=== PATIENT | male | born 1945 | race Caucasian/White ===

== ENCOUNTER 2020-01-04 09:57 | Outpatient (CLI) | payer MEDICARE, SELFPAY ==
--- NOTE | 2020-01-10 11:42 | WPDPFTINT ---
PFT Interpretation PFT Interpretation: This PFT met all criteria for ATS standards and reproducibility FEV/FVC pre bronchodilator 89% FEV1 87% or 2.49 liters FVC 65% or 2.81 liters TLC 84% or 5.47 liters RV 90% RV/TLC 43% DLCO 76% when adjusted for alveolar volume but not adjusted for hemoglobin Flow volume loops had coughing artifact but were mostly normal Impression: No significant obstruction or restriction but mildly decreased diffusion capacity is present. In the absence of anemia or pulmonary hypertension, intrinsic lung disease cannot be ruled out. Clinical correlation is advised.
== END 2020-01-04 09:58 | disposition home or self-care (01) ==
LOC: ANHPFT 10:00
PROVIDERS: PCP Family Medicine; Visit Provider Internal Medicine Cardiovascular Disease
DX: R23.0 Cyanosis (principal); Z87.891 Personal history of nicotine dependence
CPT/HCPCS: 94375; 94726; 94729

== ENCOUNTER 2020-02-17 01:24 | Outpatient (CLI) | payer MEDICARE, SELFPAY ==
[2020-02-17 21:25] LABS: SARS-CoV-2 RNA PCR Negative
== END 2020-02-17 01:25 | disposition home or self-care (01) ==
LOC: ANHCOVIDDT 01:24
PROVIDERS: PCP Family Medicine; Visit Provider Internal Medicine Critical Care Medicine
DX: Z20.828 Contact with and (suspected) exposure to other viral communicable diseases (principal)
CPT/HCPCS: 87635; C9803; U0003

== ENCOUNTER 2020-02-20 07:24 | Outpatient (CLI) | payer MEDICARE, SELFPAY ==
--- NOTE | 2020-03-26 10:59 | WPDSLEEPSTUD ---
Sleep Study Date of Study: 03/21/20 Ordering Provider: Denisse Hogan MD Interpreting Physician: Denisse Hogan MD Sleep Study Type: CPAP Titration Height: 1.78 m Weight: 120.202 kg Body Mass Index: 38.0 Neck Circumference: 43.18 cm [place]: 6 Reason for Sleep Study known SOFI, needs new equipment Sleep History Calvin Beatty is a 74 year old man with a long history of sleep apnea. He was started on BiPAP in 2010 but did not like it. He resorted back to using CPAP. His machine is broken and he has been using an old CPAP device that his had at home. He has difficulty waking up in the morning. He does not snore when he is using Pap therapy. He does not awaken at night with heartburn, belching or coughing. He does not awaken from sleep feeling short of breath. He occasionally has trouble sleeping with a cold. He does not wake up gasping for breath at night. He occasionally has breathing problems at night reported to him by his . He occasionally sweats excessively at night. He denies noticing his heart pounding irregularly at night, falling asleep during the day, falling asleep involuntarily or while driving the car. He does not fall asleep during physical activity. He does not have loss of muscle tone with strong emotion. He does not have daytime difficulties due to excessive sleepiness. He denies having paralysis on waking or falling asleep and denies vivid dreamlike scenes upon awakening or falling asleep. He is not afraid to go to sleep. He does not have nightmares, he does not have dream recall. He denies racing thoughts, feelings of sadness, depression or anxiety. He does not have muscular tension. He rarely notices parts of his body jerking. He frequently kicks at night, frequently has crawling and aching feelings in his legs at night and frequently has leg pain at night. He does not have morning jaw pain. He does not grind his teeth during sleep. He constantly has bothered by pain during the day, occasionally is awakened by pain at night. He constantly wakes up feeling stiff in the morning frequently was sore achy muscles but never with pain in the neck and spine. He takes ropinirole at night for leg movements. He takes Seroquel to get to sleep at night. Normal bedtime is midnight taking 30-40 minutes fall asleep and he said he does not wake up at night. He wakes at 9 in the morning. He denies taking naps. Naps are not refreshing. Habits: Caffeine 4 cups per day. quit tobacco at age 52, smoked 2-1/2 packs per day for about 30 years [facility] Past Medical History Medical History (Updated 03/26/20 @ 11:30 by Denisse Hogan MD) Arthritis Chronic GERD Diastolic dysfunction without heart failure Dyslipidemia Hypertension Hypoxia Mild tricuspid regurgitation SOFI on CPAP Restless legs syndrome Type II diabetes mellitus with neurological manifestations Surgical History Surgical History (Updated 03/26/20 @ 11:05 by Denisse Hogan MD) History of prostate surgery Social History Social History (Updated 03/26/20 @ 11:08 by Denisse Hogna MD) Social History: , is [place]. Retired, worked as a [employer]. Smoking packs per day: 2.5 Smoking cigarettes per day: 50.0 Years smoked: 30 Smoking pack-years: 75.00 Smoking status: Former smoker Living arrangements: with family Occupation/Education: retired Medications Home Medications Medication Instructions Recorded Confirmed Type betamethasone valerate 0.1 % lotion 1 applic TOPICAL BID 01/05/20 03/13/20 History carboxymethylcellulose sodium 0.5 1 drp OPHTHALMIC (EYE) BID 01/05/20 03/13/20 History % eye drops cholecalciferol (vitamin D3) 125 125 mcg PO DAILY 01/05/20 03/13/20 History mcg (5,000 unit) tablet clobetasol 0.05 % topical cream 1 applic TOPICAL BID 01/05/20 03/13/20 History docusate sodium 100 mg tablet 100 mg PO BID 01/05/20 03/13/20 History fluocinonide 0.05 % topical cream 1 applic TOPICAL BID
[2020-03-26 11:00] VITALS: BMI 38.0
== END 2020-02-20 07:25 | disposition home or self-care (01) ==
LOC: ANHCSM 07:30
PROVIDERS: PCP Family Medicine; Visit Provider Internal Medicine Critical Care Medicine
DX: G47.33 Obstructive sleep apnea (adult) (pediatric) (principal); Z99.89 Dependence on other enabling machines and devices
CPT/HCPCS: 95811

== ENCOUNTER 2020-03-02 12:34 | Outpatient (CLI) | payer MEDICARE, SELFPAY ==
--- NOTE | 2020-03-06 09:42 | WPDPFTINT ---
PFT Interpretation PFT Interpretation: This Spirometry met all criteria for ATS standards and reproducibility FEV/FVC post bronchodilator 86% FEV1 93% FVC 72% There was an improvement in post bronchodilator FEV1 by 13% and 300 ml Flow volume loops were normal Impression: Although no significant obstruction is present the bronchodilator response suggests possible reactive airway disease or Asthma but COPD or other lung diseases cannot be ruled out. Clinical correlation is advised.
== END 2020-03-02 12:35 | disposition home or self-care (01) ==
PROVIDERS: PCP Internal Medicine; Visit Provider Internal Medicine Critical Care Medicine
DX: R06.02 Shortness of breath (principal)
CPT/HCPCS: 94060

== ENCOUNTER 2022-06-05 10:25 | Outpatient (RCR) | payer MEDICARE, SELFPAY ==
--- NOTE | 2022-06-05 11:23 | OTOPEVDC ---
Assessment and note entered by Akil Conte, OTR/L, CHT Thank you for referring Calvin Beatty to [facility].? An evaluation has been completed. No further treatment is needed. Evaluation Information Assessment Status Evaluation Subjective Information Patient referred to our clinic for a w/c evaluation with diagnosis of decreased mobility. He presents today using a cane, reporting severe leg/hip/knee pain with walking, gets up to 10/10 at times. States he has been having an increasingly difficult time moving around the home and occasionally needs help with bathing and dressing on bad days . He has chronic back pain with radiculopathy, OA, h/o bilateral knee replacements. Reported Pain Level Pain Score 5: Self Report Assessment OT Clinical Summary Wheelchair evaluation completed this date. Patient unable to use an optimally fitted cane, walker, or manual w/c for mobility needs due to chronic pain, weakness, decreased balance, and limited standing tolerance. He will benefit from use of a scooter for his mobility as he has the intact trunk strength, sitting balance, and UE ROM to operate the [employer] system. Please refer to w/c evaluation form for more detailed information. No further skilled OT indicated at this time. D/C OT. Plan of Care OT Services Indicated No
== END 2022-06-06 14:09 | disposition home or self-care (01) ==
LOC: ANHOT 10:25
PROVIDERS: PCP Nurse Practitioner Family; Visit Provider Nurse Practitioner Family
DX: Z74.09 Other reduced mobility (principal)
CPT/HCPCS: 97165

== ENCOUNTER 2024-03-04 12:19 | Emergency (ER) | payer MEDICARE, SELFPAY ==
[2024-03-04 12:28] VITALS: BP 159/71; PULSE 83; RESP 18; TEMP 36.6; O2SAT 97
--- NOTE | 2024-03-04 12:47 | ED_ITS ---
HPI - General Adult General Chief complaint: Wound/Laceration Stated complaint: wound to right hand Time Seen by Provider: 03/04/24 13:13 Focused HPI: This is a 78-year-old male with PMH of T2 dm who presents to the ED for chief complaint of right hand possible spider bite. Reports area of swelling to the right hand the started 2 days ago. Since then he has had increasing bruising throughout the hand. States the hand is minimally painful. He is on warfarin for that he takes regularly. GENERAL: Well-appearing, well-nourished, and in no acute distress. HEAD: Normocephalic, atraumatic. CHEST: Clear to auscultation. No respiratory distress. HEART: Regular rate and rhythm. EXTR: Right hand with bruising and mild swelling present. Minimal tenderness. NEURO: Alert and oriented x3. Patient screened in triage and initial orders placed. Additional care and disposition to be based upon diagnostic testing and treatment. Source: patient Mode of arrival: ambulatory Limitations: no limitations Related Data Home Medications ?Medication ?Instructions ?Recorded ?Confirmed ?Last Taken ?Type carboxymethylcellulose sodium 0.5 1 drp ophthalmic (eye) BID 01/05/20 10/07/22 Unknown History % eye drops cholecalciferol (vitamin D3) 125 125 mcg PO DAILY 01/05/20 10/07/22 Unknown History mcg (5,000 unit) tablet docusate sodium 100 mg tablet 100 mg PO BID 01/05/20 10/07/22 Unknown History glipizide 5 mg tablet 5 mg PO BID 01/05/20 10/07/22 Unknown History multivitamin 1 cap PO DAILY 01/05/20 10/07/22 Unknown History niacin 500 mg capsule,extended 500 mg PO QAM 01/05/20 10/07/22 Unknown History release pregabalin 300 mg capsule 300 mg PO BID 01/05/20 10/07/22 Unknown History ropinirole 0.5 mg tablet 0.5 mg PO DAILY 01/05/20 10/07/22 Unknown History sertraline 50 mg tablet 50 mg PO DAILY 01/05/20 10/07/22 Unknown History tamsulosin 0.4 mg capsule 0.4 mg PO DAILY 01/05/20 10/07/22 Unknown History metformin 1,000 mg tablet 1,500 mg PO ONCE 01/24/20 10/07/22 Unknown History warfarin 5 mg tablet 5 mg PO .Sat and Sun 06/05/20 10/07/22 Unknown History warfarin 7.5 mg tablet 7.5 mg PO .Thu-Thursday06/05/20 10/07/22 Unknown History empagliflozin 25 mg tablet 12.5 mg PO DAILY 05/09/21 10/07/22 Unknown History pantoprazole 20 mg tablet,delayed 20 mg PO BID 05/09/21 10/07/22 Unknown History release acetaminophen 325 mg capsule 650 mg PO Q6H PRN 09/11/21 10/07/22 Unknown History atorvastatin 20 mg tablet 20 mg PO DAILY 09/11/21 10/07/22 Unknown History betamethasone valerate 0.1 % lotion 1 applic topical BID 09/11/21 10/07/22 Unknown History lactobacillus combination no.9 PO 09/11/21 10/07/22 Unknown History [Adult 50 Plus Probiotic] medical marijuana BYMOUTH 09/11/21 10/07/22 Unknown History miconazole nitrate 2 % topical 1 applic topical BID 09/11/21 10/07/22 Unknown History cream quetiapine 200 mg tablet 100 mg PO QHS 09/11/21 10/07/22 Unknown History Allergies Allergy/AdvReac Type Severity Reaction Status Date / Time KETOROLAC TROMETHAMINE AdvReac Intermediate HIVES Uncoded 05/21/22 13:07 Review of Systems 2 Review of Systems: All systems as dictated in [facility] Past Medical History Medical History (Updated 03/04/24 @ 14:18 by Jose Luis Jenkins PA-C) Stuttering Chronic anxiety Chronic pain Reduced mobility Use of cane as ambulatory aid Neuropathy Colon cancer screening BMI 38.0-38.9,adult Encounter to establish care Restless legs syndrome Chronic GERD Type II diabetes mellitus with neurological manifestations Hypertension Mild tricuspid regurgitation Diastolic dysfunction without heart failure SOFI on CPAP Hypoxia Arthritis Dyslipidemia Surgical History Surgical History (Updated 09/11/21 @ 10:05 by Jeremias Hannah CMA) History of bilateral knee replacement History of prostate surgery Family History Family History (Updated 09/11/21 @ 10:06 by Jeremias Hannah CMA) Father Lung cancer Mother Diabetes mellitus Hypertension Heart disease Cerebrovascular accident Sibling Diabetes mellitus Hypertension Cerebrovascular accident Leukemia Social History Social History Social History: , is Shama. Retired, worked as a [employer]. Smoking packs per day: 2.5 Smoking cigarettes per day: 50.0 Years smoked: 30 Smoking pack-years: 75.00 Smoking status: Former smoker Second hand tobacco smoke exposure: Yes Smoking end date: 03/23/98 Alcohol intake: never Substance use: current Substance use type: marijuana Other substance usage details: medical Lack of Transportation: No Lack of Food: Never True Current Housing: I Have Housing Concerned About Future Housing: No Difficulty Paying Gas/Electric Bills: No Difficulty Paying for Meds: No Currently Unemployed: No Education: High School Diploma/GED Difficulty w/ Childcare or Family Care: No Living arrangements: with family Occupation/Education: retired Exam 2 Narrative: GENERAL: Well-appearing, well-nourished, and in no acute distress. HEAD: Normocephalic, atraumatic. EYES: PERRLA and EOMI. ENT: Nares clear, no rhinorrhea or epistaxis. Mucous membranes moist. Oropharynx without tonsillar hypertrophy exudate or other lesions. NECK: Supple. No adenopathy or masses. CHEST: No respiratory distress. Clear to auscultation. No wheezes rales or rhonchi HEART: Regular rate and rhythm. No murmur heard. Normal peripheral pulses. ABDOMEN: Soft, nontender, nondistended, normal active bowel sounds. MSK: Normal range of motion. No edema. SKIN: Bruising noted to the right hand. Mild swelling noted. Minimal warmth or erythema. NEURO: Alert and oriented x4. No focal deficits. PSYCH: Normal mood and affect. Course Vital Signs Vital signs: Vital Signs Temperature 97.8 F 03/04/24 12:28 Pulse Rate 83 03/04/24 12:28 Respiratory Rate 18 03/04/24 12:28 Blood Pressure 159/71 H 03/04/24 12:28 Pulse Oximetry 97 03/04/24 12:28 Temperature 97.8 F 03/04/24 12:28 Pulse Rate 83 03/04/24 12:28 Respiratory Rate 18 03/04/24 12:28 Blood Pressure 159/71 H 03/04/24 12:28 Pulse Oximetry 97 03/04/24 12:28 Medical Decision Making [facility] Narrative Medical decision making narrative: This is a 78-year-old male who presents to the ED for chief complaint of possible spider bite to the right hand with bruising. Vitals are normal. Exam shows mild swelling and moderate ecchymosis to the hand. He is on warfarin and suspect most of the bruising is due to the injury with warfarin on board. There is no necrotic appearing skin. It is nontender and overall not very warm to touch. Lab work is unremarkable. CBC is normal. No fever. INR stable at 2.5. Blood sugar is a little high with history of diabetes. Will prescribe Keflex for possible infection especially considering history of diabetes, however suspect mostly it is a hypersensitivity reaction to a spider bite. Pt will be discharged in stable condition. Return precautions given and supportive measures discussed. Pt is understanding and agreeable with plan for discharge and follow-up with PCP. Vital Signs Vital Signs: Vital Signs Temperature 97.8 F 03/04/24 12:28 Pulse Rate 83 03/04/24 12:28 Respiratory Rate 18 03/04/24 12:28 Blood Pressure 159/71 H 03/04/24 12:28 Pulse Oximetry 97 03/04/24 12:28 Temperature 97.8 F 03/04/24 12:28 Pulse Rate 83 03/04/24 12:28 Respiratory Rate 18 03/04/24 12:28 Blood Pressure 159/71 H 03/04/24 12:28 Pulse Oximetry 97 03/04/24 12:28 Lab Data 03/04/24 13:30 03/04/24 13:29 Labs: Lab Results 03/04/24 03/04/24 Range/Units 13:29 13:30 WBC 5.3 (4.5-10.0) K/mm3 RBC 5.63 (4.6-6.20) M/mm3 Hgb 14.6 (14.0-18.0) g/dL Hct 46.2 (42.0-52.0) % MCV 82.1 (80-100) fl MCH 25.9 L (26-34) pg MCHC 31.6 L (32-36) g/dl RDW 14.7 H (11.5-14.5) % Plt Count 120 L (150-375) k/mm3 MPV 10.7 H (7.4-10.4) fl Immature Gran % (Auto) 0.4 (0-0.5) % Neut % (Auto) 60.2 (45.5-73.1) % Lymph % (Auto) 29.5 (18.3-44.2) % Imperial % (Auto) 7.0 (2.6-8.5) % Eos % (Auto) 2.1 (0-4.4) % Baso % (Auto) 0.8 (0.2-1.2) % Lymph # (Auto) 1.56 (0.9-3.2) K/mm3 Imperial # (Auto) 0.4 (0.1-0.6) K/mm3 Eos # (Auto) 0.1 (0-0.3) K/mm3 Baso # (Auto) 0.0 (0.0-0.1) K/mm3 Abs Immat Gran (auto) 0.02 (0.00-0.031) K/mm3 Absolute Neuts (auto) 3.2 (1.3-6.7) K/mm3 Absolute Nucleated RBC 0.000 (0.0-0.012) K/mm3 Nucleated RBC % 0.0 (0.0-0.2) % PT 27.3 H (11.1-14.7) Seconds INR 2.5 APTT 34.4 (22.3-36.8) Seconds Sodium 138 (137-145) mmol/L Potassium 4.3 (3.4-5.0) mmol/L Chloride 105 (98-107) mmol/L Carbon Dioxide 24 (22-30) mmol/L Anion Gap 9 (4-12) mmol/L BUN 22 H (9-20) mg/dL Creatinine 0.90 (0.7-1.3) mg/dL Estim Creat Clear Calc 77 ml/min Estimated GFR > 60 (59 - ) Glucose 261 H (65-110) mg/dL Calcium 9.6 (8.4-10.2) mg/dL C-Reactive Protein < 0.5 (<1.0) mg/dL Discharge Plan Discharge Clinical Impression: Insect bite Patient Disposition: Home, Self-Care Condition: Stable Instructions: Antibiotic Form Additional Instructions: Exam today is concerning for possible spider bite. Please take antibiotics as prescribed follow-up with PCP. If you have any new or worsening symptoms please return to the ER for further evaluation. Patient Language: Bengali Prescriptions: New cephalexin 500 mg capsule 500 mg PO Q8H 7 Days Qty: 21 0RF No Action carboxymethylcellulose sodium 0.5 % drops 1 drp ophthalmic (eye) BID cholecalciferol (vitamin D3) 125 mcg (5,000 unit) tablet 125 mcg PO DAILY docusate sodium 100 mg tablet 100 mg PO BID glipizide 5 mg tablet 5 mg PO BID multivitamin Capsule 1 cap PO DAILY niacin 500 mg capsule, extended release 500 mg PO QAM pregabalin 300 mg capsule 300 mg PO BID ropinirole 0.5 mg tablet 0.5 mg PO DAILY sertraline 50 mg tablet 50 mg PO DAILY tamsulosin 0.4 mg capsule 0.4 mg PO DAILY empagliflozin 25 mg tablet 12.5 mg PO DAILY Patient Comments: pt takes half a pill daily pantoprazole 20 mg tablet,delayed release (DR/EC) 20 mg PO BID metformin 1,000 mg tablet 1,500 mg PO ONCE Patient Comments: with super albuterol sulfate 90 mcg/actuation HFA aerosol inhaler 1 - 2 inh inhalation Q4-6H PRN (Reason: shortness of breath or wheezing) Qty: 8.5 1RF acetaminophen 325 mg capsule 650 mg PO Q6H PRN atorvastatin 20 mg tablet 20 mg PO DAILY betamethasone valerate 0.1 % lotion 1 applic topical BID miconazole nitrate 2 % cream 1 applic topical BID quetiapine 200 mg tablet 100 mg PO QHS medical marijuana BYMOUTH lactobacillus combination no.9 [Adult 50 Plus Probiotic] PO warfarin 7.5 mg tablet 7.5 mg PO .Mon-Thursday warfarin 5 mg tablet 5 mg PO .Sat and Sun cefdinir 300 mg capsule 300 mg PO Q12H Qty: 20 0RF prednisone 20 mg tablet 20 mg PO DAILY Qty: 5 0RF benzonatate 200 mg capsule 200 mg PO TID PRN (Reason: cough) Qty: 30 0RF Follow-up/Referrals: Asiya Barnes NP [Primary Care Provider] - Time of Disposition: 14:18
--- OUTSIDE RECORDS SUMMARY | 2024-03-04 12:54 | XMS_ITS | Encounter Summary ---
Author Name [facility] Organization [facility] Address [address] [place] [address] Care Team Providers Care Mailroom Associate Name Role Phone JILLIAN JENKINS Primary Care Provider Unavailabl e Insurance Providers: All historical and current Section Date Range: From patient's date of to the date document was created. This section includes the names of all active insurance providers for the patient. Insurance Provider Type of Coverage Plan Name Start of Policy Coverage End of Policy Coverage Group Number Member ID Insurance Provider's Telephone Number Policy Berrios's Name Patient's Relationship to Policy Berrios ANTHE[place] MED[place] SUPPLEMEN WILL MEDIC ARE SUPPL EMEMT Apr 23, 2019 [id number] [phone] KATHY ORTEGA PATIENT ANTHEM [place] MEDICARE SUPPLEMEN WILL MEDIC ARE SUPPL EMEMT Apr 23, 2019 [id number] [phone] KATHY ORTEGA PATIENT AN[place] MED[place] SUPPLEMEN WILL MEDIC ARE SUPPL EMEMT Apr 23, 2019 [id number] [phone] KATHY ORTEGA PATIENT [place] MEDICARE SUPPLEMEN WILL MEDIC ARE SUPPL EMEMT Apr 23, 2019 [id number] [phone] KATHY ORTEGA PATIENT [employer] MCR (WNR) MEDICARE ADVANTAGE MCR (WNR) Mar 23, 2022 [id number] KATHY ORTEGA PATIENT [employer] M[employer] (WNR) MEDICARE ADVANTAGE [facility] (WNR) Mar 23, 2022 [id number] [phone] KATHY ORTEGA PATIENT MEDICARE (WNR) MEDICARE (M) RR PART A May 21, 1990 RR PART A [id number] KATHY ORTEGA PATIENT MEDICARE (WNR) MEDICARE (M) RR PART B May 21, 1990 RR PART B [id number] KATHY ORTEGA PATIENT [employer] [place] MEDICARE SUPPLEMEN WILL MEDIC ARE SUPPL EMENT Feb 20, 2013 PLAN G [id number] [phone] KATHY ORTEGA PATIENT [facility] (WNR) MEDICARE ADVANTAGE [facility] (WNR) Mar 23, 2021 [id number] [phone] KATHY ORTEGA PATIENT Selected Encounter This section includes the information on record at ID for the Encounter. Date/Time Encounter Type Encounter Description Reason Provider Source Feb 11, 2024 11:00 AM OFFICE O/P EST MOD 30 MIN PRIMARY CARE/MEDICINE ICD-10-CM F43.29 Adjustment disorder with other symptoms JENKINS,JILLIAN A IHE Encounter Template Text not used by ID Assessments - Encounter Diagnoses This section includes the primary and secondary diagnoses documented for the Encounter. Date/Time Primary/Secondary Diagnosis Diagnosis Name Provider Source Feb 11, 2024 11:50 AM PRIMARY Adjustment disorder with other symptoms JENKINS,JILLIAN A [facility] Feb 11, 2024 11:50 AM SECONDARY Cervicalgia JENKINS,JILLIAN A [facility] Feb 11, 2024 11:50 AM SECONDARY Dorsalgia, unspecified JENKINS,JILLIAN A [facility] Feb 11, 2024 11:50 AM SECONDARY Encounter for immunization JONY IBANEZ [facility] Feb 11, 2024 11:50 AM SECONDARY Gastro-esophageal reflux disease without esophagitis JENKINS,JILLIAN A [facility] Feb 11, 2024 11:50 AM SECONDARY Obstructive sleep apnea (adult) (pediatric) JENKINS,JILLIAN A [facility] Feb 11, 2024 11:50 AM SECONDARY Personal history of pulmonary embolism JENKINS,JILLIAN A [facility] Feb 11, 2024 11:50 AM SECONDARY Type 2 diabetes mellitus with diabetic polyneuropathy JILLIAN JENKINS [facility] Feb 11, 2024 11:50 AM SECONDARY Type 2 diabetes mellitus with unspecified complications JILLIAN JENKINS [facility] Plan of Treatment: Future Appointments (+ 6 months) and Future Tests (+/- 45 days) The Plan of Treatment section includes future care activities for the patient from [facility] This section includes future appointments and future orders which are active, pending or scheduled. Future Appointments This section includes appointments that were scheduled to occur 6 months from the date of the Encounter, up to a maximum of 20 appointments. The data comes from all [facility]. Appointment Date/Time Appointment Type Appointme nt Facility Name Mar 21, 2024 09:00 AM AMBULATORY - MEDICINE [facility] Mar 24, 2024 11:00 AM AMBULATORY - PSYCHIATRY [facility] Apr 18, 2024 09:30 AM [facility] Active, Pending, and Scheduled Orders This section includes a listing of several types of active, pending, and scheduled orders, including clinic medications orders, diagnostic test orders, procedure orders and consult orders; where the start date of the order is 45 days before the date of the Encounter or 45 days after the date of theEncounter. The data comes from all [facility]. Test Date/Time Test Type Test Details Facility Name Feb 11, 2024 12:00 AM Laboratory - Chemistry Order LIPID PANEL (STL) GREEN LI/HEP BLD/PLAS PLASMA SP ONCE [facility] Feb 11, 2024 12:00 AM Laboratory - Chemistry Order MICRAL/CREAT PROFILE (STL) URINE SP [facility] Feb 11, 2024 12:00 AM Laboratory - Chemistry Order TSH W/ REFLEX FT4 (STL) GREEN LI-HEP PLASMA SP [facility] Feb 11, 2024 12:00 AM Laboratory - Chemistry Order URIC ACID GREEN LI/HEP BLD/PLAS PLASMA SP [facility] Feb 11, 2024 12:00 AM Laboratory - Chemistry Order VITAMIN D, 25-HYDROXY GOLD/RED SST SERUM SP [facility] Feb 11, 2024 12:00 AM Laboratory - Chemistry Order COMPREHENSIVE METABOLIC PANEL GREEN LI/HEP BLD/PLAS PLASMA SP [facility] Feb 22, 2024 12:00 AM Laboratory - Chemistry Order B12 GOLD/RED SST SERUM SP [facility] Feb 22, 2024 12:34 PM Consult Order PODIATRY H IGH RISK FOOT EXAM OUTPT STL Cons Senior Mainframe Programmer Analyst's Choice [facility] Mar 21, 2024 12:00 AM Laboratory - Chemistry Order WARFARIN-INR BLOOD PLASMA SP [facility] Lab Results: +/- 30 days of the encounter This section includes the Chemistry and Hematology Lab Results on record with ID for the patient. Radiology Reports and Pathology Reports are provided separately, in subsequent sections. Lab Results This section contains the Chemistry/Hematology Results that were resulted 30 days before or 30 daysafter the date of the Encounter. Date/Time Source Result Type Result - Unit Interpretation Reference Range Comment Feb 11, 2024 10:34 AM [facility] HGB,HCT,PLT Specimen Type: BLOOD No comment entered. Ordering Provider: NANCI PEREIRA Report Released Date/Time: Jan 13, 2024 01:55 PM Reporting Lab: [facility] [address] [place] [address] Performing Lab: [address] [address] HGB 13.9 g/dL 13.1-16.8 HCT 45.5 38.2-48.4 PLT 130 10*3/uL L 150-400 Feb 11, 2024 10:34 AM [facility] HGA1C Specimen Type: BLOOD No comment entered. Ordering Provider: ISMAEL JENKINS Report Released Date/Time: Feb 11, 2024 11:13 AM Reporting Lab: [place] [id number] [place] [address] Performing Lab: [address] [address] HGA1C 8.3 H 4.0-6.0 Feb 11, 2024 10:33 AM [facility] POC INR (STL-RX MONITORING ONLY) Specimen Type: BLOOD Comment: Test Performed by: [id number] Meter #: [id number] Ordering Provider: NANCI PEREIRA Report Released Date/Time: Feb 12, 2024 08:40 AM Reporting Lab: [address] [address] Performing Lab: [address] [address] POC INR (STL-RX MONITORING ONLY) 2.3 {INR} H 0.9-1.1 Jan 13, 2024 09:58 AM [facility] POC INR (STL-RX MONITORING ONLY) Specimen Type: BLOOD Comment: Test Performed by: [id number] Meter #: [id number] Ordering Provider: NANCI PEREIRA Report Released Date/Time: Jan 13, 2024 10:04 AM Reporting Lab: [address] [address] Performing Lab: [address] [address] POC INR (STL-RX MONITORING ONLY) 2.8 {INR} H 0.9-1.1 Vital Signs: All taken on the encounter date This section contains inpatient and outpatient Vital Signs collected on the date of the Encounter. Date/Time Temperature Pulse Blood Pressure Respiratory Rate SP02 Pain Height Weight Body Mass Index Source Feb 11, 2024 11:17 AM 134/76 [facility] Feb 11, 2024 11:13 AM 97.8 68 147/78 18 95 6 70 254 37 [facility] Immunizations: All administered on the encounter date This section contains immunizations associated to the Encounter. Immunization Series Date Issued Reaction Comments RSV, BIVALENT, PROTEIN SUBUN IT RSVPREF, DILUENT RECONSTITUTED, 0.5 ML, PF 1 Feb 11, 2024 Social History: Smoking Status (Most current) and Tobacco Use (All prior to encounter date) This section includes the most current, and the historical, smoking and tobacco- related health factors from the ID facility where the Encounter took place. Current Smoking Status This section includes the most current smoking, or tobacco-related health factor, from the ID facility where the Encounter took place. Date/Time Current Smoking Status Comment Catherine ity Feb 11, 2024 11:00 AM VA-TOBACCO USE FOR ALISSA CIGARETTES [facility] Tobacco Use History This section includes a history of the smoking, or tobacco-related health factors, that were collected on or before the date of the Encounter. The data comes from the ID facility where the Encounter took place. Date/Time Smoking Status/Tobacco Use Comment F acility Feb 11, 2024 11:00 AM VA-TOBACCO USE FOR ALISSA CIGARETTES [facility] Jan 15, 2023 09:30 AM VA-TOBACCO FORMER USER [facility] Jan 15, 2023 09:30 AM VA-TOBACCO QUIT [address] [facility] Jan 06, 2022 11:00 AM VA-TOBACCO FORMER [facility]ER [facility] Jan 06, 2022 11:00 AM VA-TOBACCO QUIT [address] [facility] Jan 03, 2021 02:00 PM VA-TOBACCO FORMER USER [facility] Jan 03, 2021 02:00 PM VA-TOBACCO QUIT [address] [facility] May 16, 2019 10:16 AM VA-TOBACCO FORMER [facility]ER [facility] May 16, 2019 10:16 AM VA-TOBACCO QUIT [address] [facility] May 06, 2017 08:46 AM QUIT TOBACCO >[address] [facility] Nov 03, 2016 10:14 AM QUIT TOBACCO >[address] [facility] August 06, 2012 09:27 AM QUIT TOBACCO >[address] [facility] Jun 12, 2011 01:07 PM QUIT TOBACCO >[address] [facility] Advance Directives: All historical and current Section Date Range: From patient's date of to the date document was created. This section includes ALL of a patient's completed or amended VA Advance and Rescinded Directives. The entries below indicate that a directive exists for the patient, but an actual copy is not included with this document. The data comes from all ID facilities. Date Advance Directives Provider Source Jun 13, 2013 ADVANCE DIRECTIVE DISCUSSION NATALIE,RONALD B [facility] Encounter Notes: All associated encounter notes This section contains the clinical notes associated to the Encounter. Date/Time Encounter Note(s) Provider Source Feb 26, 2024 01:30 PM ADMINISTRATIVE NOT E: LOCAL TITLE: ADMINISTRATIVE STL STANDARD TITLE: ADMINISTRATIVE NOTE DATE OF NOTE: FEB 26, 2024@13:30 ENTRY DATE: FEB 26, 2024@13:31 AUTHOR: JILLIAN JENKINS EXP COSIGNER: URGENCY: STATUS: COMPLETED pls send to pt via : HGA1C 8.3 H % 02/11/2024 10:34 These results are abnormal. You have uncontrolled Diabetes. I was able to get approval for ozempic ( semaglutide ) for you. pls STOP taking sitagliptin once you start ozempic injection every week. the nurse at the clinic can teach you how to administer ozempic injection if needed. Pls do not hesitate to call our clinic. /paola/ JILLIAN JENKINS MD Signed: 02/26/2024 13:31 Receipt Acknowledged By: 02/26/2024 14:20 /paola/ SHAN WILKERSON REGISTERED NURSE JILLIAN JENKINS [facility] Feb 26, 2024 01:27 PM PHYSICIAN LETTERS: LOCAL TITLE: TEST RESULT GENERAL LETTER STL STANDARD TITLE: PHYSICIAN LETTERS DATE OF NOTE: FEB 26, 2024@13:27 ENTRY DATE: FEB 26, 2024@13:28:16 AUTHOR: JILLIAN JENKINS EXP COSIGNER: URGENCY: STATUS: COMPLETED [facility] [address] [place] [address] FEB 26, 2024 SACHA ORTEGA [address] [place], [place] [address] Dear Sacha Ortega, I would like to update you on your recent test results. HEMOGLOBIN A1C - Gives us information about your diabetes (sugar or glucose) control over the past 3 months. Your target is to keep your A1C below 8 %. HGA1C 8.3 H % 02/11/2024 10:34 These results are abnormal. You have uncontrolled Diabetes. I was able to get approval for ozempic ( semaglutide ) for you. pls STOP taking sitagliptin once you start ozempic injection every week. the nurse at the clinic can teach you how to administer ozempic injection if needed. Pls do not hesitate to call our clinic. PLAN Please continue your treatment as we discussed during your visit. If you have any questions please call your residential case manager. I look forward to seeing you at your next clinic appointment. Thank you for choosing the [facility] for your healthcare. FUTURE APPOINTMENTS: 03/21/2024 09:00 [facility]PHONE PHARM ANTICOAG L 03/24/2024 11:00 [facility]VVC VIN SCOTT 04/18/2024 09:30 [facility]PODIATRY ARAMBULA 08/17/2024 11:00 [facility]-ST CLR PACT 6 PCP 01/25/2025 09:30 [facility]OPTOMETRY 2 Sincerely, SACHA ISSA MD, ARMIDA A [facility] Feb 22, 2024 12:32 PM ADDENDUM: LOCAL TITLE: Addendum STANDARD TITLE: ADDENDUM DATE OF NOTE: FEB 22, 2024@12:32:49 ENTRY DATE: FEB 22, 2024@12:32:50 AUTHOR: JILLIAN JENKINS EXP COSIGNER: URGENCY: STATUS: COMPLETED pt with SC anxiety, reports stable mood. Pt and family has reported concenrs of increased forgetfulness and losing train of thought. would appreciate eval when you see him in the clinic. 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 Back pain radiates down both buttocks. Denies loss of bowel control. denies difficulty emptying bladder. Takes OTC apap for pain. Also uses medical cannabis. pregabalin helps. He is advised to call clinic for eval to see if he meets criteria for scooter. He denies cp, sob, palpitations.KNows how to ID and treat hypoglycemia. Denies increased thirst, urination nor hunger. . He sleeps ok, tolerates cpap. mood stable. denies SI/HI. He reports painful numbness of both feet . His cuts toenails , no open areas. His family has noted increased forgetfulness and losing train of thought. he is followed by . Will tag Dr Scott. He uses cpap nightly for sofi , needing cpap supplies, advised to call cpap clinic directly. 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 [id number]) 20) Neck Pain ([facility] [id number]) 21) Bilateral Knee Pain ([facility] [id number]) 22) Low Back Pain ([facility] [id number]) 23) Therapeutic drug effect 24) Anticoagulant effect 25) Obesity ([facility] [id number]) FAMILY HISTORY: No new updates. SOCIAL HISTORY: NICOTINE: Nicotine User: No ILLICIT DRUGS: Yes-cbd ETOH: denies ALLERGIES: AUGMENTIN, SIMVASTATIN, MORPHINE ALLERGY REVIEW: Allergy list reviewed and remains current. MEDICATION RECONCILIATION: I have reviewed the patient's medication list with the patient and/or his/her care-sole leveler machine. Handwritten corrections, additions and/or deletions were made to the list. Corrected Outpatient Medication List was provided to the patient/caregiver. Active Outpatient Medications (including Supplies): Active Outpatient Medications Status 1) ACCU-CHEK GUIDE (GLUCOSE) TEST STRIP USE 1 STRIP FOR ACTIVE BLOOD TEST TWO TIMES PER WEEK *HYPOGLYCEMIA, 100 STRIPS PER YEAR* Sep 2) ATORVASTATIN CALCIUM 20MG TAB TAKE ONE-HALF TABLET BY ACTIVE MOUTH EVERY EVENING FOR CHOLESTEROL. REPORT ANY UNEXPLAINED MUSCLE PAIN/WEAKNESS TO PROVIDER. 3) DOCUSATE NA 100MG CAP TAKE ONE CAPSULE BY MOUTH TWICE ACTIVE A DAY TO SOFTEN STOOL. HOLD FOR LOOSE STOOL/DIARRHEA. 4) EMPAGLIFLOZIN 25MG TAB TAKE ONE TABLET BY MOUTH ONCE ACTIVE (S) A DAY FOR DIABETES 5) GLIPIZIDE 10MG TAB TAKE ONE TABLET BY MOUTH TWO TIMES ACTIVE (S) A DAY BEFORE MEALS FOR DIABETES TAKE 30 MINUTES BEFORE EATING. 6) KETOTIFEN 0.025% OPH SOLN INSTILL 1 DROP IN BOTH EYES ACTIVE TWICE A DAY 7) LANCET,SOFTCLIX USE LANCET FOR BLOOD TEST THREE TIMES ACTIVE PER WEEK FOR BLOOD SUGAR MONITORING USE DIRECTED. 8) PANTOPRAZOLE NA 20MG EC TAB TAKE ONE TABLET BY MOUTH ACTIVE (S) TWICE A DAY TO LOWER STOMACH ACID - TAKE 30 MINUTES BEFORE MEAL(S) 9) PREDNISOLONE ACETATE 1% OPH SUSP INSTILL 1 DROP IN ACTIVE LEFT EYE FOUR TIMES A DAY FOR EYE INFLAMMATION TO USE AFTER SURGERY ON 06/30 10) PREGABALIN 300MG ORAL CAP TAKE ONE CAPSULE BY MOUTH ACTIVE TWICE A DAY FOR NERVE PAIN *MAY CAUSE DROWSINESS* 11) QUETIAPINE FUMARATE 200MG TAB TAKE ONE-HALF TABLET BY ACTIVE (S) MOUTH AT BEDTIME FOR MOOD 12) ROPINIROLE HCL 0.5MG TAB TAKE ONE TABLET BY MOUTH AT ACTIVE (S) BEDTIME FOR PARKINSON DISEASE 13) SERTRALINE HCL 100MG TAB TAKE ONE-HALF TABLET BY ACTIVE (S) MOUTH EVERY MORNING FOR MOOD 14) SITAGLIPTIN (EQV-ZITUVIO) 50MG TAB TAKE ONE TABLET BY ACTIVE MOUTH ONCE A DAY FOR DIABETES TO REPLACE ALOGLIPTIN 15) TADALAFIL 10MG TAB TAKE ONE TABLET BY MOUTH EVERY ACTIVE WEEK NEEDED FOR ERECTILE DYSFUNCTION (TAKE 30 MINUTES PRIOR TO SEXUAL ACTIVITY) - LIMIT 6 DOSES PER 30 DAYS 16) TAMSULOSIN HCL 0.4MG CAP TAKE TWO CAPSULES BY MOUTH ACTIVE (S) ONCE A DAY FOR BENIGN PROSTATIC HYPERPLASIA APPROXIMATELY 30 MINUTES AFTER THE SAME MEAL EACH DAY (FOR PROSTATE) 17) WARFARIN NA 5MG TAB TAKE ONE AND ONE-HALF TABLETS BY ACTIVE MOUTH THURSDAY, THURSDAY, THURSDAY AND THURSDAY AND TAKE TWO TABLETS THURSDAY, THURSDAY AND THURSDAY OR DIRECTED BY THE ANTICOAGULATION CLINIC. TO PREVENT BLOOD CLOTS. KEEP LAB APPOINTMENTS. Pending Outpatient Medications Status 1) ACETAMINOPHEN 325MG TAB TAKE ONE TABLET BY MOUTH FOUR PENDING TIMES A DAY NEEDED CAUTION: DO NOT EXCEED 4000MG PER DAY ACETAMINOPHEN (APAP) FROM ALL MEDS. Active Non-VA Medications Status 1) Non-VA BETAMETHASONE/CLOTRIMAZOLE CREAM,TOP TO ACTIVE AFFECTED AREA(S) TWICE A DAY 2) Non-VA MARIJUANA (MEDICAL) DIRECTED INHALATION ACTIVE NEEDED 3) Non-VA MULTIVITAMIN CAP/TAB 1 TABLET BY MOUTH ONCE A ACTIVE DAY 4) Non-VA PROBIOTIC COMBINATION CAP/TAB 1 CAPSULE BY ACTIVE MOUTH ONCE A DAY 22 Total Medications REVIEW OF SYSTEMS: General: Normal No Fevers, Chills, Weight Loss, Weight Gain, Recent Illness. Ears, Nose, Mouth, Throat: Normal No new loss of hearing or tinnitus, no Dental issue, Difficulty swallowing, Vertigo. Eye: Normal No Trauma, Cataracts, Glaucoma, Blurred vision Cardiovascular: Normal No Chest pain, Dizziness, Palpitations. Respiratory: Normal No Cough, SOB, Hemoptysis, Epistaxis, Influenza symptoms, +PDD. PHYSICAL EXAMINATION: General appearance: VITALS (most recent, as listed in the electronic record): B/P: 134/76 (02/11/2024 11:17) Pulse: 68 (02/11/2024 11:13) Temperature: 97.8 F [36.6 C] (02/11/2024 11:13) Weight: 254 lb [115.21 kg] (02/11/2024 11:13) Height: 70 in [177.8 cm] (02/11/2024 11:13) BMI: 36.5 Pain: 6 (02/11/2024 11:13) (0-10 scale) General: pleasant, cooperative, well-developed, obese, appropriately dressed and groomed ; in no acute distress.stutters when anxious Ears, Nose, Mouth, Throat:NC/AT,MMM, no thyromegaly Eye:PERRL Cardiovascular:RRR, No m/r/g or clicks. Respiratory:Clear to auscultation bilaterally. No accessory muscle use. Respirations even and non-labored ABD/GI:soft, non-tender. BS + x 4. /BOILER TENDER: Deferred Lymph: No lymphadenopathy Extremities/MSK:No pedal edema. Psych:Affect appropriate. Neuro: Oriented x3. Gait steady , slow stride, uses walker Hematology: Color good. No pallor. No ecchymosis or petechiae. Skin:No visualized abnormalities. DATA REVIEW: SLT - Lab Tests Selected Collection DT Specimen Test Name Result Units Ref Range 08/06/2023 11:28 BLOOD HGA1C 8.4 H % 4.0 - 6.0 01/15/2023 08:36 BLOOD HGA1C 8.4 H % 4.0 - 6.0 07/10/2022 08:50 BLOOD HGA1C 8.2 H % 4.0 - 6.0 = TRIGLYCERIDE 315 H mg/dL 08/06/2023 11:28 CHOLESTEROL 193 mg/dL 08/06/2023 11:28 HDL(New) 42 mg/dL 08/06/2023 11:28 DIRECT LDL 98 L mg/dL 08/06/2023 11:28 CALCULATED LDL comment mg/dL 08/06/2023 11:28 = SODIUM 144 mEq/L 08/06/2023 11:28 POTASSIUM 4.3 mEq/L 08/06/2023 11:28 CHLORIDE 106 mEq/L 08/06/2023 11:28 UREA NITROGEN 22.1 mg/dL 08/06/2023 11:28 CREATININE 1.17 mg/dL 08/06/2023 11:28 CALCIUM 10.0 mg/dL 08/06/2023 11:28 PROTEIN 7.4 g/dL 08/06/2023 11:28 ALBUMIN 4.5 g/dL 08/06/2023 11:28 ALKALINE PHOSPHATASE 57 U/L 08/06/2023 11:28 ALT/SGPT 23 U/L 08/06/2023 11:28 AST/SGOT 27 U/L 08/06/2023 11:28 TOTAL BILIRUBIN 0.4 mg/dL 08/06/2023 11:28 CARBON DIOXIDE 28 mEq/L 08/06/2023 11:28 GLUCOSE 176 H mg/dL 08/06/2023 11:28 EGFR (CKD-EPI 2020) 65.0 08/06/2023 11:28 = WBC 5.3 10*3/uL 08/06/2023 11:28 RBC 5.78 H 10*6/uL 08/06/2023 11:28 HGB 14.5 g/dL 08/06/2023 11:28 HCT 47.5 % 08/06/2023 11:28 MCV 82.2 fL 08/06/2023 11:28 MCH 25.1 L pg 08/06/2023 11:28 MCHC 30.5 L g/dL 08/06/2023 11:28 RDW 16.0 H % 08/06/2023 11:28 PLT 136 L 10*3/uL 08/06/2023 11:28 MPV 12.0 H fL 08/06/2023 11:28 NEUTROPHILS, AUTO % 59 % 08/06/2023 11:28 LYMPHOCYTES, AUTO % 30 % 08/06/2023 11:28 MONOCYTES, AUTO % 9 % 08/06/2023 11:28 EOSINOPHILS, AUTO % 1 % 08/06/2023 11:28 BASOPHILS, AUTO % 1 % 08/06/2023 11:28 NEUTROPHILS, ABSOLUTE 3.12 10*3/uL 08/06/2023 11:28 LYMPHOCYTES, ABSOLUTE 1.60 10*3/uL 08/06/2023 11:28 MONOCYTES, ABSOLUTE 0.45 10*3/uL 08/06/2023 11:28 EOSINOPHILS, ABSOLUTE 0.07 10*3/uL 08/06/2023 11:28 BASOPHILS, ABSOLUTE 0.05 10*3/uL 08/06/2023 11:28 = PROST. SPECIFIC AG.(PB-STL) 0.130 ng/mL 07/10/2022 08:50 PROST. SPECIFIC AG.(PB-STL) 0.218 ng/mL 08/13/2021 12:08 PROST. SPECIFIC AG.(PB-STL) 0.216 ng/mL 01/28/2021 17:39 PROST. SPECIFIC AG.(PB-STL) 0.158 ng/mL 03/02/2020 17:23 PROST. SPECIFIC AG.(PB-STL) 0.268 ng/ml 05/16/2019 10:49 = TSH 1.707 uIU/mL 07/10/2022 08:50 = URIC ACID: No data available for: URIC ACID = No B12 EO data found = VITAMIN D, 25-HYDROXY 59.3 ng/mL 07/10/2022 08:50 = INR: POC INR (STL-RX MONITORING ONLY) 2.8 H INR 01/13/2024 09:58 = No URINALYSIS EO data found = Urine Microalbumin: CREATuF: 75.7 (08/06/23 11:28) M/CREAT: comment (08/06/23 11:28) MICRAL: <5.0 (08/06/23 11:28) = CREATININE URINE/OTHERS 75.7 mg/dL 08/06/2023 11:28 = Dilantin: ____ = Digoxin: No data available for: DIGOXIN = Chest x-ray: No data available for: CHEST 2 VIEWS PA&LAT = EKG: No data available for: EKG CONSULT STL EKG CONSULTS PB EKG RESULTS MA Result: Acceptable Follow-up Action: Data results reviewed with patient ASSESSMENT/PLAN: # hypercoagulable syndrome with hx of PE, no bleeding diatheses.cont warfarin, therapeutic INR , managed by warfarin clinic. #.DM- stable. cont metformin , empagliflozin, alogliptin and glipizide.declined low dose kelsy inh for renoprotection. statin on board. lipids not at goal, advised to eat more fruits /veggies/whole grains/fish. annual eye exam UTD #. BPH LUTS- nocturia and urge incontinence better with Tamsulosin.cpm. #. DM with neuropathy- wear shoes at all times. cont pregabalin, maxed dose. take otc apap prn for pain. uses medical CBD as adjunct #. RLS- cont ropinirole #. OSA_use cpap nightly #. 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 cpm. recs appreciated # insomnia- cont quetiapine ,melatonin which helps. recs # constipation- cont miralax and duloclax # forgetfulness, intact recall. advised to discuss concerns wiht his provider, has a scheduled f /u with Dr Scott RETURN TO CLINIC:6-8 Return to Clinic order placed SUMMARY STATEMENT: Plan of care has been discussed with including expected therapeutic benefits and potential side effects of prescribed medication and treatments. verbalizes understanding and is in agreement with the plan of care. Patient was instructed to keep all scheduled appointments and contact plastic top assembler for any additional problems. PREVENTION & SCREENING: ALCOHOL: Clinical Reminder not due now or within a month BLOOD PRESSURE: Clinical Reminder not due now or within a month HEMOGLOBIN A1C: Clinical Reminder not due now or within a month PAVE Foot Check - L,N,P,PH,PO,PT,U: A complete foot check was completed at this encounter. VISUAL INSPECTION: Includes inspection for skin breaks, deformity, erythema, trauma, pallor on elevation, dependent rubor, nail deformities, extensive callus and pitting edema. Visual exam results: Abnormal Observations: Bunions PEDAL PULSES: Includes palpation of dorsalis and posterior tibial pulses and signs/symptoms of vascular compromise like pain, pallor, parasthesia or paralysis. Present (even if diminished) SENSORY CHECK: Includes 10 gram Monofilament (Foster-Bernard) test of sensation. Intact (Greater than or equal to 80% of sites checked) Abnormal (Less than 80% of sites checked): Abnormal (decreased or absent sensation to monofilament): HIGH-RISK: HIGH RISK INFORMATION PROVIDED: 1. Advised patient that extra depth footwear with soft molded inserts and braces may be required. 2. Advised patient not to walk barefoot. 3. Explained the importance of daily foot checks. 4. Stressed the importance of daily foot hygiene, including bathing, complete drying and thorough inspection for changes. The patient verbalized understanding and was offered a detailed handout on diabetic foot care. Patient referred to Podiatry. /paola/ JILLIAN JENKINS MD Signed: 02/22/2024 12:32 JILLIAN JENKINS [facility] Feb 11, 2024 12:20 PM ORTHOTICS PROSTHET ICS NOTE: LOCAL TITLE: PROSTHETICS FOOT EVALUATION ST STANDARD TITLE: ORTHOTICS PROSTHETICS NOTE DATE OF NOTE: FEB 11, 2024@12:20 ENTRY DATE: FEB 22, 2024@12:20:59 AUTHOR: JILLIAN JENKINS EXP COSIGNER: URGENCY: STATUS: COMPLETED PROSTHETICS FOOT EVALUATION DIAGNOSIS: DM type 2 with neuropathy Upson-Filament Test: Jan (within last 30 days) Sensation: Diminished (indicate test point locations): rediced sensation to monofilament exam in bilateral great toes Circulation: Pedal Pulses: Posterior Tibial LEFT: Present RIGHT: Present Dorsalis Pedis LEFT: Present RIGHT: Present Hair Present: Yes History of Ulcers/Amputation: No List specific issues below. If none, indicate none below. callus, bunion ASSESSMENT: Foot Risk Score Level 2 MODERATE RISK Decreased sensation and circulation Foot deformity No ulceration or history of amputation Description of foot deformity or infection: stevenson bunion /paola/ JILLIAN JENKINS MD Signed: 02/22/2024 12:22 JILLIAN JENKINS [facility] Feb 11, 2024 11:26 AM NURSING IMMUNIZATI ON NOTE: LOCAL TITLE: CLINIC ADMINISTERED IMMUNIZATION/MEDICATION(S) STANDARD TITLE: NURSING IMMUNIZATION NOTE DATE OF NOTE: FEB 11, 2024@11:26:07 ENTRY DATE: FEB 11, 2024@11:26:07 AUTHOR: JONY IBANEZ EXP COSIGNER: URGENCY: STATUS: COMPLETED Administered: RSV, BIVALENT, PROTEIN SUBUNIT RSVPREF, DILUENT RECONSTITUTED, 0.5 ML, PF Date Administered: Feb 11, 2024 11:00 Series: Series [employer] Supervisor: Solasta Lot: [id number] Exp Date: August 20, 2024 ND: [id number] Admin Route/Site: INTRAMUSCULAR/LEFT DELTOID Dosage: 0.5mL Vaccine Information Statement(s): RSV (RESPIRATORY SYNCYTIAL VIRUS) VACCINE VIS Jan 07, 2024 (JORDANIAN) Order By: Jillian Jenkins Administered By: Jony Ibanez /paola/ JONY IBANEZ LPN LICENSED PRACTICAL NURSE Signed: 02/15/2024 11:11 JONY IBANEZ [facility] Feb 11, 2024 11:18 AM NURSING NOTE: LOCAL TITLE: V15 PACT FACE TO FACE NOTE STL STANDARD TITLE: NURSING NOTE DATE OF NOTE: FEB 11, 2024@11:18 ENTRY DATE: FEB 11, 2024@11:18:20 AUTHOR: JONY IBANEZ COSIGNER: URGENCY: STATUS: COMPLETED Provider Visit: Patient Identifiers : Full Name Date of Reason for visit: Established Follow-Up Mode of Arrival: Ambulatory Allergy Review: AUGMENTIN, SIMVASTATIN, MORPHINE Allergy list reviewed and remains current. Recent Vital Signs: Temperature: 97.8 F [36.6 C] (02/11/2024 11:13) Pulse: 68 (02/11/2024 11:13) Respiration: 18 (02/11/2024 11:13) B/P: 134/76 (02/11/2024 11:17) Pain: 6 (02/11/2024 11:13) Wt: 254 lb [115.21 kg] (02/11/2024 11:13) Ht: 70 in [177.8 cm] (02/11/2024 11:13) BMI: 36.5 POX: 95% (02/11/2024 11:13) Would you like to discuss any personal problem, family problem, alcohol use, drug use, or a mental or emotional illness? No [facility] ([facility]), please select appointment type: Face to face: Yes- Done Contact provided Primary Care phone number and encouraged to call if any questions or concerns. Review that after hours nurse line ext.[phone] and emergency room are available 13/10 for patient use. Contact verbalized good understanding. Sexual Orientation - CP,L,N,P,PH,PS,S,U: The patient thinks of their sexual orientation as: Straight or Heterosexual Alcohol Use Screen (AUDIT-C) - V: Alcohol Screen: SCREEN FOR ALCOHOL (AUDIT-C) An alcohol screening test (AUDIT-C) was negative (score=1). 1. How often did you have a drink containing alcohol in the past year? Consider a drink to be a 12 ounce can or bottle of regular beer, 8 ounces of malt liquor, a 5 ounce glass of table wine, or a 1.5 ounce shot of liquor (like scotch, gin, or vodka). Monthly or less 2. How many drinks containing alcohol did you have on a typical day when you were drinking in the past year? One or two drinks 3. How often did you have six or more drinks on one occasion in the past year? Never Depression Screening - V: Perform PHQ-2 A PHQ-2 screen was performed. The score was 0 which is a negative screen for depression. Over the past two weeks, how often have you been bothered by the following problems? 1. Little interest or pleasure in doing things Not at all 2. Feeling down, depressed, or hopeless Not at all Homelessness/Food Insecurity Screen - DI,L,N,P,PH,PS,S,U: In the past 2 months, have you been living in stable housing that you own, rent, or stay in as part of a household? Yes - Living in stable housing. Are you worried or concerned that in the next 2 months you may NOT have stable housing that you own, rent, or stay in as part of a household? No - Not worried about housing near future The reports the following: Within the past 12 months, you worried whether your food would run out before you got money to buy more. Never true Within the past 12 months, the food you bought just didn't last and you didn't have money to get more. Never true Tobacco Use Screening - U,L,N,S,PS,M,DE,PH,P: The patient is a former cigarette smoker. Quit smoking GREATER THAN OR EQUAL to 15 years. The patient has never used other types of tobacco. 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 Back pain radiates down both buttocks. Denies loss of bowel control. denies difficulty emptying bladder. Takes OTC apap for pain. Also uses medical cannabis. pregabalin helps. He is advised to call clinic for eval to see if he meets criteria for scooter. He denies cp, sob, palpitations.KNows how to ID and treat hypoglycemia. Denies increased thirst, urination nor hunger. . He sleeps ok, tolerates cpap. mood stable. denies SI/HI. He reports painful numbness of both feet . His cuts toenails , no open areas. His family has noted increased forgetfulness and losing train of thought. he is followed by . Will tag Dr Scott. He uses cpap nightly for sofi , needing cpap supplies, advised to call cpap clinic directly. 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 SOCIAL HISTORY: NICOTINE: Nicotine User: No ILLICIT DRUGS: Yes-cbd ETOH: denies ALLERGIES: AUGMENTIN, SIMVASTATIN, MORPHINE ALLERGY REVIEW: Allergy list reviewed and remains current. MEDICATION RECONCILIATION: I have reviewed the patient's medication list with the patient and/or his/her care-sole leveler machine. Handwritten corrections, additions and/or deletions were made to the list. Corrected Outpatient Medication List was provided to the patient/caregiver. Active Outpatient Medications (including Supplies): Active Outpatient Medications Status 1) ACCU-CHEK GUIDE (GLUCOSE) TEST STRIP USE 1 STRIP FOR ACTIVE BLOOD TEST TWO TIMES PER WEEK *HYPOGLYCEMIA, 100 STRIPS PER YEAR* Sep 2) ATORVASTATIN CALCIUM 20MG TAB TAKE ONE-HALF TABLET BY ACTIVE MOUTH EVERY EVENING FOR CHOLESTEROL. REPORT ANY UNEXPLAINED MUSCLE PAIN/WEAKNESS TO PROVIDER. 3) DOCUSATE NA 100MG CAP TAKE ONE CAPSULE BY MOUTH TWICE ACTIVE A DAY TO SOFTEN STOOL. HOLD FOR LOOSE STOOL/DIARRHEA. 4) EMPAGLIFLOZIN 25MG TAB TAKE ONE TABLET BY MOUTH ONCE ACTIVE (S) A DAY FOR DIABETES 5) GLIPIZIDE 10MG TAB TAKE ONE TABLET BY MOUTH TWO TIMES ACTIVE (S) A DAY BEFORE MEALS FOR DIABETES TAKE 30 MINUTES BEFORE EATING. 6) KETOTIFEN 0.025% OPH SOLN INSTILL 1 DROP IN BOTH EYES ACTIVE TWICE A DAY 7) LANCET,SOFTCLIX USE LANCET FOR BLOOD TEST THREE TIMES ACTIVE PER WEEK FOR BLOOD SUGAR MONITORING USE DIRECTED. 8) PANTOPRAZOLE NA 20MG EC TAB TAKE ONE TABLET BY MOUTH ACTIVE (S) TWICE A DAY TO LOWER STOMACH ACID - TAKE 30 MINUTES BEFORE MEAL(S) 9) PREDNISOLONE ACETATE 1% OPH SUSP INSTILL 1 DROP IN ACTIVE LEFT EYE FOUR TIMES A DAY FOR EYE INFLAMMATION TO USE AFTER SURGERY ON 06/30 10) PREGABALIN 300MG ORAL CAP TAKE ONE CAPSULE BY MOUTH ACTIVE TWICE A DAY FOR NERVE PAIN *MAY CAUSE DROWSINESS* 11) QUETIAPINE FUMARATE 200MG TAB TAKE ONE-HALF TABLET BY ACTIVE (S) MOUTH AT BEDTIME FOR MOOD 12) ROPINIROLE HCL 0.5MG TAB TAKE ONE TABLET BY MOUTH AT ACTIVE (S) BEDTIME FOR PARKINSON DISEASE 13) SERTRALINE HCL 100MG TAB TAKE ONE-HALF TABLET BY ACTIVE (S) MOUTH EVERY MORNING FOR MOOD 14) SITAGLIPTIN (EQV-ZITUVIO) 50MG TAB TAKE ONE TABLET BY ACTIVE MOUTH ONCE A DAY FOR DIABETES TO REPLACE ALOGLIPTIN 15) TADALAFIL 10MG TAB TAKE ONE TABLET BY MOUTH EVERY ACTIVE WEEK NEEDED FOR ERECTILE DYSFUNCTION (TAKE 30 MINUTES PRIOR TO SEXUAL ACTIVITY) - LIMIT 6 DOSES PER 30 DAYS 16) TAMSULOSIN HCL 0.4MG CAP TAKE TWO CAPSULES BY MOUTH ACTIVE (S) ONCE A DAY FOR BENIGN PROSTATIC HYPERPLASIA APPROXIMATELY 30 MINUTES AFTER THE SAME MEAL EACH DAY (FOR PROSTATE) 17) WARFARIN NA 5MG TAB TAKE ONE AND ONE-HALF TABLETS BY ACTIVE MOUTH THURSDAY, THURSDAY, THURSDAY AND THURSDAY AND TAKE TWO TABLETS THURSDAY, THURSDAY AND THURSDAY OR DIRECTED BY THE ANTICOAGULATION CLINIC. TO PREVENT BLOOD CLOTS. KEEP LAB APPOINTMENTS. Pending Outpatient Medications Status 1) ACETAMINOPHEN 325MG TAB TAKE ONE TABLET BY MOUTH FOUR PENDING TIMES A DAY NEEDED CAUTION: DO NOT EXCEED 4000MG PER DAY ACETAMINOPHEN (APAP) FROM ALL MEDS. Active Non-VA Medications Status 1) Non-VA BETAMETHASONE/CLOTRIMAZOLE CREAM,TOP TO ACTIVE AFFECTED AREA(S) TWICE A DAY 2) Non-VA MARIJUANA (MEDICAL) DIRECTED INHALATION ACTIVE NEEDED 3) Non-VA MULTIVITAMIN CAP/TAB 1 TABLET BY MOUTH ONCE A ACTIVE DAY 4) Non-VA PROBIOTIC COMBINATION CAP/TAB 1 CAPSULE BY ACTIVE MOUTH ONCE A DAY 22 Total Medications REVIEW OF SYSTEMS: General: Normal No Fevers, Chills, Weight Loss, Weight Gain, Recent Illness. Ears, Nose, Mouth, Throat: Normal No new loss of hearing or tinnitus, no Dental issue, Difficulty swallowing, Vertigo. Eye: Normal No Trauma, Cataracts, Glaucoma, Blurred vision Cardiovascular: Normal No Chest pain, Dizziness, Palpitations. Respiratory: Normal No Cough, SOB, Hemoptysis, Epistaxis, Influenza symptoms, +PDD. PHYSICAL EXAMINATION: General appearance: VITALS (most recent, as listed in the electronic record): B/P: 134/76 (02/11/2024 11:17) Pulse: 68 (02/11/2024 11:13) Temperature: 97.8 F [36.6 C] (02/11/2024 11:13) Weight: 254 lb [115.21 kg] (02/11/2024 11:13) Height: 70 in [177.8 cm] (02/11/2024 11:13) BMI: 36.5 Pain: 6 (02/11/2024 11:13) (0-10 scale) General: pleasant, cooperative, well-developed, obese, appropriately dressed and groomed ; in no acute distress.stutters when anxious Ears, Nose, Mouth, Throat:NC/AT,MMM, no thyromegaly Eye:PERRL Cardiovascular:RRR, No m/r/g or clicks. Respiratory:Clear to auscultation bilaterally. No accessory muscle use. Respirations even and non-labored ABD/GI:soft, non-tender. BS + x 4. /BOILER TENDER: Deferred Lymph: No lymphadenopathy Extremities/MSK:No pedal edema. Psych:Affect appropriate. Neuro: Oriented x3. Gait steady , slow stride, uses walker Hematology: Color good. No pallor. No ecchymosis or petechiae. Skin:No visualized abnormalities. DATA REVIEW: SLT - Lab Tests Selected Collection DT Specimen Test Name Result Units Ref Range 08/06/2023 11:28 BLOOD HGA1C 8.4 H % 4.0 - 6.0 01/15/2023 08:36 BLOOD HGA1C 8.4 H % 4.0 - 6.0 07/10/2022 08:50 BLOOD HGA1C 8.2 H % 4.0 - 6.0 = TRIGLYCERIDE 315 H mg/dL 08/06/2023 11:28 CHOLESTEROL 193 mg/dL 08/06/2023 11:28 HDL(New) 42 mg/dL 08/06/2023 11:28 DIRECT LDL 98 L mg/dL 08/06/2023 11:28 CALCULATED LDL comment mg/dL 08/06/2023 11:28 = SODIUM 144 mEq/L 08/06/2023 11:28 POTASSIUM 4.3 mEq/L 08/06/2023 11:28 CHLORIDE 106 mEq/L 08/06/2023 11:28 UREA NITROGEN 22.1 mg/dL 08/06/2023 11:28 CREATININE 1.17 mg/dL 08/06/2023 11:28 CALCIUM 10.0 mg/dL 08/06/2023 11:28 PROTEIN 7.4 g/dL 08/06/2023 11:28 ALBUMIN 4.5 g/dL 08/06/2023 11:28 ALKALINE PHOSPHATASE 57 U/L 08/06/2023 11:28 ALT/SGPT 23 U/L 08/06/2023 11:28 AST/SGOT 27 U/L 08/06/2023 11:28 TOTAL BILIRUBIN 0.4 mg/dL 08/06/2023 11:28 CARBON DIOXIDE 28 mEq/L 08/06/2023 11:28 GLUCOSE 176 H mg/dL 08/06/2023 11:28 EGFR (CKD-EPI 2020) 65.0 08/06/2023 11:28 = WBC 5.3 10*3/uL 08/06/2023 11:28 RBC 5.78 H 10*6/uL 08/06/2023 11:28 HGB 14.5 g/dL 08/06/2023 11:28 HCT 47.5 % 08/06/2023 11:28 MCV 82.2 fL 08/06/2023 11:28 MCH 25.1 L pg 08/06/2023 11:28 MCHC 30.5 L g/dL 08/06/2023 11:28 RDW 16.0 H % 08/06/2023 11:28 PLT 136 L 10*3/uL 08/06/2023 11:28 MPV 12.0 H fL 08/06/2023 11:28 NEUTROPHILS, AUTO % 59 % 08/06/2023 11:28 LYMPHOCYTES, AUTO % 30 % 08/06/2023 11:28 MONOCYTES, AUTO % 9 % 08/06/2023 11:28 EOSINOPHILS, AUTO % 1 % 08/06/2023 11:28 BASOPHILS, AUTO % 1 % 08/06/2023 11:28 NEUTROPHILS, ABSOLUTE 3.12 10*3/uL 08/06/2023 11:28 LYMPHOCYTES, ABSOLUTE 1.60 10*3/uL 08/06/2023 11:28 MONOCYTES, ABSOLUTE 0.45 10*3/uL 08/06/2023 11:28 EOSINOPHILS, ABSOLUTE 0.07 10*3/uL 08/06/2023 11:28 BASOPHILS, ABSOLUTE 0.05 10*3/uL 08/06/2023 11:28 = PROST. SPECIFIC AG.(PB-STL) 0.130 ng/mL 07/10/2022 08:50 PROST. SPECIFIC AG.(PB-STL) 0.218 ng/mL 08/13/2021 12:08 PROST. SPECIFIC AG.(PB-STL) 0.216 ng/mL 01/28/2021 17:39 PROST. SPECIFIC AG.(PB-STL) 0.158 ng/mL 03/02/2020 17:23 PROST. SPECIFIC AG.(PB-STL) 0.268 ng/ml 05/16/2019 10:49 = TSH 1.707 uIU/mL 07/10/2022 08:50 = URIC ACID: No data available for: URIC ACID = No B12 EO data found = VITAMIN D, 25-HYDROXY 59.3 ng/mL 07/10/2022 08:50 = INR: POC INR (STL-RX MONITORING ONLY) 2.8 H INR 01/13/2024 09:58 = No URINALYSIS EO data found = Urine Microalbumin: CREATuF: 75.7 (08/06/23 11:28) M/CREAT: comment (08/06/23 11:28) MICRAL: <5.0 (08/06/23 11:28) = CREATININE URINE/OTHERS 75.7 mg/dL 08/06/2023 11:28 = Dilantin: ____ = Digoxin: No data available for: DIGOXIN = Chest x-ray: No data available for: CHEST 2 VIEWS PA&LAT = EKG: No data available for: EKG CONSULT STL EKG CONSULTS PB EKG RESULTS MA Result: Acceptable Follow-up Action: Data results reviewed with patient ASSESSMENT/PLAN: # hypercoagulable syndrome with hx of PE, no bleeding diatheses.cont warfarin, therapeutic INR , managed by warfarin clinic. #.DM- stable. cont metformin , empagliflozin, alogliptin and glipizide.declined low dose kelsy inh for renoprotection. statin on board. lipids not at goal, advised to eat more fruits /veggies/whole grains/fish. annual eye exam UTD #. BPH LUTS- nocturia and urge incontinence better with Tamsulosin.cpm. #. DM with neuropathy- wear shoes at all times. cont pregabalin, maxed dose. take otc apap prn for pain. uses medical CBD as adjunct #. RLS- cont ropinirole #. OSA_use cpap nightly #. 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 cpm. recs appreciated # insomnia- cont quetiapine ,melatonin which helps. MH recs # constipation- cont miralax and duloclax # forgetfulness, intact recall. advised to discuss concerns wiht his provider, has a scheduled f /u with Dr Scott RETURN TO CLINIC:6-8 Return to Clinic order placed SUMMARY STATEMENT: Plan of care has been discussed with including expected therapeutic benefits and potential side effects of prescribed medication and treatments. [place] verbalizes understanding and is in agreement with the plan of care. Patient was instructed to keep all scheduled appointments and contact plastic top assembler for any additional problems. PREVENTION & SCREENING: ALCOHOL: Clinical Reminder not due now or within a month BLOOD PRESSURE: Clinical Reminder not due now or within a month HEMOGLOBIN A1C: Clinical Reminder not due now or within a month PAVE Foot Check - L,N,P,PH,PO,PT,U: A complete foot check was completed at this encounter. VISUAL INSPECTION: Includes inspection for skin breaks, deformity, erythema, trauma, pallor on elevation, dependent rubor, nail deformities, extensive callus and pitting edema. Visual exam results: Abnormal Observations: Bunions PEDAL PULSES: Includes palpation of dorsalis and posterior tibial pulses and signs/symptoms of vascular compromise like pain, pallor, parasthesia or paralysis. Present (even if diminished) SENSORY CHECK: Includes 10 gram Monofilament (Foster-Bernard) test of sensation. Intact (Greater than or equal to 80% of sites checked) Abnormal (Less than 80% of sites checked): Abnormal (decreased or absent sensation to monofilament): HIGH-RISK: HIGH RISK INFORMATION PROVIDED: 1. Advised patient that extra depth footwear with soft molded inserts and braces may be required. 2. Advised patient not to walk barefoot. 3. Explained the importance of daily foot checks. 4. Stressed the importance of daily foot hygiene, including bathing, complete drying and thorough inspection for changes. The patient verbalized understanding and was offered a detailed handout on diabetic foot care. Patient referred to Podiatry. /es/ JILLIAN JENKINS MD Signed: 02/22/2024 12:32 02/22/2024 ADDENDUM STATUS: COMPLETED pt with [place] anxiety, reports stable mood. Pt and family has reported concenrs of increased forgetfulness and losing train of thought. would appreciate eval when you see him in the clinic. /paola/ JILLIAN JENKINS MD Signed: 02/22/2024 12:33 Receipt Acknowledged By: * AWAITING SIGNATURE * GRACE SCOTT JR, ARMIDA A [facility]
--- OUTSIDE RECORDS SUMMARY | 2024-03-04 12:54 | XMS_ITS | Encounter Summary ---
Author Name [facility] [place] [facility] [place] [facility] [place] Address [address] [place] [address] Care Team Providers Care Patient Coordinator Name Role Phone JILLIAN GAN Primary Care Provider Unavailabl e Insurance Providers: [...] MEDIC ARE SUPPL EMEMT Apr 23, 2019 [id number] [phone] KATHY ORTEGA PATIENT ANTHEM BCBS [place] MEDICARE SUPPLEMEN WILL MEDIC ARE SUPPL EMEMT Apr 23, 2019 [id number] [phone] KATHY ORTEGA PATIENT ANTHEM [place] MEDICARE SUPPLEMEN WILL MEDIC ARE SUPPL EMEMT Apr 23, 2019 [id number] [phone] KATHY ORTEGA PATIENT [place] MEDICARE SUPPLEMEN WILL MEDIC ARE SUPPL EMEMT Apr 23, 2019 [id number] [phone] KATHY ORTEGA PATIENT [employer] MCR (WNR) MEDICARE ADVANTAGE MCR (WNR) Mar 23, 2022 [id number] KATHY ORTEGA PATIENT [employer] MCR (WNR) MEDICARE ADVANTAGE [facility] (WNR) Mar 23, 2022 [id number] KATHY ORTEGA PATIENT MEDICARE (WNR) MEDICARE (M) RR PART A May 21, 1990 RR PART A [id number] [phone] KATHY ORTEGA PATIENT MEDICARE (WNR) MEDICARE (M) RR PART B May 21, 1990 RR PART B [id number] KATHY ORTEGA PATIENT [employer] [place] MEDICARE SUPPLEMEN WILL MEDIC ARE SUPPL EMENT Feb 20, 2013 PLAN G [id number] [phone] KATHY ORTEGA PATIENT WELLCARE [facility] (WNR) MEDICARE ADVANTAGE [facility] (WNR) Mar 23, 2021 [id number] [phone] KATHY ORTEGA PATIENT Selected Encounter This section includes the information on record at [place] for the Encounter. Date/Time Encounter Type Encounter Description Reason Provider Source Feb 11, 2024 09:15 AM MTMS BY PHARM EST 15 MIN TELEPHONE/ANCILLA RY ICD-10-CM Z51.81 Encounter for therapeutic drug level monitoring NANCI PEREIRA [facility] Encounter Template Text not used by [place] Assessments - Encounter Diagnoses This section includes the primary and secondary diagnoses documented for the Encounter. 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 This section includes future appointments and future orders which are active, pending or scheduled. Future Appointments This section includes appointments that were scheduled to occur 6 months from the date of the Encounter, up to a maximum of 20 appointments. The data comes from all [facility] Appointment Date/Time Appointment Type Appointme nt Facility Name Mar 21, 2024 09:00 AM AMBULATORY - MEDICINE [facility] Mar 24, 2024 11:00 AM [facility]ORY - [facility] Apr 18, 2024 09:30 AM AMBULATORY - SURGERY [facility] Active, Pending, and Scheduled Orders This section includes a listing of several types of active, pending, and scheduled orders, including clinic medications orders, diagnostic test orders, procedure orders and consult orders; where the start date of the order is 45 days before the date of the Encounter or 45 days after the date of theEncounter. The data comes from all [facility] [address] [facility]. Test Date/Time Test Type Test Details Facility Name Feb 11, 2024 12:00 AM Laboratory - Chemistry Order TSH W/ REFLEX FT4 (STL) GREEN LI-HEP PLASMA SP [facility] Feb 11, 2024 12:00 AM Laboratory - Chemistry Order MICRAL/CREAT PROFILE (STL) URINE SP [facility] Feb 11, 2024 12:00 AM Laboratory - Chemistry Order VITAMIN D, 25-HYDROXY GOLD/RED SST SERUM SP [facility] Feb 11, 2024 12:00 AM Laboratory - Chemistry Order URIC ACID GREEN LI/HEP BLD/PLAS PLASMA SP [facility] Feb 11, 2024 12:00 AM Laboratory - Chemistry Order COMPREHENSIVE METABOLIC PANEL GREEN LI/HEP BLD/PLAS PLASMA SP [facility] Feb 11, 2024 12:00 AM Laboratory - Chemistry Order LIPID PANEL (STL) GREEN LI/HEP BLD/PLAS PLASMA SP ONCE [facility] Feb 22, 2024 12:00 AM Laboratory - Chemistry Order B12 GOLD/RED SST SERUM SP [facility] Feb 22, 2024 12:34 PM Consult Order PODIATRY H IGH RISK FOOT EXAM OUTPT STL 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 Radiology Reports and Pathology Reports are provided separately, in subsequent sections. Lab Results This section contains the Chemistry/Hematology Results that were resulted 30 days before or 30 daysafter the date of the Encounter. Date/Time Source Result Type Result - Unit Interpretation Reference Range Comment Feb 11, 2024 10:34 AM [facility] HGA1C Specimen Type: BLOOD No comment entered. Ordering Provider: ISMAEL GAN Report Released Date/Time: Feb 11, 2024 11:13 AM Reporting Lab: [address] [address] Performing Lab: [address] [address] HGA1C 8.3 H 4.0-6.0 Feb 11, 2024 10:34 AM [facility] HGB,HCT,PLT Specimen Type: BLOOD No comment entered. Ordering Provider: NANCI PEREIRA Report Released Date/Time: Jan 13, 2024 01:55 PM Reporting Lab: [address] [address] Performing Lab: [address] [address] HGB 13.9 g/dL 13.1-16.8 HCT 45.5 38.2-48.4 PLT 130 10*3/uL L 150-400 Feb 11, 2024 10:33 AM [facility] POC INR (STL-RX MONITORING ONLY) Specimen Type: BLOOD Comment: Test Performed by: [id number] Meter #: [id number] Ordering Provider: NANCI PEERIRA Report Released Date/Time: Feb 12, 2024 08:40 AM Reporting Lab: [address] [address] Performing Lab: [facility] [address] [facility] [address] POC INR (STL-RX MONITORING ONLY) 2.3 {INR} H 0.9-1.1 Jan 13, 2024 09:58 AM [facility] POC INR (STL-RX MONITORING ONLY) Specimen Type: BLOOD Comment: Test Performed by: [id number] Meter #: [id number] Ordering Provider: NANCI PEREIRA Report Released Date/Time: Jan 13, 2024 10:04 AM Reporting Lab: [facility] [address] [facility] [address] Performing Lab: [facility] [address] [facility] [address] POC INR (STL-RX MONITORING ONLY) 2.8 {INR} H 0.9-1.1 Social History: Smoking Status (Most current) and Tobacco Use (All prior to encounter date) This section includes the most current, and the historical, smoking and tobacco- related health factors from the [place] facility where the Encounter took place. Current Smoking Status This section includes the most current smoking, or tobacco-related health factor, from the [place] facility where the Encounter took place. Date/Time Current Smoking Status Comment Catherine ity Apr 29, 2018 09:12 AM PA-TOBACCO QUIT 15 YRS OR MORE [facility] Tobacco Use History This section includes a history of the smoking, or tobacco-related health factors, that were collected on or before the date of the Encounter. The data comes from the [place] facility where the Encounter took place. Date/Time Smoking Status/Tobacco Use Comment F acility Apr 29, 2018 09:12 AM PA-TOBACCO QUIT 15 YRS OR MORE [facility] Advance Directives: All historical and current Section Date Range: From patient's date of to the date document was created. This section includes ALL of a patient's completed or amended [place] Advance and Rescinded Directives. The entries below indicate that a directive exists for the patient, but an actual copy is not included with this document. The data comes from all [place] facilities. Date Advance Directives Provider Source Jun 13, 2013 ADVANCE DIRECTIVE DISCUSSION RONALD ESTRADA [facility] Encounter Notes: All associated encounter notes This section contains the clinical notes associated to the Encounter. Date/Time Encounter Note(s) Provider Source Feb 12, 2024 08:43 AM PHARMACY OUTPATIEN T MEDICATION MGT NOTE: LOCAL TITLE: PHARMACY [facility] STANDARD TITLE: PHARMACY OUTPATIENT MEDICATION MGT NOTE DATE OF NOTE: FEB 12, 2024@08:43 ENTRY DATE: FEB 12, 2024@08:43:18 AUTHOR: NANCI PEREIRA COSIGNER: URGENCY: STATUS: COMPLETED WARFARIN LAB ONLY - TELEPHONE CONTACT SACHA ORTEGA is a 78 y/o MALE on warfarin. Patient was identified by 2 unique identifiers. Indication for warfarin: Pulmonary Embolism(recurrent), FVL Goal INR: 2-3 Current warfarin dose on record: 7.5mg daily x 10mg //Thu On bridging regimen?: NO Expected duration of therapy: Lifetime Subjective: spoke w/ Shama Patient/Caregiver confirmed dose as above.YES Missed or extra doses? NO Bruising or bleeding? NO Falls or accidents? NO Thromboembolic symptoms? NO Hospitalized or ER visit? NO Changes in vitamin K containing products/food? NO EtOH changes? NO Interacting medication changes (Rx, OTC, herbal)? NO Any upcoming procedure/surgery/dental work? NO Is pt taking an antiplatelet agent (ASA, clopidogrel, prasugrel, ticagrelor, cilostazol, dipyridamole)? no Any additional information? NO Objective: POC INR (STL-RX MONITORING ONLY) 2.3 H INR 02/11/2024 10:33 HGB 13.9 g/dL 02/11/2024 10:34 HCT 45.5 % 02/11/2024 10:34 PLT 130 L 10*3/uL 02/11/2024 10:34 INR Trends: Date Dose at time of lab INR Comments 02/11/24 7.5mg daily x 10mg We//Thu 2.3 01/13/24 7.5mg daily x 10mg //Thu 2.8 12/10/23 7.5mg daily x 10mg //Thu 2.6 11/13/23 7.5mg daily x 10mg //Thu 3.1 10/08/23 7.5mg daily x 10mg //Thu 2.4 09/10/23 7.5mg daily x 10mg //Thu 2.3 08/06/23 7.5mg daily x 10mg //Thu 2.1 06/24/23 7.5mg daily x 10mg //Thu 2.9 05/27/23 7.5mg daily x 10mg //Thu 2.5 05/12/23 7.5mg daily x 10mg /Thu 1.9 05/04/23 7.5mg daily x 10mg /Thu 1.5 03/27/23 unable to contact 2.1 02/19/23 unable to contact 2.6 Assessment: -- INR is - within therapeutic range -- H/H is - within normal limits. Will check q6mos or earlier if needed. Plan: ----- --Pt/caregiver was given INR and Hgb/Hct/platelet results during telephone contact --Warfarin dose: - continue current dose --Bridging therapy: - NO --Next lab date: 03/21 --Patient/Caregiver repeated dose instructions and f/u monitoring plan? YES --Warfarin prescription renewed/refilled/directions updated if necessary? YES --Clinical reminder completed if due? YES --Minutes spent in chart review and phone conversation: 8min /paola/ NANCI PEREIRA, PHARM.D, [facility] CLINICAL PHARMACIST Signed: 02/12/2024 08:52 NANCI PEREIRA [facility]
--- OUTSIDE RECORDS SUMMARY | 2024-03-04 12:54 | XMS_ITS | Encounter Summary ---
Author Name [facility] [place] [facility] [place] [facility] [place] Address [address] [place] [address] Care Team Providers Care Agile Scrum Coach Name Role Phone JILLIAN GAN Primary Care [...] MEDIC ARE SUPPL EMEMT Apr 23, 2019 [id number] [phone] KATHY ORTEGA PATIENT ANTHEM BCBS [place] MEDICARE SUPPLEMEN WILL MEDIC ARE SUPPL EMEMT Apr 23, 2019 [id number] [phone] KATHY ORTEGA PATIENT [place] MED[place] SUPPLEMEN WILL MEDIC ARE SUPPL EMEMT Apr 23, 2019 [id number] [phone] KATHY ORTEGA PATIENT BC[place] MEDICARE SUPPLEMEN WILL MEDIC ARE SUPPL EMEMT Apr 23, 2019 [id number] [phone] KATHY ORTEGA PATIENT [employer] MCR (WNR) MEDICARE ADVANTAGE MCR (WNR) Mar 23, 2022 [id number] [phone] KATHY ORTEGA PATIENT [employer] MCR (WNR) MEDICARE ADVANTAGE [facility] (WNR) Mar 23, 2022 [id number] KATHY ORTEGA PATIENT MEDICARE (WNR) MEDICARE (M) RR PART A May 21, 1990 RR PART A [id number] [phone] KATHY ORTEGA PATIENT MEDICARE (WNR) MEDICARE (M) RR PART B May 21, 1990 RR PART B [id number] KATHY ORTEGA PATIENT [employer] [place] MEDICARE SUPPLEMEN WILL MEDIC ARE SUPPL EMENT Feb 20, 2013 PLAN G [id number] [phone] KATHY ORTEGA PATIENT [employer] MCR (WNR) MEDICARE ADVANTAGE [facility] (WNR) Mar 23, 2021 [id number] [phone] KATHY ORTEGA PATIENT Selected Encounter This section includes the information on record at [place] for the Encounter. Date/Time Encounter Type Encounter Description Reason Pro vider Source Feb 08, 2024 11:47 AM Outpatient Encounter ADMIN PAT ACTIVTIES (MASNONCT) IHE Encounter Template Text not used by [place] Plan of Treatment: Future Appointments (+ 6 months) and Future Tests (+/- 45 days) The Plan of Treatment section includes future care activities for the patient from all [place] treatmentfacilities. This section includes future appointments and future orders which are active, pending or scheduled. Future Appointments This section includes appointments that were scheduled to occur 6 months from the date of the Encounter, up to a maximum of 20 appointments. The data comes from all [place] treatment facilities. Appointment Date/Time Appointment Type Appointme nt Facility Name Feb 11, 2024 09:15 AM AMBULATORY - MEDICINE [facility] Feb 11, 2024 11:00 AM AMBULATORY - MEDICINE [facility] Mar 21, 2024 09:00 AM [facility]ATORY - MEDICINE [facility] Mar 24, 2024 11:00 AM AMB[facility]ORY - PS[facility] Apr 18, 2024 09:30 AM [facility] Active, Pending, and Scheduled Orders This section includes a listing of several types of active, pending, and scheduled orders, including clinic medications orders, diagnostic test orders, procedure orders and consult orders; where the start date of the order is 45 days before the date of the Encounter or 45 days after the date of theEncounter. The data comes from all [place] treatment facilities. Test Date/Time Test Type Test Details Facility Name Feb 11, 2024 12:00 AM Laboratory - Chemistry Order MICRAL/CREAT PROFILE (STL) URINE SP [facility] Feb 11, 2024 12:00 AM Laboratory - Chemistry Order TSH W/ REFLEX FT4 (STL) GREEN LI-HEP PLASMA SP [facility] Feb 11, 2024 12:00 AM Laboratory - Chemistry Order VITAMIN D, 25-HYDROXY GOLD/RED SST SERUM SP [facility] Feb 11, 2024 12:00 AM Laboratory - Chemistry Order LIPID PANEL (STL) GREEN LI/HEP BLD/PLAS PLASMA SP ONCE [facility] Feb 11, 2024 12:00 AM Laboratory - Chemistry Order URIC ACID GREEN LI/HEP BLD/PLAS PLASMA SP [facility] Feb 11, 2024 12:00 AM Laboratory - Chemistry Order COMPREHENSIVE METABOLIC PANEL GREEN LI/HEP BLD/PLAS PLASMA SP [facility] Feb 22, 2024 12:00 AM Laboratory - Chemistry Order B12 GOLD/RED SST SERUM SP [facility] Feb 22, 2024 12:34 PM Consult Order PODIATRY H IGH RISK FOOT EXAM OUTPT STL Cons Clinical Technician's Choice [facility] Mar 21, 2024 12:00 AM Laboratory - Chemistry Order WARFARIN-INR BLOOD PLASMA SP [facility] Lab Results: +/- 30 days of the encounter This section includes the Chemistry and Hematology Lab Results on record with [place] for the patient. Radiology Reports and Pathology Reports are provided separately, in subsequent sections. Lab Results This section contains the Chemistry/Hematology Results that were resulted 30 days before or 30 daysafter the date of the Encounter. Date/Time Source Result Type Result - Unit Interpretation Reference Range Comment Feb 11, 2024 10:34 AM [facility] HGB,HCT,PLT Specimen Type: BLOOD No comment entered. Ordering Provider: NANCI PEREIRA Report Released Date/Time: Jan 13, 2024 01:55 PM Reporting Lab: [address] [address] Performing Lab: [address] [address] HGB 13.9 g/dL 13.1-16.8 HCT 45.5 38.2-48.4 PLT 130 10*3/uL L 150-400 Feb 11, 2024 10:34 AM [facility] HGA1C Specimen Type: BLOOD No comment entered. Ordering Provider: ISMAEL GAN Report Released Date/Time: Feb 11, 2024 11:13 AM Reporting Lab: [address] [address] Performing Lab: [address] [address] HGA1C 8.3 H 4.0-6.0 Feb 11, 2024 10:33 AM [facility] POC INR (STL-RX MONITORING ONLY) Specimen Type: BLOOD Comment: Test Performed by: [id number] Meter #: [id number] Ordering Provider: NANCI PEREIRA Report Released Date/Time: Feb 12, 2024 08:40 AM Reporting Lab: [address] [address] Performing Lab: [address] [address] POC INR (STL-RX MONITORING ONLY) 2.3 {INR} H 0.9-1.1 Jan 13, 2024 09:58 AM [facility] POC INR (STL-RX MONITORING ONLY) Specimen Type: BLOOD Comment: Test Performed by: [id number] Meter #: [id number] Ordering Provider: NANCI PEREIRA Report Released Date/Time: Jan 13, 2024 10:04 AM Reporting Lab: [address] [address] Performing Lab: [address] [address] POC INR (STL-RX MONITORING ONLY) 2.8 {INR} H 0.9-1.1 Social History: Smoking Status (Most current) and Tobacco Use (All prior to encounter date) This section includes the most current, and the historical, smoking and tobacco- related health factors from the [place] facility where the Encounter took place. Current Smoking Status This section includes the most current smoking, or tobacco-related health factor, from the [place] facility where the Encounter took place. Date/Time Current Smoking Status Comment Catherine ity Apr 29, 2018 09:12 AM [place]-TOBACCO FORMER USER [facility] Tobacco Use History This section includes a history of the smoking, or tobacco-related health factors, that were collected on or before the date of the Encounter. The data comes from the [place] facility where the Encounter took place. Date/Time Smoking Status/Tobacco Use Comment F osbaldo Apr 29, 2018 09:12 AM [place]-TOBACCO QUIT 15 YRS OR MORE [facility] Advance Directives: All historical and current Section Date Range: From patient's date of to the date document was created. This section includes ALL of a patient's completed or amended [place] Advance and Rescinded Directives. The entries below indicate that a directive exists for the patient, but an actual copy is not included with this document. The data comes from all [place] facilities. Date Advance Directives Provider Source Jun 13, 2013 ADVANCE DIRECTIVE DISCUSSION RONALD ESTRADA [facility] Encounter Notes: All associated encounter notes This section contains the clinical notes associated to the Encounter. Date/Time Encounter Note(s) Provider Source Feb 08, 2024 11:47 AM PHARMACY PROGRESS NOTE: LOCAL TITLE: PHARMACY GENERAL ST STANDARD TITLE: PHARMACY PROGRESS NOTE DATE OF NOTE: FEB 08, 2024@11:47 ENTRY DATE: FEB 08, 2024@11:47:18 AUTHOR: PHIL SILVERIO EXP COSIGNER: URGENCY: STATUS: COMPLETED [place] sent Pharmacy a secure message requesting refill of ACETAMINOPHEN 325MG TAB. Rx in July 2022. Please renew as deemed appropriate. Phil Silverio, PharmD. /paola/ PHIL SILVERIO Signed: 02/08/2024 11:48 Receipt Acknowledged By: 02/11/2024 11:11 /es/ JILLIAN Daniel SILVERIO,PHIL [facility]
--- OUTSIDE RECORDS SUMMARY | 2024-03-04 12:54 | XMS_ITS | Continuity of Care Document ---
Author Name [facility] Organization [facility] Care Team Providers Care Clinical Services Professional Name Role Phone [facility] Unavailable Unavailable Problems Combined list of problems from Department of Defense and [facility] Affairs facilities. It does not include entries that were removed or entered in error. Problem Status Onset Date Problem Type Date of Resolution Comments Source Adjustment disorder with depressed mood in remission Active Condition [facility] Allergic rhinitis Active Condition [facility] Anticoagulant effect Active Condition [facility] Anxiety Active Condition Jun 25 12 Entered By: DEMETRICE LEOS Comment: on alprazolam 1 mg daily from his pmd [facility] Benign prostatic hyperplasia Active Condition August 19, 2012 Entered By: DEMETRICE LEOS Comment: saw pvt urologist on 07/27/12, started on flomax [facility] Benign prostatic hyperplasia Active Condition [facility] Bilateral Knee Pain (SCT 63815235160026361) Active Condition [facility] Colonic Polyps (ICD-9-CM 211.3) Active Condition Jun 11 2 Entered By: DEMETRICE LEOS Comment: colonoscopy 2012 [facility] Deep vein thrombosis Active Condition [facility] Diabetes mellitus Active Condition Ja n 2013 Entered By: CHARO ALLEN Comment: Elevated HgbA1C [facility] Gastroesophageal reflux disease Active Condition [facility] H/O: Pulmonary Embolus (SCT 914012224) Active Condition [facility] Hearing loss Active Condition [facility] Leg length inequality (SNOMED CT 21310279) Active Condition [facility] Low Back Pain (SCT 655405095) Active Condition [facility] Neck Pain (SCT 25127963) Active Condition [facility] 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 [facility] Obesity (SCT 458513496) Active Condition [facility] Pain in the coccyx Active Condition [facility] Primary erectile dysfunction (SNOMED CT 012261085) Active Condition [facility] Primary Hypercoagulable State (ICD-9-CM 289.81) Active Condition [facility] Single acquired kidney cyst Active Condition [facility] Sleep apnea Active Condition [facility] Therapeutic drug effect Active Condition [facility] Varicose veins Active Condition [facility] Chest Pain Inactive Condition 07/04/2020 Jun 26, 2011 Entered By: DEMETRICE LEOS Comment: apr 2010 mildly abn stress test-mild inf ischemiaApr 2011 Entered By: DEMETRICE LEOS Comment: may 2010 c. cath normal coronary arteriesApr 2011 Entered By: DEMETRICE LEOS Comment: 05/2010 c cath normal left vent. systolic function [facility] Chronic sinusitis (ICD-9-CM 473.9) Inactive Condition 07/04/2020 [facility] Folliculitis Inactive Condition 07/04/2020 [facility] Folliculitis * (ICD-9-CM 704.8) Inactive Condition 07/04/2020 [facility] Male erectile disorder Inactive Condition 07/07/2013 [facility] Diagnosis: ICD-10-CM E11.8 Type 2 diabetes mellitus with unspecified complications Active Diagnosis [facility] Diagnosis: ICD-10-CM F43.29 Adjustment disorder with other symptoms Active [facility] Diagnosis: ICD-10-CM Z51.81 Encounter for therapeutic drug level monitoring Active Diagnosis [facility] Diagnosis: ICD-10-CM E11.9 Type 2 diabetes mellitus without complications Active Diagnosis [facility] Diagnosis: ICD-10-CM Z23 Encounter for immunization Active Diagnosis [facility] Diagnosis: ICD-10-CM F41.1 Generalized anxiety disorder Active Diagnosis [facility] Diagnosis: ICD-10-CM Z98.42 Cataract extraction status, left eye Active Diagnosis Rose Marie Bolton [facility] Diagnosis: ICD-10-CM Z01.818 Encounter for other preprocedural examination Active Diagnosis [facility] Diagnosis: ICD-10-CM H25.13 Age-related nuclear cataract, bilateral Active Diagnosis Rose Marie VIEIRA [facility] Diagnosis: ICD-10-CM N39.41 Urge incontinence Active Diagnosis [facility] CARO SAMPSON [facility] Diagnosis: ICD-10-CM N32.81 Overactive bladder Active Diagnosis [facility] DEVAUGHN FLEMING [facility] Diagnosis: ICD-10-CM H25.12 Age-related nuclear cataract, left eye Active Diagnosis [facility] Diagnosis: ICD-10-CM H90.3 Sensorineural hearing loss, bilateral Active Diagnosis [facility] Diagnosis: ICD-10-CM H52.03 Hypermetropia, bilateral Active Diagnosis [facility] Medications Combined list of outpatient medications from Department of Defense and Veterans Affairs facilities.Medications provided include 1) outpatient medications from the last 15 months, and 2) patient-reported medications. Medication Details Route Status Patient Instructions Prescription Expires Prescription Number Last Dispense Date Ordering Provider Order Date Order Qty Source ACETAMINOPH EN 325MG TAB TAKE ONE TABLET BY MOUTH FOUR TIMES A DAY NEEDED FOR PAIN CAUTION: DO NOT EXCEED 4000MG PER DAY ACETAMIN OPHEN (APAP) FROM ALL MEDS. ORAL ACTIVE 02/11/2025 [id number] 4 GAN,A RMIDA A 2023 100 [facility] ACETIC ACID 2% SOLN,OTIC INSTILL 2 DROPS IN TO AFFECTED EAR(S) DIRECTED FOR EAR INFECTIO N AURICU LAR (OTIC) 09/05/2023 [id number] 4 GAN,A RMIDA A 2023 15 [facility] ALOGLIPTIN 6.25MG TAB TAKE ONE TABLET BY MOUTH ONCE A DAY FOR DIABETES ORAL DISCONT INUED 06/30/2024 [id number] 4 GAN,A RMIDA A 2023 90 [facility] ALOGLIPTIN 6.25MG TAB TAKE ONE TABLET BY MOUTH ONCE A DAY FOR DIABETES ORAL DISCONT INUED 09/28/2023 [id number] 4 GAN,A RMIDA A 2022 90 [facility] ATORVASTATI N CA 20MG TAB TAKE ONE-HALF TABLET BY MOUTH EVERY EVENING FOR CHOLESTE ROL. REPORT ANY UNEXPLAI MISSY MUSCLE PAIN/WEA KNESS TO PROVIDER . ORAL SUSPEND ED 02/12/2025 [id number] 5 GAN,A RMIDA A 2024 45 [facility] ATORVASTATI N CA 20MG TAB TAKE ONE-HALF TABLET BY MOUTH EVERY EVENING FOR CHOLESTE ROL. REPORT ANY UNEXPLAI MISSY MUSCLE PAIN/WEA KNESS TO PROVIDER . ORAL DISCONT INUED 06/02/2024 [id number] 4 GAN,A RMIDA A 2023 45 [facility] ATORVASTATI N CA 20MG TAB TAKE ONE-HALF TABLET BY MOUTH EVERY EVENING FOR CHOLESTE ROL. REPORT ANY UNEXPLAI MISSY MUSCLE PAIN/WEA KNESS TO PROVIDER . ORAL DISCONT INUED 07/12/2023 [id number] 4 GAN,A RMIDA A 2022 45 [facility] BETAMETHASO NE/CLOTRIMA ZOLE CREAM,TOP APPLY TO AFFECTED AREA(S) TWICE A DAY TOPICA L ACTIVE GAN,A RMIDA A 2021 [facility] CARBOXYMETH YLCELLULOSE NA 1% GEL,OPH INSTILL 2 DROPS INTO BOTH EYES FOUR TIMES A DAY NEEDED FOR DRY EYE(S) OPHTHA LMIC 07/17/2023 [id number] 3 GAN,A RMIDA A 2022 15 [facility] DOCUSATE NA 100MG CAP TAKE ONE CAPSULE BY MOUTH TWICE A DAY TO SOFTEN STOOL. HOLD FOR LOOSE STOOL/DI ARRHEA. ORAL ACTIVE 02/03/2025 [id number] 4 GAN,A RMIDA A 2023 200 [facility] DOCUSATE NA 100MG CAP TAKE ONE CAPSULE BY MOUTH TWICE A DAY TO SOFTEN STOOL. HOLD FOR LOOSE STOOL/DI ARRHEA. ORAL DISCONT INUED 11/27/2023 [id number] 4 GAN,A RMIDA A 2022 200 [facility] EMPAGLIFLOZ IN 25MG TAB TAKE ONE TABLET BY MOUTH ONCE A DAY FOR DIABETES ORAL SUSPEND ED 02/03/2025 [id number] 5 GAN,A RMIDA A 2024 90 [facility] EMPAGLIFLOZ IN 25MG TAB TAKE ONE TABLET BY MOUTH ONCE A DAY FOR DIABETES ORAL DISCONT INUED 01/16/2024 [id number] 4 GAN,A RMIDA A 2023 90 [facility] EMPAGLIFLOZ IN 25MG TAB TAKE ONE TABLET BY MOUTH ONCE A DAY FOR DIABETES ORAL DISCONT INUED 07/12/2023 [id number] 3 GAN,A RMIDA A 2022 90 [facility] GLIPIZIDE 10MG TAB TAKE ONE TABLET BY MOUTH TWO TIMES A DAY BEFORE MEALS FOR DIABETES TAKE 30 MINUTES BEFORE EATING. ORAL SUSPEND ED 02/12/2025 [id number] 5 GAN,A RMIDA A 2024 180 [facility] GLIPIZIDE 10MG TAB TAKE ONE TABLET BY MOUTH TWO TIMES A DAY BEFORE MEALS FOR DIABETES TAKE 30 MINUTES BEFORE EATING. ORAL DISCONT INUED 08/14/2024 [id number] 4 GAN,A RMIDA A 2023 180 [facility] GLIPIZIDE 5MG TAB TAKE ONE TABLET BY MOUTH TWO TIMES A DAY BEFORE MEALS FOR DIABETES TAKE 30 MINUTES BEFORE EATING. ORAL DISCONT INUED (EDIT) 12/26/2023 [id number] 4 GANA RMIDA A 2022 180 [facility] KETOTIFEN 0.025% SOLN,OPH INSTILL 1 DROP IN BOTH EYES TWICE A DAY OPHA IC ACTIVE 07/31/2024 [id number] YUNIOR SANTAMARIA A 2023 15 [facility] DIV[facility] N MARIJUANA USE DIRECTED INHALATI ON PRN INHALA TION ACTIVE PROUHET,R SOFI M 2019 [facility] METFORMIN HCL 1000MG TAB TAKE ONE TABLET BY MOUTH EVERY MORNING AND TAKE ONE AND ONE-HALF TABLETS EVERY EVENING TAKE WITH FOOD. AVOID ALCOHOL. DISCONTI NUE BEFORE GETTING XRAY DYE. ORAL ACTIVE 02/12/2025 [id number] 4 GANA RMIDA A 2023 225 [facility] METFORMIN HCL 1000MG TAB TAKE ONE TABLET BY MOUTH EVERY MORNING AND TAKE ONE AND ONE-HALF TABLETS EVERY EVENING TAKE WITH FOOD. AVOID ALCOHOL. DISCONTI NUE BEFORE GETTING XRAY DYE. ORAL DISCONT INUED 01/16/2024 [id number] 4 GANA RMIDA A 2023 225 [facility] METFORMIN HCL 1000MG TAB TAKE ONE TABLET BY MOUTH EVERY MORNING AND TAKE ONE AND ONE-HALF TABLETS EVERY EVENING TAKE WITH FOOD. AVOID ALCOHOL. DISCONTI NUE BEFORE GETTING XRAY DYE. ORAL DISCONT INUED 07/12/2023 [id number] 3 GANA RMIDA A 2022 225 [facility] MOXIFLOXACI N HCL (EQV-VIGAMO X) 0.5% SOLN,OPH INSTILL 1 DROP IN LEFT EYE FOUR TIMES A DAY FOR BACTERIA L EYE INFECTIO N TO USE AFTER SURGERY [facility] 06[facility]20[facility] [id number] 4 YUNIOR SANTAMARIA A 2023 3 [facility] MULTIVITAMI NS CAP/TAB TAKE ONE TABLET BY MOUTH ONCE A DAY ORAL ACTIVE PROUHET,R SOFI M 2011 [facility] PANTOPRAZOL E NA 20MG TAB,EC TAKE ONE TABLET BY MOUTH TWICE A DAY TO LOWER STOMACH ACID - TAKE 30 MINUTES BEFORE MEAL(S) ORAL ACTIVE 12/10/2024 [id number] 4 GAN,A RMIDA A 2023 180 [facility] PANTOPRAZOL E NA 20MG TAB,EC TAKE ONE TABLET BY MOUTH TWICE A DAY TO LOWER STOMACH ACID - TAKE 30 MINUTES BEFORE MEAL(S) ORAL DISCONT INUED 12/26/2023 [id number] 4 GAN,A RMIDA A 2023 180 [facility] PANTOPRAZOL E NA 20MG TAB,EC TAKE ONE TABLET BY MOUTH TWICE A DAY TO LOWER STOMACH ACID - TAKE 30 MINUTES BEFORE MEAL(S) ORAL DISCONT INUED 01/07/2023 [id number] 3 GAN,A RMIDA A 2022 180 [facility] POLYETHYLEN E GLYCOL 3350 PWDR,ORAL MIX AND DRINK 1 CAPFUL BY MOUTH ONCE A DAY FOR CONSTIPA TION (MEASURE WITH CAP AND MIX IN 8 OZ OF WATER) ORAL ACTIVE 02/12/2025 [id number] 4 GAN,A RMIDA A 2023 510 [facility] POLYETHYLEN E GLYCOL 3350 PWDR,ORAL MIX AND DRINK 1 CAPFUL BY MOUTH ONCE A DAY FOR CONSTIPA TION (MEASURE WITH CAP AND MIX IN 8 OZ OF WATER) ORAL DISCONT INUED 01/16/2024 [id number] 4 GAN,A RMIDA A 2022 510 [facility] PREDNISOLON E ACETATE 1% SUSP,OPH INSTILL 1 DROP IN LEFT EYE FOUR TIMES A DAY FOR EYE INFLAMMA TION TO USE AFTER SURGERY ON 06/30 OPHTHA LMIC ACTIVE 06/25/2024 [id number] 4 YUNIOR SANTAMARIA A 2023 10 [facility] DIVJOLYNN N PREGABALIN 300MG CAP,ORAL TAKE ONE CAPSULE BY MOUTH TWICE A DAY FOR NERVE PAIN *MAY CAUSE DROWSINE SS* ORAL ACTIVE 06/22/2024 [id number] 4 GAN,A RMIDA A 2023 60 [facility] PREGABALIN 300MG CAP,ORAL TAKE ONE CAPSULE BY MOUTH TWICE A DAY FOR NERVE PAIN *MAY CAUSE DROWSINE SS* ORAL DISCONT INUED 01/08/2024 [id number] 4 GAN,A RMIDA A 2023 60 [facility] PREGABALIN 300MG CAP,ORAL TAKE ONE CAPSULE BY MOUTH TWICE A DAY FOR NERVE PAIN *MAY CAUSE DROWSINE SS* ORAL 06/27/2023 [id number] 4 GAN,A RMIDA A 2022 60 [facility] PROBIOTIC COMBINATION CAP/TAB TAKE 1 CAPSULE BY MOUTH ONCE A DAY ORAL ACTIVE CHANDU GLEASON 2021 [facility] QUETIAPINE FUMARATE 200MG TAB TAKE ONE-HALF TABLET BY MOUTH AT BEDTIME FOR MOOD ORAL SUSPEND ED 10/14/2024 [id number] 5 NNEKA SILVA JR 2023 45 [facility] QUETIAPINE FUMARATE 200MG TAB TAKE ONE-HALF TABLET BY MOUTH AT BEDTIME FOR MOOD ORAL DISCONT INUED 09/23/2023 [id number] 4 LISANDRA POSADAS 2022 45 [facility] DIVISIO N ROPINIROLE HCL 0.5MG TAB TAKE ONE TABLET BY MOUTH AT BEDTIME FOR PARKINSO N DISEASE ORAL ACTIVE 12/10/2024 [id number] 4 GAN,A RMIDA A 2023 90 [facility] ROPINIROLE HCL 0.5MG TAB TAKE ONE TABLET BY MOUTH AT BEDTIME FOR PARKINSO N DISEASE ORAL DISCONT INUED 01/16/2024 [id number] 4 GAN,A RMIDA A 2022 90 [facility] ROPINIROLE HCL 0.5MG TAB TAKE ONE TABLET BY MOUTH AT BEDTIME ORAL DISCONT INUED (EDIT) 07/12/2023 [id number] 3 GANA RMIDA A 2022 90 [facility] SEMAGLUTIDE 0.25MG/0.37 5ML INJ,SOLN,PE N,3ML INJECT 0.25MG UNDER THE SKIN EVERY WEEK FOR 4 WEEKS, THEN INJECT 0.5MG EVERY WEEK FOR DIABETES SUBCUT ANEOUS ACTIVE 02/22/2025 [id number] 4 GAN,A RMIDA A 2023 1 [facility] SERTRALINE HCL 100MG TAB TAKE ONE-HALF TABLET BY MOUTH EVERY MORNING FOR MOOD ORAL SUSPEND ED 10/14/2024 [id number] 5 NNEKA SILVA JR 2023 45 [facility] DIVISIO N SERTRALINE HCL 100MG TAB TAKE ONE-HALF TABLET BY MOUTH EVERY MORNING FOR MOOD ORAL DISCONT INUED 09/23/2023 [id number] 4 KATHARINA,ARS HAD 2022 45 [facility] DIVISIO N SITAGLIPTIN (EQV-ZITUVI O) 100MG TAB TAKE ONE TABLET BY MOUTH ONCE A DAY FOR DIABETES TO REPLACE ALOGLIPT IN ORAL DISCONT INUED 02/12/2025 [id number] 4 GAN,A RMIDA A 2023 90 [facility] SITAGLIPTIN (EQV-ZITUVI O) 50MG TAB TAKE ONE TABLET BY MOUTH ONCE A DAY FOR DIABETES TO REPLACE ALOGLIPT IN ORAL DISCONT INUED (EDIT) 06/30/2024 [id number] 4 GAN,A RMIDA A 2023 90 [facility] DIVISIO N TADALAFIL 10MG TAB TAKE ONE TABLET BY MOUTH EVERY WEEK NEEDED FOR ERECTILE DYSFUNCT ION (TAKE 30 MINUTES PRIOR TO SEXUAL ACTIVITY ) - LIMIT 6 DOSES PER 30 DAYS ORAL ACTIVE 04/27/2024 [id number] THERON EMMANUEL 2023 18 [facility] N TAMSULOSIN HCL 0.4MG CAP TAKE TWO CAPSULES BY MOUTH ONCE A DAY FOR BENIGN PROSTATI C HYPERPLA CAYDEN APPROXIM ATELY 30 MINUTES AFTER THE SAME MEAL EACH DAY (FOR PROSTATE ) ORAL SUSPEND ED 02/03/2025 [id number] 5 GAN,A RMIDA A 2024 180 [facility] TAMSULOSIN HCL 0.4MG CAP TAKE TWO CAPSULES BY MOUTH ONCE A DAY FOR BENIGN PROSTATI C HYPERPLA CAYDEN APPROXIM ATELY 30 MINUTES AFTER THE SAME MEAL EACH DAY (FOR PROSTATE ) ORAL DISCONT INUED 08/14/2024 [id number] 4 GAN,A RMIDA A 2023 180 [facility] TAMSULOSIN HCL 0.4MG CAP TAKE TWO CAPSULES BY MOUTH ONCE A DAY FOR BENIGN PROSTATI C HYPERPLA CAYDEN APPROXIM ATELY 30 MINUTES AFTER THE SAME MEAL EACH DAY (FOR PROSTATE ) ORAL DISCONT INUED 08/14/2024 [id number] 4 GAN,A RMIDA A 2023 60 [facility] TAMSULOSIN HCL 0.4MG CAP TAKE TWO CAPSULES BY MOUTH ONCE A DAY FOR BENIGN PROSTATI C HYPERPLA CAYDEN APPROXIM ATELY 30 MINUTES AFTER THE SAME MEAL EACH DAY (FOR PROSTATE ) ORAL DISCONT INUED 07/17/2023 [id number] 4 GAN,A RMIDA A 2022 60 [facility] [place]FARIN NA ([place] 5MG TAB TAKE ONE AND ONE-HALF TABLETS BY MOUTH THURSDAY, THURSDAY, THURSDAY AND THURSDAY AND TAKE TWO TABLETS , THURSDAY AND THURSDAY OR DIRECTED BY THE [facility]. TO PREVENT BLOOD CLOTS. KEEP LAB APPOINTM ENTS. ORAL ACTIVE 01/13/2025 [id number] MANPREET PEREIRA 2023 55 [facility] DIV[facility] N WARFARIN NA ([place] 5MG TAB TAKE ONE AND ONE-HALF TABLETS BY MOUTH THURSDAY, THURSDAY, THURSDAY AND THURSDAY AND TAKE TWO TABLETS , THURSDAY AND THURSDAY OR DIRECTED BY THE [facility]. TO PREVENT BLOOD CLOTS. KEEP LAB APPOINTM ENTS. ORAL DISCONT INUED 09/10/2024 [id number] MANPREET PEREIRA 2023 55 [facility] DIV[facility] N [place]FARIN NA ([place] 5MG TAB TAKE ONE AND ONE-HALF TABLETS BY MOUTH THURSDAY, THURSDAY, THURSDAY AND THURSDAY AND TAKE TWO TABLETS , THURSDAY AND THURSDAY OR DIRECTED BY THE [facility]. TO PREVENT BLOOD CLOTS. KEEP LAB APPOINTM ENTS. ORAL DISCONT INUED 05/13/2024 [id number] MANPREET PEREIRA 2023 55 [facility] N [place]ARFARIN NA ([place] 5MG TAB TAKE ONE AND ONE-HALF TABLETS BY MOUTH SUN/MON/ THU/THU/ SAT AND TAKE TWO TABLETS TH/FR I OR DIRECTED BY THE [facility]. TO PREVENT BLOOD CLOTS. KEEP LAB APPOINTM ENTS. ORAL DISCONT INUED (EDIT) 04/02/2024 [id number] 4 MANPREET PEREIRA 2023 50 [facility] N WARFARIN NA ([place] 5MG TAB TAKE ONE AND ONE-HALF TABLETS BY MOUTH SUN/MON/ TUE/WED/ SAT AND TAKE TWO TABLETS TH/FR I OR DIRECTED BY THE [facility]. TO PREVENT BLOOD CLOTS. KEEP LAB APPOINTM ENTS. ORAL DISCONT INUED 10/04/2023 [id number] 3 MANPREET PEREIRA 2022 50 [facility] N Allergies, Adverse Reactions, Alerts Combined list of allergies from Department of Defense and Veterans Affairs facilities. It does not include entries that were removed or entered in error. Substance Category Reaction Severity Reaction type Status Date Reported Comments Source AUGMENTIN Propensity to adverse reactions to drug (finding) ALT (SGPT) level raised, Aspartate aminotransf erase serum level raised active 2 [facility] MORPHINE Propensity to adverse reactions to drug (finding) Nausea and vomiting active 0 [facility] SIMVASTATIN Propensity to adverse reactions to drug (finding) active 3 [facility] Immunizations Combined list of available immunizations from the Department of Defense and Veterans Affairs facilities. 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 Comments Source RSV, BIVALENT, PROTEIN SUBUNIT RSVPREF, DILUENT RECONSTITUTED , 0.5 ML, PF 1 2023 EFRAIN WELCH S LEFT DELTO ID [id number] 305 complet ed [facility] INFLUENZA, HIGH-DOSE, TRIVALENT, PF 2023 READUSROBI S LEFT DELTO ID [id number] 135 complet ed [facility] COVID-19 (PFIZER), MRNA, LNP-S, PF, PIYUSH-SUCROSE, 30 MCG/0.3 ML (AGES 12+ YEARS) 2023 ROBI CRUZ S RIGHT DELTO ID [id number] 309 complet ed [facility] COVID-19 (PFIZER), MRNA, LNP-S, PF, PIYUSH-SUCROSE, 30 MCG/0.3 ML (AGES 12+ YEARS) 1 2022 EFRAIN WELCH S RIGHT DELTO ID [id number] 309 complet ed [facility] INFLUENZA, HIGH-DOSE, QUADRIVALENT 2022 EFRAIN WELCH S LEFT DELTO ID [id number] A 197 complet ed [facility] COVID-19 (MODERNA), MRNA, LNP-S, BIVALENT BOOSTER, PF, 50 MCG/0.5 ML OR 25MCG/0.25 ML DOSE 1 2021 229 complet ed MOD; [id number]; 3 [facility] INFLUENZA VACCINE, QUADRIVALENT, ADJUVANTED 2021 205 complet ed [facility] COVID-19 (PFIZER), MRNA, LNP-S, PF, 30 MCG/0.3 ML DOSE 3 2020 208 complet ed PFR; [id number]; 1 [facility] DIV[facility] N INFLUENZA VACCINE, QUADRIVALENT, ADJUVANTED 2020 205 complet ed [facility] COVID-19 (PFIZER), MRNA, LNP-S, PF, 30 MCG/0.3 ML DOSE 2 2020 208 complet ed PFR; [id number]; 1 [facility] COVID-19 ([employer]), MRNA, LNP-S, PF, 30 MCG/0.3 ML DOSE 1 2020 208 complet ed PFR; [id number]; 1 [facility] DIV[facility] N INFLUENZA, HIGH-DOSE, QUADRIVALENT 1 2019 197 complet ed [facility] INFLUENZA, UNSPECIFIED FORMULATION 2018 88 complet ed [facility] ZOSTER RECOMBINANT 2 2018 187 complet ed [facility] ZOSTER RECOMBINANT 1 2018 187 complet ed [facility] INFLUENZA, UNSPECIFIED FORMULATION 2017 88 complet ed per [facility] DIVISIO N INFLUENZA, UNSPECIFIED FORMULATION 2016 88 complet ed [facility] PNEUMOCOCCAL POLYSACCHARID E [id number] 2016 33 complet ed [facility] INFLUENZA, UNSPECIFIED FORMULATION 2014 88 complet ed [facility] DIVISIO N INFLUENZA, UNSPECIFIED FORMULATION 2014 88 complet ed [facility] PNEUM[facility]JUG[facility] PCV 13 2014 133 complet ed [facility] INFLUENZA, UNSPECIFIED FORMULATION 2013 88 complet ed [facility] DIVIS[facility] N ZOSTER LIVE 2013 121 complet ed [facility] N TDAP 2013 115 complet ed Left Deltoid [facility] INFLUENZA, UNSPECIFIED FORMULATION 2012 88 complet ed [facility] DIV[facility] N INFLUENZA, UNSPECIFIED FORMULATION 2011 88 complet ed [facility] INFLUENZA, UNSPECIFIED FORMULATION 2010 88 complet ed [facility] DIV[facility] N PNEUMOCOCCAL, UNSPECIFIED FORMULATION 2010 109 complet ed [facility] Results Combined list of recent chemistry, hematology and other laboratory results from Department of Defense and Veterans Affairs, ranging from 15 months to all on record, depending upon the facility. Order Name Results Value Reference Range Date Interpretation Specimen Comments Source [id number] HEMOGLOBIN A1C/HEMOGLO BIN.TOTAL IN BLOOD 8.3 4.0 - 6.0 02/10 H Specimen Type: BLOOD No comment entered. Ordering Provider: RAJENDRA GAN Report Released Date/Time: Feb 11, 2024 11:13 AM Reporting Lab: [address] [address] Performing Lab: [id number] [place] [address] HGB,HCT,P LT HEMOGLOBIN [MASS/VOLUM E] IN BLOOD 13.9 g/dL 13.1 - 16.8 02/10 Specimen Type: BLOOD No comment entered. Ordering Provider: NANCI PEREIRA Report Released Date/Time: Jan 13, 2024 01:55 PM Reporting Lab: [address] [address] Performing Lab: [address] [address] [facility] HGB,HCT,P LT HEMATOCRIT [VOLUME FRACTION] OF BLOOD 45.5 38.2 - 48.4 02/10 Specimen Type: BLOOD No comment entered. Ordering Provider: NANCI PEREIRA Report Released Date/Time: Jan 13, 2024 01:55 PM Reporting Lab: [address] [address] Performing Lab: [address] [address] [facility] HGB,HCT,P LT PLATELETS [#/VOLUME] IN BLOOD BY AUTOMATED COUNT 130 10*3/u L 150 - 400 02/10 L Specimen Type: BLOOD No comment entered. Ordering Provider: NANCI PEREIRA Report Released Date/Time: Jan 13, 2024 01:55 PM Reporting Lab: [place] [address] Performing Lab: [address] POC INR (STL-RX MONITORIN G ONLY) INR IN BLOOD BY COAGULATION ASSAY 2.3 {INR} 0.9 - 1.1 02/10 H Specimen Type: BLOOD Comment: Test Performed by: [id number] Meter #: [id number] Ordering Provider: NANCI PEREIRA Report Released Date/Time: Feb 12, 2024 08:40 AM Reporting Lab: [place] [id number] Performing Lab: [address] [address] [facility] POC INR (STL-RX MONITORIN G ONLY) INR IN BLOOD BY COAGULATION ASSAY 2.8 {INR} 0.9 - 1.1 01/12 H Specimen Type: BLOOD Comment: Test Performed by: [id number] Meter #: [id number] Ordering Provider: NANCI PEREIRA Report Released Date/Time: Jan 13, 2024 10:04 AM Reporting Lab: [place] [id number] Performing Lab: [address] [address] [facility] POC INR (STL-RX MONITORIN G ONLY) INR IN BLOOD BY COAGULATION ASSAY 2.6 {INR} 0.9 - 1.1 12/09 H Specimen Type: BLOOD Comment: Test Performed by: [id number] Meter #: [id number] Ordering Provider: NANCI PEREIRA Report Released Date/Time: Dec 10, 2023 10:07 AM Reporting Lab: [address] [address] Performing Lab: [address] [address] [facility] POC INR (STL-RX MONITORIN G ONLY) INR IN BLOOD BY COAGULATION ASSAY 3.1 {INR} 0.9 - 1.1 11/12 H Specimen Type: BLOOD Comment: Test Performed by: [id number] Meter #: [id number] Ordering Provider: NANCI PEREIRA Report Released Date/Time: Nov 13, 2023 12:53 PM Reporting Lab: [address] [address] Performing Lab: [address] [address] [facility] POC INR (STL-RX MONITORIN G ONLY) INR IN BLOOD BY COAGULATION ASSAY 2.4 {INR} 0.9 - 1.1 10/07 H Specimen Type: BLOOD Comment: Test Performed by: [id number] Meter #: [id number] Ordering Provider: NANCI PEREIRA Report Released Date/Time: Oct 08, 2023 10:35 AM Reporting Lab: [address] [address] Performing Lab: [address] [address] [facility] POC INR (STL-RX MONITORIN G ONLY) INR IN BLOOD BY COAGULATION ASSAY 2.3 {INR} 0.9 - 1.1 09/09 H Specimen Type: BLOOD Comment: Test Performed by: [id number] Meter #: [id number] Ordering Provider: NANCI PEREIRA Report Released Date/Time: Sep 10, 2023 09:46 AM Reporting Lab: [address] [address] Performing Lab: [address] [address] [facility] HGA1C HEMOGLOBIN A1C/HEMOGLO BIN.TOTAL IN BLOOD 8.4 4.0 - 6.0 08/05 H Specimen Type: BLOOD No comment entered. Ordering Provider: RAJENDRA GAN Report Released Date/Time: August 06, 2023 11:19 AM Reporting Lab: [facility] [address] [place] [phone] Performing Lab: [address] [address] [facility] LIPID PANEL (STL) CHOLESTEROL [MASS/VOLUM E] IN SERUM OR PLASMA 193 mg/dL 0 - 200 08/05 Specimen Type: PLASMA Comment: LDL calculation invalid when Triglycerid e exceeds 250 mg/dl Ordering Provider: RAJENDRA GAN Report Released Date/Time: August 06, 2023 11:19 AM Reporting Lab: [facility] [address] [place] [phone] Performing Lab: [address] [address] [facility] LIPID PANEL (STL) TRIGLYCERID E [MASS/VOLUM E] IN SERUM OR PLASMA 315 mg/dL 0 - 150 08/05 H Specimen Type: PLASMA Comment: LDL calculation invalid when Triglycerid e exceeds 250 mg/dl Ordering Provider: RAJENDRA GAN Report Released Date/Time: August 06, 2023 11:19 AM Reporting Lab: [facility] [address] [place] [phone] Performing Lab: [address] [address] [facility] LIPID PANEL (STL) CHOLESTEROL IN LDL [MASS/VOLUM E] IN SERUM OR PLASMA BY DIRECT ASSAY 98 mg/dL 100 08/05 L Specimen Type: PLASMA Comment: LDL calculation invalid when Triglycerid e exceeds 250 mg/dl Ordering Provider: RAJENDRA GAN Report Released Date/Time: August 06, 2023 11:19 AM Reporting Lab: [facility] [address] [facility] [address] Performing Lab: [facility] [address] [facility] [address] [facility] LIPID PANEL (STL) CHOLESTEROL IN LDL [MASS/VOLUM E] IN SERUM OR PLASMA BY CALCULATION commen tmg/dL 08/05 Specimen Type: PLASMA Comment: LDL calculation invalid when Triglycerid e exceeds 250 mg/dl Ordering Provider: RAJENDRA GAN Report Released Date/Time: August 06, 2023 11:19 AM Reporting Lab: [facility] [address] [place] [phone] Performing Lab: [facility] [address] [facility] [address] [facility] LIPID PANEL (STL) CHOLESTEROL IN HDL [MASS/VOLUM E] IN SERUM OR PLASMA 42 mg/dL 40 08/05 Specimen Type: PLASMA Comment: LDL calculation invalid when Triglycerid e exceeds 250 mg/dl Ordering Provider: RAJENDRA GAN Report Released Date/Time: August 06, 2023 11:19 AM Reporting Lab: [facility] [address] [facility] [address] Performing Lab: [facility] [address] [place] [phone] [facility] Vital Signs Combined list of inpatient and outpatient Vital Signs from Department of Defense and Veterans Affairs, ranging from 12 months to all on record, depending upon the facility. Vital Sign Value Date Comments Source SYSTOLIC BLOOD PRESSURE 147 02/11/2024 11:13:02 [facility] DIASTOLIC BLOOD PRESSURE 78 02/11/2024 11:13:02 [facility] PULSE OXIMETRY 95 02/11/2024 11:13:02 S Avril [facility] WEIGHT 254 02/11/2024 11:13:02 [facility] BMI 37kg/m2 02/11/2024 11:13:02 [facility] PAIN 6 02/11/2024 11:13:02 [facility] HEIGHT 70 02/11/2024 11:13:02 [facility] TEMPERATURE 97.8 02/11/2024 11:13:02 [facility] PULSE 68 02/11/2024 11:13:02 [facility] RESPIRATION 18 02/11/2024 11:13:02 [facility] SYSTOLIC BLOOD PRESSURE 133 08/06/2023 10:40:39 [facility] DIASTOLIC BLOOD PRESSURE 79 08/06/2023 10:40:39 [facility] PULSE OXIMETRY 93 08/06/2023 10:40:39 S Avril [facility] WEIGHT 259.2 08/06/2023 10:40:39 [facility] BMI 37kg/m2 08/06/2023 10:40:39 [facility] PAIN 3 08/06/2023 10:40:39 [facility] HEIGHT 70 08/06/2023 10:40:39 [facility] TEMPERATURE 97.7 08/06/2023 10:40:39 [facility] PULSE 72 08/06/2023 10:40:39 [facility] RESPIRATION 18 08/06/2023 10:40:39 [facility] SYSTOLIC BLOOD PRESSURE 149 07/01/2023 06:54:42 [facility] DIASTOLIC BLOOD PRESSURE 75 07/01/2023 06:54:42 [facility] PULSE OXIMETRY 93 07/01/2023 06:54:42 S Avril [facility] WEIGHT 260 07/01/2023 06:54:42 [facility] BMI 37kg/m2 07/01/2023 06:54:42 [facility] PAIN 5 07/01/2023 06:54:42 [facility] HEIGHT 70 07/01/2023 06:54:42 [facility] L [facility] TEMPERATURE 97 07/01/2023 06:54:42 [facility] PULSE 85 07/01/2023 06:54:42 [facility] RESPIRATION 18 07/01/2023 06:54:42 [facility] SYSTOLIC BLOOD PRESSURE 143 04/27/2023 10:21:03 [facility] DIASTOLIC BLOOD PRESSURE 72 04/27/2023 10:21:03 [facility] PULSE OXIMETRY 92% 04/27/2023 10:21:03 [facility] WEIGHT 262.5 04/27/2023 10:21:03 [facility] BMI 39kg/m2 04/27/2023 10:21:03 [facility] PAIN 0 04/27/2023 10:21:03 [facility] TEMPERATURE 97 04/27/2023 10:21:03 [facility] PULSE 91 04/27/2023 10:21:03 [facility] RESPIRATION 19 04/27/2023 10:21:03 [facility] SYSTOLIC BLOOD PRESSURE 113 03/27/2023 08:54:36 [facility] DIASTOLIC BLOOD PRESSURE 66 03/27/2023 08:54:36 [facility] PULSE OXIMETRY 92% 03/27/2023 08:54:36 [facility] WEIGHT 258.8 03/27/2023 08:54:36 [facility] BMI 38kg/m2 03/27/2023 08:54:36 [facility] PAIN 0 03/27/2023 08:54:36 [facility] TEMPERATURE 98.2 03/27/2023 08:54:36 [facility] PULSE 105 03/27/2023 08:54:36 [facility] RESPIRATION 20 03/27/2023 08:54:36 [facility] Encounters Combined list of: 1) Encounters from Department of [facility] Affairs facilities going back up to thelast 18 months. 2) Encounters from the Department of Defense facilities going back up to 280 months. 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
Dennys MEYER NIDA MARCO A 09/05 [facility] Outpatient Encounter [id number] NITHIN TAN 09/19 [facility] Outpatient Encounter [id number] 09/19 [facility] Outpatient Encounter [id number] NITHIN TAN 09/25 [facility] Outpatient Encounter [id number] NITHIN TAN 09/30 [facility] HC PRO PHONE CALL 5-10 MIN [id number] Diagnos is: ICD-10- CM Z51.81 Encount er for therape utic drug level monitor ing<br/ > NANCI PEREIRA 10/02 [facility] Outpatient Encounter [id number] NITHIN TAN 10/24 [facility] HC PRO PHONE CALL 5-10 MIN [id number] Diagnos is: ICD-10- CM Z51.81 Encount er for therape utic drug level monitor ing<br/ > NANCI PEREIRA S 11/06 [facility] HC PRO PHONE CALL 5-10 MIN [id number] Diagnos is: ICD-10- CM Z51.81 Encount er for therape utic drug level monitor ing<br/ > NANCI PEREIRA S 12/11 [facility] N [facility] HEARING AID REPAIR/MOD IFYING [id number] Diagnos is: ICD-10- CM H90.3 Sensori neural hearing loss, bilater al
ALEXANDER ANTHONY 12/12 [facility] Outpatient Encounter [id number] NITHIN TAN 12/21 [facility] OFFICE O/P EST LOW 20-29 MIN [id number] Diagnos is: ICD-10- CM H25.12 Age-rel ated nuclear catarac t, left eye<br/ > PALAK BLACKWOOD 12/25 [facility] HC PRO PHONE CALL 5-10 MIN [id number] Diagnos is: ICD-10- CM Z51.81 Encount er for therape utic drug level monitor ing<br/ > NANCI PEREIRA S 01/15 [facility] OFFICE O/P EST MOD 30-39 MIN [id number] Diagnos is: ICD-10- CM E11.8 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 complic ations< br/> GAN,AR MIDA A 01/15 [facility] Outpatient Encounter [id number] 01/21 [facility] HC PRO PHONE CALL 5-10 MIN [id number] Diagnos is: ICD-10- CM Z51.81 Encount er for therape utic drug level monitor ing<br/ > NANCI PEREIRA S 02/19 [facility] Outpatient Encounter [id number] 02/25 [facility] MTMS BY PHARM EST 15 MIN [id number] Diagnos is: ICD-10- CM Z51.81 Encount er for therape utic drug level monitor ing<br/ > NANCI PEREIRA S 03/27 [facility] OFFICE O/P EST LOW 20 MIN [id number] Diagnos is: ICD-10- CM N32.81 Overact susan bladder
CARROLL MISTRY IS J 03/27 [facility] Outpatient Encounter [id number] NITHIN TAN 04/14 [facility] OFFICE O/P EST LOW 20 MIN [id number] [id number] Diagnos is: ICD-10- CM N39.41 Urge inconti nence<b r/> CARROLL MISTRY IS J 04/27 [facility] Outpatient Encounter [id number] 04/29 [facility] MTMS BY PHARM EST 15 MIN [id number] Diagnos is: ICD-10- CM Z51.81 Encount er for therape utic drug level monitor ing<br/ > BORESI,NANCI S 05/04 [facility] MTMS BY PHARM EST 15 MIN [id number] Diagnos is: ICD-10- CM Z51.81 Encount er for therape utic drug level monitor ing<br/ > BORESI,NANCI S 05/12 [facility] Outpatient Encounter [id number] 05/15 [facility] COMPRE OPH EXAM NEW PT 1/> [id number] [id number] Diagnos is: ICD-10- CM H25.13 Age-rel ated nuclear catarac t, bilater al
JENY NAIR MAO 05/25 [facility] Outpatient Encounter [id number] 05/25 [facility] MTMS BY PHARM EST 15 MIN [id number] Diagnos is: ICD-10- CM Z51.81 Encount er for therape utic drug level monitor ing<br/ > BORESI,NANCI S 05/26 [facility] MTMS BY PHARM EST 15 MIN [id number] Diagnos is: ICD-10- CM Z51.81 Encount er for therape utic drug level monitor ing<br/ > BORESI,NANCI S 06/23 [facility] MEASURE BLOOD OXYGEN LEVEL [id number] Diagnos is: ICD-10- CM Z98.42 Catarac t extract ion status, left eye<br/ > LURDES ROSARIO M 06/30 [facility] OFFICE O/P EST LOW 20 MIN [id number] Diagnos is: ICD-10- CM Z01.818 Encount er for other preproc edural examina tion
JULIA,CANDACE IN A 06/30 [facility] Outpatient Encounter [id number] PATRICK HARPER A 06/30 [facility] Outpatient Encounter [id number] GLADYS CONROY ICA Y 06/30 [facility] XCAPSL CTRC RMVL W/O ECP [id number] PATRICK HARPER A 06/30 [facility] Outpatient Encounter [id number] CORNELIO MORTON 06/30 [facility] POSTOP FOLLOW-UP VISIT [id number] [id number] Diagnos is: ICD-10- CM Z98.42 Catarac t extract ion status, left eye<br/ > GLADYS CONROY ICA Y 07/01 [facility] Outpatient Encounter [id number] DAMARIS MAURO 07/05 [facility] POSTOP FOLLOW-UP VISIT [id number] Diagnos is: ICD-10- CM Z98.42 Catarac t extract ion status, left eye<br/ > MARYCARMEN,GLADYS ICA Y 07/07 [facility] POSTOP FOLLOW-UP VISIT [id number] Diagnos is: ICD-10- CM Z98.42 Catarac t extract ion status, left eye<br/ > MARYCARMEN,GLADYS ICA Y 07/30 [facility] MTMS BY PHARM EST 15 MIN [id number] Diagnos is: ICD-10- CM Z51.81 Encount er for therape utic drug level monitor ing<br/ > BORESI,NANCI S 08/05 [facility] OFFICE O/P EST MOD 30 MIN [id number] Diagnos is: ICD-10- CM F43.29 Adjustm ent disorde r with other symptom s
KATERIN NAGEL 08/05 [facility] Outpatient Encounter [id number] NITHIN TAN 08/13 [facility] Outpatient Encounter [id number] 08/27 [facility] MTMS BY PHARM EST 15 MIN [id number] Diagnos is: ICD-10- CM Z51.81 Encount er for therape utic drug level monitor ing<br/ > BORESI,NANCI S 09/09 [facility] Outpatient Encounter [id number] FRAN BEE 09/09 [facility] MTMS BY PHARM EST 15 MIN [id number] Diagnos is: ICD-10- CM Z51.81 Encount er for therape utic drug level monitor ing<br/ > NANCI PEREIRA 10/07 [facility] Outpatient Encounter [id number] KATERIN NAGEL 10/11 [facility] MTMS BY PHARM EST 15 MIN [id number] Diagnos is: ICD-10- CM Z51.81 Encount er for therape utic drug level monitor ing<br/ > Daniel BATISTA NNA P 11/11 [facility] OFFICE O/P EST MOD 30 MIN [id number] Diagnos is: ICD-10- CM F41.1 General ized anxiety disorde r
CASSIE SILVA JR 11/25 [facility] Outpatient Encounter [id number] 11/29 [facility] MTMS BY PHARM EST 15 MIN [id number] [id number] Diagnos is: ICD-10- CM Z51.81 Encount er for therape utic drug level monitor ing<br/ > NANCI PEREIRA S 12/09 [facility] Outpatient Encounter [id number] 12/09 [facility] Outpatient Encounter [id number] CHRISTIANO CARLSON 12/24 [facility] Outpatient Encounter [id number] DELORIS,TIFF ANY N 12/31 [facility] Outpatient Encounter [id number] 01/06 [facility] MTMS BY PHARM EST 15 MIN [id number] Diagnos is: ICD-10- CM Z51.81 Encount er for therape utic drug level monitor ing<br/ > NANCI PEREIRA S 01/12 [facility] OFF/OP EST JULY X REQ PHY/QHP [id number] Diagnos is: ICD-10- CM Z23 Encount er for immuniz ation<b r/> DARIELA CRUZ S 01/21 [facility] COMPRE OPH EXAM EST PT 1/> [id number] Diagnos is: ICD-10- CM E11.9 Type 2 diabete s mellitu s without complic ations< br/> AMILCAR FERNANDEZ THI 01/25 [facility] Outpatient Encounter [id number] 02/07 [facility] MTMS BY PHARM EST 15 MIN [id number] Diagnos is: ICD-10- CM Z51.81 Encount er for therape utic drug level monitor ing<br/ > NANCI PEREIRA S 02/10 [facility] N [facility] OFFICE O/P EST MOD 30 MIN [id number] Diagnos is: ICD-10- CM F43.29 Adjustm ent disorde r with other symptom s
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< br/> SCHMEES,NA NCY ESE 02/23 [facility] N [facility] Outpatient Encounter [id number] [facility] Outpatient Encounter [id number] 02/23 [facility] N [facility] Outpatient Encounter [id number] [facility]25 [facility] N Procedures Combined list of: 1) Procedures from Department of [facility] Affairs facilities going back up to thelast 18 months, not all VA non-surgical procedures are included; 2) All procedures from the Department of Defense facilities. Procedure Procedure Type Code Date Perfomer Comments Sourc e LEFT EYE PHACO CATARACT EXTRACTION WITH LENS IMPLLANT XCAPSL CTRC RMVL W/O ECP 91488 07/01/2023 IRIS SANTAMARIA [facility] Social History Combined list of available smoking, tobacco, and other social history from Department of Defense and Veterans Affairs facilities. Social History Type Response Date Comment Sour e Tobacco smoking status NHIS VA-TOBACCO USE FORMER CIGARETTES 02/11/2024 [facility] History of tobacco use VA-TOBACCO NEVER USED OTHER TYPE 02/11/2024 [facility] History of tobacco use VA-TOBACCO FORMER USER 01/15/2023 [facility] History of tobacco use VA-TOBACCO FORMER USER 01/06/2022 [facility] History of tobacco use VA-TOBACCO FORMER USER 01/03/2021 [facility] History of tobacco use VA-TOBACCO FORMER USER 05/16/2019 [facility] History of tobacco use VA-TOBACCO QUIT 15 YRS OR MORE 04/29/2018 [facility] History of tobacco use QUIT TOBACCO >7 YEARS AGO 05/06/2017 [facility] History of tobacco use QUIT TOBACCO >7 YEARS AGO 11/03/2016 [facility] History of tobacco use QUIT TOBACCO >7 YEARS AGO 06/19/2016 [facility] History of tobacco use QUIT TOBACCO >7 YEARS AGO 08/03/2015 [facility] History of tobacco use QUIT TOBACCO >7 YEARS AGO 07/27/2014 [facility] History of tobacco use QUIT TOBACCO >7 YEARS AGO 07/14/2013 [facility] History of tobacco use QUIT TOBACCO >7 YEARS AGO 08/06/2012 [facility] History of tobacco use QUIT TOBACCO >7 YEARS AGO 06/12/2011 [facility] Plan of Care List of future care activities from Department of Veterans Affairs facilities. Additional future care activities may be listed in the Assessment and Plan section. Date/Time Care Activity Care Activity Detail Facili ty 03/21/2024 AMBULATORY - MEDICINE AMBULATORY - MEDICI NE [facility] 03/24/2024 AMBULATORY - PSYCHIATRY [facility] 04/18/2024 AMBULATORY - SURGERY AMBULATORY - SURGERY [facility] 08/17/2024 AMBULATORY - MEDICINE AMBULATORY - MEDICI NE [facility] 02/11/2024 Laboratory - Manager Administration ry Order LIPID PANEL (STL) GREEN LI/HEP BLD/PLAS PLASMA SP ONCE [facility] 02/11/2024 Laboratory - Manager Administration ry Order MICRAL/CREAT PROFILE (STL) URINE SP [facility] 02/11/2024 Laboratory - Manager Administration ry Order TSH W/ REFLEX FT4 (STL) GREEN LI-HEP PLASMA SP [facility] 02/11/2024 Laboratory - Manager Administration ry Order URIC ACID GREEN LI/HEP BLD/PLAS PLASMA SP [facility] 02/11/2024 Laboratory - Manager Administration ry Order VITAMIN D, 25-HYDROXY GOLD/RED SST SERUM SP [facility] 02/11/2024 Laboratory - Manager Administration ry Order COMPREHENSIVE METABOLIC PANEL GREEN LI/HEP BLD/PLAS PLASMA SP [facility] 02/22/2024 Laboratory - Manager Administration ry Order B12 GOLD/RED SST SERUM SP [facility] 02/22/2024 Consult Order PODIATRY HIGH RI SK FOOT EXAM OUTPT STL Cons [place] Paste Mixer's Choice [facility] 03/21/2024 Laboratory - Manager Administration ry Order WARFARIN-INR BLOOD PLASMA SP [facility] Advance Directives List of completed, amended, or rescinded Advance Directives on record at Department of [facility] Affairs facilities. An actual copy of the Directive is not included. Date Advance Directive Provider Source 06/13/2013 ADVANCE DIRECTIVE DISCUSSION RONALD ESTRADA [facility]
--- OUTSIDE RECORDS SUMMARY | 2024-03-04 12:54 | XMS_ITS | Encounter Summary ---
Author Name [facility] [facility] [place] Address [address] [place] [address] Care Team Providers Care Coating Technician Name Role Phone JILLIAN GAN Primary Care [...] MEDIC ARE SUPPL EMEMT Apr 23, 2019 [id number] [phone] KATHY ORTEGA PATIENT ANTHEM BCBS [place] MEDICARE SUPPLEMEN WILL MEDIC ARE SUPPL EMEMT Apr 23, 2019 [id number] [phone] KATHY ORTEGA PATIENT ANTHEM [place] MEDICARE SUPPLEMEN WILL MEDIC ARE SUPPL EMEMT Apr 23, 2019 [id number] [phone] KATHY ORTEGA PATIENT BCBS [place] MEDICARE SUPPLEMEN WILL MEDIC ARE SUPPL EMEMT Apr 23, 2019 [id number] [phone] KATHY ORTEGA PATIENT [employer] MCR (WNR) MEDICARE ADVANTAGE MCR (WNR) Mar 23, 2022 [id number] KATHY ORTEGA PATIENT [employer] MCR (WNR) MEDICARE ADVANTAGE [facility] (WNR) Mar 23, 2022 [id number] KATHY ORTEGA PATIENT MEDICARE (WNR) MEDICARE (M) RR PART A May 21, 1990 RR PART A [id number] KATHY ORTEGA PATIENT MEDICARE (WNR) MEDICARE (M) RR PART B May 21, 1990 RR PART B [id number] KATHY ORTEGA PATIENT [employer] [place] MEDICARE SUPPLEMEN WILL MEDIC ARE SUPPL EMENT Feb 20, 2013 PLAN G [id number] [phone] KATHY ORTEGA PATIENT [employer] MCR (WNR) MEDICARE ADVANTAGE [facility] (WNR) Mar 23, 2021 [id number] [phone] KATHY ORTEGA PATIENT Selected Encounter This section includes the information on record at [place] for the Encounter. Date/Time Encounter Type Encounter Description Reason Provider Source Jul 01, 2023 08:37 AM Outpatient Encounter ADMIN PAT ACTIVTIES (MASNONCT) CORNELIO MORTON Encounter Template Text not used by [place] Plan of Treatment: Future Appointments (+ 6 months) and Future Tests (+/- 45 days) The Plan of Treatment section includes future care activities for the patient from all [place] treatmentfacilities. This section includes future appointments and future orders which are active, pending or scheduled. Future Appointments This section includes appointments that were scheduled to occur 6 months from the date of the Encounter, up to a maximum of 20 appointments. The data comes from all [place] treatment facilities. Appointment Date/Time Appointment Type Appointme nt Facility Name Jul 02, 2023 08:30 AM AMBULATORY - SURGERY [facility] Jul 08, 2023 10:00 AM AMBULATORY - SURGERY [facility] July 31, 2023 10:00 AM AMBULATORY - SURGERY [facility] August 06, 2023 08:30 AM AMBULATORY - MEDICINE [facility] August 06, 2023 10:30 AM AMBULATORY - MEDICINE [facility] Sep 10, 2023 08:00 AM AMBULATORY - MEDICINE [facility] Oct 08, 2023 08:30 AM AMBULATORY - MEDICINE [facility] Nov 12, 2023 08:15 AM AMBULATORY - MEDICINE [facility] Nov 26, 2023 03:00 PM AMBULATORY - PSYCHIATRY [facility] Dec 10, 2023 09:30 AM AMBULATORY - MEDICINE [facility] Lab Results: +/- 30 days of the encounter This section includes the Chemistry and Hematology Lab Results on record with [place] for the patient. Radiology Reports and Pathology Reports are provided separately, in subsequent sections. Lab Results This section contains the Chemistry/Hematology Results that were resulted 30 days before or 30 daysafter the date of the Encounter. Date/Time Source Result Type Result - Unit Interpretation Reference Range Comment Jul 01, 2023 06:59 AM [facility] GLUCOSE,BLOOD-poct (STL) Specimen Type: BLOOD Comment: Test Performed by: [id number] Meter #: [id number] Ordering Provider: EFREN ROSARIO Report Released Date/Time: Jul 01, 2023 07:10 AM Reporting Lab: [place] [id number] [facility] [address] Performing Lab: [address] [address] GLUCOSE,BLOOD -poct (STL) 159 mg/dL H 72-99 Jun 24, 2023 09:59 AM [facility] HGB,HCT,PLT Specimen Type: BLOOD No comment entered. Ordering Provider: NANCI PEREIRA Report Released Date/Time: May 28, 2023 09:48 AM Reporting Lab: [place] [address] [facility] [address] Performing Lab: [address] [address] HGB 14.9 g/dL 13.1-16.8 HCT 47.7 38.2-48.4 PLT 120 10*3/uL L 150-400 Jun 24, 2023 09:58 AM [facility] POC INR (STL-RX MONITORING ONLY) Specimen Type: BLOOD Comment: Test Performed by: [id number] Meter #: [id number] Ordering Provider: NANCI PEREIRA Report Released Date/Time: Jun 24, 2023 10:01 AM Reporting Lab: [facility] [address] [facility] [address] Performing Lab: [facility] [address] [place] [address] POC INR (STL-RX MONITORING ONLY) 2.9 {INR} H 0.9-1.1 Vital Signs: All taken on the encounter date This section contains inpatient and outpatient Vital Signs collected on the date of the Encounter. Date/Time Temperature Pulse Blood Pressure Respiratory Rate SP02 Pain Height Weight Body Mass Index Source Jul 01, 2023 06:54 AM 97 85 149/75 18 93 5 70 260 37 [facility] Social History: Smoking Status (Most current) and Tobacco Use (All prior to encounter date) This section includes the most current, and the historical, smoking and tobacco- related health factors from the [place] facility where the Encounter took place. Current Smoking Status This section includes the most current smoking, or tobacco-related health factor, from the [place] facility where the Encounter took place. Date/Time Current Smoking Status Comment Facil ity Apr 29, 2018 09:12 AM VA-TOBACCO FORMER USER [facility] Tobacco Use History This section includes a history of the smoking, or tobacco-related health factors, that were collected on or before the date of the Encounter. The data comes from the [place] facility where the Encounter took place. Date/Time Smoking Status/Tobacco Use Comment F acility Apr 29, 2018 09:12 AM CO-TOBACCO QUIT 15 YRS OR MORE [facility] Advance Directives: All historical and current Section Date Range: From patient's date of to the date document was created. This section includes ALL of a patient's completed or amended [place] Advance and Rescinded Directives. The entries below indicate that a directive exists for the patient, but an actual copy is not included with this document. The data comes from all [place] facilities. Date Advance Directives Provider Source Jun 13, 2013 ADVANCE DIRECTIVE DISCUSSION RONALD ESTRADA [facility] Encounter Notes: All associated encounter notes This section contains the clinical notes associated to the Encounter. Date/Time Encounter Note(s) Provider Source Jul 01, 2023 08:37 AM ANESTHESIOLOGY SAEID WSHEET: LOCAL TITLE: NAUN INTRA-OP FLOWSHEET ST STANDARD TITLE: ANESTHESIOLOGY FLOWSHEET DATE OF NOTE: JUL 01, 2023@08:37 ENTRY DATE: JUL 01, 2023@08:37:21 AUTHOR: CORNELIO MORTON COSIGNER: URGENCY: STATUS: COMPLETED Patient: SACHA ORTEGA SSN: [id number] Date of Operation: 07/01/2023 Surgery Start Time: 07/01/2023 8:18 Surgery End Time: 07/01/2023 8:36 Anesthesia Care Start: 07/01/2023 8:05 Anesthesia Care End: 07/01/2023 8:37 Anesthesia Method: - Monitored 07/01/2023 8:11 (Primary), Level Of Consciousness: Awake, Monitors Applied, Oxygen Therapy: Nasal Cannula, EtCO2 Verified: Waveform Positioning: Head Neutral, Head And Neck In Alignment With Spine, Pressure Points Padded & Checked, Eyes, Ears And Nose Free Of Pressure ASA Number: 3 Procedure: phaco cataract with intraocular lens left eye Diagnosis: cataract left eye Holding, Anesthesia, PACU Drugs: --------- DexmedeTOMidine: 16 mcg Holding, Anesthesia, PACU Fluids: Normal Saline: 10 ml Resources: Arms Wrapped at Side - Bilateral Staff: --------- IRIS SANTAMARIA, SURGEON MERRICK CONROY, ATT. SURGEON NICOLE DUMONT ANES. SUPER. CORNELIO MORTON PRIN. ANES. Procedure Date: 07/01/2023 Procedure Start Time: Procedure End Time: /es/ CORNELIO MORTON REGIONAL GUIDE, Anesthesiology Signed: 07/01/2023 08:37 CORNELIO MORTON [facility]
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
--- OUTSIDE RECORDS SUMMARY | 2024-03-04 12:55 | XMS_ITS | Encounter Summary ---
Author Name [facility] [place] [facility] [place] Address [address] [place] [address] Care Team Providers Care Imaging Engineer Name Role Phone JILLIAN GAN Primary Care [...] MEDIC ARE SUPPL EMEMT Apr 23, 2019 [id number] [phone] KATHY ORTEGA PATIENT ANTHEM BCBS [place] MEDICARE SUPPLEMEN WILL MEDIC ARE SUPPL EMEMT Apr 23, 2019 [id number] [phone] KATHY ORTEGA PATIENT ANTHEM [place] MEDICARE SUPPLEMEN WILL MEDIC ARE SUPPL EMEMT Apr 23, 2019 [id number] [phone] KATHY ORTEGA PATIENT [place]BS [place] MEDICARE SUPPLEMEN WILL MEDIC ARE SUPPL EMEMT Apr 23, 2019 [id number] [phone] KATHY ORTEGA PATIENT [employer] MCR (WNR) MEDICARE ADVANTAGE MCR (WNR) Mar 23, 2022 [id number] KATHY ORTEGA PATIENT [employer] MCR (WNR) MEDICARE ADVANTAGE [facility] (WNR) Mar 23, 2022 [id number] KATHY ORTEGA PATIENT MEDICARE (WNR) MEDICARE (M) RR PART A May 21, 1990 RR PART A [id number] [phone] KATHY ORTEGA PATIENT MEDICARE (WNR) MEDICARE (M) RR PART B May 21, 1990 RR PART B [id number] [phone] KATHY ORTEGA PATIENT [employer] MEDICARE SUPPLEMEN WILL MEDIC ARE SUPPL EMENT Feb 20, 2013 PLAN G [id number] [phone] KATHY ORTEGA PATIENT [facility] (WNR) MEDICARE ADVANTAGE [facility] (WNR) Mar 23, 2021 [id number] KATHY ORTEGA PATIENT Selected Encounter This section includes the information on record at [place] for the Encounter. Date/Time Encounter Type Encounter Description Reason Provider Source Jan 26, 2024 09:30 AM COMPRE OPH EXAM EST PT 1/> OPTOMETRY ICD-10-CM E11.9 Type 2 diabetes mellitus without complications PAMELA FERNANDEZ IHKen Encounter Template Text not used by [facility] Assessments - Encounter Diagnoses This section includes the primary and secondary diagnoses documented for the Encounter. Date/Time Primary/Secondary Diagnosis Diagnosis Name Provider Source Jan 26, 2024 11:50 AM PRIMARY Type 2 diabetes mellitus without complications [facility] Jan 26, 2024 11:50 AM SECONDARY Age-related nuclear cataract, right eye [facility] Jan 26, 2024 11:50 AM SECONDARY Dry eye syndrome of bilateral lacrimal glands [facility] Jan 26, 2024 11:50 AM SECONDARY Hypermetropia, bilateral [facility] Jan 26, 2024 11:50 AM SECONDARY [facility]byopia [facility] Jan 26, 2024 11:50 AM SECONDARY Presence of intraocular lens [facility] Plan of Treatment: Future Appointments (+ 6 months) and Future Tests (+/- 45 days) The Plan of Treatment section includes future care activities for the patient from all [place] [facility] This section includes future appointments and future orders which are active, pending or scheduled. Future Appointments This section includes appointments that were scheduled to occur 6 months from the date of the Encounter, up to a maximum of 20 appointments. The data comes from all [facility]. Appointment Date/Time Appointment Type Appointme nt Facility Name Feb 11, 2024 09:15 AM AMBULATORY - MEDICINE [facility] Feb 11, 2024 11:00 AM AMBULATORY - MEDICINE [facility] Mar 21, 2024 09:00 AM AMBULATORY - MEDICINE [facility] Mar 24, 2024 11:00 AM AMBULATORY - PSYCHIATRY [facility] Apr 18, 2024 09:30 AM AMBULATORY - SURGERY [facility] Active, Pending, and Scheduled Orders This section includes a listing of several types of active, pending, and scheduled orders, including clinic medications orders, diagnostic test orders, procedure orders and consult orders; where the start date of the order is 45 days before the date of the Encounter or 45 days after the date of theEncounter. The data comes from all [facility]. Test Date/Time Test Type Test Details Facility Name Feb 11, 2024 12:00 AM Laboratory - Chemistry Order TSH W/ REFLEX FT4 (STL) GREEN LI-HEP PLASMA SP [facility] Feb 11, 2024 12:00 AM Laboratory - Chemistry Order MICRAL/CREAT PROFILE (STL) URINE SP [facility] Feb 11, 2024 12:00 AM Laboratory - Chemistry Order LIPID PANEL (STL) GREEN LI/HEP BLD/PLAS PLASMA SP ONCE [facility] Feb 11, 2024 12:00 AM Laboratory - Chemistry Order COMPREHENSIVE METABOLIC PANEL GREEN LI/HEP BLD/PLAS PLASMA SP [facility] Feb 11, 2024 12:00 AM Laboratory - Chemistry Order URIC ACID GREEN LI/HEP BLD/PLAS PLASMA SP [facility] Feb 11, 2024 12:00 AM Laboratory - Chemistry Order VITAMIN D, 25-HYDROXY GOLD/RED SST SERUM SP [facility] Feb 22, 2024 12:00 AM Laboratory - Chemistry Order B12 GOLD/RED SST SERUM SP [facility] Feb 22, 2024 12:34 PM Consult Order PODIATRY H IGH RISK FOOT EXAM OUTPT STL Cons Kitchen Runner's Choice [facility] Lab Results: +/- 30 days of [...] Range Comment Feb 11, 2024 10:34 AM [facility] HGB,HCT,PLT Specimen Type: BLOOD No comment entered. Ordering Provider: NANCI PEREIRA Report Released Date/Time: Jan 13, 2024 01:55 PM Reporting Lab: [address] [address] Performing Lab: [address] [address] HGB 13.9 g/dL 13.1-16.8 HCT 45.5 38.2-48.4 PLT 130 10*3/uL L 150-400 Feb 11, 2024 10:34 AM [facility] HGA1C Specimen Type: BLOOD No comment entered. Ordering Provider: ISMAEL GAN Report Released Date/Time: Feb 11, 2024 11:13 AM Reporting Lab: [place] [id number] [facility] [address] Performing Lab: [address] [address] HGA1C 8.3 H 4.0-6.0 Feb 11, 2024 10:33 AM [facility] POC INR (STL-RX MONITORING ONLY) Specimen Type: BLOOD Comment: Test Performed by: [id number] Meter #: [id number] Ordering Provider: NANCI PEREIRA Report Released Date/Time: Feb 12, 2024 08:40 AM Reporting Lab: [facility] [address] [facility] [address] Performing Lab: [address] [address] POC INR (STL-RX MONITORING ONLY) 2.3 {INR} H 0.9-1.1 Jan 13, 2024 09:58 AM [facility] POC INR (STL-RX MONITORING ONLY) Specimen Type: BLOOD Comment: Test Performed by: [id number] Meter #: [id number] Ordering Provider: NANCI PEREIRA Report Released Date/Time: Jan 13, 2024 10:04 AM Reporting Lab: [address] [address] Performing Lab: [address] [address] POC INR (STL-RX MONITORING ONLY) 2.8 {INR} [...] place. Date/Time Current Smoking Status Comment Catherine pepe Jun 19, 2016 04:41 PM QUIT TOBACCO >7 YEARS AGO [facility] Tobacco Use History This section includes a history of the smoking, or tobacco-related health factors, that were collected on or before the date of the Encounter. The data comes from the [place] facility where the Encounter took place. Date/Time Smoking Status/Tobacco Use Comment F acility August 03, 2015 08:35 AM QUIT TOBACCO >7 YEARS AGO [facility] July 27, 2014 08:56 AM QUIT TOBACCO >7 YEARS AGO [facility] Jul 14, 2013 09:20 AM QUIT TOBACCO >7 YEARS AGO [facility] Advance Directives: All historical and current [...] 13, 2013 ADVANCE DIRECTIVE DISCUSSION RONALD ESTRADA [facility] Encounter Notes: All associated encounter notes This section contains the clinical notes associated to the Encounter. Date/Time Encounter Note(s) Provider Source Jan 26, 2024 08:28 AM OPTOMETRY NOTE: LOCAL TITLE: OPTOMETRY NOTE STANDARD TITLE: OPTOMETRY NOTE DATE OF NOTE: JAN 26, 2024@08:28 ENTRY DATE: JAN 26, 2024@08:28:42 AUTHOR: LISA FERNANDEZ EXP COSIGNER: URGENCY: STATUS: COMPLETED Last seen: 07/31/2023 - post op CC: 1. here for 6 months post op CE/PCIOL OS OD cataract NVS vision is okay eye more irritated today than normal, morning is always the worst. Eyes run in the morning, clear discharge. Eyes are not itchy/scratchy, painful. Patient has not been sick recently. Feels redness could be from lack of sleep. 2. Diabetic Eye Exam, HbA1c 8.4 BS: 160 morning fasting, sometimes 180 Ocular meds: uses a drop from here in the morning Ocular ROS: 1. Pseudophakia, OS 07/01/2023 2. Cataract, OD 3. 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 Dry Eye, OU 5. ?myopic LASIK 10-15 years ago OU (patient reports he was nearsighted prior to LASIK but his julisa resembles hyperopic LASIK) Family OcHX: (-) blindness (-) glaucoma (-) AMD (-) RD Cardiovascular ROS: no change from problem & medication lists CPRS Problem list, medications and allergies reviewed: CPRS Serology for Diabetes GLUCOSE 176 H mg/dL 08/06/2023 11:28 HGA1C 8.4 H % 08/06/2023 11:28 Cardiovascular BP: 131/77 (08/06/2023 10:40) Pulse: 72 (08/06/2023 10:40) Neuro: Orientation: Normal Psych: Mood/Affect: Normal Depression/suicide ideation: NO VISUAL ACUITY WithOUT correction Distance Visual Acuity OD: 20/20-1 OS: 20/25-2 Autorefraction OD: plano - 1.25 x 178 OS: +.75 - 1.25 x 91 Pupils PERRL OU (-)APD Confrontation: FTFC OU Extra-Ocular Muscles Full OU Externals/adnexa Unremarkable OU, Eyes injected OU Refraction 01/26/2024 OD: +0.75 - 1.25 x 063 20/20-1 OS: +0.50 - 1.25 x 093 20/20-1 Add: +2.50 SLIT LAMP EXAMINATION Lids/Lashes/Lacrimal MGD OU, inferior concretions OU Conjunctiva/Sclera trace injected/quiet OU, pinguecula temp OS>OD Cornea tr diffuse SPK OU Ant Chamber Deep and quiet OU Iris Normal, (-)NVI OU Lens OD: 1-2+ NSC, brunescent OS: PCIOL with tr PCO Intraocular Pressures (Goldmann) 1 gtt fluress Date OD OS Time Meds 01/26/2024 19 19 1019 none UL Held OU RETINAL EVALUATION - DFE Dilated retinal exam Instilled 1 gtt phenylephrine 2.5%, 1 gtt tropicamide 1% OU Patient understands the side effects associated with dilation Optic Nerve OD: 0.35 CDR Flat, pink, distinct (-)NVD OS: 0.30 CDR Flat, pink, distinct (-)NVD Vessels: 2/3 OU, (-)NVE OU Posterior Pole: OD: (-) Hemorrhages (-) exudates (-) cotton wool spots OS: (-) Hemorrhages (-) exudates (-) cotton wool spots Macula: OD: Flat, clear (-)CSME OS: Flat, clear (-)CSME Periphery: OD: Flat and attached, scattered WWOP OS: Flat and attached, scattered WWOP/CR pigmentary changes Vitreous: (-)PVD OU; vitreous syneresis Brunilda Reaves, Optometry Level Vial Sealer participated in the care of this under my supervision. I personally examined the patient and provided the following assessment and plan: Assessment/Plan 01/26/2024 1. Diabetes without retinopathy - Last HgA1C 8.4% - No CSME noted on clinical examination - Educated patient on condition and the affect Diabetes can have on vision. Emphasized the importance of controlling blood sugar through diet, exercise, medication, and follow-ups with PCP - Recommended pt keep HbA1C below 7.0% - Monitor yearly 2. Dry Eyes OU - patient symptomatic - educated on Jennifer mask usage, and Refresh ATs OU qid/prn - Monitor yearly 3. Cataracts OD - not visually significant - Educated patient on condition. Surgery not recommended at this time - Monitor yearly for progression 4. Pseudophakia, OS - IOL centered/clear - BCVA stable 5. 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 Ordered new glasses for patient today - Monitor yearly Pt edu on all findings and given the opportunity to have questions answered RTC 1 year or sooner if needed /es/ LISA FERNANDEZ O.D. Staff Physician, Optometry Signed: 01/26/2024 12:46 LISA FERNANDEZ [facility]
--- OUTSIDE RECORDS SUMMARY | 2024-03-04 12:55 | XMS_ITS | Encounter Summary ---
Author Name [facility] [place] Organization [facility] [place] Address [address] [place] [address] Care Team Providers Care Hot Tar Roofer Name Role Phone JILLIAN GAN Primary Care [...] MEDIC ARE SUPPL EMEMT Apr 23, 2019 [id number] [phone] KATHY ORTEGA PATIENT ANTHEM [place] MEDICARE SUPPLEMEN WILL MEDIC ARE SUPPL EMEMT Apr 23, 2019 [id number] [phone] KATHY ORTEGA PATIENT [place] SUPP[place] WILL MEDIC ARE SUPPL EMEMT Apr 23, 2019 [id number] [phone] KATHY ORTEGA PATIENT [place] MEDICARE SUPPLEMEN WILL MEDIC ARE SUPPL EMEMT Apr 23, 2019 [id number] [phone] KATHY ORTEGA PATIENT [employer] MCR (WNR) MEDICARE ADVANTAGE MCR (WNR) Mar 23, 2022 [id number] KATHY ORTEGA PATIENT [employer] (WNR) MEDICARE ADVANTAGE [facility] (WNR) Mar 23, 2022 [id number] KATHY ORTEGA PATIENT MEDICARE (WNR) MEDICARE (M) RR PART A May 21, 1990 RR PART A [id number] KATHY ORTEGA PATIENT MEDICARE (WNR) MEDICARE (M) RR PART B May 21, 1990 RR PART B [id number] KATHY ORTEGA PATIENT [employer] MEDICARE SUPPLEMEN WILL MEDIC ARE SUPPL EMENT Feb 20, 2013 PLAN G [id number] [phone] KATHY ORTEGA PATIENT [employer] MCR (WNR) MEDICARE ADVANTAGE [facility] (WNR) Mar 23, 2021 [id number] [phone] KATHY ORTEGA PATIENT Selected Encounter This section includes the information on record at [place] for the Encounter. Date/Time Encounter Type Encounter Description Reason Provider Source Dec 25, 2023 10:09 AM Outpatient Encounter PRIMARY CARE/MEDICINE DASIA CARLSON Encounter Template Text not used by [place] Plan of Treatment: Future Appointments (+ 6 months) and Future Tests (+/- 45 days) The Plan of Treatment section includes future care activities for the patient from all [place] treatmentfacilities. This section includes future appointments and future orders which are active, pending or scheduled. Future Appointments This section includes appointments that were scheduled to occur 6 months from the date of the Encounter, up to a maximum of 20 appointments. The data comes from all [place] treatment facilities. Appointment Date/Time Appointment Type Appointme nt Facility Name Jan 13, 2024 08:15 AM AMBULATORY - MEDICINE [facility] Jan 22, 2024 02:15 PM AMBULATORY - MEDICINE [facility] Jan 26, 2024 09:30 AM AMBULATORY - SURGERY [facility] Feb 11, 2024 09:15 AM AMBULATORY - MEDICINE [facility] Feb 11, 2024 11:00 AM AMBULATORY - MEDICINE [facility] Mar 21, 2024 09:00 AM AMBULATORY - MEDICINE [facility] Mar 24, 2024 11:00 AM AMBULATORY - PSYCHIATRY [facility] Apr 18, 2024 09:30 AM AMBULATORY - SURGERY [facility] Lab Results: +/- 30 days of [...] Result - Unit Interpretation Reference Range Comment Jan 13, 2024 09:58 AM [facility] POC INR (STL-RX MONITORING ONLY) Specimen Type: BLOOD Comment: Test Performed by: [id number] Meter #: [id number] Ordering Provider: NANCI PEREIRA Report Released Date/Time: Jan 13, 2024 10:04 AM Reporting Lab: [address] [address] Performing Lab: [address] [address] POC INR (STL-RX MONITORING ONLY) 2.8 {INR} H 0.9-1.1 Dec 10, 2023 10:01 AM [facility] POC INR (STL-RX MONITORING ONLY) Specimen Type: BLOOD Comment: Test Performed by: [id number] Meter #: [id number] Ordering Provider: NANCI PEREIRA Report Released Date/Time: Dec 10, 2023 10:07 AM Reporting Lab: [address] [address] Performing Lab: [address] [address] POC INR (STL-RX MONITORING ONLY) 2.6 {INR} H 0.9-1.1 Social History: Smoking Status (Most current) and Tobacco Use (All prior to encounter date) This section includes the most current, and the historical, smoking and tobacco- related health factors from the [place] facility where the Encounter took place. Current Smoking Status This section includes the most current smoking, or tobacco-related health factor, from the [place] facility where the Encounter took place. Date/Time Current Smoking Status Comment Facil ity Apr 29, 2018 09:12 AM VA-TOBACCO FORMER USER [facility] Tobacco Use History This section includes a history of the smoking, or tobacco-related health factors, that were collected on or before the date of the Encounter. The data comes from the [place] facility where the Encounter took place. Date/Time Smoking Status/Tobacco Use Comment F osbaldo Apr 29, 2018 09:12 AM [place]-TOBACCO QUIT 15 YRS OR MORE [facility] Advance Directives: All historical and current Section Date Range: From patient's date of to the date document was created. This section includes ALL of a patient's completed or amended [place] Advance and Rescinded Directives. The entries below indicate that a directive exists for the patient, but an actual copy is not included with this document. The data comes from all [place] facilities. Date Advance Directives Provider Source Jun 13, 2013 ADVANCE DIRECTIVE DISCUSSION RONALD ESTRADA [facility] Encounter Notes: All associated encounter notes This section contains the clinical notes associated to the Encounter. Date/Time Encounter Note(s) Provider Source Dec 25, 2023 10:09 AM PRIMARY CARE [employer] E MESSAGING: LOCAL TITLE: PRIMARY CARE SECURE MESSAGING STANDARD TITLE: PRIMARY CARE SECURE MESSAGING DATE OF NOTE: DEC 25, 2023@10:09 ENTRY DATE: DEC 25, 2023@09:09:09 AUTHOR: DASIA CARLSON EXP COSIGNER: URGENCY: STATUS: COMPLETED ------Original Message ------ Sent: 12/24/2023 04:00 PM ET From: CALVIN ORTEGA To: [facility], 6_H[place]AL[place], A_Primary Care, [facility] Subject: General:Shots How do I make An appointment far RSV and Flu Shots Thanks You Calvin Ortega [id number] ------Original Message ------ Sent: 12/25/2023 10:05 AM ET From: DASIA CARLSON To: CALVIN ORTEGA Subject: General:Shots Please call [phone] option 2 and then 3 and request nurse appointment for injections thanks. Dasia SANCHEZ /paola/ DASIA CARLSON, RN, BSN Registered Nurse Signed: 12/25/2023 09:09 Receipt Acknowledged By: 12/28/2023 13:29 /paola/ DASIA SLAUGHTER MD [facility]
--- OUTSIDE RECORDS SUMMARY | 2024-03-04 12:55 | XMS_ITS | Encounter Summary ---
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 Representative Name Role Phone JILLIAN GAN Primary Care [...] MEDIC ARE SUPPL EMEMT Apr 23, 2019 [id number] [phone] KATHY ORTEGA PATIENT ANTHEM BCBS [place] MEDICARE SUPPLEMEN WILL MEDIC ARE SUPPL EMEMT Apr 23, 2019 [id number] [phone] KATHY ORTEGA PATIENT ANTHEM [place] MEDICARE SUPPLEMEN WILL MEDIC ARE SUPPL EMEMT Apr 23, 2019 [id number] [phone] KATHY ORTEGA PATIENT [place] MEDICARE SUPPLEMEN WILL MEDIC ARE SUPPL EMEMT Apr 23, 2019 [id number] [phone] KATHY ORTEGA PATIENT [employer] MCR (WNR) MEDICARE ADVANTAGE MCR (WNR) Mar 23, 2022 [id number] KATHY ORTEGA PATIENT [employer] MCR (WNR) MEDICARE ADVANTAGE [facility] (WNR) Mar 23, 2022 [id number] KATHY ORTEGA PATIENT MEDICARE (WNR) MEDICARE (M) RR PART A May 21, 1990 RR PART A [id number] [phone] KATHY ORTEGA PATIENT MEDICARE (WNR) MEDICARE (M) RR PART B May 21, 1990 RR PART B [id number] KATHY ORTEGA PATIENT [employer] [place] MEDICARE SUPPLEMEN WILL MEDIC ARE SUPPL EMENT Feb 20, 2013 PLAN G [id number] [phone] KTAHY ORTEGA PATIENT [employer] MCR (WNR) MEDICARE ADVANTAGE [facility] (WNR) Mar 23, 2021 [id number] [phone] KATHY ORTEGA PATIENT Selected Encounter This section includes the information on record at MD for the Encounter. Date/Time Encounter Type Encounter Description Reason Provider Source Oct 12, 2023 12:09 PM Outpatient Encounter PRIMARY CARE/MEDICINE FIDELIA PETTY Encounter Template Text not used by MD Plan of Treatment: Future Appointments (+ 6 months) and Future Tests (+/- 45 days) The Plan of Treatment section includes future care activities for the patient from all MD treatmentfacilities. This section includes future appointments and future orders which are active, pending or scheduled. Future Appointments This section includes appointments that were scheduled to occur 6 months from the date of the Encounter, up to a maximum of 20 appointments. The data comes from all MD treatment facilities. Appointment Date/Time Appointment Type Appointme nt Facility Name Nov 12, 2023 08:15 AM AMBULATORY - MEDICINE [facility] Nov 26, 2023 03:00 PM [facility] - [facility] Dec 10, 2023 09:30 AM AMBULATORY - MEDICINE [facility] Jan 13, 2024 08:15 AM AMBULATORY - MEDICINE [facility] Jan 22, 2024 02:15 PM AMBULATORY - MEDICINE [facility] Jan 26, 2024 09:30 AM AMBULATORY - SURGERY [facility] Feb 11, 2024 09:15 AM AMBULATORY - MEDICINE [facility] Feb 11, 2024 11:00 AM AMBULATORY - MEDICINE [facility] Mar 21, 2024 09:00 AM AMBULATORY - MEDICINE [facility] Mar 24, 2024 11:00 AM AMBULATORY - PSYCHIATRY [facility] Lab Results: +/- 30 days of the encounter This section includes the Chemistry and Hematology Lab Results on record with MD for the patient. Radiology Reports and Pathology Reports are provided separately, in subsequent sections. Lab Results This section contains the Chemistry/Hematology Results that were resulted 30 days before or 30 daysafter the date of the Encounter. Date/Time Source Result Type Result - Unit Interpretation Reference Range Comment Oct 08, 2023 10:32 AM [facility] POC INR (STL-RX MONITORING ONLY) Specimen Type: BLOOD Comment: Test Performed by: [id number] Meter #: [id number] Ordering Provider: NANCI PEREIRA Report Released Date/Time: Oct 08, 2023 10:35 AM Reporting Lab: [facility] [address] [facility] [address] Performing Lab: [facility] [address] [facility] [address] POC INR (STL-RX MONITORING ONLY) 2.4 {INR} H 0.9-1.1 Social History: Smoking Status (Most current) and Tobacco Use (All prior to encounter date) This section includes the most current, and the historical, smoking and tobacco- related health factors from the MD facility where the Encounter took place. Current Smoking Status This section includes the most current smoking, or tobacco-related health factor, from the MD facility where the Encounter took place. Date/Time Current Smoking Status Comment Facil ity Apr 29, 2018 09:12 AM MD-TOBACCO FORMER USER [facility] Tobacco Use History This section includes a history of the smoking, or tobacco-related health factors, that were collected on or before the date of the Encounter. The data comes from the MD facility where the Encounter took place. Date/Time Smoking Status/Tobacco Use Comment F acility Apr 29, 2018 09:12 AM MD-TOBACCO QUIT 15 YRS OR MORE [facility] Advance Directives: All historical and current Section Date Range: From patient's date of to the date document was created. This section includes ALL of a patient's completed or amended MD Advance and Rescinded Directives. The entries below indicate that a directive exists for the patient, but an actual copy is not included with this document. The data comes from all MD facilities. Date Advance Directives Provider Source Jun 13, 2013 ADVANCE DIRECTIVE DISCUSSION RONALD ESTRADA [facility] Encounter Notes: All associated encounter notes This section contains the clinical notes associated to the Encounter. Date/Time Encounter Note(s) Provider Source Oct 14, 2023 07:38 AM ADDENDUM: LOCAL TITLE: Addendum STANDARD TITLE: ADDENDUM DATE OF NOTE: OCT 14, 2023@07:38:10 ENTRY DATE: OCT 14, 2023@07:38:11 AUTHOR: SOMMER FARAH COSIGNER: URGENCY: STATUS: COMPLETED Called vet. and l/m on his phone and his 's cell phone to please call me so that I can setup a [address] Scott as vet hasn't been seen since 02/[address] Longoria. I have provided my name and number in hopes he will call me. I am requesting Dr. Scott give medication refill at this time so vet can have enough to cover him until his appt. is made in November. /paola/ SOMMER FARAH RN Registered Nurse Signed: 10/14/2023 07:40 Receipt Acknowledged By: 10/14/2023 11:08 /paola/ GRACE SCOTT JR, MD [facility] PHYSICIAN (STAFF) --- Original Document --- 10/12/23 PRIMARY CARE SECURE MESSAGING: ------Original Message ----- Sent: 10/11/2023 08:16 PM ET From: SACHA ORTEGA To: ST, 6_DEMARCOO, A_Primary Care, [facility] Subject: Medication:Refills I need refills For Quetiapine Fumarate 200 MG tablets, Also I need Lances and Strips. and wanted to check If it ok to get Memory pills Thank you Sacha Ortega 4972 /es/ Fidelia Petty Rn, BSN REGISTERED NURSE Signed: 10/12/2023 12:09 Receipt Acknowledged By: 10/13/2023 21:21 /paola/ JILLIAN GAN MD 10/14/2023 07:41 /es/ SOMMER FARAH, RN Registered Nurse for [facility] M[facility]ALES 10/13/2023 ADDENDUM STATUS: COMPLETED pls request a visit with your mental health provider , to refill your medications, and request evaluation for possible cognitive impairment or dementia. /paola/ JILLIAN GAN MD Signed: 10/13/2023 21:23 Receipt Acknowledged By: * AWAITING SIGNATURE * SHAN WILKERSON DEBORAH A [facility] Oct 13, 2023 09:22 PM ADDENDUM: LOCAL TITLE: Addendum STANDARD TITLE: ADDENDUM DATE OF NOTE: OCT 13, 2023@21:22:28 ENTRY DATE: OCT 13, 2023@21:22:29 AUTHOR: JILLIAN GAN COSIGNER: URGENCY: STATUS: COMPLETED pls request a visit with your mental health provider , to refill your medications, and request evaluation for possible cognitive impairment or dementia. /paola/ JILLIAN GAN MD Signed: 10/13/2023 21:23 Receipt Acknowledged By: 11/03/2023 09:48 /paola/ SHAN WILKERSON REGISTERED NURSE --- Original Document --- 10/12/23 PRIMARY CARE SECURE MESSAGING: ------Original Message ----- Sent: 10/11/2023 08:16 PM ET From: SACHA ORTGEA To: RUST, 6_HIDALGO, A_Primary Care, [facility] Subject: Medication:Refills I need refills For Quetiapine Fumarate 200 MG tablets, Also I need Lances and Strips. and wanted to check If it ok to get Memory pills Thank you Sacha Ortega 4972 /es/ Fidelia Petty Rn, BSN REGISTERED NURSE Signed: 10/12/2023 12:09 Receipt Acknowledged By: 10/13/2023 21:21 /es/ JILLIAN GAN MD 10/14/2023 07:41 /es/ SOMMER FARAH RN Registered Nurse for [facility] MORALES 10/14/2023 ADDENDUM STATUS: COMPLETED Called vet. and l/m on his phone and his 's cell phone to please call me so that I can setup a [address] Scott as vet hasn't been seen since 02/[address] Longoria. I have provided my name and number in hopes he will call me. I am requesting Dr. Scott give medication refill at this time so vet can have enough to cover him until his appt. is made in November. /paola/ SOMMER FARAH RN Registered Nurse Signed: 10/14/2023 07:40 Receipt Acknowledged By: 10/14/2023 11:08 /es/ GRACE SCOTT JR, MD [facility] PHYSICIAN (STAFF) 10/14/2023 ADDENDUM STATUS: COMPLETED vet. called and now has [facility] appt. with Dr. Scott on 11/26/2023 @ 4923. [facility] email has been sent at this time. /paola/ SOMMER FARAH RN Registered Nurse Signed: 10/14/2023 11:43 [facility] Oct 12, [facility] 12:09 PM PRIMARY CARE SECUR E MESSAGING: LOCAL TITLE: PRIMARY CARE SECURE MESSAGING STANDARD TITLE: PRIMARY CARE SECURE MESSAGING DATE OF NOTE: OCT 12, 2023@12:09 ENTRY DATE: OCT 12, 2023@12:09:22 AUTHOR: FIDELIA PETTY EXP COSIGNER: URGENCY: STATUS: COMPLETED PRIMARY CARE SECURE MESSAGING Has ADDENDA ------Original Message ----- Sent: 10/11/2023 08:16 PM ET From: SACHA ORTEGA To: RUST, 6_HIDALGO, A_Primary Care, [facility] Subject: Medication:Refills I need refills For Quetiapine Fumarate 200 MG tablets, Also I need Lances and Strips. and wanted to check If it ok to get Memory pills Thank you Sacha Ortega 4972 /es/ Fidelia Petty Rn, BSN REGISTERED NURSE Signed: 10/12/2023 12:09 Receipt Acknowledged By: 10/13/2023 21:21 /es/ JILLIAN GAN MD 10/14/2023 07:41 /es/ SOMMER FARAH, RN Registered Nurse for [facility] MORALES 10/13/2023 ADDENDUM STATUS: COMPLETED pls request a visit with your mental health provider , to refill your medications, and request evaluation for possible cognitive impairment or dementia. /es/ JILLIAN GAN MD Signed: 10/13/2023 21:23 Receipt Acknowledged By: * AWAITING SIGNATURE * SHAN WILKERSON 10/14/2023 ADDENDUM STATUS: COMPLETED Called vet. and l/m on his phone and his 's cell phone to please call me so that I can setup a [address] Scott as vet hasn't been seen since 02/[address] Longoria. I have provided my name and number in hopes he will call me. I am requesting Dr. Scott give medication refill at this time so vet can have enough to cover him until his appt. is made in November. /es/ SOMMER FARAH, RUDDY Registered Nurse Signed: 10/14/2023 07:40 Receipt Acknowledged By: 10/14/2023 11:08 /es/ GRACE SCOTT JR, MD [facility] PHYSICIAN (STAFF) 10/14/2023 ADDENDUM STATUS: COMPLETED vet. called and now has [facility] appt. with Dr. Scott on 11/26/2023 @ 1500. [facility] email has been sent at this time. /paola/ SOMMER FARAH RN Registered Nurse Signed: 10/14/2023 11:43 FIDELIA PETTY [facility]
--- OUTSIDE RECORDS SUMMARY | 2024-03-04 12:55 | XMS_ITS | Encounter Summary ---
Author Name [facility] ([place]) Organization [facility] [place]) Address [address] [place] [address] Care Team Providers Care Senior Sas Developer Name Role Phone JILLIAN GAN Primary Care [...] MEDIC ARE SUPPL EMEMT Apr 23, 2019 [id number] [phone] KATHY ORTEGA PATIENT ANTHEM [place] MEDICARE SUPPLEMEN WILL MEDIC ARE SUPPL EMEMT Apr 23, 2019 [id number] [phone] KATHY ORTEGA PATIENT [place] SUPPLEMEN WILL MEDIC ARE SUPPL EMEMT Apr 23, 2019 [id number] [phone] KATHY ORTEGA PATIENT BC[place] MEDICARE SUPPLEMEN WILL MEDIC ARE SUPPL EMEMT Apr 23, 2019 [id number] [phone] KATHY ORTEGA PATIENT [employer] MCR (WNR) MEDICARE ADVANTAGE MCR (WNR) Mar 23, 2022 [id number] KATHY ORTEGA PATIENT [employer] MCR (WNR) MEDICARE ADVANTAGE [facility] (WNR) Mar 23, 2022 [id number] KATHY ORTEGA PATIENT MEDICARE (WNR) MEDICARE (M) RR PART A May 21, 1990 RR PART A [id number] [phone] KATHY ORTEGA PATIENT MEDICARE (WNR) MEDICARE (M) RR PART B May 21, 1990 RR PART B [id number] KATHY ORTEGA PATIENT [employer] [place] MEDICARE SUPPLEMEN WILL MEDIC ARE SUPPL EMENT Feb 20, 2013 PLAN G [id number] [phone] KATHY ORTEGA PATIENT WELLCARE MCR (WNR) MEDICARE ADVANTAGE [facility] (WNR) Mar 23, 2021 [id number] KATHY ORTEGA PATIENT Selected Encounter This section includes the information on record at NH for the Encounter. Date/Time Encounter Type Encounter Description Reason Pro vider Source Nov 30, 2023 11:59 AM Outpatient Encounter ADMIN PAT ACTIVTIES (MASNONCT) IHE Encounter Template Text not used by NH Plan of Treatment: Future Appointments (+ 6 months) and Future Tests (+/- 45 days) The Plan of Treatment section includes future care activities for the patient from all NH treatmentfacilities. This section includes future appointments and future orders which are active, pending or scheduled. Future Appointments This section includes appointments that were scheduled to occur 6 months from the date of the Encounter, up to a maximum of 20 appointments. The data comes from all NH treatment facilities. Appointment Date/Time Appointment Type Appointme nt Facility Name Dec 10, 2023 09:30 AM AMBULATORY - MEDICINE [facility] Jan 13, 2024 08:15 AM AMBULATORY - MEDICINE [facility] Jan 22, 2024 02:15 PM AMBULATORY - MEDICINE [facility] Jan 26, 2024 09:30 AM AMBULATORY - SURGERY [facility] Feb 11, 2024 09:15 AM AMBULATORY - MEDICINE [facility] Feb 11, 2024 11:00 AM AMBULATORY - MEDICINE [facility] Mar 21, 2024 09:00 AM AMBUL[facility]ORY - MEDICINE [facility] Mar 24, 2024 11:00 AM AMBULATORY - PS[facility]CHIATRY [facility] Apr 18, 2024 09:30 AM AMBULATORY - SURGERY [facility] [facility] Lab Results: +/- 30 days of the encounter This section includes the Chemistry and Hematology Lab Results on record with NH for the patient. Radiology Reports and Pathology Reports are provided separately, in subsequent sections. Lab Results This section contains the Chemistry/Hematology Results that were resulted 30 days before or 30 daysafter the date of the Encounter. Date/Time Source Result Type Result - Unit Interpretation Reference Range Comment Dec 10, 2023 10:01 AM [facility] POC INR (STL-RX MONITORING ONLY) Specimen Type: BLOOD Comment: Test Performed by: [id number] Meter #: [id number] Ordering Provider: NANCI PEREIRA Report Released Date/Time: Dec 10, 2023 10:07 AM Reporting Lab: [address] [address] Performing Lab: [address] [address] POC INR (STL-RX MONITORING ONLY) 2.6 {INR} H 0.9-1.1 Nov 13, 2023 12:52 PM [facility] POC INR (STL-RX MONITORING ONLY) Specimen Type: BLOOD Comment: Test Performed by: [id number] Meter #: [id number] Ordering Provider: NANCI PEREIRA Report Released Date/Time: Nov 13, 2023 12:53 PM Reporting Lab: [address] [address] Performing Lab: [address] [address] POC INR (STL-RX MONITORING ONLY) 3.1 {INR} H 0.9-1.1 Social History: Smoking Status (Most current) and Tobacco Use (All prior to encounter date) This section includes the most current, and the historical, smoking and tobacco- related health factors from the NH facility where the Encounter took place. Current Smoking Status This section includes the most current smoking, or tobacco-related health factor, from the NH facility where the Encounter took place. Date/Time Current Smoking Status Comment Catherine ity Apr 29, 2018 09:12 AM NH-TOBACCO QUIT 15 YRS OR MORE [facility] Tobacco Use History This section includes a history of the smoking, or tobacco-related health factors, that were collected on or before the date of the Encounter. The data comes from the NH facility where the Encounter took place. Date/Time Smoking Status/Tobacco Use Comment F acility Apr 29, 2018 09:12 AM NH-TOBACCO QUIT 15 YRS OR MORE [facility] Advance Directives: All historical and current Section Date Range: From patient's date of to the date document was created. This section includes ALL of a patient's completed or amended [place] Advance and Rescinded Directives. The entries below indicate that a directive exists for the patient, but an actual copy is not included with this document. The data comes from all NH facilities. Date Advance Directives Provider Source Jun 13, 2013 ADVANCE DIRECTIVE DISCUSSION RONALD ESTRADA [facility] Encounter Notes: All associated encounter notes This section contains the clinical notes associated to the Encounter. Date/Time Encounter Note(s) Provider Source Nov 30, 2023 12:00 PM PHYSICIAN LETTERS: LOCAL TITLE: NO CONTACT LETTER [facility] STANDARD TITLE: PHYSICIAN LETTERS DATE OF NOTE: NOV 30, 2023@12:00 ENTRY DATE: NOV 30, 2023@12:00:12 AUTHOR: ROCÍO AGGARWAL COSIGNER: URGENCY: STATUS: COMPLETED [facility] [address] [place] [address] NOV 30, 2023 CALVIN ORTEGA [place], [place] [address] Dear Calvin Ortega, Thank you for choosing the [facility] as your primary choice for health care. As a partner in your health care, we are attempting to contact you because we have been unsuccessful in reaching you by phone to schedule your clinic appointment. Please call us at [phone], extension [phone] to speak to us regarding making an appointment in the MENTAL HEALTH clinic. Your good health is important to us. Please contact us within 2 weeks from the date of this letter. If we do not hear from you, we will notify your referring provider and a new referral will be required to schedule an appointment. IMPORTANT: Due to COVID-19 we have greatly expanded our telehealth options, please contact the clinic to inquire about scheduling. Sincerely, ROCÍO AGGARWAL [employer] PRODUCT MANAGER CALVIN ORTEGA AUDREY L [facility] Nov 30, 2023 11:59 AM ADMINISTRATIVE NOT E: LOCAL TITLE: SCHEDULING NOTE STL STANDARD TITLE: ADMINISTRATIVE NOTE DATE OF NOTE: NOV 30, 2023@11:59 ENTRY DATE: NOV 30, 2023@11:59:47 AUTHOR: ROCÍO AGGARWAL EXP COSIGNER: URGENCY: STATUS: COMPLETED Minimum Scheduling attempts to contact the [facility] have been made. RTC/Appt/Consult request will be discontinued after 14 days. Clinic: [facility] RODOLFO SILVA [facility]: Feb First Call to [facility] - unsuccessful scheduling: Nov Unable to contact [facility], letter sent: Nov Discontinue date (14 calendar days after letter is mailed): Nov ADDITIONAL RESULTS FROM SCHEDULING ATTEMPTS: /paola/ ROCÍO AGGARWAL [employer] PRODUCT MANAGER Signed: 11/30/2023 12:00 ROCÍO AGGARWAL [facility]
--- OUTSIDE RECORDS SUMMARY | 2024-03-04 12:55 | XMS_ITS | Encounter Summary ---
Author Name [facility] [place] Organization [facility] [place] Address [address] [place] [address] Care Team Providers Care Recruiting Team Lead Name Role Phone JILLIAN GAN Primary Care [...] MEDIC ARE SUPPL EMEMT Apr 23, 2019 [id number] [phone] KATHY ORTEGA PATIENT ANTHEM BCBS [place] MEDICARE SUPPLEMEN WILL MEDIC ARE SUPPL EMEMT Apr 23, 2019 [id number] [phone] KATHY ORTEGA PATIENT ANTHEM [place] MEDICARE SUPPLEMEN WILL MEDIC ARE SUPPL EMEMT Apr 23, 2019 [id number] [phone] KATHY ORTEGA PATIENT [place] MEDICARE SUPPLEMEN WILL MEDIC ARE SUPPL EMEMT Apr 23, 2019 [id number] [phone] KATHY ORTEGA PATIENT [employer] MCR (WNR) MEDICARE ADVANTAGE MCR (WNR) Mar 23, 2022 [id number] KATHY ORTEGA PATIENT [employer] MCR (WNR) MEDICARE ADVANTAGE [facility] (WNR) Mar 23, 2022 [id number] KATHY ORTEGA PATIENT MEDICARE (WNR) MEDICARE (M) RR PART A May 21, 1990 RR PART A [id number] KATHY ORTEGA PATIENT MEDICARE (WNR) MEDICARE (M) RR PART B May 21, 1990 RR PART B [id number] [phone] KATHY ORTEGA PATIENT [employer] [place] MEDICARE SUPPLEMEN WILL MEDIC ARE SUPPL EMENT Feb 20, 2013 PLAN G [id number] [phone] KATHY ORTEGA PATIENT WELLCARE MCR (WNR) MEDICARE ADVANTAGE [facility] (WNR) Mar 23, 2021 [id number] KATHY ORTEGA PATIENT Selected Encounter This section includes the information on record at [place] for the Encounter. Date/Time Encounter Type Encounter Description Reason Pro vider Source Dec 10, 2023 09:52 AM Outpatient Encounter ADMIN PAT ACTIVTIES (MASNONCT) IHE Encounter Template Text not used by ME Plan of Treatment: Future Appointments (+ 6 months) and Future Tests (+/- 45 days) The Plan of Treatment section includes future care activities for the patient from all [place] treatmentfacilities. This section includes future appointments and future orders which are active, pending or scheduled. Future Appointments This section includes appointments that were scheduled to occur 6 months from the date of the Encounter, up to a maximum of 20 appointments. The data comes from all [place] treatment facilities. Appointment Date/Time Appointment Type Appointme nt Facility Name Jan 13, 2024 08:15 AM AMBULATORY - MED[facility]INE [facility] Jan 22, 2024 02:15 PM AMBULATORY - MEDICINE [facility] Jan 26, 2024 09:30 AM [facility]ORY - SURGERY [facility] Feb 11, 2024 09:15 AM [facility] Feb 11, 2024 11:00 AM [facility]BULATORY - MEDICINE [facility] Mar 21, 2024 09:00 AM [facility] Mar 24, 2024 11:00 AM AMBULATORY - PSYCHIATRY [facility] Apr 18, 2024 09:30 AM AMBULATORY - SURGERY [facility] Lab Results: +/- 30 days of the encounter This section includes the Chemistry and Hematology Lab Results on record with ME for the patient. Radiology Reports and Pathology Reports are provided separately, in subsequent sections. Lab Results This section contains the Chemistry/Hematology Results that were resulted 30 days before or 30 daysafter the date of the Encounter. Date/Time Source Result Type Result - Unit Interpretation Reference Range Comment Dec 10, 2023 10:01 AM [facility] POC INR (STL-RX MONITORING ONLY) Specimen Type: BLOOD Comment: Test Performed by: [id number] Meter #: [id number] Ordering Provider: NANCI PEREIRA Report Released Date/Time: Dec 10, 2023 10:07 AM Reporting Lab: [address] [address] Performing Lab: [address] [address] POC INR (STL-RX MONITORING ONLY) 2.6 {INR} H 0.9-1.1 Nov 13, 2023 12:52 PM [facility] POC INR (STL-RX MONITORING ONLY) Specimen Type: BLOOD Comment: Test Performed by: [id number] Meter #: [id number] Ordering Provider: NANCI PEREIRA Report Released Date/Time: Nov 13, 2023 12:53 PM Reporting Lab: [address] [address] Performing Lab: [address] [address] POC INR (STL-RX MONITORING ONLY) 3.1 {INR} H 0.9-1.1 Social History: Smoking Status (Most current) and Tobacco Use (All prior to encounter date) This section includes the most current, and the historical, smoking and tobacco- related health factors from the [place] facility where the Encounter took place. Current Smoking Status This section includes the most current smoking, or tobacco-related health factor, from the [place] facility where the Encounter took place. Date/Time Current Smoking Status Comment Catherine ity Apr 29, 2018 09:12 AM VA-TOBACCO FORMER USER [facility] Tobacco Use History This section includes a history of the smoking, or tobacco-related health factors, that were collected on or before the date of the Encounter. The data comes from the [place] facility where the Encounter took place. Date/Time Smoking Status/Tobacco Use Comment F acility Apr 29, 2018 09:12 AM ME-TOBACCO QUIT 15 YRS OR MORE [facility] Advance Directives: All historical and current Section Date Range: From patient's date of to the date document was created. This section includes ALL of a patient's completed or amended [place] Advance and Rescinded Directives. The entries below indicate that a directive exists for the patient, but an actual copy is not included with this document. The data comes from all [place] facilities. Date Advance Directives Provider Source Jun 13, 2013 ADVANCE DIRECTIVE DISCUSSION RONALD ESTRADA [facility] Encounter Notes: All associated encounter notes This section contains the clinical notes associated to the Encounter. Date/Time Encounter Note(s) Provider Source Dec 10, 2023 09:53 AM PHYSICIAN LETTERS: LOCAL TITLE: NO CONTACT LETTER ST STANDARD TITLE: PHYSICIAN LETTERS DATE OF NOTE: DEC 10, 2023@09:53 ENTRY DATE: DEC 10, 2023@09:53:29 AUTHOR: ROCÍO AGGARWAL COSIGNER: URGENCY: STATUS: COMPLETED [facility] [address] [place] [address] DEC 10, 2023 CALVIN ORTEGA [address] [place] [address] [place], [place] [address] Dear Calvin Ortega, Thank you for choosing the [facility] as your primary choice for health care. As a partner in your health care, we are attempting to contact you because we have been unsuccessful in reaching you by phone to schedule your clinic appointment. Please call us at [phone], extension [phone] to speak to us regarding making an [...] inquire about scheduling. Sincerely, ROCÍO AGGARWAL ADVANCED BROADCAST PROGRAM DIRECTOR CALVIN ORTEGA AUDREY [address] [facility] Dec 10, 2023 09:52 AM ADMINISTRATIVE NOT E: LOCAL TITLE: SCHEDULING NOTE STL STANDARD TITLE: ADMINISTRATIVE NOTE DATE OF NOTE: DEC 10, 2023@09:52 ENTRY DATE: DEC 10, 2023@09:52:48 AUTHOR: ROCÍO AGGARWAL EXP COSIGNER: URGENCY: STATUS: COMPLETED Minimum Scheduling attempts to contact the have been made. RTC/Appt/Consult request will be discontinued after 14 days. Clinic: [facility]: Feb First Call to - unsuccessful scheduling: Nov Unable to contact , letter sent: Nov Discontinue date (14 calendar days after letter is mailed): Dec ADDITIONAL RESULTS FROM SCHEDULING ATTEMPTS: /paola/ ROCÍO AGGARWAL ADVANCED BROADCAST PROGRAM DIRECTOR Signed: 12/10/2023 09:53 ROCÍO AGGARWAL [facility]
--- OUTSIDE RECORDS SUMMARY | 2024-03-04 12:55 | XMS_ITS | Encounter Summary ---
Author Name [facility] [place] [facility] [place] [facility] [place] Address [address] [place] [address] Care Team Providers Care Bible Worker Name Role Phone JILLIAN GAN Primary Care [...] MEDIC ARE SUPPL EMEMT Apr 23, 2019 [id number] [phone] KATHY ORTEGA PATIENT ANTHEM [employer] MEDICARE SUPPLEMEN WILL MEDIC ARE SUPPL EMEMT Apr 23, 2019 [id number] [phone] KATHY ORTEGA PATIENT [place] MED[place] SUPPLEMEN WILL MEDIC ARE SUPPL EMEMT Apr 23, 2019 [id number] [phone] KATHY ORTEGA PATIENT [employer] MEDICARE SUPPLEMEN WILL MEDIC ARE SUPPL EMEMT Apr 23, 2019 [id number] [phone] KATHY ORTEGA PATIENT [employer] MCR (WNR) MEDICARE ADVANTAGE MCR (WNR) Mar 23, 2022 [id number] KATHY ORTEGA PATIENT [employer] MCR (WNR) MEDICARE ADVANTAGE [facility] (WNR) Mar 23, 2022 [id number] KATHY ORTEGA PATIENT MEDICARE (WNR) MEDICARE (M) RR PART A May 21, 1990 RR PART A [id number] KATHY ORTEGA PATIENT MEDICARE (WNR) MEDICARE (M) RR PART B May 21, 1990 RR PART B [id number] KATHY ORTEGA PATIENT [employer] [place] MEDICARE SUPPLEMEN WILL MEDIC ARE SUPPL EMENT Feb 20, 2013 PLAN G [id number] [phone] KATHY ORTEGA PATIENT [employer] MCR (WNR) MEDICARE ADVANTAGE [facility] (WNR) Mar 23, 2021 [id number] [phone] KATHY ORTEGA PATIENT Selected Encounter This section includes the information on record at [place] for the Encounter. Date/Time Encounter Type Encounter Description Reason Provider Source Jan 22, 2024 02:15 PM OFF/OP EST JULY X REQ PHY/QHP PRIMARY CARE/MEDICINE ICD-10-CM Z23 Encounter for immunization MICHAELROBI S IHE Encounter Template Text not used by [place] Assessments - Encounter Diagnoses This section includes the primary and secondary diagnoses documented for the Encounter. Date/Time Primary/Secondary Diagnosis Diagnosis Name Provider Source Jan 22, 2024 02:13 PM PRIMARY Encounter for immunization ANTHONYLUCIO S [facility] Plan of Treatment: Future Appointments (+ 6 months) and Future Tests (+/- 45 days) The Plan of Treatment section includes future care activities for the patient from all [place] treatmentfacilities. This section includes future appointments and future orders which are active, pending or scheduled. Future Appointments This section includes appointments that were scheduled to occur 6 months from the date of the Encounter, up to a maximum of 20 appointments. The data comes from all [place] treatment facilities. Appointment Date/Time Appointment Type Appointme nt Facility Name Jan 26, 2024 09:30 AM AMBULATORY - SURGERY [facility] Feb 11, 2024 09:15 AM AMBULATORY - MEDICINE [facility] Feb 11, 2024 11:00 AM AMBULATORY - MEDICINE [facility] Mar 21, 2024 09:00 AM AMBULATORY - MEDICINE [facility] Mar 24, 2024 11:00 AM AMBULATORY - PSYCHIATRY [facility] Apr 18, 2024 09:30 AM AMBULATORY - SURGERY [facility] Active, Pending, and Scheduled Orders This section includes a listing of several types of active, pending, and scheduled orders, including clinic medications orders, diagnostic test orders, procedure orders and consult orders; where the start date of the order is 45 days before the date of the Encounter or 45 days after the date of theEncounter. The data comes from all [place] treatment facilities. Test Date/Time Test Type Test [...] IGH RISK FOOT EXAM OUTPT STL Cons Baggage Porter's Choice [facility] Lab Results: +/- 30 days [...] Range Comment Feb 11, 2024 10:34 AM [facility] HGA1C Specimen Type: BLOOD No comment entered. Ordering Provider: ISMAEL GAN Report Released Date/Time: Feb 11, 2024 11:13 AM Reporting Lab: [address] [address] Performing Lab: [place] [address] HGA1C 8.3 H 4.0-6.0 Feb 11, 2024 10:34 AM [facility] HGB,HCT,PLT Specimen Type: BLOOD No comment entered. Ordering Provider: NANCI PEREIRA Report Released Date/Time: Jan 13, 2024 01:55 PM Reporting Lab: [place] [address] Performing Lab: [place] [id number] HGB 13.9 g/dL 13.1-16.8 HCT 45.5 38.2-48.4 PLT 130 10*3/uL L 150-400 Feb 11, 2024 10:33 AM [facility] POC INR (STL-RX MONITORING ONLY) Specimen Type: BLOOD Comment: Test Performed by: [id number] Meter #: [id number] Ordering Provider: NANCI PEREIRA Report Released Date/Time: Feb 12, 2024 08:40 AM Reporting Lab: [address] [address] Performing Lab: [facility] [address] [facility] [address] POC INR (STL-RX MONITORING ONLY) 2.3 {INR} H 0.9-1.1 Jan 13, 2024 09:58 AM [facility] POC INR (STL-RX MONITORING ONLY) Specimen Type: BLOOD Comment: Test Performed by: [id number] Meter #: [id number] Ordering Provider: NANCI PEREIRA Report Released Date/Time: Jan 13, 2024 10:04 AM Reporting Lab: [facility] [address] [facility] [address] Performing Lab: [facility] [address] [place] [address] POC INR (STL-RX MONITORING ONLY) 2.8 {INR} H 0.9-1.1 Immunizations: All administered on the encounter date This section contains immunizations associated to the Encounter. Immunization Series Date Issued Reaction Comments INFLUENZA, HIGH-DOSE, TRIVALENT, PF Jan 21 COVID-19 (PFIZER), MRNA, LNP -S, PF, PIYUSH-SUCROSE, 30 MCG/0.3 ML (AGES 12+ YEARS) Jan 22, 2024 Social History: Smoking Status (Most current) and Tobacco Use (All prior to encounter date) This section includes the most current, and the historical, smoking and tobacco- related health factors from the [place] facility where the Encounter took place. Current Smoking Status This section includes the most current smoking, or tobacco-related health factor, from the [place] facility where the Encounter took place. Date/Time Current Smoking Status Comment Facil ity Jan 15, 2023 09:30 AM VA-TOBACCO FORMER USER [facility] Tobacco Use History This section includes a history of the smoking, or tobacco-related health factors, that were collected on or before the date of the Encounter. The data comes from the [place] facility where the Encounter took place. Date/Time Smoking Status/Tobacco Use Comment F acility Jan 15, 2023 09:30 AM VA-TOBACCO QUIT [address] [facility] Jan 06, 2022 11:00 AM VA-TOBACCO FORMER USER [facility] Jan 06, 2022 11:00 AM VA-TOBACCO QUIT [address] [facility] Jan 03, 2021 02:00 PM VA-TOBACCO FORMER USER [facility] Jan 03, 2021 02:00 PM VA-TOBACCO QUIT [address] [facility] May 16, 2019 10:16 AM VA-TOBACCO FORMER USER [facility] May 16, 2019 10:16 AM VA-TOBACCO QUIT [address] [facility] May 06, 2017 08:46 AM QUIT TOBACCO >7 YEARS AGO [facility] Nov 03, 2016 10:14 AM QUIT TOBACCO >7 YEARS AGO [facility] August 06, 2012 09:27 AM QUIT TOBACCO >7 YEARS AGO [facility] Jun 12, 2011 01:07 PM QUIT TOBACCO >7 YEARS AGO [facility] Advance Directives: All historical and current Section Date Range: From patient's date of to the date document was created. This section includes ALL of a patient's completed or amended [place] Advance and Rescinded Directives. The entries below indicate that a directive exists for the patient, but an actual copy is not included with this document. The data comes from all [place] facilities. Date Advance Directives Provider Source Jun 13, 2013 ADVANCE DIRECTIVE DISCUSSION RONALD ESTRADA [facility] Encounter Notes: All associated encounter notes This section contains the clinical notes associated to the Encounter. Date/Time Encounter Note(s) Provider Source Jan 22, 2024 02:11 PM NURSING NOTE: LOCAL TITLE: V15 PACT FACE TO FACE NOTE [facility] STANDARD TITLE: NURSING NOTE DATE OF NOTE: JAN 22, 2024@14:11 ENTRY DATE: JAN 22, 2024@14:11:43 AUTHOR: ANTHONY CRUZ EXP COSIGNER: URGENCY: STATUS: COMPLETED Nurse Visit: Patient Identifiers : Full Name Date of Reason for visit: COVID AND FLU VACCINES Mode of Arrival: Assistive Device: CANE Allergy Review: AUGMENTIN, SIMVASTATIN, MORPHINE Allergy list reviewed and remains current. Contact provided Primary Care phone number and encouraged to call if any questions or concerns. Review that after hours nurse line [phone] and emergency room are available 13/10 for patient use. COVID-19 Immunization - L,N,P,PH,U: Additional Information: CDC Interim Clinical Considerations for Use of COVID-19 Vaccines in [facility] COVID-19 Vaccine SharePoint Pfizer Monovalent (Comirnaty) Administered: COVID-19 (PFIZER), MRNA, LNP-S, PF, PIYUSH-SUCROSE, 30 MCG/0.3 ML (AGES 12+ YEARS) Date Administered: Jan 22, 2024 14:12 Light Industrial Supervisor: [employer] Lot: [id number] Exp Date: Jun 21, 2024 ND: [id number] Admin Route/Site: INTRAMUSCULAR/RIGHT DELTOID Dosage: 0.3mL Vaccine Information Statement(s): COVID-19 MRNA VACCINE (12+ YRS) VACCINE VIS Jan 07, 2024 (GABONESE) Order By: Policy Administered By: Anthony Cruz Vaccine administered without complications. Influenza Immunization - L,N,P,PH,U: Influenza, High-Dose, Trivalent, Preservative Free (Fluzone-Syringe) Administered: INFLUENZA, HIGH-DOSE, TRIVALENT, PF Date Administered: Jan 22, 2024 14:13 Light Industrial Supervisor: SANOFI PASTEUR Lot: [id number] Exp Date: Sep 19, 2024 ND: [id number] Admin Route/Site: INTRAMUSCULAR/LEFT DELTOID Dosage: 0.5mL Vaccine Information Statement(s): INFLUENZA(FLU) VACC(INACTIVATED OR RECOMBINANT)VIS Oct 26, 2020 (GABONESE) Order By: Policy Administered By: Anthony Cruz The Influenza Vaccine Information Statement (VIS) was reviewed with the patient/caregiver which lists the benefits and risks of the vaccine and the risks of not receiving the Influenza vaccine. The patient/caregiver denied any prior severe reaction to this vaccine or its components or a severe allergic reaction, such as anaphylaxis, to any vaccine or any injectable therapy. The patient/caregiver gave verbal consent to receive the vaccine. /paola/ ANTHONY CRUZ LICENSED PRACTICAL NURSE Signed: 01/22/2024 14:13 ANTHONY CRUZ [facility]
--- OUTSIDE RECORDS SUMMARY | 2024-03-04 12:55 | XMS_ITS | Encounter Summary ---
Author Name [facility] [place] [facility] [place] Address [address] [place] [address] Care Team Providers Care Media Promoter Name Role Phone JILLIAN GAN Primary Care [...] MEDIC ARE SUPPL EMEMT Apr 23, 2019 [id number] [phone] KATHY ORTEGA PATIENT ANTHEM [place] MEDICARE SUPPLEMEN [place] MEDIC ARE SUPPL EMEMT Apr 23, 2019 [id number] [phone] KAHTY ORTEGA PATIENT ANTHEM [place] MEDICARE SUPPLEMEN WILL MEDIC ARE SUPPL EMEMT Apr 23, 2019 [id number] [phone] KATHY ORTEGA PATIENT [place] MEDICARE SUPPLEMEN WILL MEDIC ARE SUPPL EMEMT Apr 23, 2019 [id number] [phone] KATHY ORTEGA PATIENT [employer] MCR (WNR) MEDICARE ADVANTAGE MCR (WNR) Mar 23, 2022 [id number] KATHY ORTEGA PATIENT [employer] MCR (WNR) MEDICARE ADVANTAGE [facility] (WNR) Mar 23, 2022 [id number] [phone] KATHY ORTEGA PATIENT MEDICARE (WNR) MEDICARE (M) RR PART A May 21, 1990 RR PART A [id number] KATHY ORTEGA PATIENT MEDICARE (WNR) MEDICARE (M) RR PART B May 21, 1990 RR PART B [id number] KATHY ORTEGA PATIENT [employer] MEDICARE SUPPLEMEN WILL MEDIC ARE SUPPL EMENT Feb 20, 2013 PLAN G [id number] [phone] KATHY ORTEGA PATIENT [employer]LLCARE [facility] (WNR) MEDICARE ADVANTAGE [facility] (WNR) Mar 23, 2021 [id number] [phone] KATHY ORTEGA PATIENT Selected Encounter This section includes the information on record at [place] for the Encounter. Date/Time Encounter Type Encounter Description Reason Provider Source Jan 13, 2024 08:15 AM MTMS BY PHARM EST 15 MIN TELEPHONE/ANCILLA RY ICD-10-CM Z51.81 Encounter for therapeutic drug level monitoring NANCI PEREIRA [facility] Encounter Template Text not used by [place] Assessments - Encounter Diagnoses This section includes the primary and secondary diagnoses documented for the Encounter. 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 This section includes future appointments and future orders which are active, pending or scheduled. Future Appointments This section includes appointments that were scheduled to occur 6 months from the date of the Encounter, up to a maximum of 20 appointments. The data comes from all [facility]. Appointment Date/Time Appointment Type Appointme nt Facility Name Jan 22, 2024 02:15 PM AMBULATORY - MEDICINE [facility] Jan 26, 2024 09:30 AM [facility] Feb 11, 2024 09:15 AM AMBULATORY - MEDICINE [facility] Feb 11, 2024 11:00 AM AMBULATORY - MEDICINE [facility] Mar 21, 2024 09:00 AM AMBULATORY - MEDICINE [facility] Mar 24, 2024 11:00 AM AMBULATORY - PSYCHIATRY [facility] Apr 18, 2024 09:30 AM AMBULATORY - SURGERY [facility] Active, Pending, and Scheduled Orders This section includes a listing of several types of active, pending, and scheduled orders, including clinic medications orders, diagnostic test orders, procedure orders and consult orders; where the start date of the order is 45 days before the date of the Encounter or 45 days after the date of theEncounter. The data comes from all [facility]. Test Date/Time Test Type Test Details Facility Name Feb 11, 2024 12:00 AM Laboratory - Chemistry Order TSH W/ REFLEX FT4 (STL) GREEN LI-HEP PLASMA SP [facility] Feb 11, 2024 12:00 AM Laboratory - Chemistry Order MICRAL/CREAT PROFILE (STL) URINE SP [facility] Feb 11, 2024 12:00 AM Laboratory - Chemistry Order LIPID PANEL (STL) GREEN LI/HEP BLD/PLAS PLASMA SP ONCE [facility] Feb 11, 2024 12:00 AM Laboratory - Chemistry Order COMPREHENSIVE METABOLIC PANEL GREEN LI/HEP BLD/PLAS PLASMA SP [facility] Feb 11, 2024 12:00 AM Laboratory - Chemistry Order URIC ACID GREEN LI/HEP BLD/PLAS PLASMA SP [facility] Feb 11, 2024 12:00 AM Laboratory - Chemistry Order VITAMIN D, 25-HYDROXY GOLD/RED SST SERUM SP [facility] Feb 22, 2024 12:00 AM Laboratory - Chemistry Order B12 GOLD/RED SST SERUM SP [facility] Feb 22, 2024 12:34 PM Consult Order PODIATRY H IGH RISK FOOT EXAM OUTPT STL Cons Felt Cementer's Choice [facility] Lab Results: +/- 30 days of the encounter This section includes the Chemistry and Hematology Lab Results on record with [place] for the patient. Radiology Reports and Pathology Reports are provided separately, in subsequent sections. Lab Results This section contains the Chemistry/Hematology Results that were resulted 30 days before or 30 daysafter the date of the Encounter. Date/Time Source Result Type Result - Unit Interpretation Reference Range Comment Feb 11, 2024 10:34 AM [facility] HGB,HCT,PLT Specimen Type: BLOOD No comment entered. Ordering Provider: NANCI PEREIRA Report Released Date/Time: Jan 13, 2024 01:55 PM Reporting Lab: [address] [address] Performing Lab: [address] [address] HGB 13.9 g/dL 13.1-16.8 HCT 45.5 38.2-48.4 PLT 130 10*3/uL L 150-400 Feb 11, 2024 10:34 AM [facility] HGA1C Specimen Type: BLOOD No comment entered. Ordering Provider: ISMAEL GAN Report Released Date/Time: Feb 11, 2024 11:13 AM Reporting Lab: [address] [address] Performing Lab: [address] [address] HGA1C 8.3 H 4.0-6.0 Feb 11, 2024 10:33 AM [facility] POC INR (STL-RX MONITORING ONLY) Specimen Type: BLOOD Comment: Test Performed by: [id number] Meter #: [id number] Ordering Provider: NANCI PEREIRA Report Released Date/Time: Feb 12, 2024 08:40 AM Reporting Lab: [place] [address] [facility] [address] Performing Lab: [facility] [address] [place] [address] POC INR (STL-RX MONITORING ONLY) 2.3 {INR} H 0.9-1.1 Jan 13, 2024 09:58 AM [facility] POC INR (STL-RX MONITORING ONLY) Specimen Type: BLOOD Comment: Test Performed by: [id number] Meter #: [id number] Ordering Provider: NANCI PEREIRA Report Released Date/Time: Jan 13, 2024 10:04 AM Reporting Lab: [facility] [address] [address] Performing Lab: [address] [address] POC INR (STL-RX MONITORING ONLY) 2.8 {INR} H 0.9-1.1 Social History: Smoking Status (Most current) and Tobacco Use (All prior to encounter date) This section includes the most current, and the historical, smoking and tobacco- related health factors from the [place] facility where the Encounter took place. Current Smoking Status This section includes the most current smoking, or tobacco-related health factor, from the [place] facility where the Encounter took place. Date/Time Current Smoking Status Comment Catherine ity Apr 29, 2018 09:12 AM VA-TOBACCO FORMER USER [facility] Tobacco Use History This section includes a history of the smoking, or tobacco-related health factors, that were collected on or before the date of the Encounter. The data comes from the [place] facility where the Encounter took place. Date/Time Smoking Status/Tobacco Use Comment F acility Apr 29, 2018 09:12 AM [place]-TOBACCO QUIT 15 YRS OR MORE [facility] Advance Directives: All historical and current Section Date Range: From patient's date of to the date document was created. This section includes ALL of a patient's completed or amended [place] Advance and Rescinded Directives. The entries below indicate that a directive exists for the patient, but an actual copy is not included with this document. The data comes from all [place] facilities. Date Advance Directives Provider Source Jun 13, 2013 ADVANCE DIRECTIVE DISCUSSION RONALD ESTRADA [facility] Encounter Notes: All associated encounter notes This section contains the clinical notes associated to the Encounter. Date/Time Encounter Note(s) Provider Source Jan 13, 2024 01:49 PM PHARMACY OUTPATIEN T MEDICATION MGT NOTE: LOCAL TITLE: PHARMACY ANTICOAG CLINIC STL STANDARD TITLE: PHARMACY OUTPATIENT MEDICATION MGT NOTE DATE OF NOTE: JAN 13, 2024@13:49 ENTRY DATE: JAN 13, 2024@13:49:08 AUTHOR: NANCI PEREIRA COSIGNER: URGENCY: STATUS: COMPLETED WARFARIN LAB ONLY - TELEPHONE CONTACT SACHA ORTEGA is a 78 y/o MALE on warfarin. Patient was identified by 2 unique identifiers. Indication for warfarin: Pulmonary Embolism(recurrent), FVL Goal INR: 2-3 Current warfarin dose on record: 7.5mg daily x 10mg //Thu On bridging regimen?: NO Expected duration of therapy: Lifetime Subjective: spoke w/ , Shama Patient/Caregiver confirmed dose as above.YES Missed [...] NO Objective: POC INR (STL-RX MONITORING ONLY) 2.8 H INR 01/13/2024 09:58 HGB 14.5 g/dL 08/06/2023 11:28 HCT 47.5 % 08/06/2023 11:28 PLT 136 L 10*3/uL 08/06/2023 11:28 INR Trends: Date Dose at time of lab INR Comments 01/13/24 7.5mg daily x 10mg //Thu 2.8 12/10/23 7.5mg daily x 10mg /Thu 2.6 11/13/23 7.5mg daily x 10mg /Thu 3.1 10/08/23 7.5mg daily x 10mg We/Th/Fri 2.4 09/10/23 7.5mg daily x 10mg We/Th/Fri 2.3 08/06/23 7.5mg daily x 10mg We//Fri 2.1 06/24/23 7.5mg daily x 10mg We/Th/Fri 2.9 05/27/23 7.5mg daily x 10mg We//Fri 2.5 05/12/23 7.5mg daily x 10mg /Fri 1.9 05/04/23 7.5mg daily x 10mg Th/Fri 1.5 03/27/23 unable to contact 2.1 02/19/23 unable to contact 2.6 01/15/23 7.5mg daily x 10mg /Thu 2.1 12/11/22 7.5mg daily x 10mg /Fri 2.3 Assessment: -- INR is - within therapeutic range -- H/H is - within normal limits. Will check q6mos or earlier if needed. Plan: ----- --Pt/caregiver was given INR results during telephone contact --Warfarin dose: - continue current dose --Bridging therapy: - NO --Next lab date: 02/10 - coordinate w/ PCP appt --Patient/Caregiver repeated dose instructions and f/u monitoring plan? YES --Warfarin prescription renewed/refilled/directions updated if necessary? YES --Clinical reminder completed if due? YES --Minutes spent in chart review and phone conversation: 8min /paola/ NANCI PEREIRA, PHARM.D, [facility] CLINICAL PHARMACIST Signed: 01/13/2024 13:55 NANCI PEREIRA [facility]
--- OUTSIDE RECORDS SUMMARY | 2024-03-04 12:55 | XMS_ITS | Encounter Summary ---
Author Name [facility] [place] Address [address] [place] [address] Care Team Providers Care Heritage Consultant Name Role Phone JILLIAN GAN Primary Care [...] MEDIC ARE SUPPL EMEMT Apr 23, 2019 [id number] [phone] KATHY ORTEGA PATIENT ANTHEM [place] MEDICARE SUPPLEMEN WILL MEDIC ARE SUPPL EMEMT Apr 23, 2019 [id number] [phone] KATHY ORTEGA PATIENT [place] WILL MEDIC ARE SUPPL EMEMT Apr 23, 2019 [id number] [phone] KATHY ORTEGA PATIENT [place] MEDICARE SUPPLEMEN WILL MEDIC ARE SUPPL EMEMT Apr 23, 2019 [id number] [phone] KATHY ORTEGA PATIENT [employer] MCR (WNR) MEDICARE ADVANTAGE MCR (WNR) Mar 23, 2022 [id number] KATHY ORTEGA PATIENT [employer] MCR (WNR) MEDICARE ADVANTAGE [facility] (WNR) Mar 23, 2022 [id number] KATHY ORTEGA PATIENT MEDICARE (WNR) MEDICARE (M) RR PART A May 21, 1990 RR PART A [id number] KATHY ORTEGA PATIENT MEDICARE (WNR) MEDICARE (M) RR PART B May 21, 1990 RR PART B [id number] KATHY ORTEGA PATIENT [employer] MEDICARE SUPPLEMEN WILL MEDIC ARE SUPPL EMENT Feb 20, 2013 PLAN G [id number] [phone] KATHY ORTEGA PATIENT WELLCARE [facility] (WNR) MEDICARE ADVANTAGE [facility] (WNR) Mar 23, 2021 [id number] [phone] KATHY ORTEGA PATIENT Selected Encounter This section includes the information on record at [place] for the Encounter. Date/Time Encounter Type Encounter Description Reason Provider Source Dec 10, 2023 09:30 AM MTMS BY PHARM EST 15 MIN TELEPHONE/ANCILLA ISABELLE ICD-10-CM Z51.81 Encounter for therapeutic drug level monitoring NANCI PEREIRA [facility] Encounter Template Text not used by CT Assessments - Encounter Diagnoses This section includes the primary and secondary diagnoses documented for the Encounter. 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 Appointment Date/Time Appointment Type Appointme nt Facility Name Jan 13, 2024 08:15 AM AMBULATORY - MEDICINE [facility] Jan 22, 2024 02:15 PM AMBULATORY - MEDICINE [facility] Jan 26, 2024 09:30 AM AMBULATORY - SURGERY [facility] Feb 11, 2024 09:15 AM AMBULATORY - MEDICINE [facility] Feb 11, 2024 11:00 AM AMBULATORY - MEDICINE [facility] Mar 21, 2024 09:00 AM AMBULATORY - MEDICINE [facility] Mar 24, 2024 11:00 AM AMBULATORY - PSYCHIATRY [facility] Apr 18, 2024 09:30 AM AMBULATORY - SURGERY [facility] Lab Results: +/- 30 days of the encounter This section includes the Chemistry and Hematology Lab Results on record with CT for the patient. Radiology Reports and Pathology Reports are provided separately, in subsequent sections. Lab Results This section contains the Chemistry/Hematology Results that were resulted 30 days before or 30 daysafter the date of the Encounter. Date/Time Source Result Type Result - Unit Interpretation Reference Range Comment Dec 10, 2023 10:01 AM [facility] POC INR (STL-RX MONITORING ONLY) Specimen Type: BLOOD Comment: Test Performed by: [id number] Meter #: [id number] Ordering Provider: NANCI PEREIRA Report Released Date/Time: Dec 10, 2023 10:07 AM Reporting Lab: [facility] [address] [facility] [address] Performing Lab: [facility] [address] [facility] [address] POC INR (STL-RX MONITORING ONLY) 2.6 {INR} H 0.9-1.1 Nov 13, 2023 12:52 PM [facility] POC INR (STL-RX MONITORING ONLY) Specimen Type: BLOOD Comment: Test Performed by: [id number] Meter #: [id number] Ordering Provider: NANCI PEREIRA Report Released Date/Time: Nov 13, 2023 12:53 PM Reporting Lab: [facility] [address] [facility] [address] Performing Lab: [facility] [address] [place] [address] POC INR (STL-RX MONITORING ONLY) 3.1 {INR} [...] 29, 2018 09:[address]-TOBACCO FORMER USER [facility] Tobacco Use History This section includes a history of the smoking, or tobacco-related health factors, that were collected on or before the date of the Encounter. The data comes from the [place] facility where the Encounter took place. Date/Time Smoking Status/Tobacco Use Comment F acility Apr 29, 2018 09:[address]-TOBACCO QUIT 15 YRS OR MORE [facility] Advance Directives: All historical and [...] 13, 2013 ADVANCE DIRECTIVE DISCUSSION RONALD ESTRADA [facility] Encounter Notes: All associated encounter notes This section contains the clinical notes associated to the Encounter. Date/Time Encounter Note(s) Provider Source Dec 10, 2023 02:50 PM PHARMACY OUTPATIEN T MEDICATION MGT NOTE: LOCAL TITLE: PHARMACY ANTICOAG CLINIC ST STANDARD TITLE: PHARMACY OUTPATIENT MEDICATION MGT NOTE DATE OF NOTE: DEC 10, 2023@14:50 ENTRY DATE: DEC 10, 2023@14:50:17 AUTHOR: NANCI PEREIRA EXP COSIGNER: URGENCY: STATUS: COMPLETED WARFARIN LAB ONLY - TELEPHONE CONTACT SACHA ORTEGA is a 78 y/o MALE on warfarin. Patient was identified by 2 unique identifiers. Indication for warfarin: Pulmonary Embolism (recurrent), FVL Goal INR: 2-3 Current warfarin dose on record: 7.5mg daily x 10mg We/Th/Fri On bridging regimen?: NO Expected duration of [...] NO Objective: POC INR (STL-RX MONITORING ONLY) 2.6 H INR 12/10/2023 10:01 HGB 14.5 g/dL 08/06/2023 11:28 HCT 47.5 % 08/06/2023 11:28 PLT 136 L 10*3/uL 08/06/2023 11:28 INR Trends: Date Dose at time of lab INR Comments 12/10/23 7.5mg daily x 10mg We//Fri 2.6 11/13/23 7.5mg daily x 10mg //Thu 3.1 10/08/23 7.5mg daily x 10mg /Th/Fri 2.4 09/10/23 7.5mg daily x 10mg /Th/Fri 2.3 08/06/23 7.5mg daily x 10mg /Th/Fri 2.1 06/24/23 7.5mg daily x 10mg We//Fri 2.9 05/27/23 7.5mg daily x 10mg We/Th/Fri 2.5 05/12/23 7.5mg daily x 10mg /Fri 1.9 05/04/23 7.5mg daily x 10mg Th/Fri 1.5 1/5/24 unable to contact 2.1 02/19/23 unable to contact 2.6 01/15/23 7.5mg daily x 10mg /Thu 2.1 12/11/22 7.5mg daily x 10mg /Thu 2.3 11/06/22 7.5mg daily x 10mg /Thu 2.6 Assessment: -- INR is - within therapeutic range -- H/H is - within normal limits. Will check q6mos or earlier if needed. Plan: ----- --Pt/caregiver was given INR results during telephone contact --Warfarin dose: - continue current dose --Bridging therapy: - NO --Next lab date: 01/12 --Patient/Caregiver repeated dose instructions and f/u monitoring plan? YES --Warfarin prescription renewed/refilled/directions updated if necessary? YES --Clinical reminder completed if due? YES --Minutes spent in chart review and phone conversation: 8min /paola/ NANCI PEREIRA, PHARM.D, [facility] CLINICAL PHARMACIST Signed: 12/10/2023 15:10 NANCI PEREIRA [facility]
--- OUTSIDE RECORDS SUMMARY | 2024-03-04 12:55 | XMS_ITS | Encounter Summary ---
Author Name [facility] [place] [facility] [place] Address [address] [place] [address] Care Team Providers Care School Clerk Name Role Phone JILLIAN GAN Primary [...] MEDIC ARE SUPPL EMEMT Apr 23, 2019 [id number] [phone] KATHY ORTEGA PATIENT ANTHEM BCBS [place] MEDICARE SUPPLEMEN WILL MEDIC ARE SUPPL EMEMT Apr 23, 2019 [id number] [phone] KATHY ORTEGA PATIENT ANTHEM [place] MEDICARE SUPPLEMEN WILL MEDIC ARE SUPPL EMEMT Apr 23, 2019 [id number] [phone] KATHY ORTEGA PATIENT BCBS [place] MEDICARE SUPPLEMEN WILL MEDIC ARE SUPPL EMEMT Apr 23, 2019 [id number] [phone] KATHY ORTEGA PATIENT [employer] MCR (WNR) MEDICARE ADVANTAGE MCR (WNR) Mar 23, 2022 [id number] [phone] KATHY ORTEGA PATIENT [employer] MCR (WNR) MEDICARE ADVANTAGE [facility] (WNR) Mar 23, 2022 [id number] KATHY ORTEGA PATIENT MEDICARE (WNR) MEDICARE (M) RR PART A May 21, 1990 RR PART A [id number] KATHY ORTEGA PATIENT MEDICARE (WNR) MEDICARE (M) RR PART B May 21, 1990 RR PART B [id number] KATHY ORTEGA PATIENT [employer] [place] MEDICARE SUPPLEMEN WILL MEDIC ARE SUPPL EMENT Feb 20, 2013 PLAN G [id number] [phone] KATHY ORTEGA PATIENT [employer] MCR (WNR) MEDICARE ADVANTAGE [facility] (WNR) Mar 23, 2021 [id number] [phone] KATHY ORTEGA PATIENT Selected Encounter This section includes the information on record at [place] for the Encounter. Date/Time Encounter Type Encounter Description Reason Pro vider Source Jan 07, 2024 09:05 AM Outpatient Encounter ADMIN PAT ACTIVTIES (MASNONCT) IHE Encounter Template Text not used by [place] Plan of Treatment: Future Appointments (+ 6 months) and Future Tests (+/- 45 days) The Plan of Treatment section includes future care activities for the patient from all [place] treatmentfacilities. This section includes future appointments and future orders which are active, pending or scheduled. Future Appointments This section includes appointments that were scheduled to occur 6 months from the date of the Encounter, up to a maximum of 20 appointments. The data comes from all [place] treatment facilities. Appointment Date/Time Appointment Type Appointme nt Facility Name Jan 13, 2024 08:15 AM AMBULATORY - MEDICINE [facility] Jan 22, 2024 02:15 PM AMBULATORY - MEDICINE [facility] Jan 26, 2024 09:30 AM [facility]ORY - SURGERY [facility] Feb 11, 2024 09:15 AM [facility] Feb 11, 2024 11:00 AM [facility]UL[facility]ORY - MEDICINE [facility] Mar 21, 2024 09:00 AM [facility] Mar 24, 2024 11:00 AM AMBULATORY - PSYCHIATRY [facility] Apr 18, 2024 09:30 AM [facility]ORY - SURGERY [facility] Active, Pending, and Scheduled Orders This section includes a listing of several types of active, pending, and scheduled orders, including clinic medications orders, diagnostic test orders, procedure orders and consult orders; where the start date of the order is 45 days before the date of the Encounter or 45 days after the date of theEncounter. The data comes from all [place] treatment facilities. Test Date/Time Test Type Test Details Facility Name Feb 11, 2024 12:00 AM Laboratory - Chemistry Order TSH W/ REFLEX FT4 (STL) GREEN LI-HEP PLASMA SP [facility] Feb 11, 2024 12:00 AM Laboratory - Chemistry Order MICRAL/CREAT PROFILE (STL) URINE SP [facility] Feb 11, 2024 12:00 AM Laboratory - Chemistry Order VITAMIN D, 25-HYDROXY GOLD/RED SST SERUM SP [facility] Feb 11, 2024 12:00 AM Laboratory - Chemistry Order URIC ACID GREEN LI/HEP BLD/PLAS PLASMA SP [facility] Feb 11, 2024 12:00 AM Laboratory - Chemistry Order COMPREHENSIVE METABOLIC PANEL GREEN LI/HEP BLD/PLAS PLASMA SP [facility] Feb 11, 2024 12:00 AM Laboratory - Chemistry Order LIPID PANEL (STL) GREEN LI/HEP BLD/PLAS PLASMA SP ONCE [facility] Lab Results: +/- 30 days of the encounter This section includes the Chemistry and Hematology Lab Results on record with [place] for the patient. Radiology Reports and Pathology Reports are provided separately, in subsequent sections. Lab Results This section contains the Chemistry/Hematology Results that were resulted 30 days before or 30 daysafter the date of the Encounter. Date/Time Source Result Type Result - Unit Interpretation Reference Range Comment Jan 13, 2024 09:58 AM [facility] POC INR (STL-RX MONITORING ONLY) Specimen Type: BLOOD Comment: Test Performed by: [id number] Meter #: [id number] Ordering Provider: NANCI PEREIRA Report Released Date/Time: Jan 13, 2024 10:04 AM Reporting Lab: [facility] [address] [facility] [address] Performing Lab: [address] [address] POC INR (STL-RX MONITORING ONLY) 2.8 {INR} H 0.9-1.1 Dec 10, 2023 10:01 AM [facility] POC INR (STL-RX MONITORING ONLY) Specimen Type: BLOOD Comment: Test Performed by: [id number] Meter #: [id number] Ordering Provider: NANCI PEREIRA Report Released Date/Time: Dec 10, 2023 10:07 AM Reporting Lab: [address] [address] Performing Lab: [address] [address] POC INR (STL-RX MONITORING ONLY) 2.6 {INR} H 0.9-1.1 Social History: Smoking Status (Most current) and Tobacco Use (All prior to encounter date) This section includes the most current, and the historical, smoking and tobacco- related health factors from the [place] facility where the Encounter took place. Current Smoking Status This section includes the most current smoking, or tobacco-related health factor, from the [place] facility where the Encounter took place. Date/Time Current Smoking Status Comment Catherine ity Apr 29, 2018 09:12 AM AL-TOBACCO QUIT 15 YRS OR MORE [facility] Tobacco Use History This section includes a history of the smoking, or tobacco-related health factors, that were collected on or before the date of the Encounter. The data comes from the AL facility where the Encounter took place. Date/Time Smoking Status/Tobacco Use Comment F acjack Apr 29, 2018 09:12 AM AL-TOBACCO QUIT 15 YRS OR MORE [facility] Advance Directives: All historical and current Section Date Range: From patient's date of to the date document was created. This section includes ALL of a patient's completed or amended [place] Advance and Rescinded Directives. The entries below indicate that a directive exists for the patient, but an actual copy is not included with this document. The data comes from all [place] facilities. Date Advance Directives Provider Source Jun 13, 2013 ADVANCE DIRECTIVE DISCUSSION RONALD ESTRADA [facility] Encounter Notes: All associated encounter notes This section contains the clinical notes associated to the Encounter. Date/Time Encounter Note(s) Provider Source Jan 07, 2024 09:05 AM ADMINISTRATIVE NOT E: LOCAL TITLE: ADMINISTRATIVE STL STANDARD TITLE: ADMINISTRATIVE NOTE DATE OF NOTE: JAN 07, 2024@09:05 ENTRY DATE: JAN 07, 2024@09:05:23 AUTHOR: JIMMY WEINSTEIN EXP COSIGNER: URGENCY: STATUS: COMPLETED MAILED PT DISABILITIES CERTIFICATION OF PARKING PLACARD TO HIM. /paola/ JIMMY WEINSTEIN ADVANCED FULL STACK JAVA DEVELOPER Signed: 01/07/2024 09:06 JIMMY WEINSTEIN [facility]
--- OUTSIDE RECORDS SUMMARY | 2024-03-04 12:55 | XMS_ITS | Encounter Summary ---
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 Name Role Phone JILLIAN GAN Primary Care [...] MEDIC ARE SUPPL EMEMT Apr 23, 2019 [id number] [phone] KATHY ORTEGA PATIENT ANTHEM [employer] MEDICARE SUPPLEMEN WILL MEDIC ARE SUPPL EMEMT Apr 23, 2019 [id number] [phone] KATHY ORTEGA PATIENT AN[place] MEDIC[place] SUPPLEMEN WILL MEDIC ARE SUPPL EMEMT Apr 23, 2019 [id number] [phone] KATHY ORTEGA PATIENT BCBS [place] MEDICARE SUPPLEMEN WILL MEDIC ARE SUPPL EMEMT Apr 23, 2019 [id number] [phone] KATHY ORTEGA PATIENT [employer] MCR (WNR) MEDICARE ADVANTAGE MCR (WNR) Mar 23, 2022 [id number] KATHY ORTEGA PATIENT [employer] MCR (WNR) MEDICARE ADVANTAGE [facility] (WNR) Mar 23, 2022 [id number] KATHY ORTEGA PATIENT MEDICARE (WNR) MEDICARE (M) RR PART A May 21, 1990 RR PART A [id number] KATHY ORTEGA PATIENT MEDICARE (WNR) MEDICARE (M) RR PART B May 21, 1990 RR PART B [id number] KATHY ORTEGA PATIENT [employer] MEDICARE SUPPLEMEN WILL MEDIC ARE SUPPL EMENT Feb 20, 2013 PLAN G [id number] [phone] KATHY ORTEGA PATIENT [employer] MCR (WNR) MEDICARE ADVANTAGE [facility] (WNR) Mar 23, 2021 [id number] KATHY ORTEGA PATIENT Selected Encounter This section includes the information on record at [place] for the Encounter. Date/Time Encounter Type Encounter Description Reason Provider Source Nov 12, 2023 08:15 AM MTMS BY PHARM EST 15 MIN TELEPHONE/ANCILLA RY ICD-10-CM Z51.81 Encounter for therapeutic drug level monitoring BARBARA BATISTA [facility] Encounter Template Text not used by [place] Assessments - Encounter Diagnoses This section includes the primary and secondary diagnoses documented for the Encounter. 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 This section includes future appointments and future orders which are active, pending or scheduled. Future Appointments This section includes appointments that were scheduled to occur 6 months from the date of the Encounter, up to a maximum of 20 appointments. The data comes from all [place] treatment facilities. Appointment Date/Time Appointment Type Appointme nt Facility Name Nov 26, 2023 03:00 PM AMBULATORY - PS[facility]IATRY [facility] Dec 10, 2023 09:30 AM AMBULATORY - MEDICINE [facility] Jan 13, 2024 08:15 AM AMBULATORY - MEDICINE [facility] Jan 22, 2024 02:15 PM AMBULATORY - MEDICINE [facility] Jan 26, 2024 09:30 AM AMBULATORY - SURGERY [facility] Feb 11, 2024 09:15 AM AMBULATORY - MEDICINE [facility] Feb 11, 2024 11:00 AM AMBULATORY - MEDICINE [facility] Mar 21, 2024 09:00 AM AMBULATORY - MEDICINE [facility] Mar 24, 2024 11:00 AM AMBULATORY - PSYCHIATRY [facility] Apr 18, 2024 09:30 AM AMBULATORY - SURGERY [facility] Lab Results: +/- 30 days of the encounter This section includes the Chemistry and Hematology Lab Results on record with [place] for the patient. Radiology Reports and Pathology Reports are provided separately, in subsequent sections. Lab Results This section contains the Chemistry/Hematology Results that were resulted 30 days before or 30 daysafter the date of the Encounter. Date/Time Source Result Type Result - Unit Interpretation Reference Range Comment Dec 10, 2023 10:01 AM [facility] POC INR (STL-RX MONITORING ONLY) Specimen Type: BLOOD Comment: Test Performed by: [id number] Meter #: [id number] Ordering Provider: NANCI PEREIRA Report Released Date/Time: Dec 10, 2023 10:07 AM Reporting Lab: [facility] [address] [facility] [address] Performing Lab: [facility] [address] [facility] [address] POC INR (STL-RX MONITORING ONLY) 2.6 {INR} H 0.9-1.1 Nov 13, 2023 12:52 PM [facility] POC INR (STL-RX MONITORING ONLY) Specimen Type: BLOOD Comment: Test Performed by: [id number] Meter #: [id number] Ordering Provider: NANCI PEREIRA Report Released Date/Time: Nov 13, 2023 12:53 PM Reporting Lab: [facility] [address] [facility] [address] Performing Lab: [facility] [address] [place] [address] POC INR (STL-RX MONITORING ONLY) 3.1 {INR} H 0.9-1.1 Social History: Smoking Status (Most current) and Tobacco Use (All prior to encounter date) This section includes the most current, and the historical, smoking and tobacco- related health factors from the [place] facility where the Encounter took place. Current Smoking Status This section includes the most current smoking, or tobacco-related health factor, from the [place] facility where the Encounter took place. Date/Time Current Smoking Status Comment Catherine ity Apr 29, 2018 09:12 AM [place]-TOBACCO FORMER USER [facility] Tobacco Use History This section includes a history of the smoking, or tobacco-related health factors, that were collected on or before the date of the Encounter. The data comes from the [place] facility where the Encounter took place. Date/Time Smoking Status/Tobacco Use Comment F acility Apr 29, 2018 09:12 AM [place]-TOBACCO QUIT 15 YRS OR MORE [facility] Advance Directives: All historical and current Section Date Range: From patient's date of to the date document was created. This section includes ALL of a patient's completed or amended [place] Advance and Rescinded Directives. The entries below indicate that a directive exists for the patient, but an actual copy is not included with this document. The data comes from all [place] facilities. Date Advance Directives Provider Source Jun 13, 2013 ADVANCE DIRECTIVE DISCUSSION RONALD ESTRADA [facility] Encounter Notes: All associated encounter notes This section contains the clinical notes associated to the Encounter. Date/Time Encounter Note(s) Provider Source Nov 13, 2023 01:04 PM PHARMACY OUTPATIEN T MEDICATION MGT NOTE: LOCAL TITLE: PHARMACY ANTICOAG CLINIC ST STANDARD TITLE: PHARMACY OUTPATIENT MEDICATION MGT NOTE DATE OF NOTE: NOV 13, 2023@13:04 ENTRY DATE: NOV 13, 2023@13:04:35 AUTHOR: BARBARA BATISTA EXP COSIGNER: URGENCY: STATUS: COMPLETED WARFARIN LAB ONLY - TELEPHONE CONTACT SACHA ORTEGA is a 77 y/o MALE on warfarin. Patient was identified by 2 unique identifiers. Indication for warfarin: Pulmonary Embolism- recurrent/Factor V leiden Goal INR: 2-3 Current warfarin dose on record: 7.5mg daily x 10mg We//Fri On bridging regimen?: NO Expected duration of therapy: Lifetime Subjective: Patient/Caregiver confirmed dose as above.YES Missed or extra doses? NO Bruising or bleeding? NO Falls or accidents? NO Thromboembolic symptoms? NO Hospitalized or ER visit? NO Changes in vitamin K containing products/food? NO EtOH changes? NO Interacting medication changes (Rx, OTC, herbal)? NO Any upcoming procedure/surgery/dental work? NO Is pt taking an antiplatelet agent (ASA, clopidogrel, prasugrel, ticagrelor, cilostazol, dipyridamole)? NO Any additional information? aloglitipin changed to sitagliptin previously Objective: POC INR (STL-RX MONITORING ONLY) 3.1 11/13/2023 HGB 14.5 g/dL 08/06/2023 11:28 HCT 47.5 % 08/06/2023 11:28 PLT 136 L 10*3/uL 08/06/2023 11:28 INR Trends: Date Dose at time of lab INR Comments 11/13/23 7.5mg daily x 10mg We//Thu 3.1 10/08/23 7.5mg daily x 10mg //Thu 2.4 09/10/23 7.5mg daily x 10mg /Th/Fri 2.3 08/06/23 7.5mg daily x 10mg We/Th/Fri 2.1 06/24/23 7.5mg daily x 10mg We/Th/Fri 2.9 05/27/23 7.5mg daily x 10mg We/Th/Fri 2.5 05/12/23 7.5mg daily x 10mg Th/Fri 1.9 05/04/23 7.5mg daily x 10mg /Fri 1.5 03/27/23 unable to contact 2.1 02/19/23 unable to contact 2.6 01/15/23 7.5mg daily x 10mg /Thu 2.1 12/11/22 7.5mg daily x 10mg /Thu 2.3 11/06/22 7.5mg daily x 10mg /Thu 2.6 10/02/22 7.5mg daily x 10mg /Thu 2.2 Assessment: -- INR is - not at goal; slightly supratherapeutic previously in range x5 on current dose -- H/H is - within normal limits. Will check q6mos or earlier if needed. Plan: ----- --Pt/caregiver was given INR results during telephone contact --Warfarin dose: - continue current dose --Bridging therapy: - NO --Next lab date: 12/10/2023 --Patient/Caregiver repeated dose instructions and f/u monitoring plan? YES --Warfarin prescription renewed/refilled/directions updated if necessary? YES --Minutes spent in telephone conversation: 8 min /paola/ BARBARA BATISTA, PHARMD, BCACP, CACP CLINICAL PHARMACY PRACTITIONER Signed: 11/13/2023 13:10 BARBARA BATISTA [facility]
--- OUTSIDE RECORDS SUMMARY | 2024-03-04 12:55 | XMS_ITS | Encounter Summary ---
Author Name [facility] [place] [facility] [place] Organization [facility] [place] Address [address] [place] [address] Care Team Providers Care Voice Coach Name Role Phone JILLIAN GAN Primary [...] MEDIC ARE SUPPL EMEMT Apr 23, 2019 [id number] [phone] KATHY ORTEGA PATIENT ANTHEM [place] MEDICARE SUPPLEMEN WILL MEDIC ARE SUPPL EMEMT Apr 23, 2019 [id number] [phone] KATHY ORTEGA PATIENT AN[place] MEDICARE SUPPLEMEN WILL MEDIC ARE SUPPL EMEMT Apr 23, 2019 [id number] [phone] KATHY ORTEGA PATIENT [place] MEDICARE SUPPLEMEN WILL MEDIC ARE SUPPL EMEMT Apr 23, 2019 [id number] [phone] KATHY ORTEGA PATIENT [employer] MCR (WNR) MEDICARE ADVANTAGE MCR (WNR) Mar 23, 2022 [id number] KATHY ORTEGA PATIENT [employer] MCR (WNR) MEDICARE ADVANTAGE [facility] (WNR) Mar 23, 2022 [id number] KATHY ORTEGA PATIENT MEDICARE (WNR) MEDICARE (M) RR PART A May 21, 1990 RR PART A [id number] KATHY ORTEGA PATIENT MEDICARE (WNR) MEDICARE (M) RR PART B May 21, 1990 RR PART B [id number] KATHY ORTEGA PATIENT [employer] [place] MEDICARE SUPPLEMEN WILL MEDIC ARE SUPPL EMENT Feb 20, 2013 PLAN [id number] [phone] KATHY ORTEGA PATIENT [employer] MCR (WNR) MEDICARE ADVANTAGE [facility] (WNR) Mar 23, 2021 [id number] [phone] KATHY ORTEGA PATIENT Selected Encounter This section includes the information on record at [place] for the Encounter. Date/Time Encounter Type Encounter Description Reason Provider Source Jan 01, 2024 08:38 AM Outpatient Encounter PRIMARY CARE/MEDICINE KASSANDRA PUENTES Encounter Template Text not used by [place] Plan of Treatment: Future Appointments (+ 6 months) and Future Tests (+/- 45 days) The Plan of Treatment section includes future care activities for the patient from all [place] treatmentfacilities. This section includes future appointments and future orders which are active, pending or scheduled. Future Appointments This section includes appointments that were scheduled to occur 6 months from the date of the Encounter, up to a maximum of 20 appointments. The data comes from all [place] treatment facilities. Appointment Date/Time Appointment Type Appointme nt Facility Name Jan 13, 2024 08:15 AM AMBULATORY - MEDICINE [facility] Jan 22, 2024 02:15 PM AMBULATORY - MEDICINE [facility] Jan 26, 2024 09:30 AM AMBULATORY - SURGERY [facility] Feb 11, 2024 09:15 AM AMBULATORY - MEDICINE [facility] Feb 11, 2024 11:00 AM AMBULATORY - MEDICINE [facility] Mar 21, 2024 09:00 AM AMBULATORY - MEDICINE [facility] Mar 24, 2024 11:00 AM AMBULATORY - PSYCHIATRY [facility] Apr 18, 2024 09:30 AM AMBULATORY - SURGERY [facility] Active, Pending, and Scheduled Orders This section includes a listing of several types of active, pending, and scheduled orders, including clinic medications orders, diagnostic test orders, procedure orders and consult orders; where the start date of the order is 45 days before the date of the Encounter or 45 days after the date of theEncounter. The data comes from all [place] treatment facilities. Test Date/Time Test Type Test Details Facility Name Feb 11, 2024 12:00 AM Laboratory - Chemistry Order LIPID PANEL (STL) GREEN LI/HEP BLD/PLAS PLASMA SP ONCE [facility] Feb 11, 2024 12:00 AM Laboratory - Chemistry Order MICRAL/CREAT PROFILE (STL) URINE SP [facility] Feb 11, 2024 12:00 AM Laboratory - Chemistry Order TSH W/ REFLEX FT4 (STL) GREEN LI-HEP PLASMA SP [facility] Feb 11, 2024 12:00 AM Laboratory - Chemistry Order URIC ACID GREEN LI/HEP BLD/PLAS PLASMA SP [facility] Feb 11, 2024 12:00 AM Laboratory - Chemistry Order VITAMIN D, 25-HYDROXY GOLD/RED SST SERUM SP [facility] Feb 11, 2024 12:00 AM Laboratory - Chemistry Order COMPREHENSIVE METABOLIC PANEL GREEN LI/HEP BLD/PLAS PLASMA SP [facility] Lab Results: +/- 30 days of [...] Comment Jan 13, 2024 09:58 AM [facility] POC INR (STL-RX MONITORING ONLY) Specimen Type: BLOOD Comment: Test Performed by: [id number] Meter #: [id number] Ordering Provider: NANCI PEREIRA Report Released Date/Time: Jan 13, 2024 10:04 AM Reporting Lab: [facility] [address] [id number] Performing Lab: [facility] [address] [id number] POC INR (STL-RX MONITORING ONLY) 2.8 {INR} H 0.9-1.1 Dec 10, 2023 10:01 AM [facility] POC INR (STL-RX MONITORING ONLY) Specimen Type: BLOOD Comment: Test Performed by: [id number] Meter #: [id number] Ordering Provider: NANCI PEREIRA Report Released Date/Time: Dec 10, 2023 10:07 AM Reporting Lab: [facility] [address] [facility] [id number] Performing Lab: [address] [id number] POC INR (STL-RX MONITORING ONLY) 2.6 {INR} H 0.9-1.1 Social History: Smoking Status (Most current) and Tobacco Use (All prior to encounter date) This section includes the most current, and the historical, smoking and tobacco- related health factors from the [place] facility where the Encounter took place. Current Smoking Status This section includes the most current smoking, or tobacco-related health factor, from the [place] facility where the Encounter took place. Date/Time Current Smoking Status Comment Catherine ity Apr 29, 2018 09:12 AM VA-TOBACCO FORMER USER [facility] Tobacco Use History This section includes a history of the smoking, or tobacco-related health factors, that were collected on or before the date of the Encounter. The data comes from the [place] facility where the Encounter took place. Date/Time Smoking Status/Tobacco Use Comment F acility Apr 29, 2018 09:12 AM [place]-TOBACCO QUIT 15 YRS OR MORE [facility] Advance Directives: All historical and current Section Date Range: From patient's date of to the date document was created. This section includes ALL of a patient's completed or amended [place] Advance and Rescinded Directives. The entries below indicate that a directive exists for the patient, but an actual copy is not included with this document. The data comes from all [place] facilities. Date Advance Directives Provider Source Jun 13, 2013 ADVANCE DIRECTIVE DISCUSSION RONALD ESTRADA [facility] Encounter Notes: All associated encounter notes This section contains the clinical notes associated to the Encounter. Date/Time Encounter Note(s) Provider Source Jan 05, 2024 08:37 AM PRIMARY CARE SECUR E MESSAGING: LOCAL TITLE: PRIMARY CARE SECURE MESSAGING STANDARD TITLE: PRIMARY CARE SECURE MESSAGING DATE OF NOTE: JAN 05, 2024@08:37 ENTRY DATE: JAN 05, 2024@07:37:34 AUTHOR: KASSANDRA PUENTES EXP COSIGNER: URGENCY: STATUS: COMPLETED ------Original Message ---- Sent: 01/05/2024 08:37 AM ET From: KASSANDRA PUENTES To: SACHA ORTEGA Subject: General:letter Good Morning! Please read response: Mr Shannon Portillo I am not able to fill up the Disabled certificate because you do not have at least a 10% service-connected walking disability. Your 70% service connection is due to anxiety. I filled out [facility] DIsability placard application that you can take to the [facility] to get your disability parking tag. pls come to the clinic to tack picker the form. Thank your for your service! Kassandra FOX, BSN: RUDDY VALDEZ /paola/ Kassandra Puentes RN BSN REGISTERED NURSE Signed: 01/05/2024 07:37 KASSANDRA PUENTES [facility] Jan 01, 2024 04:47 PM ADDENDUM: LOCAL TITLE: Addendum STANDARD TITLE: ADDENDUM DATE OF NOTE: JAN 01, 2024@16:47:28 ENTRY DATE: JAN 01, 2024@16:47:29 AUTHOR: JILLIAN GAN EXP COSIGNER: URGENCY: STATUS: COMPLETED Mr Shannon Portillo I am not able to fill up the Disabled [place] certificate because you do not have at least a 10% service-connected walking disability. Your 70% service connection is due to anxiety. I filled out [facility] DIsability placard application that you can take to the [facility] to get your disability parking tag. pls come to the clinic to tack picker the form. /paola/ JILLIAN GAN MD Signed: 01/01/2024 16:51 Receipt Acknowledged By: 01/05/2024 07:37 /es/ Kassandra GEE REGISTERED NURSE --- Original Document --- 01/01/24 PRIMARY CARE SECURE MESSAGING: ------Original Message ---- Sent: 12/30/2023 07:21 PM ET From: SACHA ORTEGA To: [facility], 6_[place], A_Primary [facility], [facility] Subject: General:letter . I need A letter saying long I can walk Without pains in my legs. I really need It To get My License Plates. For my car as soon as you can, could you E-mail to me @ [email or web address]. Thank you, Sacha Ortega,[phone] ------Original Message ---- Sent: 12/31/2023 09:47 AM ET From: KASSANDRA PUENTES To: SACHA ORTEGA Subject: General:letter Good Morning! I need A letter saying long I can walk Without pains in my legs Please clarify exactly what the letter is requiring. Is there a form the DMV need the PCP to fill out? Thank your for your service Kassandra FOX, BSN: RUDDY CM BAUDILIO-PC ------Original Message ---- Sent: 12/31/2023 03:47 PM ET From: SACHA ORTEGA To: [facility], [address], A_Primary Care, [facility] Subject: General:letter I need a letter that I have disabled for 15 plus years thru the state. my doctor retired I am trying to a disabled license plate. I am at 70 percent, but they want more. Ask the Doc if I can get it Sacha Braxton Shannon [phone] If so, please e-mail to [email or web address] ------Original Message ---- Sent: 01/01/2024 08:35 AM ET From: KASSANDRA PUENTES To: SACHA ORTEGA Subject: General:letter Good Morning! Thank you for clarifying. I will forward your request to . Thank your for your service! Kassandra FOX, BSN: RUDDY ASTUDILLO- /es/ Kassandra Puentes RN BSN REGISTERED NURSE Signed: 01/01/2024 07:38 01/01/2024 ADDENDUM STATUS: COMPLETED REQUESTING DISABLED PLATES, THE FOLLOWING MUST BE INCLUDED: A copy of Notice of Decision/Rating Decision letter, in full, showing proof of a service-connected disability with a breakdown of each diagnosis, with percentages, from the [place] [employer]. There must be at least a 10% service-connected walking disability that matches the walking disability diagnosis on the Disabled Certification for Parking Placard/Plates. A Disabled [place] Certification for Parking Placard/Plates completed by a licensed physician certifying that because of the service-connected disability you qualify for issuance of a disabled parking placard or plate. /es/ Kassandra Puentes RN BSN REGISTERED NURSE Signed: 01/01/2024 07:44 Receipt Acknowledged By: 01/01/2024 16:47 /es/ JILLIAN COLVIN MD [facility] Jan 01, 2024 08:38 AM PRIMARY CARE SECUR E MESSAGING: LOCAL TITLE: PRIMARY CARE SECURE MESSAGING STANDARD TITLE: PRIMARY CARE SECURE MESSAGING DATE OF NOTE: JAN 01, 2024@08:38 ENTRY DATE: JAN 01, 2024@07:38:53 AUTHOR: KASSANDRA PUENTES EXP COSIGNER: URGENCY: STATUS: COMPLETED PRIMARY CARE SECURE MESSAGING Has ADDENDA ------Original Message ---- Sent: 12/30/2023 07:21 PM ET From: SACHA ORTEGA To: [facility], 6[place], A_Primary Care, [facility] Subject: General:letter . I need A letter saying long I can walk Without pains in my legs. I really need It To get My License Plates. For my car as soon as you can, could you E-mail to me @ [email or web address]. Thank you, Sacha Ortega,[phone] ------Original Message ---- Sent: 12/31/2023 09:47 AM ET From: KASSANDRA PUENTES To: SACHA ORTEGA Subject: General:letter Good Morning! I need A letter saying long I can walk Without pains in my legs Please clarify exactly what the letter is requiring. Is there a form the DMV need the PCP to fill out? Thank your for your service Kassandra FOX, BSN: RUDDY CM BAUDILIO-PC ------Original Message ---- Sent: 12/31/2023 03:47 PM ET From: SACHA ORTEGA To: [facility], 6[place], A_Primary Care, [facility] Subject: General:letter I need a letter that I have disabled for 15 plus years thru the state. my doctor retired I am trying to a disabled license plate. I am at 70 percent, but they want more. Ask the Doc if I can get it Sacha Ortega [phone] If so, please e-mail to [email or web address] ------Original Message ---- Sent: 01/01/2024 08:35 AM ET From: KASSANDRA PUENTES To: SACHA ORTEGA Subject: General:letter Good Morning! Thank you for clarifying. I will forward your request to . Thank your for your service! Kassandra FOX, BSN: RUDDY VALDEZ /paola/ Kassandra Puentes RN BSN REGISTERED NURSE Signed: 01/01/2024 07:38 01/01/2024 ADDENDUM STATUS: COMPLETED REQUESTING DISABLED PLATES, THE FOLLOWING MUST BE INCLUDED: A copy of Notice of Decision/Rating Decision letter, in full, showing proof of a service-connected disability with a breakdown of each diagnosis, with percentages, from the [facility] [place] [employer]. There must be at least a 10% service-connected walking disability that matches the walking disability diagnosis on the Disabled [place] Certification for Parking Placard/Plates. A Disabled [place] Certification for Parking Placard/Plates completed by a licensed physician certifying that because of the service-connected disability you qualify for issuance of a disabled parking placard or plate. /paola/ Kassandra Puentes RN BSN REGISTERED NURSE Signed: 01/01/2024 07:44 Receipt Acknowledged By: 01/01/2024 16:47 /es/ JILLIAN GAN MD 01/01/2024 ADDENDUM STATUS: COMPLETED Bandar,Mr Ortega I am not able to fill up the Disabled [place] certificate because you do not have at least a 10% service-connected walking disability. Your 70% service connection is due to anxiety. I filled out [place] [facility] DIsability placard application that you can take to the [facility] to get your disability parking tag. pls come to the clinic to tack picker the form. /es/ JILLIAN GAN MD Signed: 01/01/2024 16:51 Receipt Acknowledged By: * AWAITING SIGNATURE * KASSANDRA PUENTES TIFFANY N [facility] Jan 01, 2024 07:39 AM ADDENDUM: LOCAL TITLE: Addendum STANDARD TITLE: ADDENDUM DATE OF NOTE: JAN 01, 2024@07:39:36 ENTRY DATE: JAN 01, 2024@07:39:38 AUTHOR: KASSANDRA PUENTES EXP COSIGNER: URGENCY: STATUS: COMPLETED REQUESTING DISABLED PLATES, THE FOLLOWING MUST BE INCLUDED: A copy of Notice of Decision/Rating Decision letter, in full, showing proof of a service-connected disability with a breakdown of each diagnosis, with percentages, from the [place] Department of Affairs. There must be at least a 10% service-connected walking disability that matches the walking disability diagnosis on the Disabled [place] Certification for Parking Placard/Plates. A Disabled Certification for Parking Placard/Plates completed by a licensed physician certifying that because of the service-connected disability you qualify for issuance of a disabled parking placard or plate. /es/ Kassandra Puentes RN BSN REGISTERED NURSE Signed: 01/01/2024 07:44 Receipt Acknowledged By: 01/01/2024 16:47 /es/ JILLIAN GAN MD --- Original Document --- 01/01/24 PRIMARY CARE SECURE MESSAGING: ------Original Message ---- Sent: 12/30/2023 07:21 PM ET From: SACHA ORTEGA To: [facility], 6_[place], A_Primary Care, [facility] Subject: General:letter . I need A letter saying long I can walk Without pains in my legs. I really need It To get My License Plates. For my car as soon as you can, could you E-mail to me @ [email or web address]. Thank you, Sacha Ortega,[phone] ------Original Message ---- Sent: 12/31/2023 09:47 AM ET From: KASSANDRA PUENTES To: SACHA ORTEGA Subject: General:letter Good Morning! I need A letter saying long I can walk Without pains in my legs Please clarify exactly what the letter is requiring. Is there a form the DMV need the PCP to fill out? Thank your for your service Kassandra FOX, BSN: RUDDY VALDEZ ------Original Message ---- Sent: 12/31/2023 03:47 PM ET From: SACHA ORTEGA To: ST, 6[facility], A_Primary Care, [facility] Subject: General:letter I need a letter that I have disabled for 15 plus years thru the state. my doctor retired I am trying to a disabled license plate. I am at 70 percent, but they want more. Ask the Doc if I can get it Sacha Ortega [phone] If so, please e-mail to [email or web address] ------Original Message ---- Sent: 01/01/2024 08:35 AM ET From: KASSANDRA PUENTES To: SACHA ORTEGA Subject: General:letter Good Morning! Thank you for clarifying. I will forward your request to . Thank your for your service! Kassandra FOX, BSN: RUDDY VALDEZ /paola/ Kassandra Puentes RN BSN REGISTERED NURSE Signed: 01/01/2024 07:38 01/01/2024 ADDENDUM STATUS: UNSIGNED You may not VIEW this UNSIGNED Addendum. KASSANDRA PUENTES [facility]
--- OUTSIDE RECORDS SUMMARY | 2024-03-04 12:55 | XMS_ITS | Encounter Summary ---
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 Role Phone JILLIAN GAN Primary Care [...] MEDIC ARE SUPPL EMEMT Apr 23, 2019 [id number] [phone] KATHY ORTEGA PATIENT ANTHEM [employer] MEDICARE SUPPLEMEN WILL MEDIC ARE SUPPL EMEMT Apr 23, 2019 [id number] [phone] KATHY ORTEGA PATIENT ANTHEM [place] MEDICARE SUPPLEMEN WILL MEDIC ARE SUPPL EMEMT Apr 23, 2019 [id number] [phone] KATHY ORTEGA PATIENT [place] MEDICARE SUPPLEMEN WILL MEDIC ARE SUPPL EMEMT Apr 23, 2019 [id number] [phone] KATHY ORTEGA PATIENT [employer] MCR (WNR) MEDICARE ADVANTAGE MCR (WNR) Mar 23, 2022 [id number] [phone] KATHY ORTEGA PATIENT [employer] M[employer] (WNR) MEDICARE ADVANTAGE [facility] (WNR) Mar 23, 2022 [id number] KATHY ORTEGA PATIENT MEDICARE (WNR) MEDICARE (M) RR PART A May 21, 1990 RR PART A [id number] KATHY ORTEGA PATIENT MEDICARE (WNR) MEDICARE (M) RR PART B May 21, 1990 RR PART B [id number] [phone] KATHY ORTEGA PATIENT [employer] [place] MEDICARE SUPPLEMEN WILL MEDIC ARE SUPPL EMENT Feb 20, 2013 PLAN G [id number] [phone] KATHY ORTEGA PATIENT [employer] MCR (WNR) MEDICARE ADVANTAGE [facility] (WNR) Mar 23, 2021 [id number] KATHY ORTEGA PATIENT Selected Encounter This section includes the information on record at CT for the Encounter. Date/Time Encounter Type Encounter Description Reason Provider Source Nov 26, 2023 03:00 PM OFFICE O/P EST MOD 30 MIN PSYCHOGERIATRIC - INDIVIDUAL ICD-10-CM F41.1 Generalized anxiety disorder GRACE SILVA JR [facility] Encounter Template Text not used by CT Assessments - Encounter Diagnoses This section includes the primary and secondary diagnoses documented for the Encounter. Date/Time Primary/Secondary Diagnosis Diagnosis Name Provider Source Nov 26, 2023 03:29 PM PRIMARY Generalized anxiety disorder GRACE SILVA JR [facility] Plan of Treatment: Future Appointments (+ [...] 10, 2023 09:30 AM AMBULATORY - MEDICINE [facility] Jan 13, 2024 08:15 AM AMBULATORY - [facility]ICINE [facility] Jan 22, 2024 02:15 PM AMBULATORY - MEDICINE [facility] Jan 26, 2024 09:30 AM AMBULATORY - SURGERY [facility] Feb 11, 2024 09:15 AM AMBULATORY - MEDICINE [facility] Feb 11, 2024 11:00 AM AMBULATORY - MEDICINE [facility] Mar 21, 2024 09:00 AM AMBULATORY - MEDICINE [facility] Mar 24, 2024 11:00 AM AMBULATORY - PSYCHIATRY [facility] Apr 18, 2024 09:30 AM AMBULATORY - SURGERY [facility] Lab Results: +/- 30 days of [...] Range Comment Dec 10, 2023 10:01 AM [facility] POC INR (STL-RX MONITORING ONLY) Specimen Type: BLOOD Comment: Test Performed by: [id number] Meter #: [id number] Ordering Provider: NANCI PEREIRA Report Released Date/Time: Dec 10, 2023 10:07 AM Reporting Lab: [address] [address] Performing Lab: [address] [address] POC INR (STL-RX MONITORING ONLY) 2.6 {INR} H 0.9-1.1 Nov 13, 2023 12:52 PM [facility] POC INR (STL-RX MONITORING ONLY) Specimen Type: BLOOD Comment: Test Performed by: [id number] Meter #: [id number] Ordering Provider: NANCI PEREIRA Report Released Date/Time: Nov 13, 2023 12:53 PM Reporting Lab: [address] [address] Performing Lab: [address] [address] POC INR (STL-RX MONITORING ONLY) 3.1 {INR} [...] 04:41 PM QUIT TOBACCO >7 YEARS AGO [facility] Tobacco Use History This section includes a history of the smoking, or tobacco-related health factors, that were collected on or before the date of the Encounter. The data comes from the CT facility where the Encounter took place. Date/Time Smoking Status/Tobacco Use Comment F osbaldo August 03, 2015 08:35 AM QUIT TOBACCO >7 YEARS AGO [facility] July 27, 2014 08:56 AM QUIT TOBACCO >7 YEARS AGO [facility] Jul 14, 2013 09:20 AM QUIT TOBACCO >7 YEARS AGO [facility] Advance Directives: All historical and current Section Date Range: From patient's date of to the date document was created. This section includes ALL of a patient's completed or amended CT Advance and Rescinded Directives. The entries below indicate that a directive exists for the patient, but an actual copy is not included with this document. The data comes from all [facility]. Date Advance Directives Provider Source Jun 13, 2013 ADVANCE DIRECTIVE DISCUSSION RONALD ESTRADA [facility] Encounter Notes: All associated encounter notes This section contains the clinical notes associated to the Encounter. Date/Time Encounter Note(s) Provider Source Nov 26, 2023 03:09 PM PSYCHIATRY NOTE: LOCAL TITLE: PSYCHIATRY RUST STANDARD TITLE: PSYCHIATRY NOTE DATE OF NOTE: NOV 26, 2023@15:09 ENTRY DATE: NOV 26, 2023@15:09:52 AUTHOR: GRACE SILVA JR COSIGNER: URGENCY: STATUS: COMPLETED [facility] - MEDICATION MANAGEMENT Name..................SACHA CHILDRESS Age...................77 Sex...................MALE SSN...................[id number] Today's Date..........NOV 26, 2023 Service Connection....Service Connected: Yes (70%) ALLERGIES: AUGMENTIN, SIMVASTATIN, MORPHINE OUTPATIENT MEDICATIONS: Active Outpatient Medications (excluding Supplies): Issue Date Status Last Fill Active Outpatient Medications Refills Expiration 1) ACCU-CHEK GUIDE (GLUCOSE) TEST STRIP ACTIVE Issu:10-13-23 Qty: 100 for 365 days Sig: USE 1 Refills: 0 Last:10-15-23 STRIP FOR BLOOD TEST TWO TIMES PER Expr:10-12-24 WEEK *HYPOGLYCEMIA, 100 STRIPS PER YEAR* Sep 2) ATORVASTATIN CALCIUM 20MG TAB Qty: 45 ACTIVE Issu:06-02-23 for 90 days Sig: TAKE ONE-HALF TABLET Refills: 2 Last:11-19-23 BY MOUTH EVERY EVENING FOR Expr:06-02-24 CHOLESTEROL. REPORT ANY UNEXPLAINED MUSCLE PAIN/WEAKNESS TO PROVIDER. 3) DOCUSATE NA 100MG CAP Qty: 200 for 90 ACTIVE Issu:11-26-22 days Sig: TAKE ONE CAPSULE BY MOUTH Refills: 0 Last:11-13-23 TWICE A DAY TO SOFTEN STOOL. HOLD FOR Expr:11-27-23 LOOSE STOOL/DIARRHEA. 4) EMPAGLIFLOZIN 25MG TAB Qty: 90 for 90 ACTIVE (S) Issu:01-15-23 days Sig: TAKE ONE TABLET BY MOUTH Refills: 0 Last:12-29-23 ONCE A DAY FOR DIABETES Expr:01-16-24 5) GLIPIZIDE 10MG TAB Qty: 180 for 90 days ACTIVE Issu:08-14-23 Sig: TAKE ONE TABLET BY MOUTH TWO Refills: 2 Last:11-02-23 TIMES A DAY BEFORE MEALS FOR DIABETES Expr:08-14-24 TAKE 30 MINUTES BEFORE EATING. 6) KETOTIFEN 0.025% OPH SOLN Qty: 15 for ACTIVE Issu:07-31-23 90 days Sig: INSTILL 1 DROP IN BOTH Refills: 2 Last:10-22-23 EYES TWICE A DAY Expr:07-31-24 7) METFORMIN HCL 1000MG TAB Qty: 225 for ACTIVE Issu:01-15-23 90 days Sig: TAKE ONE TABLET BY MOUTH Refills: 1 Last:09-30-23 EVERY MORNING AND TAKE ONE AND Expr:01-16-24 ONE-HALF TABLETS EVERY EVENING TAKE WITH FOOD. AVOID ALCOHOL. DISCONTINUE BEFORE GETTING XRAY DYE. 8) PANTOPRAZOLE NA 20MG EC TAB Qty: 180 ACTIVE (S) Issu:12-25-22 for 90 days Sig: TAKE ONE TABLET BY Refills: 0 Last:12-15-23 MOUTH TWICE A DAY TO LOWER STOMACH Expr:12-26-23 ACID - TAKE 30 MINUTES BEFORE MEAL(S) 9) POLYETHYLENE GLYCOL 3350 ORAL PWDR Qty: ACTIVE Issu:01-15-23 510 for 30 days Sig: MIX AND DRINK 1 Refills: 9 Last:09-09-23 CAPFUL BY MOUTH ONCE A DAY FOR Expr:01-16-24 CONSTIPATION (MEASURE WITH CAP AND MIX IN 8 OZ OF WATER) 10) PREDNISOLONE ACETATE 1% OPH SUSP Qty: ACTIVE Issu:06-25-23 10 for 30 days Sig: INSTILL 1 DROP IN Refills: 1 Last:07-01-23 LEFT EYE FOUR TIMES A DAY FOR EYE Expr:06-25-24 INFLAMMATION TO USE AFTER SURGERY ON 06/30 11) PREGABALIN 300MG ORAL CAP Qty: 60 for ACTIVE Issu:07-08-23 30 days Sig: TAKE ONE CAPSULE BY Refills: 1 Last:10-28-23 MOUTH TWICE A DAY FOR NERVE PAIN *MAY Expr:01-08-24 CAUSE DROWSINESS* 12) QUETIAPINE FUMARATE 200MG TAB Qty: 45 ACTIVE Issu:10-14-23 for 90 days Sig: TAKE ONE-HALF TABLET Refills: 3 Last:11-02-23 BY MOUTH AT BEDTIME FOR MOOD Expr:10-14-24 13) ROPINIROLE HCL 0.5MG TAB Qty: 90 for 90 ACTIVE Issu:01-15-23 days Sig: TAKE ONE TABLET BY MOUTH AT Refills: 0 Last:12-06-23 BEDTIME FOR PARKINSON DISEASE Expr:01-16-24 14) SERTRALINE HCL 100MG TAB Qty: 45 for 90 ACTIVE Issu:10-14-23 days Sig: TAKE ONE-HALF TABLET BY Refills: 3 Last:11-02-23 MOUTH EVERY MORNING FOR MOOD Expr:10-14-24 15) SITAGLIPTIN (EQV-ZITUVIO) 50MG TAB Qty: ACTIVE Issu:06-30-23 90 for 90 days Sig: TAKE ONE TABLET Refills: 2 Last:12-03-23 BY MOUTH ONCE A DAY FOR DIABETES TO Expr:06-30-24 REPLACE ALOGLIPTIN 16) TADALAFIL 10MG TAB Qty: 18 for 90 days ACTIVE Issu:04-27-23 Sig: TAKE ONE TABLET BY MOUTH EVERY Refills: 3 Last:04-28-23 WEEK NEEDED FOR ERECTILE Expr:04-27-24 DYSFUNCTION (TAKE 30 MINUTES PRIOR TO SEXUAL ACTIVITY) - LIMIT 6 DOSES PER 30 DAYS 17) TAMSULOSIN HCL 0.4MG CAP Qty: 180 for ACTIVE Issu:08-14-23 90 days Sig: TAKE TWO CAPSULES BY Refills: 1 Last:10-13-23 MOUTH ONCE A DAY FOR BENIGN PROSTATIC Expr:08-14-24 HYPERPLASIA APPROXIMATELY 30 MINUTES AFTER THE SAME MEAL EACH DAY (FOR PROSTATE) 18) WARFARIN NA 5MG TAB Qty: 55 for 30 days ACTIVE Issu:09-10-23 Sig: TAKE ONE AND ONE-HALF TABLETS BY Refills: 1 Last:11-13-23 MOUTH THURSDAY, THURSDAY, THURSDAY AND Expr:09-10-24Thursday AND TAKE TWO TABLETS THURSDAY, THURSDAY AND THURSDAY OR DIRECTED BY THE ANTICOAGULATION CLINIC. TO PREVENT BLOOD CLOTS. KEEP LAB APPOINTMENTS. Start Date Active Non-VA Medications Refills Expiration 1) Non-VA BETAMETHASONE/CLOTRIMAZOLE ACTIVE CREAM,TOP Sig: TO AFFECTED AREA(S) TWICE A DAY 2) Non-VA MARIJUANA (MEDICAL) Sig: ACTIVE DIRECTED INHALATION NEEDED 3) Non-VA MULTIVITAMIN CAP/TAB Si ACTIVE TABLET BY MOUTH ONCE A DAY 4) Non-VA PROBIOTIC COMBINATION CAP/TAB ACTIVE Si CAPSULE BY MOUTH ONCE A DAY 22 Total Medications PROBLEM LIST: 1) Primary Hypercoagulable State (ICD-9-CM 289.81) 2) Colonic Polyps (ICD-9-CM 211.3) 3) Anxiety 4) Benign prostatic hyperplasia 5) Diabetes mellitus 6) Primary erectile dysfunction (SNOMED CT 822136319) 7) Leg length inequality (SNOMED CT 37009129) 8) Pain in the coccyx 9) Hearing loss 10) 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 11) Varicose veins 12) Deep vein thrombosis 13) Gastroesophageal reflux disease 14) Single acquired kidney cyst 15) Sleep apnea 16) Benign prostatic hyperplasia 17) Adjustment disorder with depressed mood in remission 18) Allergic rhinitis 19) H/O: Pulmonary Embolus ([facility] 521521751) 20) Neck Pain ([facility] 14021292) 21) Bilateral Knee Pain ([facility] [id number]) 22) Low Back Pain ([facility] [id number]) 23) Therapeutic drug effect 24) Anticoagulant effect 25) Obesity ([facility] [id number]) VITAL SIGNS: Pulse.................72 (08/06/2023 10:40) Temperature...........97.7 F [36.5 C] (08/06/2023 10:40) Blood Pressure........131/77 (08/06/2023 10:40) Pain..................3 (08/06/2023 10:40) Weight................259.2 lb [117.57 kg] (08/06/2023 10:40) Patient Weight History - Last Four 1. 259.2 lbs. / 117.6 kg. on AUGUST 06, 2023@10:40:39 2. 260.0 lbs. / 117.9 kg. on JUL 01, 2023@06:54:42 3. 262.5 lbs. / 119.1 kg. on APR 27, 2023@10:21:03 4. 258.8 lbs. / 117.4 kg. on MAR 27, 2023@08:54:36 LAB VALUES: CBC WBC 5.3 10*3/uL 08/06/2023 11:28 RBC 5.78 [...] 11:28 BASOPHILS, ABSOLUTE 0.05 10*3/uL 08/06/2023 11:28 CHEM 7 SODIUM 144 mEq/L 08/06/2023 11:28 POTASSIUM 4.3 mEq/L 08/06/2023 11:28 CHLORIDE 106 mEq/L 08/06/2023 11:28 UREA NITROGEN 22.1 mg/dL 08/06/2023 11:28 CREATININE 1.17 mg/dL 08/06/2023 11:28 CALCIUM 10.0 mg/dL 08/06/2023 11:28 CARBON DIOXIDE 28 mEq/L 08/06/2023 11:28 GLUCOSE 176 H mg/dL 08/06/2023 11:28 EGFR (CKD-EPI 2020) 65.0 08/06/2023 11:28 HEPATIC PANEL No data available TRIGLYCERIDES...315 mg/dL H (08/06/23 11:28) CHOLESTEROL.....CHOLESTEROL 193 mg/dL 08/06/2023 11:28 TSH.............TSH 1.707 uIU/mL 07/10/2022 08:50 LITHIUM.........____ VALPROIC ACID...____ DIAGNOSIS BEING TREATED THIS VISIT: KENRICK 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 The patient's camera is not working, so the visit today is audio only. He says the medication continues to work. Mood good, and sleep good with the medicine ( I don't sleep well without it ). Appetite good. He CLEARLY denies ANY SI. Denies side effects as well. He had previously followed with Dr. Longoria, most recent visit 04/10/22, when she noted: Psychiatry Visit Name, Age, Gender.SACHA ORTEGA, 76, MALE Today's Date......APR 10, 2022 ALLERGIES: AUGMENTIN, SIMVASTATIN, MORPHINE OUTPATIENT MEDICATIONS: Active Outpatient Medications (including Supplies): Active Outpatient Medications Status 1) ACCU-CHEK GUIDE (GLUCOSE) TEST STRIP USE 1 STRIP FOR ACTIVE BLOOD TEST DIRECTED *100 STRIPS PER YEAR* 2) ACETAMINOPHEN 325MG TAB TAKE TWO TABLETS BY MOUTH ACTIVE FOUR TIMES A DAY FOR PAIN/FEVER. CAUTION: DO NOT EXCEED 4000MG PER DAY ACETAMINOPHEN (APAP) FROM ALL MEDS. 3) ATORVASTATIN CALCIUM 20MG TAB TAKE ONE-HALF TABLET BY ACTIVE MOUTH EVERY EVENING FOR CHOLESTEROL. REPORT ANY UNEXPLAINED MUSCLE PAIN/WEAKNESS TO PROVIDER. 4) BETAMETHASONE VALERATE 0.1% LOTION APPLY SPARINGLY TO ACTIVE AFFECTED AREA(S) TWICE A DAY (EXTERNAL USE ONLY) 5) DOCUSATE NA 100MG CAP TAKE ONE CAPSULE BY MOUTH TWICE ACTIVE A DAY TO SOFTEN STOOL. HOLD FOR LOOSE STOOL/DIARRHEA. 6) EMPAGLIFLOZIN 25MG TAB TAKE ONE TABLET BY MOUTH ONCE ACTIVE (S) A DAY FOR DIABETES 7) GLIPIZIDE 5MG TAB TAKE ONE TABLET BY MOUTH TWO TIMES ACTIVE (S) A DAY BEFORE MEALS FOR DIABETES. TAKE 30 MINUTES BEFORE EATING. 8) MELATONIN 5MG CAP/TAB TAKE ONE CAP/TAB BY MOUTH AT ACTIVE BEDTIME FOR SLEEP 9) METFORMIN HCL 1000MG TAB TAKE ONE TABLET BY MOUTH ACTIVE (S) EVERY MORNING AND TAKE ONE AND ONE-HALF TABLETS EVERY EVENING TAKE WITH FOOD. AVOID ALCOHOL. DISCONTINUE BEFORE GETTING XRAY DYE. 10) PANTOPRAZOLE NA 20MG EC TAB TAKE ONE TABLET BY MOUTH ACTIVE TWICE A DAY TO LOWER STOMACH ACID - TAKE 30 MINUTES BEFORE MEAL(S) 11) POLYETHYLENE GLYCOL 3350 ORAL PWDR MIX AND DRINK 1 ACTIVE CAPFUL BY MOUTH ONCE A DAY NEEDED TO PREVENT CONSTIPATION. (MEASURE WITH CAP AND MIX IN 8 OZ OF WATER) 12) PREGABALIN 300MG ORAL CAP TAKE ONE CAPSULE BY MOUTH ACTIVE TWICE A DAY *MAY CAUSE DROWSINESS* 13) QUETIAPINE FUMARATE 200MG TAB TAKE ONE-HALF TABLET BY ACTIVE (S) MOUTH AT BEDTIME FOR MOOD 14) ROPINIROLE HCL 0.5MG TAB TAKE ONE TABLET BY MOUTH AT ACTIVE BEDTIME 15) SERTRALINE HCL 100MG TAB TAKE ONE-HALF TABLET BY ACTIVE (S) MOUTH EVERY MORNING FOR MOOD 16) TAMSULOSIN HCL 0.4MG CAP TAKE ONE CAPSULE BY MOUTH ACTIVE ONCE A DAY APPROXIMATELY 30 MINUTES AFTER THE SAME MEAL EACH DAY (FOR PROSTATE) 17) WARFARIN NA 5MG TAB TAKE ONE AND ONE-HALF TABLETS BY ACTIVE MOUTH SUN/THU/THU/THU/SAT AND TAKE TWO TABLETS /FRI OR DIRECTED BY THE ANTICOAGULATION CLINIC. TO PREVENT BLOOD CLOTS. KEEP LAB APPOINTMENTS. Active Non-VA Medications Status 1) Non-VA BETAMETHASONE/CLOTRIMAZOLE CREAM,TOP TO ACTIVE AFFECTED AREA(S) TWICE A DAY 2) Non-VA MARIJUANA (MEDICAL) DIRECTED INHALATION ACTIVE NEEDED 3) Non-VA MULTIVITAMIN CAP/TAB 1 TABLET BY MOUTH ONCE A ACTIVE DAY 4) Non-VA OXYCODONE 5MG/ACETAMINOPHEN 325MG TAB 1 TABLET ACTIVE BY MOUTH EVERY 6 HOURS NEEDED 5) Non-VA PROBIOTIC COMBINATION CAP/TAB 1 CAPSULE BY ACTIVE MOUTH ONCE A DAY 22 Total Medications VITAL SIGNS: Pulse.................74 (01/06/2022 10:59) Temperature...........97.2 F [36.2 C] (01/06/2022 10:59) Blood Pressure........136/68 (01/06/2022 10:59) Pain..................5 (01/06/2022 10:59) Weight................262 lb [118.84 kg] (01/06/2022 10:59) Patient Weight History - Last Four 1. 262.0 lbs. / 118.8 kg. on JAN 06, 2022@10:59:19 2. 266.4 lbs. / 120.8 kg. on JAN 03, 2021@13:52:32 3. 271.6 lbs. / 123.2 kg. on MAY 20, 2019@15:51:12 4. 278.0 lbs. / 126.1 kg. on MAR 22, 2019@09:35:33 LAB VALUES: CBC WBC 6.1 10*3/uL 08/13/2021 12:08 RBC 5.63 10*6/uL 08/13/2021 12:08 HGB 15.3 g/dL 08/13/2021 12:08 HCT 48.8 H % 08/13/2021 12:08 MCV 86.7 fL 08/13/2021 12:08 MCH 27.2 pg 08/13/2021 12:08 MCHC 31.4 L g/dL 08/13/2021 12:08 RDW 14.6 % 08/13/2021 12:08 PLT 130 L 10*3/uL 08/13/2021 12:08 MPV 11.1 fL 08/13/2021 12:08 NEUTROPHILS, AUTO % 54.1 % 08/13/2021 12:08 LYMPHOCYTES, AUTO % 36.2 % 08/13/2021 12:08 MONOCYTES, AUTO % 7.1 % 08/13/2021 12:08 EOSINOPHILS, AUTO % 1.6 % 08/13/2021 12:08 BASOPHILS, AUTO % 0.5 % 08/13/2021 12:08 IMMATURE GRANS, AUTO % 0.5 % 08/13/2021 12:08 NEUTROPHILS, ABSOLUTE 3.28 10*3/uL 08/13/2021 12:08 LYMPHOCYTES, ABSOLUTE 2.20 10*3/uL 08/13/2021 12:08 MONOCYTES, ABSOLUTE 0.43 10*3/uL 08/13/2021 12:08 EOSINOPHILS, ABSOLUTE 0.10 10*3/uL 08/13/2021 12:08 BASOPHILS, ABSOLUTE 0.03 10*3/uL 08/13/2021 12:08 IMMATURE GRANS, AUTO ABS 0.03 10*3/uL 08/13/2021 12:08 CHEM 7 SODIUM 141 mEq/L 08/13/2021 12:08 POTASSIUM 4.4 mEq/L 08/13/2021 12:08 CHLORIDE 104 mEq/L 08/13/2021 12:08 UREA NITROGEN 21 mg/dL 08/13/2021 12:08 CREATININE 1.10 mg/dL 08/13/2021 12:08 CALCIUM 10.1 mg/dL 08/13/2021 12:08 EGFR (DISCONTINUED 06/20/21) >60 06/18/2021 11:12 CARBON DIOXIDE 24 mEq/L 08/13/2021 12:08 GLUCOSE 223 H mg/dL 08/13/2021 12:08 EGFR (CKD-EPI 2020) 70.9 08/13/2021 12:08 HEPATIC PANEL No data available SGPT 20 U/L (08/13/21 12:08), SGOT 23 U/L (08/13/21 12:08) TRIGLYCERIDES...430 mg/dL H (08/13/21 12:08) CHOLESTEROL.....CHOLESTEROL 208 H mg/dL 08/13/2021 12:08 HEMOGLOBIN A1C..HGA1C 8.0 H % 10/08/2021 10:13 GLUCOSE.........GLUCOSE 223 H mg/dL 08/13/2021 12:08 TSH.............TSH 0.745 uIU/mL 08/13/2021 12:08 free T4.........____ LITHIUM.........____ VALPROIC ACID...____ b12.............No B12 EO data found folate.......... No FOLATE (STL-MA);FOLATE (PB);FOLATE (DC 12-28);FOLATE (OK 12/28) data found agreed to a video connect appointment. I explained it is a secure connection and it is not recordeed. 's Location Address: [address] [place] [address] [place] [address] DIAGNOSIS BEING TREATED THIS VISIT: KENRICK Mood disorder unspecified in remsision Insomnia ANY COMPLAINTS/PROBLEMS: joined [facility] chatroom on time. He said mood is ok with medications. Holidays went well with 10 kids over. He said he sleeps pretty good. He does things outdoors when weather is good and also stays busy working in the basement Energy is pretty good. Appetite is good. Denies SI, HI, AVH. Compliant with medications. No side effects reported No substance abuse MENTAL STATUS EXAM: GAIT/POSTURE............... .....sitting down APPEARANCE/BEHAVIOR........ ..............Appears stated age. Casually and neatly dressed. Good eye contact and rapport. Calm,pleasant, cooperative EYE CONTACT.................... .normal eye contact, cooperative with interview MOTOR ACTIVITY..................n o psychomotor agitation or retardation MOOD/AFFECT................ ..... ok /euthymic affect, congruent with mood and appropriate SPEECH..................... .....mild stutter THOUGHT PROCESS.................eduardo ear, logical and goal directed. DELUSIONS/HALLUCINATIONS... .....none SUICIDAL/AGGRESSIVE........ .....No OBSESSIVE/COMPULSIVE....... .....no ALERTNESS, ORIENTATION.............ade rt. oriented to person, place,time, reason for visit CONCENTRATION.............. .....concentration normal during interview. INSIGHT AND JUDGEMENT...........Good OTHER...................... 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 -Continue sertraline 50mg daily(was on 150mg years ago but stopped due to anorgasmia, which he states is not relevant now) Prescribed melatonin 5mg hs by PCP mirtazapine helped sleep in in the past but caused weight gain.Failed trials of trazodone, ambien, temazepam,wellbutrin Call crisis line/911 or go to ER if suicidal/homicidal. Only adamantly denies Si/HI Monitor mood, behavior, sleep, appetite and cognition Discussed indications, benefits, risks and potential side effects of medications --MEDICATION: Active Outpatient Medications (including Supplies): Active Outpatient Medications Status 1) ACCU-CHEK GUIDE (GLUCOSE) TEST STRIP USE 1 STRIP FOR ACTIVE BLOOD TEST DIRECTED *100 STRIPS PER YEAR* 2) ACETAMINOPHEN 325MG TAB TAKE TWO TABLETS BY MOUTH ACTIVE FOUR TIMES A DAY FOR PAIN/FEVER. CAUTION: DO NOT EXCEED 4000MG PER DAY ACETAMINOPHEN (APAP) FROM ALL MEDS. 3) ATORVASTATIN CALCIUM 20MG TAB TAKE ONE-HALF TABLET BY ACTIVE MOUTH EVERY EVENING FOR CHOLESTEROL. REPORT ANY UNEXPLAINED MUSCLE PAIN/WEAKNESS TO PROVIDER. 4) BETAMETHASONE VALERATE 0.1% LOTION APPLY SPARINGLY TO ACTIVE AFFECTED AREA(S) TWICE A DAY (EXTERNAL USE ONLY) 5) DOCUSATE NA 100MG CAP TAKE ONE CAPSULE BY MOUTH TWICE ACTIVE A DAY TO SOFTEN STOOL. HOLD FOR LOOSE STOOL/DIARRHEA. 6) EMPAGLIFLOZIN 25MG TAB TAKE ONE TABLET BY MOUTH ONCE ACTIVE (S) A DAY FOR DIABETES 7) GLIPIZIDE 5MG TAB TAKE ONE TABLET BY MOUTH TWO TIMES ACTIVE (S) A DAY BEFORE MEALS FOR DIABETES. TAKE 30 MINUTES BEFORE EATING. 8) MELATONIN 5MG CAP/TAB TAKE ONE CAP/TAB BY MOUTH AT ACTIVE BEDTIME FOR SLEEP 9) METFORMIN HCL 1000MG TAB TAKE ONE TABLET BY MOUTH ACTIVE (S) EVERY MORNING AND TAKE ONE AND ONE-HALF TABLETS EVERY EVENING TAKE WITH FOOD. AVOID ALCOHOL. DISCONTINUE BEFORE GETTING XRAY DYE. 10) PANTOPRAZOLE NA 20MG EC TAB TAKE ONE TABLET BY MOUTH ACTIVE TWICE A DAY TO LOWER STOMACH ACID - TAKE 30 MINUTES BEFORE MEAL(S) 11) POLYETHYLENE GLYCOL 3350 ORAL PWDR MIX AND DRINK 1 ACTIVE CAPFUL BY MOUTH ONCE A DAY NEEDED TO PREVENT CONSTIPATION. (MEASURE WITH CAP AND MIX IN 8 OZ OF WATER) 12) PREGABALIN 300MG ORAL CAP TAKE ONE CAPSULE BY MOUTH ACTIVE TWICE A DAY *MAY CAUSE DROWSINESS* 13) QUETIAPINE FUMARATE 200MG TAB TAKE ONE-HALF TABLET BY ACTIVE (S) MOUTH AT BEDTIME FOR MOOD 14) ROPINIROLE HCL 0.5MG TAB TAKE ONE TABLET BY MOUTH AT ACTIVE BEDTIME 15) SERTRALINE HCL 100MG TAB TAKE ONE-HALF TABLET BY ACTIVE (S) MOUTH EVERY MORNING FOR MOOD 16) TAMSULOSIN HCL 0.4MG CAP TAKE ONE CAPSULE BY MOUTH ACTIVE ONCE A DAY APPROXIMATELY 30 MINUTES AFTER THE SAME MEAL EACH DAY (FOR PROSTATE) 17) WARFARIN NA 5MG TAB TAKE ONE AND ONE-HALF TABLETS BY ACTIVE MOUTH SUN/THU/THU/THU/SAT AND TAKE TWO TABLETS /THU OR DIRECTED BY THE ANTICOAGULATION CLINIC. TO PREVENT BLOOD CLOTS. KEEP LAB APPOINTMENTS. Active Non-VA Medications Status 1) Non-VA BETAMETHASONE/CLOTRIMAZOLE CREAM,TOP TO ACTIVE AFFECTED AREA(S) TWICE A DAY 2) Non-VA MARIJUANA (MEDICAL) DIRECTED INHALATION ACTIVE NEEDED 3) Non-VA MULTIVITAMIN CAP/TAB 1 TABLET BY MOUTH ONCE A ACTIVE DAY 4) Non-VA OXYCODONE 5MG/ACETAMINOPHEN 325MG TAB 1 TABLET ACTIVE BY MOUTH EVERY 6 HOURS NEEDED 5) Non-VA PROBIOTIC COMBINATION CAP/TAB 1 CAPSULE BY ACTIVE MOUTH ONCE A DAY 22 Total Medications --INSTRUCTIONS GIVEN TO PATIENT; RISK/BENEFITS DISCUSSED TODAY: --THERAPY: in this session supportive therapy and psycoeducation provided formal psychohterapy: --CONSULTS/REFERRALS/LABS: none indicated today TSH.............TSH 0.745 uIU/mL 08/13/2021 12:08 --AIMS MONITORING for antipsychotics: AIMS last done:monitor --METABOLIC MONITORING for antipsychotics: most recent labs: TRIGLYCERIDES...430 mg/dL H (08/13/21 12:08) CHOLESTEROL.....CHOLESTEROL 208 H mg/dL 08/13/2021 12:08 HEMOGLOBIN A1C..HGA1C 8.0 H % 10/08/2021 10:13 GLUCOSE.........GLUCOSE 223 H mg/dL 08/13/2021 12:08 next set of labs for atypical antipsychotics due: monitor INSTRUCTIONS GIVEN TO PATIENT/FAMILY: Report medication side effects promptly No alcohol/illicit drug use with medication Needs to be cautious with driving/use of machinery Avoid night-time driving Follow up with Primary Care Provider If symptoms get worse, call clinic or Emergency Room as appropriate --FOLLOW UP: 3 months [facility] --pt has my card with contact info and crisis line --Patient seen in 20 minutes with 8 minutes of therapy MSE: Cooperative. Mood good. Speech is elictable, directable. No pressure. Thoughts organized without flight of ideas, loose associations, circumstantiality, blocking. He denies SI, HI, VH, AH, suspicions. A & O X 3. Insight and judgment are good. Insight and judgment are good. A/P: KENRICK Mood disorder unspecified in remsision Insomnia PLAN: Continue meds. Support given. Follow up in 3 months; he agrees to call before if problems. /paola/ GRACE ASTUDILLO [facility] PHYSICIAN (STAFF) Signed: 11/26/2023 15:29 GRACE SILVA JR [facility]
--- OUTSIDE RECORDS SUMMARY | 2024-03-04 12:56 | XMS_ITS | Encounter Summary ---
Author Name [facility] [place] [facility] [place] Address [address] [place] [address] Care Team Providers Care Slot Floor Supervisor Name Role Phone JILLIAN GAN Primary Care [...] MEDIC ARE SUPPL EMEMT Apr 23, 2019 [id number] [phone] KATHY ORTEGA PATIENT ANTHEM BCBS [place] MEDICARE SUPPLEMEN WILL MEDIC ARE SUPPL EMEMT Apr 23, 2019 [id number] [phone] KATHY ORTEGA PATIENT ANTHEM [place] MEDICARE SUPPLEMEN WILL MEDIC ARE SUPPL EMEMT Apr 23, 2019 [id number] [phone] KATHY ORTEGA PATIENT BCBS [place] MEDICARE SUPPLEMEN WILL MEDIC ARE SUPPL EMEMT Apr 23, 2019 [id number] [phone] KATHY ORTEGA PATIENT [employer] MCR (WNR) MEDICARE ADVANTAGE MCR (WNR) Mar 23, 2022 [id number] KATHY ORTEGA PATIENT [employer] MCR (WNR) MEDICARE ADVANTAGE [facility] (WNR) Mar 23, 2022 [id number] KATHY ORTEGA PATIENT MEDICARE (WNR) MEDICARE (M) RR PART A May 21, 1990 RR PART A [id number] [phone] KATHY ORTEGA PATIENT MEDICARE (WNR) MEDICARE (M) RR PART B May 21, 1990 RR PART B [id number] KATHY ORTEGA PATIENT [employer] MEDICARE SUPPLEMEN WILL MEDIC ARE SUPPL EMENT Feb 20, 2013 PLAN G [id number] [phone] KATHY ORTEGA PATIENT WELL[employer]ARE [facility] (WNR) MEDICARE ADVANTAGE [facility] (WNR) Mar 23, 2021 [id number] [phone] KATHY ORTEGA PATIENT Selected Encounter This section includes the information on record at [place] for the Encounter. Date/Time Encounter Type Encounter Description Reason Provider Source Sep 10, 2023 08:00 AM MTMS BY PHARM EST 15 MIN TELEPHONE/ANCILLA ISABELLE ICD-10-CM Z51.81 Encounter for therapeutic drug level monitoring NANCI PEREIRA [facility] Encounter Template Text not used by [place] Assessments - Encounter Diagnoses This section includes the primary and secondary diagnoses documented for the Encounter. 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 This section includes future appointments and future orders which are active, pending or scheduled. Future Appointments This section includes appointments that were scheduled to occur 6 months from the date of the Encounter, up to a maximum of 20 appointments. The data comes from all [place] treatment [facility]. Appointment Date/Time Appointment Type Appointme nt Facility Name Oct 08, 2023 08:30 AM AMBULATORY - MEDICINE [facility] Nov 12, 2023 08:15 AM AMBULATORY - MEDICINE [facility] Nov 26, 2023 03:00 PM AMBULATORY - PSYCHIATRY [facility] Dec 10, 2023 09:30 AM AMBULATORY - MEDICINE [facility] Jan 13, 2024 08:15 AM AMBULATORY - MEDICINE [facility] Jan 22, 2024 02:15 PM [facility] Jan 26, 2024 09:30 AM AM[facility]UL[facility]ORY - SURGERY [facility] Feb 11, 2024 09:15 AM AMBULATORY - MEDICINE [facility] Feb 11, 2024 11:00 AM [facility] Lab Results: +/- 30 days of the encounter This section includes the Chemistry and Hematology Lab Results on record with [place] for the patient. Radiology Reports and Pathology Reports are provided separately, in subsequent sections. Lab Results This section contains the Chemistry/Hematology Results that were resulted 30 days before or 30 daysafter the date of the Encounter. Date/Time Source Result Type Result - Unit Interpretation Reference Range Comment Oct 08, 2023 10:32 AM [facility] POC INR (STL-RX MONITORING ONLY) Specimen Type: BLOOD Comment: Test Performed by: [id number] Meter #: [id number] Ordering Provider: NANCI PEREIRA Report Released Date/Time: Oct 08, 2023 10:35 AM Reporting Lab: [facility] [address] [facility] [address] Performing Lab: [facility] [address] [place] [address] POC INR (STL-RX MONITORING ONLY) 2.4 {INR} H 0.9-1.1 Sep 10, 2023 09:40 AM [facility] POC INR (STL-RX MONITORING ONLY) Specimen Type: BLOOD Comment: Test Performed by: [id number] Meter #: [id number] Ordering Provider: NANCI PEREIRA Report Released Date/Time: Sep 10, 2023 09:46 AM Reporting Lab: [facility] [address] [facility] [address] Performing Lab: [facility] [address] [place] [address] POC INR (STL-RX MONITORING ONLY) 2.3 {INR} H 0.9-1.1 Social History: Smoking Status (Most current) and Tobacco Use (All prior to encounter date) This section includes the most current, and the historical, smoking and tobacco- related health factors from the [place] facility where the Encounter took place. Current Smoking Status This section includes the most current smoking, or tobacco-related health factor, from the [place] facility where the Encounter took place. Date/Time Current Smoking Status Comment Catherine ity Apr 29, 2018 09:12 AM [place]-TOBACCO QUIT 15 YRS OR MORE [facility] Tobacco Use History This section includes a history of the smoking, or tobacco-related health factors, that were collected on or before the date of the Encounter. The data comes from the [place] facility where the Encounter took place. Date/Time Smoking Status/Tobacco Use Comment F acility Apr 29, 2018 09:12 [facility] Advance Directives: All historical and current Section Date Range: From patient's date of to the date document was created. This section includes ALL of a patient's completed or amended [place] Advance and Rescinded Directives. The entries below indicate that a directive exists for the patient, but an actual copy is not included with this document. The data comes from all [place] facilities. Date Advance Directives Provider Source Jun 13, 2013 ADVANCE DIRECTIVE DISCUSSION RONALD ESTRADA [facility] Encounter Notes: All associated encounter notes This section contains the clinical notes associated to the Encounter. Date/Time Encounter Note(s) Provider Source Sep 10, 2023 01:51 PM PHARMACY OUTPATIEN T MEDICATION MGT NOTE: LOCAL TITLE: PHARMACY ANTICOAG CLINIC ST STANDARD TITLE: PHARMACY OUTPATIENT MEDICATION MGT NOTE DATE OF NOTE: SEP 10, 2023@13:51 ENTRY DATE: SEP 10, 2023@13:51:47 AUTHOR: NANCI PEREIRA COSIGNER: URGENCY: STATUS: COMPLETED WARFARIN LAB ONLY - TELEPHONE CONTACT SACHA ORTEGA is a 77 y/o MALE on warfarin. Patient was identified by 2 unique identifiers. Indication for warfarin: Pulmonary Embolism, FVL Goal INR: 2-3 Current warfarin dose [...] INR (STL-RX MONITORING ONLY) 2.3 H INR 09/10/2023 09:40 HGB 14.5 g/dL 08/06/2023 11:28 HCT 47.5 % 08/06/2023 11:28 PLT 136 L 10*3/uL 08/06/2023 11:28 INR Trends: Date Dose at time of lab INR Comments 09/10/23 7.5mg daily x 10mg We/Th/Fri 2.3 08/06/23 7.5mg daily x 10mg We/Th/Fri 2.1 06/24/23 7.5mg daily x 10mg We/Th/Fri 2.9 05/27/23 7.5mg daily x 10mg We/Th/Fri 2.5 05/12/23 7.5mg daily x 10mg Th/Fri 1.9 05/04/23 7.5mg daily x 10mg Th/Fri 1.5 03/27/23 unable to contact 2.1 02/19/23 unable to contact 2.6 01/15/23 7.5mg daily x 10mg Th/Fri 2.1 12/11/22 7.5mg daily x 10mg /Thu 2.3 11/06/22 7.5mg daily x 10mg /Thu 2.6 10/02/22 7.5mg daily x 10mg /Thu 2.2 Assessment: -- INR is - within therapeutic range -- H/H is - within normal limits. Will check q6mos or earlier if needed. Plan: ----- --Pt/caregiver was given INR results during telephone contact --Warfarin dose: - continue current dose --Bridging therapy: - NO --Next lab date: 10/07 --Patient/Caregiver repeated dose instructions and f/u monitoring plan? YES --Warfarin prescription renewed/refilled/directions updated if necessary? YES --Clinical reminder completed if due? YES --Minutes spent in chart review and phone conversation: 8min /paola/ NANCI PEREIRA PHARM.D, [facility] CLINICAL PHARMACIST Signed: 09/10/2023 15:04 NANCI PEREIRA [facility]
--- OUTSIDE RECORDS SUMMARY | 2024-03-04 12:56 | XMS_ITS | Encounter Summary ---
Author Name [facility] [place] Address [address] [place] [address] Care Team Providers Care Typesetting Machine Tender Name Role Phone JILLIAN GAN Primary Care [...] MEDIC ARE SUPPL EMEMT Apr 23, 2019 [id number] [phone] KATHY ORTEGA PATIENT ANTHEM [employer] MEDICARE SUPPLEMEN WILL MEDIC ARE SUPPL EMEMT Apr 23, 2019 [id number] [phone] KATHY ORTEGA PATIENT [place] SUPPLEMEN WILL MEDIC ARE SUPPL EMEMT Apr 23, 2019 [id number] [phone] KATHY ORTEGA PATIENT [employer]BS [place] MEDICARE SUPPLEMEN WILL MEDIC ARE SUPPL EMEMT Apr 23, 2019 [id number] [phone] KATHY ORTEGA PATIENT [employer] MCR (WNR) MEDICARE ADVANTAGE MCR (WNR) Mar 23, 2022 [id number] KATHY ORTEGASHANIA PATIENT [employer] MCR (WNR) MEDICARE ADVANTAGE [facility] (WNR) Mar 23, 2022 [id number] KATHY ORTEGA PATIENT MEDICARE (WNR) MEDICARE (M) RR PART A May 21, 1990 RR PART A [id number] KATHY ORTEGA PATIENT MEDICARE (WNR) MEDICARE (M) RR PART B May 21, 1990 RR PART B [id number] KATHY ORTEGA CASEYSHANIA PATIENT [employer] [place] MEDICARE SUPPLEMEN WILL MEDIC ARE SUPPL EMENT Feb 20, 2013 PLAN G [id number] [phone] KATHY ORTEGA GRAY PATIENT WELLCARE MCR (WNR) MEDICARE ADVANTAGE [facility] (WNR) Mar 23, 2021 [id number] KATHY ORTEGA GRAY PATIENT Selected Encounter This section includes the information on record at [place] for the Encounter. Date/Time Encounter Type Encounter Description Reason Provider Source Jul 06, 2023 04:15 PM Outpatient Encounter TELEPHONE TRIAGE GRAEME MAURO Ken Encounter Template Text not used by [place] Plan of Treatment: Future Appointments (+ 6 months) and Future Tests (+/- 45 days) The Plan of Treatment section includes future care activities for the patient from all [place] treatmentfacilities. This section includes future appointments and future orders which are active, pending or scheduled. Future Appointments This section includes appointments that were scheduled to occur 6 months from the date of the Encounter, up to a maximum of 20 appointments. The data comes from all [place] treatment facilities. Appointment Date/Time Appointment Type Appointme nt Facility Name Jul 08, 2023 10:00 AM AMBULATORY - SURGERY [facility] July 31, 2023 10:00 AM AMBULATORY - SURGERY [facility] August 06, 2023 08:30 AM AMBULATORY - MEDICINE [facility] August 06, 2023 10:30 AM AMBULATORY - [facility]ICINE [facility] Sep 10, 2023 08:00 AM AMBULATORY - MEDICINE [facility] Oct 08, 2023 08:30 AM AMBULATORY - MEDICINE [facility] Nov 12, 2023 08:15 AM AMBULATORY - MEDICINE [facility] Nov 26, 2023 03:00 PM AMBULATORY - PSYCHIATRY [facility] Dec 10, 2023 09:30 AM AMBULATORY - MEDICINE [facility] Lab Results: +/- 30 days of the [...] Range Comment Jul 01, 2023 06:59 AM [facility] GLUCOSE,BLOOD-poct (STL) Specimen Type: BLOOD Comment: Test Performed by: [id number] Meter #: [id number] Ordering Provider: EFREN ROSARIO Report Released Date/Time: Jul 01, 2023 07:10 AM Reporting Lab: [address] [address] Performing Lab: [address] [address] GLUCOSE,BLOOD -poct (STL) 159 mg/dL H 72-99 Jun 24, 2023 09:59 AM [facility] HGB,HCT,PLT Specimen Type: BLOOD No comment entered. Ordering Provider: NANIC PEREIRA Report Released Date/Time: May 28, 2023 09:48 AM Reporting Lab: [address] [address] Performing Lab: [address] [address] HGB 14.9 g/dL 13.1-16.8 HCT 47.7 38.2-48.4 PLT 120 10*3/uL L 150-400 Jun 24, 2023 09:58 AM [facility] POC INR (STL-RX MONITORING ONLY) Specimen Type: BLOOD Comment: Test Performed by: [id number] Meter #: [id number] Ordering Provider: NANCI PEREIRA Report Released Date/Time: Jun 24, 2023 10:01 AM Reporting Lab: [facility] [address] [facility] [address] Performing Lab: [facility] [address] [place] [address] POC INR (STL-RX MONITORING ONLY) 2.9 {INR} H 0.9-1.1 Social History: Smoking Status (Most current) and Tobacco Use (All prior to encounter date) This section includes the most current, and the historical, smoking and tobacco- related health factors from the [place] facility where the Encounter took place. Current Smoking Status This section includes the most current smoking, or tobacco-related health factor, from the [place] facility where the Encounter took place. Date/Time Current Smoking Status Comment Facil ity Apr 29, 2018 09:12 [facility] Tobacco Use History This section includes a history of the smoking, or tobacco-related health factors, that were collected on or before the date of the Encounter. The data comes from the [place] facility where the Encounter took place. Date/Time Smoking Status/Tobacco Use Comment F acility Apr 29, 2018 09:12 AM [facility] Advance Directives: All historical and current Section Date Range: From patient's date of to the date document was created. This section includes ALL of a patient's completed or amended [place] Advance and Rescinded Directives. The entries below indicate that a directive exists for the patient, but an actual copy is not included with this document. The data comes from all [place] facilities. Date Advance Directives Provider Source Jun 13, 2013 ADVANCE DIRECTIVE DISCUSSION RONALD ESTRADA [facility] Encounter Notes: All associated encounter notes This section contains the clinical notes associated to the Encounter. Date/Time Encounter Note(s) Provider Source Jul 08, 2023 02:11 PM ACCOUNTING OF DISC LOSURES NOTE: LOCAL TITLE: STATE PRESCRIPTION DRUG MONITORING PROGRAM STANDARD TITLE: ACCOUNTING OF DISCLOSURES NOTE DATE OF NOTE: JUL 08, 2023@14:11 ENTRY DATE: JUL 08, 2023@14:11:30 AUTHOR: JILLIAN GAN COSIGNER: URGENCY: STATUS: COMPLETED [SPDM] The clinical justification for this PDMP query is to review controlled substances prescribed outside of the [facility], and any additional information that may become available, as an important component of standard clinical care, and in accordance with [facility] policy. *Date of Prescription Monitoring Program Query: Jun I reviewed patient's PDMP report for Schedule II, III, IV, or V medications from the following State PDMP [place] *Findings: No prescription(s) for controlled substances outside the [facility] were found in the last 90 days. [END*] /es/ JILLIAN GAN MD Signed: 07/08/2023 14:[address] [facility] Jul 06, 2023 04:15 PM PHARMACY NOTE: LOCAL TITLE: PHARMACY CONTACT CENTER NOTE STANDARD TITLE: PHARMACY NOTE DATE OF NOTE: JUL 06, 2023@16:15 ENTRY DATE: JUL 06, 2023@16:15:35 AUTHOR: EDDIE TODD EXP COSIGNER: URGENCY: STATUS: COMPLETED MEDICATION RENEWAL REQUEST-CONTROLLED SUBSTANCE: Who is contacting the [facility]? Scenic/Patient Contact via: Phone Requesting renewal of medication: PREGABALIN 300MG ORAL CAP [id number] 06/27/2023 12/25/2022 06/02/2023 1 JILLIAN GAN 3.36 TAKE ONE CAPSULE BY MOUTH TWICE A DAY FOR NERVE PAIN *MAY CAUSE Please send medication: Mail Disposition: Notification forwarded to provider for review of renewal request. ++++++++++++++++++++++++++ ++++++++++++++++++++++++++ ++++++++++++++ Last urine drug screen result: SLT - Lab Tests Selected No data available for: BENZODIAZEPINES (STL) COCAINE METABOLITES BUPRENORPHINE (STL-PB-MA) BARBITURATES(MA) OPIATES AMPHET/METHAMPHETAMINE METHADONE OXYCODONE ([id number]) THC(MA) CANNABINOIDS Last SPDMP note (1 year): No data on file LAST PRIMARY CARE APPOINTMENT Information: Computed Finding: [facility]-Appointments for a Patient 01/15/2023@09:30 value - [facility] CLR PACT 6 PCP APPOINTMENT DATE/TIME: 01/15/2023@09:30 CLINIC: [facility] PACT 6 PCP No data available for: CONSENT FOR LONG-TERM OPIOIDS FOR PAIN /es/ EDDIE PATEL 15 [facility] SOLAR SALES CONSULTANT Signed: 07/06/2023 16:15 Receipt Acknowledged By: 07/08/2023 14:11 /paola/ EDDIE VILLAGRAN MD [facility]
--- OUTSIDE RECORDS SUMMARY | 2024-03-04 12:56 | XMS_ITS | Encounter Summary ---
Author Name [facility] [place] [facility] [place] Address [address] [place] [address] Care Team Providers Care Profiling Machine Operator Name Role Phone JILLIAN GAN Primary [...] MEDIC ARE SUPPL EMEMT Apr 23, 2019 [id number] [phone] KATHY ORTEGA PATIENT ANTHEM BCBS [place] MEDICARE SUPPLEMEN WILL MEDIC ARE SUPPL EMEMT Apr 23, 2019 [id number] [phone] KATHY ORTEGA PATIENT ANTHE[place] MEDICARE SUPPLEMEN WILL MEDIC ARE SUPPL EMEMT Apr 23, 2019 [id number] [phone] KATHY ORTEGA PATIENT BCBS [place] MEDICARE SUPPLEMEN WILL MEDIC ARE SUPPL EMEMT Apr 23, 2019 [id number] [phone] KATHY ORTEGA PATIENT [employer] MCR (WNR) MEDICARE ADVANTAGE MCR (WNR) Mar 23, 2022 [id number] [phone] KATHY ORTEGA PATIENT [employer] MCR (WNR) MEDICARE ADVANTAGE [facility] (WNR) Mar 23, 2022 [id number] [phone] KATHY ORTEGA PATIENT MEDICARE (WNR) MEDICARE (M) RR PART A May 21, 1990 RR PART A [id number] KATHY ORTEGA PATIENT MEDICARE (WNR) MEDICARE (M) RR PART B May 21, 1990 RR PART B [id number] KATHY ORTEGA PATIENT [employer] [place] MEDICARE SUPPLEMEN WILL MEDIC ARE SUPPL EMENT Feb 20, 2013 PLAN G [id number] [phone] KATHY ORTEGA PATIENT WELLCARE MCR (WNR) MEDICARE ADVANTAGE [facility] (WNR) Mar 23, 2021 [id number] KATHY ORTEGA PATIENT Selected Encounter This section includes the information on record at [place] for the Encounter. Date/Time Encounter Type Encounter Description Reason Pro vider Source Aug 28, 2023 04:03 PM Outpatient Encounter ADMIN PAT ACTIVTIES (MASNONCT) IHE Encounter Template Text not used by [place] Plan of Treatment: Future Appointments (+ 6 months) and Future Tests (+/- 45 days) The Plan of Treatment section includes future care activities for the patient from all [place] treatmentfacilities. This section includes future appointments and future orders which are active, pending or scheduled. Future Appointments This section includes appointments that were scheduled to occur 6 months from the date of the Encounter, up to a maximum of 20 appointments. The data comes from all [place] treatment facilities. Appointment Date/Time Appointment Type Appointme nt Facility Name Sep 10, 2023 08:00 AM AMBULATORY - MEDICINE [facility] Oct 08, 2023 08:30 AM AMBULATORY - MEDICINE [facility] Nov 12, 2023 08:15 AM AMBULATORY - MEDICINE [facility] Nov 26, 2023 03:00 PM AMBULATORY - PSYCHIATRY [facility] Dec 10, 2023 09:30 AM AMBULATORY - MEDICINE [facility] Jan 13, 2024 08:15 AM AMBULATORY - MEDICINE [facility] Jan 22, 2024 02:15 PM AMBULATORY - MEDICINE [facility] Jan 26, 2024 09:30 AM AMBUL[facility]ORY - SURGERY [facility] Feb 11, 2024 09:15 AM AMBUL[facility]ORY - MEDICINE [facility] Feb 11, 2024 11:00 AM AMBULATORY - MEDICINE [facility] Lab Results: +/- 30 days of the encounter This section includes the Chemistry and Hematology Lab Results on record with [place] for the patient. Radiology Reports and Pathology Reports are provided separately, in subsequent sections. Lab Results This section contains the Chemistry/Hematology Results that were resulted 30 days before or 30 daysafter the date of the Encounter. Date/Time Source Result Type Result - Unit Interpretation Reference Range Comment Sep 10, 2023 09:40 AM [facility] POC INR (STL-RX MONITORING ONLY) Specimen Type: BLOOD Comment: Test Performed by: [id number] Meter #: [id number] Ordering Provider: NANCI PEREIRA Report Released Date/Time: Sep 10, 2023 09:46 AM Reporting Lab: [facility] [address] [facility] [address] [address] Performing Lab: [facility] [address] [facility] [address] POC INR (STL-RX MONITORING ONLY) 2.3 {INR} H 0.9-1.1 August 06, 2023 11:[address] [facility] HGA1C Specimen Type: BLOOD No comment entered. Ordering Provider: JILLIAN GAN Report Released Date/Time: August 06, 2023 11:19 AM Reporting Lab: [facility] [address] [facility] [address] [address] Performing Lab: [facility] [address] [facility] [address] [address] HGA1C 8.4 H 4.0-6.0 August 06, 2023 11:[address] [facility] LIPID PANEL (STL) Specimen Type: PLASMA Comment: LDL calculation invalid when Triglyceride exceeds 250 mg/dl Ordering Provider: JILLIAN GAN Report Released Date/Time: August 06, 2023 11:19 AM Reporting Lab: [address] [address] Performing Lab: [address] [address] CHOLESTEROL 193 mg/dL 0-200 TRIGLYCERIDE 315 mg/dL H 0-150 DIRECT LDL 98 mg/dL L >100 CALCULATED LDL comment mg/dL HDL(New) 42 mg/dL >40 August 06, 2023 11:[address] [facility] MICRAL/CREAT PROFILE (STL) Specimen Type: URINE Comment: uALB/CREAT Ratio Unable to be calculated Unable to calculate due to Microalbumin < 5.0 mg/L Ordering Provider: JILLIAN GAN Report Released Date/Time: August 06, 2023 11:19 AM Reporting Lab: [address] [address] Performing Lab: [address] [address] URINE ALBUMIN (PB-STL) <5.0 mg/L uACR (STL) comment mg/g 0-29 CREATININE URINE/OTHERS 75.7 mg/dL 63-166 August 06, 2023 11:[address] [facility] COMPREHENSIVE METABOLIC PANEL Specimen Type: PLASMA Comment: LDL calculation invalid when Triglyceride exceeds 250 mg/dl Ordering Provider: JILLIAN GAN Report Released Date/Time: August 06, 2023 11:19 AM Reporting Lab: [address] [address] Performing Lab: [address] [address] CREATININE 1.17 mg/dL 0.7-1.3 UREA NITROGEN 22.1 mg/dL 9.0-25.0 GLUCOSE 176 mg/dL H 72-99 SODIUM 144 meq/L 136-145 POTASSIUM 4.3 meq/L 3.5-5 CHLORIDE 106 meq/L 98-107 CARBON DIOXIDE 28 meq/L 22-31 CALCIUM 10.0 mg/dL 8.4-10.4 PROTEIN 7.4 g/dL 6-8.6 ALBUMIN 4.5 g/dL 3.4-5 TOTAL BILIRUBIN 0.4 mg/dL 0.2-1.2 ALKALINE PHOSPHATASE 57 U/L 40-150 AST/SGOT 27 U/L 5-34 ALT/SGPT 23 U/L 8-40 EGFR (CKD-EPI 2020) 65.0 >60 August 06, 2023 11:[address] [facility] CBC Specimen Type: BLOOD No comment entered. Ordering Provider: JILLIAN GAN Report Released Date/Time: August 06, 2023 11:19 AM Reporting Lab: [facility] [address] [facility] [address] Performing Lab: [address] [address] WBC 5.3 10*3/uL 3.6-11.2 RBC 5.78 10*6/uL H 4.10-5.70 HGB 14.5 g/dL 13.1-16.8 HCT 47.5 38.2-48.4 MCV 82.2 fL 80.0-100.0 MCH 25.1 pg L 27.0-34.0 MCHC 30.5 g/dL L 33.0-36.0 PLT 136 10*3/uL L 150-400 MPV 12.0 fL H 7.5-11.2 RDW 16.0 H 11.8-15.1 LYMPHOCYTES, AUTO % 30 MONOCYTES, AUTO % 9 NEUTROPHILS, AUTO % 59 EOSINOPHILS, AUTO % 1 BASOPHILS, AUTO % 1 LYMPHOCYTES, ABSOLUTE 1.60 10*3/uL 0.77-4.50 MONOCYTES, ABSOLUTE 0.45 10*3/uL 0.19-0.80 NEUTROPHILS, ABSOLUTE 3.12 10*3/uL 2.10-8.00 EOSINOPHILS, ABSOLUTE 0.07 10*3/uL 0.00-0.60 BASOPHILS, ABSOLUTE 0.05 10*3/uL 0.00-0.20 August 06, 2023 09:46 AM [facility] POC INR (STL-RX MONITORING ONLY) Specimen Type: BLOOD Comment: Test Performed by: [id number] Meter #: [id number] Ordering Provider: NANCI PEREIRA Report Released Date/Time: August 06, 2023 09:47 AM Reporting Lab: [place] [id number] [facility] [address] Performing Lab: [facility] [address] [place] [address] POC INR (STL-RX MONITORING ONLY) 2.1 {INR} H 0.9-1.1 Social History: Smoking Status (Most current) and Tobacco Use (All prior to encounter date) This section includes the most current, and the historical, smoking and tobacco- related health factors from the [place] facility where the Encounter took place. Current Smoking Status This section includes the most current smoking, or tobacco-related health factor, from the [place] facility where the Encounter took place. Date/Time Current Smoking Status Comment Facil ity Apr 29, 2018 09:12 AM [place]-TOBACCO FORMER USER [facility] Tobacco Use History This section includes a history of the smoking, or tobacco-related health factors, that were collected on or before the date of the Encounter. The data comes from the [place] facility where the Encounter took place. Date/Time Smoking Status/Tobacco Use Comment F acility Apr 29, 2018 09:12 AM [place]-TOBACCO QUIT 15 YRS OR MORE [facility] Advance Directives: All historical and current Section Date Range: From patient's date of to the date document was created. This section includes ALL of a patient's completed or amended [place] Advance and Rescinded Directives. The entries below indicate that a directive exists for the patient, but an actual copy is not included with this document. The data comes from all [place] facilities. Date Advance Directives Provider Source Jun 13, 2013 ADVANCE DIRECTIVE DISCUSSION RONALD ESTRADA [facility] Encounter Notes: All associated encounter notes This section contains the clinical notes associated to the Encounter. Date/Time Encounter Note(s) Provider Source Aug 28, 2023 04:03 PM PHARMACY PROGRESS NOTE: LOCAL TITLE: PHARMACY GENERAL [facility] STANDARD TITLE: PHARMACY PROGRESS NOTE DATE OF NOTE: AUG 28, 2023@16:03 ENTRY DATE: AUG 28, 2023@16:03:20 AUTHOR: CHERIE CABRAL COSIGNER: URGENCY: STATUS: COMPLETED Sitalgiptin (Zituvio) is now the preferred VA DPP-4 inhibitor, see Pharmacy Newsnote from 08/10/23. All active orders for alogliptin are being converted to sitagliptin at therapeutically equivalent doses. Patients will be notified by letter of the change. Contintuation on alogliptin will require therapeutic failure of sitagliptin and a PADR to request approval of alogliptin. Thank you. Most recent eGRF: 65.0 on 08/06/23 Current alogliptin dose: 6.25mg New sitagliptin dose: 50mg /paola/ Cherie Cabral RPh, SWATHII, CPMEMS Clinic Support Pharmacist Signed: 08/28/2023 16:03 Receipt Acknowledged By: 09/01/2023 17:54 /es/ CHERIE DIANA MD [facility]
--- OUTSIDE RECORDS SUMMARY | 2024-03-04 12:56 | XMS_ITS | Encounter Summary ---
Author Name [facility] [place] [facility] [place] [facility] [place] Address [address] [place] [address] Care Team Providers Care Branch Officer Name Role Phone JILLIAN GAN Primary Care [...] MEDIC ARE SUPPL EMEMT Apr 23, 2019 [id number] [phone] KATHY ORTEGA PATIENT ANTHEM [employer] MEDICARE SUPPLEMEN WILL MEDIC ARE SUPPL EMEMT Apr 23, 2019 [id number] [phone] KATHY ORTEGA PATIENT AN[place] MEDIC[place] SUPPLEMEN WILL MEDIC ARE SUPPL EMEMT Apr 23, 2019 [id number] [phone] KATHY ORTEGA PATIENT BCBS [place] MEDICARE SUPPLEMEN WILL MEDIC ARE SUPPL EMEMT Apr 23, 2019 [id number] [phone] KATHY ORTEGA PATIENT [employer] MCR (WNR) MEDICARE ADVANTAGE MCR (WNR) Mar 23, 2022 [id number] KATHY ORTEGA PATIENT [employer] MCR (WNR) MEDICARE ADVANTAGE [facility] (WNR) Mar 23, 2022 [id number] KATHY ORTEGA PATIENT MEDICARE (WNR) MEDICARE (M) RR PART A May 21, 1990 RR PART A [id number] KATHY ORTEGA PATIENT MEDICARE (WNR) MEDICARE (M) RR PART B May 21, 1990 RR PART B [id number] [phone] KATHY ORTEGA PATIENT [employer] [place] MEDICARE SUPPLEMEN WILL MEDIC ARE SUPPL EMENT Feb 20, 2013 PLAN G [id number] [phone] KATHY ORTEGA PATIENT WELLCARE [facility] (WNR) MEDICARE ADVANTAGE [facility] (WNR) Mar 23, 2021 [id number] [phone] KATHY ORTEGA PATIENT Selected Encounter This section includes the information on record at [place] for the Encounter. Date/Time Encounter Type Encounter Description Reason Provider Source Oct 08, 2023 08:30 AM MTMS BY PHARM MADELEINE 15 MIN TELEPHONE/ANCILLA ISABELLE ICD-10-CM Z51.81 Encounter for therapeutic drug level monitoring NANCI PEREIRA [facility] Encounter Template Text not used by [place] Assessments - Encounter Diagnoses This section includes the primary and secondary diagnoses documented for the Encounter. 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 This section includes future appointments and future orders which are active, pending or scheduled. Future Appointments This section includes appointments that were scheduled to occur 6 months from the date of the Encounter, up to a maximum of 20 appointments. The data comes from all [place] treatment facilities. Appointment Date/Time Appointment Type Appointme nt Facility Name Nov 12, 2023 08:15 AM AMBULATORY - MEDICINE [facility] Nov 26, 2023 03:00 PM AMBULATORY - PSYCHIATRY [facility] Dec 10, 2023 09:30 AM AMBULATORY - MEDICINE [facility] Jan 13, 2024 08:15 AM AMBULATORY - MEDICINE [facility] Jan 22, 2024 02:15 PM AMBULATORY - MEDICINE [facility] Jan 26, 2024 09:30 AM AMBUL[facility]ORY - SURGERY [facility] Feb 11, 2024 09:15 AM AMBULATORY - MEDICINE [facility] Feb 11, 2024 11:00 AM AMBULATORY - MEDICINE [facility] Mar 21, 2024 09:00 AM AMBULATORY - MEDICINE [facility] Mar 24, 2024 11:00 AM AMBULATORY - PSYCHIATRY [facility] Lab Results: +/- 30 days of the encounter This section includes the Chemistry and Hematology Lab Results on record with [place] for the patient. Radiology Reports and Pathology Reports are provided separately, in subsequent sections. Lab Results This section contains the Chemistry/Hematology Results that were resulted 30 days before or 30 daysafter the date of the Encounter. Date/Time Source Result Type Result - Unit Interpretation Reference Range Comment Oct 08, 2023 10:32 AM [facility] POC INR (STL-RX MONITORING ONLY) Specimen Type: BLOOD Comment: Test Performed by: [id number] Meter #: [id number] Ordering Provider: NANCI PEREIRA Report Released Date/Time: Oct 08, 2023 10:35 AM Reporting Lab: [facility] [address] [facility] [address] Performing Lab: [facility] [address] [place] [address] POC INR (STL-RX MONITORING ONLY) 2.4 {INR} H 0.9-1.1 Sep 10, 2023 09:40 AM [facility] POC INR (STL-RX MONITORING ONLY) Specimen Type: BLOOD Comment: Test Performed by: [id number] Meter #: [id number] Ordering Provider: NANCI PEREIRA Report Released Date/Time: Sep 10, 2023 09:46 AM Reporting Lab: [facility] [address] [facility] [address] Performing Lab: [facility] [address] [place] [address] POC INR (STL-RX MONITORING ONLY) 2.3 {INR} H 0.9-1.1 Social History: Smoking Status (Most current) and Tobacco Use (All prior to encounter date) This section includes the most current, and the historical, smoking and tobacco- related health factors from the [place] facility where the Encounter took place. Current Smoking Status This section includes the most current smoking, or tobacco-related health factor, from the [place] facility where the Encounter took place. Date/Time Current Smoking Status Comment Facil ity Apr 29, 2018 09:12 AM [place]-TOBACCO FORMER USER [facility] Tobacco Use History This section includes a history of the smoking, or tobacco-related health factors, that were collected on or before the date of the Encounter. The data comes from the [place] facility where the Encounter took place. Date/Time Smoking Status/Tobacco Use Comment F acility Apr 29, 2018 09:12 AM [place]-TOBACCO QUIT 15 YRS OR MORE [facility] Advance Directives: All historical and current Section Date Range: From patient's date of to the date document was created. This section includes ALL of a patient's completed or amended [place] Advance and Rescinded Directives. The entries below indicate that a directive exists for the patient, but an actual copy is not included with this document. The data comes from all [place] facilities. Date Advance Directives Provider Source Jun 13, 2013 ADVANCE DIRECTIVE DISCUSSION RONALD ESTRADA [facility] Encounter Notes: All associated encounter notes This section contains the clinical notes associated to the Encounter. Date/Time Encounter Note(s) Provider Source Oct 08, 2023 03:08 PM PHARMACY OUTPATIEN T MEDICATION MGT NOTE: LOCAL TITLE: PHARMACY [facility] ST STANDARD TITLE: PHARMACY OUTPATIENT MEDICATION MGT NOTE DATE OF NOTE: OCT 08, 2023@15:08 ENTRY DATE: OCT 08, 2023@15:08:14 AUTHOR: NANCI PEREIRA EXP COSIGNER: URGENCY: STATUS: COMPLETED PHARMACY [facility] Has ADDENDA WARFARIN LAB ONLY - TELEPHONE CONTACT SACHA ORTEGA is a 77 y/o MALE on warfarin. Patient was identified by 2 unique identifiers. Indication for warfarin: Pulmonary Embolism- recurrent/Factor V leiden Goal INR: 2-3 Current warfarin dose on record: 7.5mg daily x 10mg We//Thu On bridging regimen?: NO Expected duration of therapy: Lifetime Subjective:spoke w/ , Shama Patient/Caregiver confirmed dose as [...] ticagrelor, cilostazol, dipyridamole)? no Any additional information? aloglitipin changed to sitagliptin Objective: POC INR (STL-RX MONITORING ONLY) 2.4 H INR 10/08/2023 10:32 HGB 14.5 g/dL 08/06/2023 11:28 HCT 47.5 % 08/06/2023 11:28 PLT 136 L 10*3/uL 08/06/2023 11:28 INR Trends: Date Dose at time of lab INR Comments 10/08/23 7.5mg daily x 10mg We/Th/Fri 2.4 [...] Th/Fri 2.1 12/11/22 7.5mg daily x 10mg Th/Fri 2.3 11/06/22 7.5mg daily x 10mg Th/Fri 2.6 10/02/22 7.5mg daily x 10mg Th/Fri 2.2 Assessment: -- INR is - within therapeutic range -- H/H is - within normal limits. Will check q6mos or earlier if needed. Plan: ----- --Pt/caregiver was given INR results during telephone contact --Warfarin dose: - continue current dose --Bridging therapy: - NO --Next lab date: 11/11 --Patient/Caregiver repeated dose instructions and f/u monitoring plan? YES --Warfarin prescription renewed/refilled/directions updated if necessary? YES --Clinical reminder completed if due? YES --Minutes spent in chart review and phone conversation: 8min /paola/ NANCI PEREIRA, PHARM.D, BCPS CLINICAL PHARMACIST Signed: 10/08/2023 15:18 11/13/2023 ADDENDUM STATUS: COMPLETED Patient did not have INR drawn as scheduled 11/11; AMSA alerted via [employer] to no-show appt and contact patient for rescheduling /es/ BARBARA BATISTA, JIMD, BCACP, CACP CLINICAL PHARMACY PRACTITIONER Signed: 11/13/2023 08:07 NANCI PEREIRA [facility]
--- OUTSIDE RECORDS SUMMARY | 2024-03-04 12:56 | XMS_ITS | Encounter Summary ---
Author Name [facility] Organization [facility] Address [address] [place] [address] Care Team Providers Care Order To Delivery Supervisor Name Role Phone JILLIAN JENKINS Primary Care [...] MEDIC ARE SUPPL EMEMT Apr 23, 2019 [id number] [phone] KATHY ORTEGA PATIENT ANTHEM [employer] MEDICARE SUPPLEMEN WILL MEDIC ARE SUPPL EMEMT Apr 23, 2019 [id number] [phone] KATHY ORTEGA PATIENT ANTHEM [place] MEDICARE SUPPLEMEN WILL MEDIC ARE SUPPL EMEMT Apr 23, 2019 [id number] [phone] KATHY ORTEGA PATIENT [place] MEDICARE SUPPLEMEN WILL MEDIC ARE SUPPL EMEMT Apr 23, 2019 [id number] [phone] KATHY ORTEGA PATIENT [employer] MCR (WNR) MEDICARE ADVANTAGE MCR (WNR) Mar 23, 2022 [id number] KATHY ORTEGA PATIENT [employer] M[employer] (WNR) MEDICARE ADVANTAGE [facility] (WNR) Mar 23, 2022 [id number] KATHY ORTEGA PATIENT MEDICARE (WNR) MEDICARE (M) RR PART A May 21, 1990 RR PART A [id number] KATHY ORTEGA PATIENT MEDICARE (WNR) MEDICARE (M) RR PART B May 21, 1990 RR PART B [id number] KATHY ORTEGA PATIENT [employer] [place] MEDICARE SUPPLEMEN WILL MEDIC ARE SUPPL EMENT Feb 20, 2013 PLAN G [id number] [phone] KATHY ORTEGA PATIENT [employer] MCR (WNR) MEDICARE ADVANTAGE [facility] (WNR) Mar 23, 2021 [id number] [phone] KATHY ORTEGA PATIENT Selected Encounter This section includes the information on record at [place] for the Encounter. Date/Time Encounter Type Encounter Description Reason Provider Source May 26, 2023 08:00 AM COMPRE OPH EXAM NEW PT 1/> OPHTHALMOLOGY ICD-10-CM H25.13 Age-related nuclear cataract, bilateral LOULOU NAIR Ken Encounter Template Text not used by [place] Assessments - Encounter Diagnoses This section includes the primary and secondary diagnoses documented for the Encounter. Date/Time Primary/Secondary Diagnosis Diagnosis Name Provider Source May 26, 2023 02:14 PM PRIMARY Age-related nuclear cataract, bilateral [facility] Plan of Treatment: Future Appointments (+ 6 months) and Future Tests (+/- 45 days) The Plan of Treatment section includes future care activities for the patient from all [place] treatmentfacilities. This section includes future appointments and future orders which are active, pending or scheduled. Future Appointments This section includes appointments that were scheduled to occur 6 months from the date of the Encounter, up to a maximum of 20 appointments. The data comes from all [place] treatment facilities. Appointment Date/Time Appointment Type Appointme nt Facility Name May 27, 2023 08:15 AM AMBULATORY - MEDICINE [facility] Jun 24, 2023 10:15 AM AMBULATORY - MEDICINE [facility] Jul 01, 2023 06:30 AM AM[facility]ULATORY - NONE [facility] Jul 02, 2023 08:30 AM AMBULATORY - SURGERY [facility] Jul 08, 2023 10:00 AM AMBULATORY - SURGERY [facility] July 31, 2023 10:00 AM AMBULATORY - SURGERY [facility] August 06, 2023 08:30 AM AMBULATORY - MEDICINE [facility] August 06, 2023 10:30 AM AMBULATORY - MEDICINE [facility] Sep 10, 2023 08:00 AM AMBULATORY - MEDICINE [facility] Oct 08, 2023 08:30 AM AMBULATORY - MEDICINE [facility] Nov 12, 2023 08:15 AM AMBULATORY - MEDICINE [facility] Nov 26, 2023 03:00 PM AMBULATORY - PSYCHIATRY [facility] Lab Results: +/- 30 days of the encounter This section includes the Chemistry and Hematology Lab Results on record with [place] for the patient. Radiology Reports and Pathology Reports are provided separately, in subsequent sections. Lab Results This section contains the Chemistry/Hematology Results that were resulted 30 days before or 30 daysafter the date of the Encounter. Date/Time Source Result Type Result - Unit Interpretation Reference Range Comment Jun 24, 2023 09:59 AM [facility] HGB,HCT,PLT Specimen Type: BLOOD No comment entered. Ordering Provider: NANCI PEREIRA Report Released Date/Time: May 28, 2023 09:48 AM Reporting Lab: [address] [address] Performing Lab: [address] [address] HGB 14.9 g/dL 13.1-16.8 HCT 47.7 38.2-48.4 PLT 120 10*3/uL L 150-400 Jun 24, 2023 09:58 AM [facility] POC INR (STL-RX MONITORING ONLY) Specimen Type: BLOOD Comment: Test Performed by: [id number] Meter #: [id number] Ordering Provider: NANCI PEREIRA Report Released Date/Time: Jun 24, 2023 10:01 AM Reporting Lab: [address] [address] Performing Lab: [address] [address] POC INR (STL-RX MONITORING ONLY) 2.9 {INR} H 0.9-1.1 May 27, 2023 09:49 AM [facility] POC INR (STL-RX MONITORING ONLY) Specimen Type: BLOOD Comment: Test Performed by: [id number] Meter #: [id number] Ordering Provider: NANCI PEREIRA Report Released Date/Time: May 28, 2023 06:05 AM Reporting Lab: [address] [address] Performing Lab: [address] [address] POC INR (STL-RX MONITORING ONLY) 2.5 {INR} H 0.9-1.1 May 13, 2023 12:42 PM [facility] POC INR (STL-RX MONITORING ONLY) Specimen Type: BLOOD Comment: Test Performed by: [id number] Meter #: [id number] Ordering Provider: NANCI PEREIRA Report Released Date/Time: May 13, 2023 12:48 PM Reporting Lab: [address] [address] Performing Lab: [address] [address] POC INR (STL-RX MONITORING ONLY) 1.9 {INR} H 0.9-1.1 May 04, 2023 09:30 AM [facility] POC INR (STL-RX MONITORING ONLY) Specimen Type: BLOOD Comment: Test Performed by: [id number] Meter #: [id number] Ordering Provider: NANCI PEREIRA Report Released Date/Time: May 04, 2023 09:36 AM Reporting Lab: [address] [address] Performing Lab: [facility] [address] [place] [address] POC INR (STL-RX MONITORING ONLY) 1.5 {INR} H 0.9-1.1 Social History: Smoking Status (Most current) and Tobacco Use (All prior to encounter date) This section includes the most current, and the historical, smoking and tobacco- related health factors from the [place] facility where the Encounter took place. Current Smoking Status This section includes the most current smoking, or tobacco-related health factor, from the [place] facility where the Encounter took place. Date/Time Current Smoking Status Comment Facil ity Apr 29, 2018 09:12 AM [place]-TOBACCO FORMER USER [facility] Tobacco Use History This section includes a history of the smoking, or tobacco-related health factors, that were collected on or before the date of the Encounter. The data comes from the [place] facility where the Encounter took place. Date/Time Smoking Status/Tobacco Use Comment F acility Apr 29, 2018 09:12 AM PR-TOBACCO QUIT 15 YRS OR MORE [facility] Advance Directives: All historical and current Section Date Range: From patient's date of to the date document was created. This section includes ALL of a patient's completed or amended [place] Advance and Rescinded Directives. The entries below indicate that a directive exists for the patient, but an actual copy is not included with this document. The data comes from all [place] facilities. Date Advance Directives Provider Source Jun 13, 2013 ADVANCE DIRECTIVE DISCUSSION RONALD ESTRADA [facility] Encounter Notes: All associated encounter notes This section contains the clinical notes associated to the Encounter. Date/Time Encounter Note(s) Provider Source Jun 30, 2023 10:18 PM SURGERY ATTENDING NOTE: LOCAL TITLE: ATTENDING SURGEON PREOPERATIVE STL STANDARD TITLE: SURGERY ATTENDING NOTE DATE OF NOTE: JUN 30, 2023@22:18 ENTRY DATE: JUN 24, 2023@10:26:47 AUTHOR: MERRICK CONROY COSIGNER: URGENCY: STATUS: COMPLETED Surgical H&P Date of Planned Procedure: Jun Surgical H&P Dated Jun reviewed on Jun Surgical H&P completed within 30 days of planned procedure:Yes Attending Surgeon Preoperative STL completed within 24 hours of procedure? Yes Changes noted to the H&P:NO I have seen and examined the patient and agree with the H&P, assessment and plan. YES Preoperative Findings/Diagnosis: Visually significant cataract, left eye Plan/Procedure: Cataract extraction and IOL placement, left eye /paola/ MERRICK CONROY MD Staff Physician-Ophthalmology Signed: 06/30/2023 22:18 MERRICK CONROY Rose Marie [facility] May 26, 2023 02:29 PM OPHTHALMOLOGY CONSULT: LOCAL TITLE: OPHTHALMOLOGY CONSULT STL STANDARD TITLE: OPHTHALMOLOGY CONSULT DATE OF NOTE: MAY 26, 2023@14:29 ENTRY DATE: MAY 26, 2023@14:29:42 AUTHOR: IRIS SANTAMARIA EXP COSIGNER: LOULOU ANIR URGENCY: STATUS: COMPLETED Results adequate for pre-operative evaluation. /paola/ IRIS SANTAMARIA MD PHD Resident Physician, Ophthalmology Signed: 05/26/2023 14:30 /paola/ LOULOU NAIR MD Staff Physician, Ophthalmology Cosigned: 05/28/2023 15:05 IRIS SANTAMARIA [facility] May 26, 2023 07:59 AM OPHTHALMOLOGY CONSULT: LOCAL TITLE: OPHTHALMOLOGY CONSULT STL STANDARD TITLE: OPHTHALMOLOGY CONSULT DATE OF NOTE: MAY 26, 2023@07:59 ENTRY DATE: MAY 26, 2023@07:59:55 AUTHOR: IRIS SANTAMARIA COSIGNER: LOULOU ANIR URGENCY: STATUS: COMPLETED OPHTHALMOLOGY CONSULT STL Has ADDENDA PRE-OP CLINIC NOTE SACHA Bee is a 77 y/o WHITE MALE who presents for cataract evaluation. He has noticed progressive loss of vision over the last several years. He feels that surgery would help enhance his vision & quality of life. == Past ocular history: no glasses wear as a child (+) laser surgery - ?myopic LASIK 10-15 years ago OU, targeted for distance OU (patient reports he was nearsighted prior to LASIK but his julisa resembles hyperopic LASIK) no h/o trauma/boxing no contact use, no monovision Relevant medical conditions: no known CAD no h/o COPD/bronchitis/pneumonia, (+) pulomonary embolism no h/o CVA or SD no HTN (+) DM not on insulin --Last HbA1c = HGA1C 8.4 H % 01/15/2023 08:36 (+) h/o SOFI on CPAP Relevant medications: (+) h/o Flomax (+) warfarin (for hx of PEs) Review of systems: Denies angina Denies cough or orthopnea Denies dyspnea on exertion Patient is able to lie flat for at least one hour - has back pain (denies hx of back surgery) but lies flat (on side) to sleep PMH: 1) Primary Hypercoagulable State (ICD-9-CM 289.81) 2) Colonic Polyps (ICD-9-CM 211.3) 3) Anxiety 4) Benign prostatic hyperplasia 5) Diabetes mellitus 6) Primary erectile dysfunction (SNOMED CT 300776666) 7) Leg length inequality (SNOMED CT 29080006) 8) Pain in the coccyx 9) Hearing loss 10) 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 11) Varicose veins 12) Deep vein thrombosis 13) Gastroesophageal reflux disease 14) Single acquired kidney cyst 15) Sleep apnea 16) Benign prostatic hyperplasia 17) Adjustment disorder with depressed mood in remission 18) Allergic rhinitis 19) H/O: Pulmonary Embolus ([facility] [id number]) 20) Neck Pain ([facility] [id number]) 21) Bilateral Knee Pain ([facility] [id number]) 22) Low Back Pain ([facility] [id number]) 23) Therapeutic drug effect 24) Anticoagulant effect Meds: Active Outpatient Medications (including Supplies): Active Outpatient Medications Status ========= 1) ALOGLIPTIN 6.25MG TAB TAKE ONE TABLET BY MOUTH ONCE A ACTIVE (S) DAY FOR DIABETES 2) ATORVASTATIN CALCIUM 20MG TAB TAKE ONE-HALF TABLET BY ACTIVE MOUTH EVERY EVENING FOR CHOLESTEROL. REPORT ANY UNEXPLAINED MUSCLE PAIN/WEAKNESS TO PROVIDER. 3) CARBOXYMETHYLCELLULOSE NA 1% OPH GEL INSTILL 2 DROPS ACTIVE INTO BOTH EYES FOUR TIMES A DAY NEEDED FOR DRY EYE(S) 4) DOCUSATE NA 100MG CAP TAKE ONE CAPSULE BY MOUTH TWICE ACTIVE A DAY TO SOFTEN STOOL. HOLD FOR LOOSE STOOL/DIARRHEA. 5) EMPAGLIFLOZIN 25MG TAB TAKE ONE TABLET BY MOUTH ONCE ACTIVE (S) A DAY FOR DIABETES 6) GLIPIZIDE 5MG TAB TAKE ONE TABLET BY MOUTH TWO TIMES ACTIVE (S) A DAY BEFORE MEALS FOR DIABETES TAKE 30 MINUTES BEFORE EATING. 7) METFORMIN HCL 1000MG TAB TAKE ONE TABLET BY MOUTH ACTIVE EVERY MORNING AND TAKE ONE AND ONE-HALF TABLETS EVERY EVENING TAKE WITH FOOD. AVOID ALCOHOL. DISCONTINUE BEFORE GETTING XRAY DYE. 8) PANTOPRAZOLE NA 20MG EC TAB TAKE ONE TABLET BY MOUTH ACTIVE (S) TWICE A DAY TO LOWER STOMACH ACID - TAKE 30 MINUTES BEFORE MEAL(S) 9) POLYETHYLENE GLYCOL 3350 ORAL PWDR MIX AND DRINK 1 ACTIVE CAPFUL BY MOUTH ONCE A DAY FOR CONSTIPATION (MEASURE WITH CAP AND MIX IN 8 OZ OF WATER) 10) PREGABALIN 300MG ORAL CAP TAKE ONE CAPSULE BY MOUTH ACTIVE TWICE A DAY FOR NERVE PAIN *MAY CAUSE DROWSINESS* 11) QUETIAPINE FUMARATE 200MG TAB TAKE ONE-HALF TABLET BY ACTIVE MOUTH AT BEDTIME FOR MOOD 12) ROPINIROLE HCL 0.5MG TAB TAKE ONE TABLET BY MOUTH AT ACTIVE (S) BEDTIME FOR PARKINSON DISEASE 13) SERTRALINE HCL 100MG TAB TAKE ONE-HALF TABLET BY ACTIVE MOUTH EVERY MORNING FOR MOOD 14) TADALAFIL 10MG TAB TAKE ONE TABLET BY MOUTH EVERY ACTIVE WEEK NEEDED FOR ERECTILE DYSFUNCTION (TAKE 30 MINUTES PRIOR TO SEXUAL ACTIVITY) - LIMIT 6 DOSES PER 30 DAYS 15) TAMSULOSIN HCL 0.4MG CAP TAKE TWO CAPSULES BY MOUTH ACTIVE ONCE A DAY FOR BENIGN PROSTATIC HYPERPLASIA APPROXIMATELY 30 MINUTES AFTER THE SAME MEAL EACH DAY (FOR PROSTATE) 16) WARFARIN NA 5MG TAB TAKE ONE AND ONE-HALF TABLETS BY ACTIVE MOUTH THURSDAY, THURSDAY, THURSDAY AND THURSDAY AND TAKE TWO TABLETS THURSDAY, THURSDAY AND THURSDAY OR DIRECTED BY THE ANTICOAGULATION CLINIC. TO PREVENT BLOOD CLOTS. KEEP LAB APPOINTMENTS. Active Non-VA Medications Status ========= 1) Non-VA BETAMETHASONE/CLOTRIMAZOLE CREAM,TOP TO ACTIVE AFFECTED AREA(S) TWICE A DAY 2) Non-VA MARIJUANA (MEDICAL) DIRECTED INHALATION ACTIVE NEEDED 3) Non-VA MULTIVITAMIN CAP/TAB 1 TABLET BY MOUTH ONCE A ACTIVE DAY 4) Non-VA OXYCODONE 5MG/ACETAMINOPHEN 325MG TAB 1 TABLET ACTIVE BY MOUTH EVERY 6 HOURS NEEDED 5) Non-VA PROBIOTIC COMBINATION CAP/TAB 1 CAPSULE BY ACTIVE MOUTH ONCE A DAY 21 Total Medications Allergies: AUGMENTIN, SIMVASTATIN, MORPHINE ======Ophthalmic Examination====== VA(cc): OD 20/20 OS 20/40+2 Wearing: OD +0.50-0.58v407 20/20 OS +1.00 - 1.25 x 090 add +2.75 MRx OD +0.50-0.22i345 => 20/20 OS +0.50-0.86c330 => 20/40+ BAT: OD 20/25 OS 20/60 PAP: OD deferred OS 20/20 VF: Full to confrontation OU Motility: Full OU Alignment: Ortho by ACT Pupils: 3 to 2 OU without APD OU T(ap): OD 15 OS 18 Gonioscopy: OD open to CBB, 1+ even pigment OS open to CBB, 1+ even pigment SLEx: OD L/L Dermatochalasis, blepharitis ptosis OD>OS C/S W/Q K Clear, no Stain no K spindle no guttae AC D&Q I Round, no NVI L 2+NS diffuse 1+ CS no phacodonesis no IL step off AV Clear OS L/L Dermatochalasis, blepharitis C/S W/Q K Clear, no Stain no K spindle no guttae AC D&Q I Round, no NVI L 2+NS diffuse 1+ CS paracentral vacuoles no phacodonesis no IL step off AV Clear Dilated Fundus Examination: Dilates to: OD: 7 mm OS: 7 mm OD vit syn CDR: 0.3 Nerve Healthy, no pallor Macula flat Vessels WNL Periphery WNL, no lattice degeneration OS vit syn CDR: 0.3 Nerve Healthy, no pallor Macula flat Vessels WNL Periphery WNL, no lattice degeneration == A/P: 1. Visually Significant Cataracts OU - Patient interested in having CE/IOL OS - R/B/A of surgery discussed in detail with patient including infection, bleeding, persistent inflammation, diplopia, ptosis, need for further surgeries, need for spectacle correction after surgery, possible loss of vision, possible loss of the eye. Additional risks including CME/PCO were also discussed. The patient understands these risks and wishes to proceed. *Loss of vision and eye -rare but could develop a blind painful eye -in severe cases, may need to remove eye *Severe bleeding -rare but possible expulsive hemorrhage -risk increased with obesity, coughing or movement during surgery, HTN, anticoagulation, elevated IOP *Severe infection -rare, ~03/999 to ~03/1499 endophthalmitis rate *Additional surgery or treatment -including possible lensectomy/vitrectomy for retained lens fragment, corneal transplantation for corneal decompensation, retinal surgery for retinal tear/hole/detachment, laser capsulotomy for posterior capsular opacification, increased or decreased in eye pressure requiring medicine and/or surgery *Persistent intraocular swelling -possible macular edema limiting central vision and/or uveitis -pt aware chronic treatment with steroids may lead to irreversible glaucoma and vision loss, problems with other eye *Refractive error with residual presbyopia -counseled may still need distance glasses and will still need reading glasses -anisometropia *Diplopia, ptosis We discussed that given his h/o LASIK he is at increased risk for a refractive surprise and may need glasses after surgery to achieve the best possible vision at distance. Target refraction was discussed with the patient including near, distance, and monovision. We also discussed multifocal and toric lenses. The patient elected to target PLANO. Planned Operation: CE/IOL OS Target Refraction: [place] AETC: consult to be entered Overnight stay: none Gonioscopy: done today Blood thinner: +warfarin Flomax/Hytrin: yes Biometry: done Consent: done Surgery date: 06/30 at 8:30am Special equipment: +phenyl-lido The best telephone number to reach patient is (home number). RTC 1 day, 1 week, 1 month after day of surgery. ___ Dear Dr. Jenkins, This patient (SACHA ORTEGA) is scheduled for cataract surgery under local anesthesia with mild sedation. We do not routinely order preoperative labs or EKG before cataract surgery, unless there is a specific medical indication to do so (see Schein et al, NEJM 2000;3:429-30, and [place] review 2012; [3]:[id number]). I appreciate your assessment of this 's medical stability for this procedure. If you feel that labs or further testing will aid in the patient's raul-operative management, please reach out to discuss. My number is . Thank you, Iris Santamaria MD, PhD PGY-4 Ophthalmology Resident /paola/ IRIS SANTAMARIA MD PHD Resident Physician, Ophthalmology Signed: 05/26/2023 14:14 /paola/ LOULOU NAIR MD Staff Physician, Ophthalmology Cosigned: 05/28/2023 15:11 Receipt Acknowledged By: 06/25/2023 14:03 /paola/ JILLIAN JENKINS MD 06/24/2023 ADDENDUM STATUS: COMPLETED Called patient to answer questions about pre-op eye drops - discussed that we do not routinely use pre-op drops. Reminded patient that his surgery was at 8:30am on 06/30; reminded patient no eating after midnight the day of surgery. Patient voiced understanding. /paola/ IRIS SANTAMARIA MD PHD Resident Physician, Ophthalmology Signed: 06/24/2023 15:56 /paola/ MERRICK CONROY MD Staff Physician-Ophthalmology Cosigned: 06/25/2023 09:22 06/25/2023 ADDENDUM STATUS: COMPLETED pt is medically stable to undergo contemplated procedure . no further testing recommended. will defer to ophthalmology if there is a need to hold warfarin for few days before contemplated cataract extraction. /paola/ JILLIAN JENKINS MD Signed: 06/25/2023 14:08 [facility]
--- OUTSIDE RECORDS SUMMARY | 2024-03-04 12:56 | XMS_ITS | Encounter Summary ---
Author Name [facility] [place] [place] [facility] [place] Address [address] [place] [address] Care Team Providers Care College President Name Role Phone JILLIAN GAN Primary Care [...] MEDIC ARE SUPPL EMEMT Apr 23, 2019 [id number] [phone] KATHY ORTEGA PATIENT ANTHEM [employer] [place] MEDICARE SUPPLEMEN WILL MEDIC ARE SUPPL EMEMT Apr 23, 2019 [id number] [phone] KATHY ORTEGA PATIENT AN[place] [employer] MEDICARE SUPPLEMEN WILL MEDIC ARE SUPPL EMEMT Apr 23, 2019 [id number] [phone] KATHY ORTEGA PATIENT [employer] MEDICARE SUPPLEMEN WILL MEDIC ARE SUPPL EMEMT Apr 23, 2019 [id number] [phone] KATHY ORTEGA PATIENT [employer] MCR (WNR) MEDICARE ADVANTAGE MCR (WNR) Mar 23, 2022 [id number] KATHY ORTEGA PATIENT [employer] MCR (WNR) MEDICARE ADVANTAGE [facility] (WNR) Mar 23, 2022 [id number] KATHY ORTEGA PATIENT MEDICARE (WNR) MEDICARE (M) RR PART A May 21, 1990 RR PART A [id number] KATHY ORTEGA PATIENT MEDICARE (WNR) MEDICARE (M) RR PART B May 21, 1990 RR PART B [id number] [phone] KATHY ORTEGA PATIENT [employer] [place] MEDICARE SUPPLEMEN WILL MEDIC ARE SUPPL EMENT Feb 20, 2013 PLAN G [id number] [phone] KATHY ORTEGA PATIENT [employer] MCR (WNR) MEDICARE ADVANTAGE [facility] (WNR) Mar 23, 2021 [id number] KATHY ORTEGA PATIENT Selected Encounter This section includes the information on record at [place] for the Encounter. Date/Time Encounter Type Encounter Description Reason Pro vider Source May 26, 2023 09:14 AM Outpatient Encounter EVENT (HISTORICAL) IHE Encounter Template Text not used by CT [...] 27, 2023 08:15 AM AMBULATORY - MEDICINE . [facility] Jun 24, 2023 10:15 AM AMBULATORY - MEDICINE [facility] Jul 01, 2023 06:30 AM AMBULATORY - NONE [facility] Jul 02, 2023 08:30 AM AM[facility]ULATORY - SURGERY [facility] Jul 08, 2023 10:00 AM AMBULATORY - SURGERY [facility] July 31, 2023 10:00 AM AMBULATORY - SURGERY [facility] August 06, 2023 08:30 AM AMBULATORY - MEDICINE [facility] August 06, 2023 10:30 AM AMBULATORY - MEDICINE [facility] Sep 10, 2023 08:00 AM AMBULATORY - MEDICINE [facility] Oct 08, 2023 08:30 AM AMBULATORY - MEDICINE [facility] Nov 12, 2023 08:15 AM AMBULATORY - MEDICINE [facility] Nov 26, 2023 03:00 PM AMBULATORY - PSYCHIATRY [facility] Lab Results: +/- 30 days of [...] Range Comment Jun 24, 2023 09:59 AM [facility] HGB,HCT,PLT Specimen Type: BLOOD No comment entered. Ordering Provider: NANCI PEREIRA Report Released Date/Time: May 28, 2023 09:48 AM Reporting Lab: [address] [id number] Performing Lab: [address] [address] HGB 14.9 g/dL 13.1-16.8 HCT 47.7 38.2-48.4 PLT 120 10*3/uL L 150-400 Jun 24, 2023 09:58 AM [facility] POC INR (STL-RX MONITORING ONLY) Specimen Type: BLOOD Comment: Test Performed by: [id number] Meter #: [id number] Ordering Provider: NANCI PEREIRA Report Released Date/Time: Jun 24, 2023 10:01 AM Reporting Lab: [address] [address] Performing Lab: [facility] [address] [facility]ILBERTNatalie [facility] [address] POC INR (STL-RX MONITORING ONLY) 2.9 {INR} H 0.9-1.1 May 27, 2023 09:49 AM [facility] POC INR (STL-RX MONITORING ONLY) Specimen Type: BLOOD Comment: Test Performed by: [id number] Meter #: [id number] Ordering Provider: NANCI PEREIRA Report Released Date/Time: May 28, 2023 06:05 AM Reporting Lab: [address] [address] Performing Lab: [address] [address] POC INR (STL-RX MONITORING ONLY) 2.5 {INR} H 0.9-1.1 May 13, 2023 12:42 PM [facility] POC INR (STL-RX MONITORING ONLY) Specimen Type: BLOOD Comment: Test Performed by: [id number] Meter #: [id number] Ordering Provider: NANCI PEREIRA Report Released Date/Time: May 13, 2023 12:48 PM Reporting Lab: [place] [id number] Performing Lab: [address] [address] POC INR (STL-RX MONITORING ONLY) 1.9 {INR} H 0.9-1.1 May 04, 2023 09:30 AM [facility] POC INR (STL-RX MONITORING ONLY) Specimen Type: BLOOD Comment: Test Performed by: [id number] Meter #: [id number] Ordering Provider: NANCI PEREIRA Report Released Date/Time: May 04, 2023 09:36 AM Reporting Lab: [address] [address] Performing Lab: [address] [address] POC INR (STL-RX MONITORING ONLY) 1.5 {INR} [...] Catherine ity Apr 29, 2018 09:[address]-TOBACCO FORMER USER [facility] Tobacco Use History This section includes a history of the smoking, or tobacco-related health factors, that were collected on or before the date of the Encounter. The data comes from the [place] facility where the Encounter took place. Date/Time Smoking Status/Tobacco Use Comment F acility Apr 29, 2018 09:[address]-TOBACCO QUIT 15 YRS OR MORE [facility] Advance Directives: All historical and current Section [...] 2013 ADVANCE DIRECTIVE DISCUSSION RONALD ESTRADA [facility]
--- OUTSIDE RECORDS SUMMARY | 2024-03-04 12:56 | XMS_ITS | Encounter Summary ---
Author Name [facility] Address [address] [place] [address] Care Team Providers Care Tin Pourer Name Role Phone JILLIAN GAN Primary Care [...] MEDIC ARE SUPPL EMEMT Apr 23, 2019 [id number] [phone] KATHY ORTEGA PATIENT ANTHEM [place]BS [place] MEDICARE SUPPLEMEN WILL MEDIC ARE SUPPL EMEMT Apr 23, 2019 [id number] [phone] KATHY ORTEGA PATIENT ANTHEM [place] MEDICARE SUPPLEMEN WILL MEDIC ARE SUPPL EMEMT Apr 23, 2019 [id number] [phone] KATHY ORTEGA PATIENT [place] MEDICARE SUPPLEMEN WILL MEDIC ARE SUPPL EMEMT Apr 23, 2019 [id number] [phone] KATHY ORTEGA PATIENT [employer] MCR (WNR) MEDICARE ADVANTAGE MCR (WNR) Mar 23, 2022 [id number] KATHY ORTEGA PATIENT [employer] MCR (WNR) MEDICARE ADVANTAGE [facility] (WNR) Mar 23, 2022 [id number] KATHY ORTEGA PATIENT MEDICARE (WNR) MEDICARE (M) RR PART A May 21, 1990 RR PART A [id number] [phone] KATHY ORTEGA PATIENT MEDICARE (WNR) MEDICARE (M) RR PART B May 21, 1990 RR PART B [id number] KATHY ORTEGA PATIENT [employer] [place] MEDICARE SUPPLEMEN WILL MEDIC ARE SUPPL EMENT Feb 20, 2013 PLAN G [id number] [phone] KATHY ORTEGA PATIENT [employer] MCR (WNR) MEDICARE ADVANTAGE [facility] (WNR) Mar 23, 2021 [id number] KATHY ORTEGA PATIENT Selected Encounter This section includes the information on record at [place] for the Encounter. Date/Time Encounter Type Encounter Description Reason Provider Source Jul 01, 2023 08:04 AM XCAPSL CTRC RMVL W/O ECP GENERAL SURGERY EVERTON HARPER Encounter Template Text not used by [place] [...] 02, 2023 08:30 AM AMBULATORY - SURGERY [facility] Jul 08, 2023 10:00 AM AMBULATORY - SURGERY [facility] July 31, 2023 10:00 AM AMBULATORY - SURGERY [facility] August 06, 2023 08:30 AM AMBULATORY - MEDICINE [facility] August 06, 2023 10:30 AM AMBULATORY - MEDICINE [facility] Sep 10, 2023 08:00 AM AMBULATORY - MEDICINE [facility] Oct 08, 2023 08:30 AM AMBULATORY - MEDICINE [facility] Nov 12, 2023 08:15 AM AMBULATORY - MEDICINE [facility] Nov 26, 2023 03:00 PM AMB[facility]ORY - PS[facility]RY [facility] Dec 10, 2023 09:30 AM AMBULATORY - MEDICINE [facility] Surgical Procedures: All associated to the encounter This section includes all Surgical Procedures and Surgical Procedure Notes associated to the Encounter. Surgical Procedures This section includes all Surgical Procedures associated to the Encounter. Surgical Procedure Date/Time Procedure Procedure Type Procedure Qualifiers Provider Source Jul 01, 2023 08:04 AM LEFT EYE PHACO CATARACT EXTRACTION WITH LENS IMPLLANT XCAPSL CTRC RMVL W/O ECP IRIS SANTAMARIA [facility] Surgical Notes This section includes all Surgical Notes associated to the Procedure. Date/Time Jul 01, 2023 08:04 AM OPERATIVE REPORT: LOCAL TITLE: OPERATION REPORT STANDARD TITLE: OPERATIVE REPORT DATE OF NOTE: JUL 01, 2023@08:04 ENTRY DATE: JUL 01, 2023@08:38:42 SURGEON: IRIS SANTAMARIA ATTENDING: MERRICK OSPINA URGENCY: STATUS: COMPLETED SUBJECT: Case #: [id number] Date of procedure: JUL 01, 2023 Attending Surgeon: Merrick Ospina MD Primary Surgeon: Iris Santamaria MD, PhD Anesthesia: Local, monitored anesthesia care Preoperative diagnosis: Visually significant nuclear sclerotic cataract of the left eye Postoperative diagnosis: Visually significant nuclear sclerotic cataract of left eye Operative procedure: Cataract extraction with insertion of intraocular lens, left eye Indications for procedure: The patient had a visually significant cataract of the left eye. The risks (including infection, inflammation, vision loss, including blindness, redness, retinal detachment, pain, bleeding, and the possible need to do another procedure in the future), the benefits and alternatives of the procedure were explained to the patient and the patient wished to proceed with surgery. Description of Procedure: The patient was taken to the operating room and appropriately connected to cardiac, blood pressure and pulse oximetry monitors. A verbal timeout occurred to verify the patient's name, date of , and surgical site and procedure to be performed. Tetracaine was instilled onto the ocular surface. The eye was then prepped and draped in the usual sterile ophthalmic fashion. A lid speculum was placed and the operative microscope was brought into view over the operative eye. A paracentesis was made at the 5:00 position with 1.2 sideport blade. Preservative-free lidocaine with epinephrine was injected into the anterior chamber for additional anesthesia and to augment mydriasis. Viscoat was then injected to fill the anterior chamber. A 2.4-mm keratome was used to make a biplanar clear corneal incision temporally. A continuous curvilinear capsulorrhexis was created with a cystitome needle and Utrata forceps. Hydrodissection was achieved with BSS on a 25-gauge flat-tip cannula. The lens was able to rotate freely. Phacoemulsification was used to remove the entirety of the lens using a divide and conquer technique. Coaxial irrigation and aspiration was used to remove cortical material. The capsular bag was filled with Healon and a +19.5 diopter MX60E lens was loaded into a lens injector and subsequently injected into the capsular bag. A Sinskey hook was used to position the trailing haptic. Coaxial irrigation and aspiration was used to remove any remaining viscoelastic material. BSS on a cannula was used to hydrate the main wound and the paracentesis wounds as well as to adjust the eye to a physiologic pressure. All the wounds were tested for leakage and all were found to be watertight. The eyelid speculum was removed and the patient's face was cleaned. A drop of Vigamox and Maxitrol ointment were placed in the eye. The eye was then shielded. The patient was wheeled to recovery in stable condition and is to follow up the next day in clinic. Complications: None. Specimens Removed: None. Estimated blood loss: Minimal. Intraoperative fluids: Per anesthesia. Sponge/instrument/needle counts: Sponge, instrument, and needle counts all correct. The attending was present and scrubbed in for the entire duration of the case. /paola/ IRIS SANTAMARIA MD PHD Resident Physician, Ophthalmology Signed: 07/01/2023 09:37 /paola/ MERRICK OSPINA MD Staff Physician-Ophthalmology Cosigned: 07/02/2023 08:17 IRIS SANTAMARIA Jul 01, 2023 08:04 AM SURGERY NURSING OPERATIVE NOTE: LOCAL TITLE: NURSE INTRAOPERATIVE REPORT STANDARD TITLE: SURGERY NURSING OPERATIVE NOTE DATE OF NOTE: JUL 01, 2023@08:04 ENTRY DATE: JUL 01, 2023@08:38:42 AUTHOR: EVERTON HARPER COSIGNER: URGENCY: STATUS: COMPLETED SUBJECT: Case #: [id number] Operating Room: OR 11 Surgical Priority: ELECTIVE Patient in Hold: JUL 01, 2023 06:45 Patient in OR: JUL 01, 2023 08:04 Operation Begin: JUL 01, 2023 08:18 Operation End: JUL 01, 2023 08:36 Surgeon in OR: JUL 01, 2023 08:04 Patient Out OR: JUL 01, 2023 08:37 Major Operations Performed: Primary: LEFT EYE PHACO CATARACT EXTRACTION WITH LENS IMPLLANT Robotic Assistance (Y/N): NO Wound Classification: CLEAN Operation Disposition: OUTPATIENT/DISCHARGE Discharged Via: STRETCHER Primary Surgeon: IRIS SANTAMARIA Tool And Cutter Grinder: N/A Attending Surgeon: MERRICK OSPINA Second Assist: N/A Efficiency Engineer: CORNELIO MORTON Director Financial Analysis Anesth: N/A OR Support Personnel: Scrubbed Circulating DANAE TERRY (FULLY TRAINED) EVERTON HARPER (FULLY TRAINED) RANJANA REDDING (FULLY TRAINED) NEVA CHERRY (FULLY TRAINED) Preop Mood: RELAXED Preop Consc: ALERT-ORIENTED Preop Skin Integ: INTACT Preop [place]: RESPONDS TO QUESTIONS --- Time Out Checklist --- Confirm Correct Patient Identity: YES Confirm Procedure To Be Performed: YES Confirm Site of the Procedure, Including Laterality: YES Confirm Valid Consent: YES, i-MED Confirm Patient Position: YES Confirm Procedure Site has been Marked Appropriately and that the Site of the Neva is Visible After Prep and Draping: YES Pertinent Medical Images Have Been Confirmed: N/A Correct Medical Implant(s) is Available: YES Availability of Special Equipment: YES Appropriate Antibiotic Prophylaxis: NOT INDICATED Appropriate Deep Vein Thrombosis Prophylaxis: NOT INDICATED Blood Availability: NOT INDICATED Checklist Comment: TIMEOUT PERFORMED PRIOR TO PROCEDURE START WITH SURGEON AND ALL TEAM MEMBERS PRESENT. FIRE RISK SCORE SET AT B, C WITH PRECAUTIONS IN PLACE. Time-Out Document Completed By: RANJANA REDDING Time-Out Completed: JUL 01, 2023@08:16 Skin Prep By: RANJANA REDDING Skin Prep Agent: BETADINE SOLUTION Preop Surgical Site Hair Removal by: N/A Surgical Site Hair Removal Method: NO HAIR REMOVED Hair Removal Comments: NO COMMENTS ENTERED Surgery Position(s): SUPINE Placed: N/A Electrocautery Unit: NOT USED ESU Coagulation Range: NA ESU Cutting Range: NA Electroground Position(s): N/A Material Sent to Laboratory for Analysis: Specimens: NONE Cultures: NONE Anesthesia Technique(s): MONITORED ANESTHESIA CARE (PRINCIPAL) Tubes and Drains: NONE Prosthesis Installed: Item: LENS (ALL TYPES) Implant Sterility Checked (Y/N): YES Sterility Expiration Date: APR 22, 2026 RN Global Marketing Coordinator: EVERTON HARPER Vendor: [employer] Model: [id number] Lot Number: [id number] Serial Number: [id number] Sterile Resp: MESS ATTENDANT Size: 19.5D Quantity: 1 Provider Read Back Performed: YES Medications: VISCOAT OPH INJ SYRINGE 0.75ML TETRACAINE HCL 0.5% OPH SOLN DEXAMETHASONE 0.1%/GANESH/POLYMX OPH OINT MOXIFLOXACIN (EQV-VIGAMOX) 0.5% OPH SOLN Irrigation Solution(s): BALANCED SALT SOLUTION Possible Item Retention: YES Sponge Final Count Correct: YES Sharps Final Count Correct: YES Instrument Final Count Correct: YES Wound Sweep: YES Wound Sweep Comment: METHODICAL WOUND SWEEP PERFORMED BY SURGEON PRIOR TO WOUND CLOSURE. NO RETAINED SURGICAL ITEMS FOUND. INITIAL COUNT OF INSTRUMENTS, SPONGES AND SHARPS PERFORMED BY: Alexandria ALVAREZ RN CLOSURE OF A CAVITY COUNT CORRECT OF INSTRUMENTS, SPONGES AND SHARPS PERFORMED BY: N/A BEFORE WOUND CLOSURE COUNT CORRECT OF INSTRUMENTS, SPONGES AND SHARPS PERFORMED BY: Alexandria ALVAREZ RN FINAL COUNT CORRECT OF SPONGES AND SHARPS PERFORMED BY: Alexandria ALVAREZ RN RELIEF COUNT CORRECT OF SPONGES AND SHARPS PERFORMED BY: N/A Intra-Operative X-Ray: NO Intra-Operative X-Ray Comment: NO COMMENTS ENTERED Counter: DANAE TERRY Counts Verified By: EVERTON HARPER Dressing: EYE SHIELD AND PAPER TAPE Packing: NONE Postoperative Mood: RELAXED Postoperative Consciousness: ALERT-ORIENTED Postoperative Skin Integrity: INTACT Postoperative Skin Color: PINK Sequential Compression Device: NO Devices: [employer] NobleURION EE# [id number], ZEISS EYE MICROSCOPE Immediate Use Steam Sterilization Episodes: Contamination: 0 SPS Processing/OR Management Issues: 0 Emergency Case: 0 No Better Option: 0 Loaner or Short Notice Instrument: 0 Decontamination of Instruments Contaminated During the Case: 0 Nursing Care Comments: PROVIDED PATIENT WITH A SAFE AND THERAPEUTIC ENVIRONMENT INCLUDING COMFORT MEASURES AND EMOTIONAL SUPPORT ACCORDING TO MEDICAL AND SURGICAL DIAGNOSIS AND AGE SPECIFIC NEEDS. PATIENT TRANSFERRED TO OR #11 VIA EYE STRETCHER. BRIEFING COMPLETED WITH PATIENT AND SURGICAL TEAM UPON ENTERING OPERATING ROOM. PATIENT ALLERGIES CONFIRMED. POSITIONED AND PAPOOSED WITH ARMS AT SIDES PER SURGEON. PILLOW PLACED BENEATH KNEES. ALL BONY PROMINENCES PADDED APPROPRIATELY. ALL TUBING AND LINES SECURED AND FREE OF TENSION. PATIENT PREPPED AND DRAPED IN A STERILE FASHION. IMPLANT VERIFIED BY SURGEON. I&O, THERMOREGULATION, AND VITAL SIGNS PER ANESTHESIA. REPORT GIVEN TO QuintinN RN. DEBRIEFING COMPLETED WITH SURGICAL TEAM. PATIENT TRANSFERRED TO IN STABLE CONDITION. HYALURONATE NA 10MG/ML OPH SYR 0.85ML LIDOCAINE 1%/PHENYLEPHRINE 1.5% PF INTRACAMERAL PER SURGEON, 0.3mL ADMINISTERED /es/ EVERTON TENORION RN REGISTERED NURSE Signed: 07/01/2023 08:38 EVERTON HARPER Lab Results: +/- 30 days of the [...] Range Comment Jul 01, 2023 06:59 AM [facility] GLUCOSE,BLOOD-poct (STL) Specimen Type: BLOOD Comment: Test Performed by: [id number] Meter #: [id number] Ordering Provider: EFREN ROSARIO Report Released Date/Time: Jul 01, 2023 07:10 AM Reporting Lab: [facility] [address] [facility] [address] Performing Lab: [facility] [address] [facility] [facility] [address] GLUCOSE,BLOOD -poct (STL) 159 mg/dL H 72-99 Jun 24, 2023 09:59 AM [facility] HGB,HCT,PLT Specimen Type: BLOOD No comment entered. Ordering Provider: NANCI PEREIRA Report Released Date/Time: May 28, 2023 09:48 AM Reporting Lab: [facility] [address] [facility] [facility] [address] Performing Lab: [facility] [address] [facility] [address] HGB 14.9 g/dL 13.1-16.8 HCT 47.7 38.2-48.4 PLT 120 10*3/uL L 150-400 Jun 24, 2023 09:58 AM [facility] POC INR (STL-RX MONITORING ONLY) Specimen Type: BLOOD Comment: Test Performed by: [id number] Meter #: [id number] Ordering Provider: NANCI PEREIRA Report Released Date/Time: Jun 24, 2023 10:01 AM Reporting Lab: [facility] [address] [facility] [address] Performing Lab: [facility] [address] [facility] [address] POC INR (STL-RX MONITORING ONLY) 2.9 {INR} H 0.9-1.1 Vital Signs: All taken on the encounter date This section contains inpatient and outpatient Vital Signs collected on the date of the Encounter. Date/Time Temperature Pulse Blood Pressure Respiratory Rate SP02 Pain Height Weight Body Mass Index Source Jul 01, 2023 06:54 AM 97 85 149/75 18 93 5 70 260 37 [facility] Social History: Smoking Status (Most [...] Date/Time Current Smoking Status Comment Catherine pepe Apr 29, 2018 09:12 AM VA-TOBACCO FORMER USER [facility] Tobacco Use History This section includes a history of the smoking, or tobacco-related health factors, that were collected on or before the date of the Encounter. The data comes from the [place] facility where the Encounter took place. Date/Time Smoking Status/Tobacco Use Comment F acility Apr 29, 2018 09:12 AM VA-TOBACCO QUIT 15 YRS OR MORE [facility] Advance Directives: All historical and current [...] Encounter Note(s) Provider Source Jul 01, 2023 08:04 AM SURGERY NURSING OP ERATIVE NOTE: LOCAL TITLE: NURSE INTRAOPERATIVE REPORT STANDARD TITLE: SURGERY NURSING OPERATIVE NOTE DATE OF NOTE: JUL 01, 2023@08:04 ENTRY DATE: JUL 01, 2023@08:38:42 AUTHOR: EVERTON HARPER EXP COSIGNER: URGENCY: STATUS: COMPLETED SUBJECT: Case #: [id number] Operating Room: OR 11 Surgical Priority: ELECTIVE Patient in Hold: JUL 01, 2023 06:45 Patient in OR: JUL 01, 2023 08:04 Operation Begin: JUL 01, 2023 08:18 Operation End: JUL 01, 2023 08:36 Surgeon in OR: JUL 01, 2023 08:04 Patient Out OR: JUL 01, 2023 08:37 Major Operations Performed: Primary: LEFT EYE PHACO CATARACT EXTRACTION WITH LENS IMPLLANT Robotic Assistance (Y/N): NO Wound Classification: CLEAN Operation Disposition: OUTPATIENT/DISCHARGE Discharged Via: STRETCHER Primary Surgeon: IRIS SANTAMARIA Tool And Cutter Grinder: N/A Attending Surgeon: MERRICK OSPINA Second Assist: N/A Efficiency Engineer: CORNELIO MORTON Director Financial Analysis Anesth: N/A OR Support Personnel: DANAE Ewing (FULLY TRAINED) EVERTON HARPER (FULLY TRAINED) RANJANA REDDING (FULLY TRAINED) NEVA CHERRY (FULLY TRAINED) Preop Mood: RELAXED Preop Consc: ALERT-ORIENTED Preop Skin Integ: INTACT Preop [place]: RESPONDS TO QUESTIONS --- Time Out Checklist --- Confirm Correct Patient Identity: YES Confirm Procedure To Be Performed: YES Confirm Site of the Procedure, Including Laterality: YES Confirm Valid Consent: YES, i-MED Confirm Patient Position: YES Confirm Procedure Site has been Marked Appropriately and that the Site of the Neva is Visible After Prep and Draping: YES Pertinent Medical Images Have Been Confirmed: N/A Correct Medical Implant(s) is Available: YES Availability of Special Equipment: YES Appropriate Antibiotic Prophylaxis: NOT INDICATED Appropriate Deep Vein Thrombosis Prophylaxis: NOT INDICATED Blood Availability: NOT INDICATED Checklist Comment: TIMEOUT PERFORMED PRIOR TO PROCEDURE START WITH SURGEON AND ALL TEAM MEMBERS PRESENT. FIRE RISK SCORE SET AT B, C WITH PRECAUTIONS IN PLACE. Time-Out Document Completed By: RANJANA REDDING Time-Out Completed: JUL 01, 2023@08:16 Skin Prep By: RANJANA REDDING Skin Prep Agent: BETADINE SOLUTION Preop Surgical Site Hair Removal by: N/A Surgical Site Hair Removal Method: NO HAIR REMOVED Hair Removal Comments: NO COMMENTS ENTERED Surgery Position(s): SUPINE Placed: N/A Electrocautery Unit: NOT USED ESU Coagulation Range: NA ESU Cutting Range: NA Electroground Position(s): N/A Material Sent to Laboratory for Analysis: Specimens: NONE Cultures: NONE Anesthesia Technique(s): MONITORED ANESTHESIA CARE (PRINCIPAL) Tubes and Drains: NONE Prosthesis Installed: Item: LENS (ALL TYPES) Implant Sterility Checked (Y/N): YES Sterility Expiration Date: APR 22, 2026 RUDDY Global Marketing Coordinator: EVERTON HARPER Vendor: [employer] Model: [id number] Lot Number: [id number] Serial Number: [id number] Sterile Resp: MESS ATTENDANT Size: 19.5D Quantity: 1 Provider Read Back Performed: YES Medications: VISCOAT OPH INJ SYRINGE 0.75ML TETRACAINE HCL 0.5% OPH SOLN DEXAMETHASONE 0.1%/GANESH/POLYMX OPH OINT MOXIFLOXACIN (EQV-VIGAMOX) 0.5% OPH SOLN Irrigation Solution(s): BALANCED SALT SOLUTION Possible Item Retention: YES Sponge Final Count Correct: YES Sharps Final Count Correct: YES Instrument Final Count Correct: YES Wound Sweep: YES Wound Sweep Comment: METHODICAL WOUND SWEEP PERFORMED BY SURGEON PRIOR TO WOUND CLOSURE. NO RETAINED SURGICAL ITEMS FOUND. INITIAL COUNT OF INSTRUMENTS, SPONGES AND SHARPS PERFORMED BY: Alexandria ALVAREZ RN CLOSURE OF A CAVITY COUNT CORRECT OF INSTRUMENTS, SPONGES AND SHARPS PERFORMED BY: N/A BEFORE WOUND CLOSURE COUNT CORRECT OF INSTRUMENTS, SPONGES AND SHARPS PERFORMED BY: Alexandria ALVAREZ RN FINAL COUNT CORRECT OF SPONGES AND SHARPS PERFORMED BY: Alexandria ALVAREZ RN RELIEF COUNT CORRECT OF SPONGES AND SHARPS PERFORMED BY: N/A Intra-Operative X-Ray: NO Intra-Operative X-Ray Comment: NO COMMENTS ENTERED Counter: DANAE TERRY Counts Verified By: EVERTON HARPER Dressing: EYE SHIELD AND PAPER TAPE Packing: NONE Postoperative Mood: RELAXED Postoperative Consciousness: ALERT-ORIENTED Postoperative Skin Integrity: INTACT Postoperative Skin Color: PINK Sequential Compression Device: NO Devices: [employer] EE# [id number], ZEISS EYE MICROSCOPE Immediate Use Steam Sterilization Episodes: Contamination: 0 SPS Processing/OR Management Issues: 0 Emergency Case: 0 No Better Option: 0 Loaner or Short Notice Instrument: 0 Decontamination of Instruments Contaminated During the Case: 0 Nursing Care Comments: PROVIDED PATIENT WITH A SAFE AND THERAPEUTIC ENVIRONMENT INCLUDING COMFORT MEASURES AND EMOTIONAL SUPPORT ACCORDING TO MEDICAL AND SURGICAL DIAGNOSIS AND AGE SPECIFIC NEEDS. PATIENT TRANSFERRED TO OR #11 VIA EYE STRETCHER. BRIEFING COMPLETED WITH PATIENT AND SURGICAL TEAM UPON ENTERING OPERATING ROOM. PATIENT ALLERGIES CONFIRMED. POSITIONED AND PAPOOSED WITH ARMS AT SIDES PER SURGEON. PILLOW PLACED BENEATH KNEES. ALL BONY PROMINENCES PADDED APPROPRIATELY. ALL TUBING AND LINES SECURED AND FREE OF TENSION. PATIENT PREPPED AND DRAPED IN A STERILE FASHION. IMPLANT VERIFIED BY SURGEON. I&O, THERMOREGULATION, AND VITAL SIGNS PER ANESTHESIA. REPORT GIVEN TO QuintinN RN. DEBRIEFING COMPLETED WITH SURGICAL TEAM. PATIENT TRANSFERRED TO IN STABLE CONDITION. HYALURONATE NA 10MG/ML OPH SYR 0.85ML LIDOCAINE 1%/PHENYLEPHRINE 1.5% PF INTRACAMERAL PER SURGEON, 0.3mL ADMINISTERED /paola/ EVERTON TENORION RN REGISTERED NURSE Signed: 07/01/2023 08:38 EVERTON HARPER [facility] Jul 01, 2023 08:04 AM OPERATIVE REPORT: LOCAL TITLE: OPERATION REPORT STANDARD TITLE: OPERATIVE REPORT DATE OF NOTE: JUL 01, 2023@08:04 ENTRY DATE: JUL 01, 2023@08:38:42 SURGEON: IRIS SANTAMARIA ATTENDING: MERRICK OSPINA URGENCY: STATUS: COMPLETED SUBJECT: Case #: [id number] Date of procedure: JUL 01, 2023 Attending Surgeon: Merrick Ospina MD Primary Surgeon: Iris Santamaria MD, PhD Anesthesia: Local, monitored anesthesia care Preoperative diagnosis: Visually significant nuclear sclerotic cataract of the left eye Postoperative diagnosis: Visually significant nuclear sclerotic cataract of left eye Operative procedure: Cataract extraction with insertion of intraocular lens, left eye Indications for procedure: The patient had a visually significant cataract of the left eye. The risks (including infection, inflammation, vision loss, including blindness, redness, retinal detachment, pain, bleeding, and the possible need to do another procedure in the future), the benefits and alternatives of the procedure were explained to the patient and the patient wished to proceed with surgery. Description of Procedure: The patient was taken to the operating room and appropriately connected to cardiac, blood pressure and pulse oximetry monitors. A verbal timeout occurred to verify the patient's name, date of , and surgical site and procedure to be performed. Tetracaine was instilled onto the ocular surface. The eye was then prepped and draped in the usual sterile ophthalmic fashion. A lid speculum was placed and the operative microscope was brought into view over the operative eye. A paracentesis was made at the 5:00 position with 1.2 sideport blade. Preservative-free lidocaine with epinephrine was injected into the anterior chamber for additional anesthesia and to augment mydriasis. Viscoat was then injected to fill the anterior chamber. A 2.4-mm keratome was used to make a biplanar clear corneal incision temporally. A continuous curvilinear capsulorrhexis was created with a cystitome needle and Utrata forceps. Hydrodissection was achieved with BSS on a 25-gauge flat-tip cannula. The lens was able to rotate freely. Phacoemulsification was used to remove the entirety of the lens using a divide and conquer technique. Coaxial irrigation and aspiration was used to remove cortical material. The capsular bag was filled with Healon and a +19.5 diopter MX60E lens was loaded into a lens injector and subsequently injected into the capsular bag. A Sinskey hook was used to position the trailing haptic. Coaxial irrigation and aspiration was used to remove any remaining viscoelastic material. BSS on a cannula was used to hydrate the main wound and the paracentesis wounds as well as to adjust the eye to a physiologic pressure. All the wounds were tested for leakage and all were found to be watertight. The eyelid speculum was removed and the patient's face was cleaned. A drop of Vigamox and Maxitrol ointment were placed in the eye. The eye was then shielded. The patient was wheeled to recovery in stable condition and is to follow up the next day in clinic. Complications: None. Specimens Removed: None. Estimated blood loss: Minimal. Intraoperative fluids: Per anesthesia. Sponge/instrument/needle counts: Sponge, instrument, and needle counts all correct. The attending was present and scrubbed in for the entire duration of the case. /paola/ IRIS SANTAMARIA MD PHD Resident Physician, Ophthalmology Signed: 07/01/2023 09:37 /paola/ MERRICK OSPINA MD Staff Physician-Ophthalmology Cosigned: 07/02/2023 08:17 IRIS SANTAMARIA [facility]
--- OUTSIDE RECORDS SUMMARY | 2024-03-04 12:56 | XMS_ITS ---
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 Role Phone JILLIAN GAN [...] MEDIC ARE SUPPL EMEMT Apr 23, 2019 [id number] [phone] KATHY ORTEGA PATIENT ANTHEM [employer] [place] MEDICARE SUPPLEMEN WILL MEDIC ARE SUPPL EMEMT Apr 23, 2019 [id number] [phone] KATHY ORTEGA PATIENT AN[place] [employer] MEDICARE SUPPLEMEN WILL MEDIC ARE SUPPL EMEMT Apr 23, 2019 [id number] [phone] KATHY ORTEGA PATIENT [employer] MEDICARE SUPPLEMEN WILL MEDIC ARE SUPPL EMEMT Apr 23, 2019 [id number] [phone] KATHY ORTEGA PATIENT [employer] M[employer] (WNR) MEDICARE ADVANTAGE MCR (WNR) Mar 23, 2022 [id number] KATHY ORTEGA PATIENT [employer] M[employer] (WNR) MEDICARE ADVANTAGE [facility] (WNR) Mar 23, 2022 [id number] KATHY ORTEGA PATIENT MEDICARE (WNR) MEDICARE (M) RR PART A May 21, 1990 RR PART A [id number] KATHY ORTEGA PATIENT MEDICARE (WNR) MEDICARE (M) RR PART B May 21, 1990 RR PART B [id number] [phone] KATHY ORTEGA PATIENT [employer] [place] MEDICARE SUPPLEMEN WILL MEDIC ARE SUPPL EMENT Feb 20, 2013 PLAN G [id number] [phone] KATHY ORTEGA PATIENT [employer] (WNR) MEDICARE ADVANTAGE [facility] (WNR) Mar 23, 2021 [id number] KATHY ORTEGA PATIENT Selected Encounter This section includes the information on record at [place] for the Encounter. Date/Time Encounter Type Encounter Description Reason Provider Source Jul 02, 2023 08:30 AM POSTOP FOLLOW-UP VISIT OPHTHALMOLOGY ICD-10-CM Z98.42 Cataract extraction status, left eye MARYCARMENMERRICK HENNING Y IHE Encounter Template Text not used by [place] Assessments - Encounter Diagnoses This section includes the primary and secondary diagnoses documented for the Encounter. Date/Time Primary/Secondary Diagnosis Diagnosis Name Provider Source Jul 02, 2023 11:53 AM PRIMARY Cataract extraction status, left eye IRIS SANTAMARIA [facility] Plan of Treatment: Future Appointments (+ 6 months) and Future Tests (+/- 45 days) The Plan of Treatment section includes future care activities for the patient from all [place] treatmentfacilities. This section includes future appointments and future orders which are active, pending or scheduled. Future Appointments This section includes appointments that were scheduled to occur 6 months from the date of the Encounter, up to a maximum of 20 appointments. The data comes from all [place] treatment facilities. Appointment Date/Time Appointment Type Appointme nt Facility Name Jul 08, 2023 10:00 AM AMBULATORY - SURGERY [facility] July 31, 2023 10:00 AM AMBULATORY - SURGERY [facility] August 06, 2023 08:30 AM AMBULATORY - MEDICINE [facility] August 06, 2023 10:30 AM AMBULATORY - MEDICINE [facility] Sep 10, 2023 08:00 AM AMBULATORY - MEDICINE [facility] Oct 08, 2023 08:30 AM AMBULATORY - MEDICINE [facility] Nov 12, 2023 08:15 AM AMBULATORY - MEDICINE [facility] Nov 26, 2023 03:00 PM AMBULATORY - PSYCHIATRY [facility] Dec 10, 2023 09:30 AM AMBULATORY - MEDICINE [facility] Lab Results: +/- 30 days of [...] Range Comment Jul 01, 2023 06:59 AM [facility] GLUCOSE,BLOOD-poct (STL) Specimen Type: BLOOD Comment: Test Performed by: [id number] Meter #: [id number] Ordering Provider: EFREN ROSARIO Report Released Date/Time: Jul 01, 2023 07:10 AM Reporting Lab: [address] [address] Performing Lab: [address] [address] GLUCOSE,BLOOD -poct (STL) 159 mg/dL H 72-99 Jun 24, 2023 09:59 AM [facility] HGB,HCT,PLT Specimen Type: BLOOD No comment entered. Ordering Provider: NANCI PEREIRA Report Released Date/Time: May 28, 2023 09:48 AM Reporting Lab: [address] [address] Performing Lab: [address] [address] HGB 14.9 g/dL 13.1-16.8 HCT 47.7 38.2-48.4 PLT 120 10*3/uL L 150-400 Jun 24, 2023 09:58 AM [facility] POC INR (STL-RX MONITORING ONLY) Specimen Type: BLOOD Comment: Test Performed by: [id number] Meter #: [id number] Ordering Provider: NANCI PEREIRA Report Released Date/Time: Jun 24, 2023 10:01 AM Reporting Lab: [facility] [address] [facility] [address] Performing Lab: [facility] [address] [place] [address] POC INR (STL-RX MONITORING ONLY) 2.9 {INR} H 0.9-1.1 Social History: Smoking Status (Most current) and Tobacco Use (All prior to encounter date) This section includes the most current, and the historical, smoking and tobacco- related health factors from the [place] facility where the Encounter took place. Current Smoking Status This section includes the most current smoking, or tobacco-related health factor, from the [place] facility where the Encounter took place. Date/Time Current Smoking Status Comment Catherine ity Apr 29, 2018 09:12 AM [place]-TOBACCO QUIT 15 YRS OR MORE [facility] Tobacco Use History This section includes a history of the smoking, or tobacco-related health factors, that were collected on or before the date of the Encounter. The data comes from the [place] facility where the Encounter took place. Date/Time Smoking Status/Tobacco Use Comment F acility Apr 29, 2018 09:12 AM [place]-TOBACCO QUIT 15 YRS OR MORE [facility] Advance Directives: All historical and current Section Date Range: From patient's date of to the date document was created. This section includes ALL of a patient's completed or amended [place] Advance and Rescinded Directives. The entries below indicate that a directive exists for the patient, but an actual copy is not included with this document. The data comes from all [place] facilities. Date Advance Directives Provider Source Jun 13, 2013 ADVANCE DIRECTIVE DISCUSSION RONALD ESTRADA [facility] Encounter Notes: All associated encounter notes This section contains the clinical notes associated to the Encounter. Date/Time Encounter Note(s) Provider Source Jul 02, 2023 08:26 AM OPHTHALMOLOGY NOTE : LOCAL TITLE: OPHTHALMOLOGY NOTE STL STANDARD TITLE: OPHTHALMOLOGY NOTE DATE OF NOTE: JUL 02, 2023@08:26 ENTRY DATE: JUL 02, 2023@08:26:30 AUTHOR: IRIS SANTAMARIA EXP COSIGNER: MERRICK CONROY URGENCY: STATUS: COMPLETED POD#1 s/p phaco/PCIOL OS. No complaints overnight. Pt had no PERAZA/pain. Tolerating POs. VA sc = 20/25+1 Pupils: no APD Ta OS: 23 SLEx: OS c/s mild injection (present bilaterally) K tr stromal edema temporally, tr central DM Folds. All wounds Brenna neg. AC deep, 3+ mixed cell I round L PCIOL centered A/P: POD#1 s/p phaco/pciol OS, doing well. To use: Prednisolone acetate 1% eyedrops OS QID Vigamox eyedrops OS QID Discussed post-op instructions and given medication schedule sheet with post-op instructions and emergency phone numbers today. No bending/straining/lifting. Ortiz shield qhs, glasses during day. Reviewed s/s RD/endophthalmitis. RTC 1 week, immed for problems /es/ IRIS SANTAMARIA MD PHD Resident Physician, Ophthalmology Signed: 07/02/2023 08:36 /es/ MERRICK CONROY MD Staff Physician-Ophthalmology Cosigned: 07/02/2023 11:53 [facility]
--- OUTSIDE RECORDS SUMMARY | 2024-03-04 12:56 | XMS_ITS ---
Author Name [facility] Organization [facility] [place] Address [address] [place] [address] Care Team Providers Care Bid Manager Name Role Phone JILLIAN GAN Primary Care [...] MEDIC ARE SUPPL EMEMT Apr 23, 2019 [id number] [phone] KATHY ORTEGA PATIENT ANTHEM [place] MEDICARE SUPPLEMEN WILL MEDIC ARE SUPPL EMEMT Apr 23, 2019 [id number] KATHY ORTEGA PATIENT ANTHE[place] MEDICARE SUPPLEMEN WILL MEDIC ARE SUPPL EMEMT Apr 23, 2019 [id number] [phone] KATHY ORTEGA PATIENT [place] MEDICARE SUPPLEMEN WILL MEDIC ARE SUPPL EMEMT Apr 23, 2019 [id number] [phone] KATHY ORTEGA PATIENT [employer] MCR (WNR) MEDICARE ADVANTAGE MCR (WNR) Mar 23, 2022 [id number] KATHY ORTEGA PATIENT [employer] MCR (WNR) MEDICARE ADVANTAGE [facility] (WNR) Mar 23, 2022 [id number] KATHY ORTEGA PATIENT MEDICARE (WNR) MEDICARE (M) RR PART A May 21, 1990 RR PART A [id number] KATHY ORTEGA PATIENT MEDICARE (WNR) MEDICARE (M) RR PART B May 21, 1990 RR PART B [id number] KATHY ORTEGA PATIENT [employer] [place] MEDICARE SUPPLEMEN WILL MEDIC ARE SUPPL EMENT Feb 20, 2013 PLAN G [id number] [phone] KATHY ORTEGA PATIENT [facility] (WNR) MEDICARE ADVANTAGE [facility] (WNR) Mar 23, 2021 [id number] KATHY ORTEGA PATIENT Selected Encounter This section includes the information on record at [place] for the Encounter. Date/Time Encounter Type Encounter Description Reason Provider Source Jul 01, 2023 06:30 AM MEASURE BLOOD OXYGEN LEVEL PRE-SURG EVAL ICD-10-CM Z98.42 Cataract extraction status, left eye NELSON ROSARIO [facility] Encounter Template Text not used by [facility] Assessments - Encounter Diagnoses This section includes the primary and secondary diagnoses documented for the Encounter. Date/Time Primary/Secondary Diagnosis Diagnosis Name Provider Source Jul 01, 2023 07:03 AM PRIMARY Cataract extraction status, left eye NELSON ROSARIO [facility] Plan of Treatment: Future Appointments (+ [...] 2023 08:30 AM AMBULATORY - SURGERY [facility] Jul 08, 2023 10:00 AM AMBULATORY - SURGERY [facility] July 31, 2023 10:00 AM AMBULATORY - SURGERY . L [facility] August 06, 2023 08:30 AM AMBULATORY - MEDICINE [facility] August 06, 2023 10:30 AM AMBULATORY - MEDICINE [facility] Sep 10, 2023 08:00 AM AMBULATORY - MEDICINE [facility] Oct 08, 2023 08:30 AM AMBULATORY - MEDICINE [facility] Nov 12, 2023 08:15 AM AMBULATORY - MEDICINE [facility] Nov 26, 2023 03:00 PM AMBULATORY - PSYCHIATRY [facility] Dec 10, 2023 09:30 AM AMBULATORY - MEDICINE [facility] Lab Results: +/- 30 days [...] Range Comment Jul 01, 2023 06:59 AM [facility] GLUCOSE,BLOOD-poct (STL) Specimen Type: BLOOD Comment: Test Performed by: [id number] Meter #: [id number] Ordering Provider: EFREN ROSARIO Report Released Date/Time: Jul 01, 2023 07:10 AM Reporting Lab: [facility] [address] [facility] [place] [address] Performing Lab: [place] [id number] [facility] [address] GLUCOSE,BLOOD -poct (STL) 159 mg/dL H 72-99 Jun 24, 2023 09:59 AM [facility] HGB,HCT,PLT Specimen Type: BLOOD No comment entered. Ordering Provider: NANCI PEREIRA Report Released Date/Time: May 28, 2023 09:48 AM Reporting Lab: [facility] [address] [facility] [address] Performing Lab: [address] [address] HGB 14.9 g/dL 13.1-16.8 HCT 47.7 38.2-48.4 PLT 120 10*3/uL L 150-400 Jun 24, 2023 09:58 AM [facility] POC INR (STL-RX MONITORING ONLY) Specimen Type: BLOOD Comment: Test Performed by: [id number] Meter #: [id number] Ordering Provider: NANCI PEREIRA Report Released Date/Time: Jun 24, 2023 10:01 AM Reporting Lab: [facility] [address] [facility] [address] Performing Lab: [facility] [address] [facility] [address] POC INR (STL-RX MONITORING ONLY) 2.9 {INR} H 0.9-1.1 Vital Signs: All taken on the encounter date This section contains inpatient and outpatient Vital Signs collected on the date of the Encounter. Date/Time Temperature Pulse Blood Pressure Respiratory Rate SP02 Pain Height Weight Body Mass Index Source Jul 01, 2023 06:54 AM 97 85 149/75 18 93 5 70 260 37 [facility] N Social History: Smoking Status (Most [...] 29, 2018 09:12 AM [place]-TOBACCO FORMER USER [facility] Tobacco Use History This section includes a history of the smoking, or tobacco-related health factors, that were collected on or before the date of the Encounter. The data comes from the [place] facility where the Encounter took place. Date/Time Smoking Status/Tobacco Use Comment F acility Apr 29, 2018 09:12 AM [place]-TOBACCO QUIT 15 YRS OR MORE [facility] Advance Directives: All historical [...] ADVANCE DIRECTIVE DISCUSSION RONALD ESTRADA [facility] Encounter Notes: All associated encounter notes This section contains the clinical notes associated to the Encounter. Date/Time Encounter Note(s) Provider Source Jul 01, 2023 08:38 AM OPERATIVE NOTE: LOCAL TITLE: BRIEF OP NOTE STL STANDARD TITLE: OPERATIVE NOTE DATE OF NOTE: JUL 01, 2023@08:38 ENTRY DATE: JUL 01, 2023@08:38:57 AUTHOR: IRIS SANTAMARIA EXP COSIGNER: MERRICK CONROY URGENCY: STATUS: COMPLETED Date of Surgery:Jun Surgery Case #:[id number] Pre-Operative Diagnosis:visually significant cataract, left eye Post-Operative Diagnosis:visually significant cataract, left eye Surgery Performed:cataract removal, lens implant, left eye Attending:Merrick Conroy MD Surgeon:Iris Santamaria MD, PhD 1st Debt Collector:N/A Type of Anesthesia:MAC Specimens:No If yes, Type and number of specimens: Findings: none Complications:none Estimated Blood Loss:none Blood Given? No If yes, how much? Fluid Replacement:per anesthesia Status En-Route to PACU? Critical: No Satisfactory: Yes Operative Note Dictation Job#: /paola/ IRIS SANTAMARIA MD PHD Resident Physician, Ophthalmology Signed: 07/01/2023 08:39 /paola/ MERRICK CONROY MD Staff Physician-Ophthalmology Cosigned: 07/01/2023 08:46 IRIS SANTAMARIA [facility] Jul 01, 2023 07:03 AM NURSING NOTE: LOCAL TITLE: VAAES NSG IV INSERTION AND MAINTENANCE STANDARD TITLE: NURSING NOTE DATE OF NOTE: JUL 01, 2023@07:03 ENTRY DATE: JUL 01, 2023@07:04:01 AUTHOR: LURDES ROSARIO EXP COSIGNER: URGENCY: STATUS: COMPLETED Version 2.2 Charting in accordance with [place] APPROVED [place]ETLIN STANDARD (VAAES) ACUTE INPATIENT/REHABILITATION NURSING ADMISSION SCREENING, ASSESSMENT, AND STANDARDS OF CARE IV Line Insertion and Maintenance Peripheral IV Line #1: Insertion: Date/Time: Jun@06:45 Inserted by (name): Randi Woods Location: Right, Hand Gauge: // LURDES GEE RN REGISTERED NURSE Signed: 07/01/2023 07:04 ULRDES ROSARIO [facility] Jul 01, 2023 06:55 AM SURGERY NURSING PROCEDURE NOTE: LOCAL TITLE: SUNDAY AETC PREOPERATIVE-PREPROCEDURAL STL STANDARD TITLE: SURGERY NURSING PROCEDURE NOTE DATE OF NOTE: JUL 01, 2023@06:55 ENTRY DATE: JUL 01, 2023@06:55:24 AUTHOR: LURDES ROSARIO EXP COSIGNER: URGENCY: STATUS: COMPLETED SUNDAY AETC PREOPERATIVE-PREPROCEDURAL STL Has ADDENDA AETC PRE-OPERATIVE/PRE-PROCEDURAL ASSESSMENT TEST Procedure:Left Eye Cataract Service:Ophth ARRIVAL TIME: Jun@06:45 VITAL SIGNS: Temperature:97 F [36.1 C] (07/01/2023 06:54) Blood Pressure:149/75 (07/01/2023 06:54) Pulse:85 (07/01/2023 06:54) Respirations:18 (07/01/2023 06:54) 93% (07/01/2023 06:54) Weight:260 lb [117.93 kg] (07/01/2023 06:54) 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 Yes If yes, comment:Marijuana smoked last night History of cancer diagnosis? No History of radiation therapy to planned surgical field(s)?No History of sleep apnes?No Dentures:No Hearing Aides:Yes Comment:CANTWELL, left hearing aids at Home Ambulatory Aides:Yes Cane Personal Belongings Comment:secured @bedside Labs completed:No Diabetes:Yes If yes: Comment:BS 159 Do you currently have any open or draining wounds? No Pain Yes If yes Chronic Comment:Knees and hip pain Intraveneous access Peripheral access line. Location: Right hand Size: 22guage Do you have a history of tobacco use?No Do you have an Advance Directive?No Nursing care plan STANDARD OF CARE / PRACTICE INITIAL NURSING DIAGNOSIS: AETC Alteration in Comfort and Knowledge Related to: Invasive procedure: EXPECTED OUTCOMES: Patient Will: X Verbalize an understanding of procedure. Target Date:Jun X Verbalize effective use of pain medication. Target Date:Jun X Be free of complications post-procedure. Target Date:Jun X Verbalize knowledge of discharge instructions and follow-up care. Target Date:Jun NURSING INTERVENTIONS: PHYSIOLOGICAL 1. Assess and monitor vital signs and respiratory status pre and post-procedure. INITIATED 2. Assess need for PT/OT instruction prior to procedure (i.e.,crutch training). INITIATED 3. Assess incision site/dressing for drainage, bleeding, hematoma, and site pain post-procedure. INITIATED 4. Initiate appropriate wound care post-procedure. INITIATED 5. Maintain IV access and parenteral infusions pre and post- procedure. INITIATED 6. Assess post-procedure for adequate oral intake, urinary elimination, and return of prior motor function. INITIATED COMFORT 7. Monitor for pain (location, intensity, frequency and precipitating factors). INITIATED 8. Administer, evaluate and document the effectiveness of pain medication. INITIATED SAFETY 9. Keep call light within reach and reinforce calling for assistance as needed. INITIATED 10. Explain and reinforce smoking policy. INITIATED 11. Other: INITIATED INFECTION CONTROL 12. Maintain Standard Precautions and explain need to patient/significant others. INITIATED EQUIPMENT NEEDS 13. Assess and provide equipment/supplies required to provide safe patient care. INITIATED KNOWLEDGE (PATIENT EDUCATION) 14. Provide teaching specific to patient's needs: X NPO status X IV therapy X Pain management Early mobility Turning, coughing and deep breathing Incentive spirometer ROWDY hose Other: INITIATED 15. Instruct patient/significant other on homecare requirements. INITIATED 16. Signs and symptoms to report to health care team. INITIATED PSYCHOSOCIAL / FUNCTIONAL 17. Encourage feedback related to patient's expectations/concerns related to procedure. INITIATED 18. Assess patient/significant other's ability to manage and comply with discharge instructions. INITIATED DISCHARGE PLANNING 19. Assure appropriate transportation available upon discharge. INITIATED 20. Encourage patient to keep all follow-up clinic appointments. INITIATED 21. Continue discharge planning/aftercare with patient/significant other using interdisciplinary approach: Physician/Service: PT OT Community Support Groups: Other: INITIATED 22. Other interventions specific to patient: INITIATED THE ABOVE EXPECTED OUTCOMES (GOALS) HAVE BEEN MUTUALLY SET WITH: Nursing Diagnosis: Pain, Acute/Chronic Goals/Expected Outcomes: Patient states and carries out out appropriate interventions for pain relief. Interventions Performs comfort measures to promote relaxation and periods of uninterrupted rest /rigoberto GEE RN REGISTERED NURSE Signed: 07/01/2023 07:03 07/01/2023 ADDENDUM STATUS: COMPLETED Provider verfied and marked eye AETC PRE-OPERATIVE/PRE-PROCEDURAL ASSESSMENT Left EYE 1 drop @0750 each 3 times total, 2 mins apart Phenylephrine 2.5% Tropicamide 1% Cyclopentolate 1% /rigoberto GEE RN REGISTERED NURSE Signed: 07/01/2023 08:04 07/01/2023 ADDENDUM STATUS: COMPLETED 802 Pt transferred to OR via stretcher and OR team. /rigoberto GEE RN REGISTERED NURSE Signed: 07/01/2023 08:05 07/01/2023 ADDENDUM STATUS: COMPLETED Pt returned from OR orient x4. Pt has no complaints of pain. Vital Taken Dressing paper tape and eye shield Pt able to ambulate with no problems. Call light in reach. Bed in low position. /paola/ LURDES GEE RN REGISTERED NURSE Signed: 07/01/2023 08:45 07/01/2023 ADDENDUM STATUS: COMPLETED 0900 Pal removed. Discharge instructions reviewed with pt. PT able to ambulated. Pt left w family.AETC DISCHARGE NURSING DIAGNOSIS: AETC Alteration in Comfort and Knowledge Related to: Invasive procedure: L eye cataract EXPECTED OUTCOMES MET BY PATIENT: Verbalizes an understanding of procedure. , Verbalizes effective use of pain medication. , Is free of complications post-procedure., Verbalizes knowledge of discharge instructions and follow-up care., Patient/significant other demonstrates procedures / skills for effective home care., Decreased level of anxiety related to discharge/home care achieved. Comment: ASSESSMENT: Patient is awake and oriented: Yes Vital signs stable: Yes Temperature < 101 F: Yes Wound site stable: Yes Tolerates fluids: Yes Minimal nausea: Yes Able to urinate: Yes Able to ambulate: Yes Patient is free of dyspnea: Yes Patient is free of pain: Yes Pain Score:0 Comment: DISCHARGE: Discharge Summary Date/Time:Jun Discharge instruction sheet given to patient: Yes Patient instructed on:complications, RTC appt, post-op care, pharmacy pick-up Mode of discharge: ambulatory Accompanied by: None Follow-up appointment: Clinic: pcp Date/Time: /rigoberto GEE RN REGISTERED NURSE Signed: 07/01/2023 09:02 LURDES ROSARIO [facility] Jun 30, 2023 02:56 PM PHYSICIAN EDUCATION DISCHARGE NOTE: LOCAL TITLE: DISCHARGE INSTRUCTIONS [facility] STANDARD TITLE: PHYSICIAN EDUCATION DISCHARGE NOTE DATE OF NOTE: JUN 30, 2023@14:56 ENTRY DATE: JUN 30, 2023@14:56:53 AUTHOR: IRIS SANTAMARIA COSIGNER: MERRICK CONROY URGENCY: STATUS: COMPLETED 1. DIAGNOSES: Post Op Cataract Surgery, Left eye 2. YOUR NEXT APPOINTMENT IN THE [facility]: 07/02/23 8:30 am [facility] [phone] 07/08/23 10:00 am [facility] [phone] 07/31/23 10:00 am [facility] [phone] 3. DISCHARGE MEDICATIONS: Begin the following drops when you arrive home: Moxifloxacin ([place] cap): 1 drop left eye 4x/day. Prednisolone (White cap): 1 drop left eye 4x/day. SHAKE this drop. Always wait 2-3 minutes between medications. Active Outpatient Medications (including Supplies): Active Outpatient Medications Status ========= 1) ALOGLIPTIN 6.25MG TAB TAKE ONE TABLET BY MOUTH ONCE A ACTIVE DAY FOR DIABETES 2) ATORVASTATIN CALCIUM 20MG TAB TAKE ONE-HALF TABLET BY ACTIVE (S) MOUTH EVERY EVENING FOR CHOLESTEROL. REPORT ANY UNEXPLAINED MUSCLE PAIN/WEAKNESS TO PROVIDER. 3) CARBOXYMETHYLCELLULOSE NA 1% OPH GEL INSTILL 2 DROPS ACTIVE INTO BOTH EYES FOUR TIMES A DAY NEEDED FOR DRY EYE(S) 4) DOCUSATE NA 100MG CAP TAKE ONE CAPSULE BY MOUTH TWICE ACTIVE (S) A DAY TO SOFTEN STOOL. HOLD FOR LOOSE STOOL/DIARRHEA. 5) EMPAGLIFLOZIN 25MG TAB TAKE ONE TABLET BY MOUTH ONCE ACTIVE A DAY FOR DIABETES 6) GLIPIZIDE 5MG [...] MIX IN 8 OZ OF WATER) 10) QUETIAPINE FUMARATE 200MG TAB TAKE ONE-HALF TABLET BY ACTIVE (S) MOUTH AT BEDTIME FOR MOOD 11) ROPINIROLE HCL 0.5MG TAB TAKE ONE TABLET BY MOUTH AT ACTIVE (S) BEDTIME FOR PARKINSON DISEASE 12) SERTRALINE HCL 100MG TAB TAKE ONE-HALF TABLET BY ACTIVE (S) MOUTH EVERY MORNING FOR MOOD 13) TADALAFIL 10MG TAB TAKE ONE TABLET BY MOUTH EVERY ACTIVE WEEK NEEDED FOR ERECTILE DYSFUNCTION (TAKE 30 MINUTES PRIOR TO SEXUAL ACTIVITY) - LIMIT 6 DOSES PER 30 DAYS 14) TAMSULOSIN HCL 0.4MG CAP TAKE TWO CAPSULES BY MOUTH ACTIVE ONCE A DAY FOR BENIGN PROSTATIC HYPERPLASIA APPROXIMATELY 30 MINUTES AFTER THE SAME MEAL EACH DAY (FOR PROSTATE) 15) WARFARIN NA 5MG TAB TAKE ONE AND ONE-HALF TABLETS BY ACTIVE MOUTH THURSDAY, THURSDAY, THURSDAY AND THURSDAY AND TAKE TWO TABLETS THURSDAY, THURSDAY AND THURSDAY OR DIRECTED BY THE ANTICOAGULATION CLINIC. TO PREVENT BLOOD CLOTS. KEEP LAB APPOINTMENTS. Pending Outpatient Medications Status ========= 1) ALOGLIPTIN 6.25MG TAB TAKE ONE TABLET BY MOUTH ONCE A PENDING DAY 2) MOXIFLOXACIN (EQV-VIGAMOX) 0.5% OPH SOLN INSTILL 1 PENDING DROP IN LEFT EYE FOUR TIMES A DAY 3) PREDNISOLONE ACETATE 1% OPH SUSP INSTILL 1 DROP IN PENDING LEFT EYE FOUR TIMES A DAY Active Non-VA Medications Status ========= 1) Non-VA [...] CAPSULE BY ACTIVE MOUTH ONCE A DAY 23 Total Medications 4. DISCHARGE INTRUCTIONAL MATERIALS * To be printed by Nurse and provided to patient * Resume all usual medications. * Tylenol every 4-6 hours as needed for pain. 5. WOUND MANAGEMENT: * No eye rubbing * Leave the eye shield on until you see the doctor. * Wear shield at bedtime for the first week after surgery. 6. DISCHARGE DIETARY INSTRUCTIONS: No Dietary Instructions If you have questions, contact the dietitians at or [facility]. 7. DISCHARGE PHYSICAL ACTIVITY INSTRUCTIONS: * Avoid strenuous activity, bending, or heavy lifting for two weeks. * Avoid swimming for two weeks. * You may start showering the day after surgery (after your follow-up visit), but do not run water directly on the eye. 8. WORSENING and/or DANGEROUS SYMPTOMS TO REPORT: * Worsening vision * Worsening pain/redness * Floaters, flashes, or dark/wavy shade advancing across the vision If you experience any of these symptoms, please call: [facility] HOURS: Eye Clinic AFTER HOURS: Call [facility] protective signal operator , ask for eye doctor real estate operations manager Copy Provided to Patient, Discussed with family/spouse /paola/ IRIS SANTAMARIA MD PHD Resident Physician, Ophthalmology Signed: 07/01/2023 08:40 /paola/ MERRICK CONROY MD Staff Physician-Ophthalmology Cosigned: 07/01/2023 08:46 IRIS SANTAMARIA [facility] Jun 23, 2023 08:46 AM H & P NOTE: LOCAL TITLE: HISTORY AND PHYSICAL EXAMINATION 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 11) Varicose veins 12) Deep vein thrombosis 13) Gastroesophageal reflux disease 14) Single acquired kidney cyst 15) Sleep apnea 16) Benign prostatic hyperplasia 17) Adjustment disorder with depressed mood in remission 18) Allergic rhinitis 19) H/O: Pulmonary Embolus ([facility] [id number]) 20) Neck Pain ([facility] [id number]) 21) Bilateral Knee Pain ([facility] [id number]) 22) Low Back Pain ([facility] [id number]) 23) Therapeutic drug effect 24) Anticoagulant effect [...] VA(cc): OD 20/20 OS 20/40+2 Wearing: OD +0.50-0.69a877 20/20 OS +1.00 - 1.25 x 090 add +2.75 MRx OD +0.50-0.72l289 => 20/20 OS +0.50-0.17z921 => 20/40+ BAT: OD 20/25 OS 20/60 [...] PLANO. Planned Operation: CE/IOL OS Target Refraction: [place] AETC: consult to be entered Overnight stay: none Gonioscopy: done today Blood thinner: +warfarin Flomax/Hytrin: yes Biometry: done Consent: done Surgery date: 06/30 at 8:30am Special equipment: +phenyl-lido The best telephone number to reach patient is (home number). RTC 1 day, 1 week, 1 month after day of surgery. /paola/ IRIS SANTAMARIA MD PHD Resident Physician, Ophthalmology Signed: 06/23/2023 08:46 /paola/ MERRICK CONROY MD Staff Physician-Ophthalmology Cosigned: 06/23/2023 17:41 IRIS SANTAMARIA [facility]
--- OUTSIDE RECORDS SUMMARY | 2024-03-04 12:56 | XMS_ITS | Encounter Summary ---
Author Name [facility] [place] Organization [facility] [place] Address [address] [place] [address] Care Team Providers Care Multiple Drum Sander Helper Name Role Phone JILLIAN GAN Primary Care [...] MEDIC ARE SUPPL EMEMT Apr 23, 2019 [id number] [phone] KATHY ORTEGA PATIENT ANTHEM BCBS [place] MEDICARE SUPPLEMEN WILL MEDIC ARE SUPPL EMEMT Apr 23, 2019 [id number] [phone] KATHY ORTEGA PATIENT ANTHEM [place] MEDICARE SUPPLEMEN WILL MEDIC ARE SUPPL EMEMT Apr 23, 2019 [id number] [phone] KATHY ORTEGA PATIENT BCBS [place] MEDICARE SUPPLEMEN WILL MEDIC ARE SUPPL EMEMT Apr 23, 2019 [id number] [phone] KATHY ORTEGA PATIENT [employer] MCR (WNR) MEDICARE ADVANTAGE MCR (WNR) Mar 23, 2022 [id number] KATHY ORTEGA PATIENT [employer] MCR (WNR) MEDICARE ADVANTAGE [facility] (WNR) Mar 23, 2022 [id number] [phone] KATHY ORTEGA PATIENT MEDICARE (WNR) MEDICARE (M) RR PART A May 21, 1990 RR PART A [id number] [phone] [id number] KATHY ORTEGA PATIENT MEDICARE (WNR) MEDICARE (M) RR PART B May 21, 1990 RR PART B [id number] [phone] KATHY ORTEGA PATIENT [employer] [place] MEDICARE SUPPLEMEN WILL MEDIC ARE SUPPL EMENT Feb 20, 2013 PLAN G [id number] [phone] KATHY ORTEGA PATIENT [employer] MCR (WNR) MEDICARE ADVANTAGE [facility] (WNR) Mar 23, 2021 [id number] KATHY ORTEGA PATIENT Selected Encounter This section includes the information on record at MD for the Encounter. Date/Time Encounter Type Encounter Description Reason Provider Source July 31, 2023 10:00 AM POSTOP FOLLOW-UP VISIT OPHTHALMOLOGY ICD-10-CM Z98.42 Cataract extraction status, left eye MARYCARMENMERRICK HENNING Y MICHELET Encounter Template Text not used by MD Assessments - Encounter Diagnoses This section includes the primary and secondary diagnoses documented for the Encounter. Date/Time Primary/Secondary Diagnosis Diagnosis Name Provider Source July 31, 2023 12:03 PM PRIMARY Cataract extraction status, left eye IRIS SANTAMARIA [facility] Plan of Treatment: Future Appointments [...] Date/Time Appointment Type Appointme nt Facility Name August 06, 2023 08:30 AM AMBULATORY - MEDICINE [facility] August 06, 2023 10:30 AM AMBULATORY - MEDICINE [facility] Sep 10, 2023 08:00 AM AMBULATORY - MEDICINE [facility] Oct 08, 2023 08:30 AM AMBULATORY - MEDICINE [facility] Nov 12, 2023 08:15 AM AMBULATORY - MEDICINE [facility] Nov 26, 2023 03:00 PM AMBULATORY - PSYCHIATRY [facility] Dec 10, 2023 09:30 AM AMBULATORY - MEDICINE [facility] Jan 13, 2024 08:15 AM AMBULATORY - MEDICINE [facility] Jan 22, 2024 02:15 PM AMBULATORY - MEDICINE [facility] Jan 26, 2024 09:30 AM AMBULATORY - SURGERY [facility] Lab Results: +/- 30 days of [...] Result - Unit Interpretation Reference Range Comment August 06, 2023 11:28 AM [facility] HGA1C Specimen Type: BLOOD No comment entered. Ordering Provider: JILLIAN GAN Report Released Date/Time: August 06, 2023 11:19 AM Reporting Lab: [facility] [address] [place] [phone] Performing Lab: [address] [address] HGA1C 8.4 H 4.0-6.0 August 06, 2023 11:28 AM [facility] LIPID PANEL (STL) Specimen Type: PLASMA Comment: LDL calculation invalid when Triglyceride exceeds 250 mg/dl Ordering Provider: JILLIAN GAN Report Released Date/Time: August 06, 2023 11:19 AM Reporting Lab: [facility] [address] [place] [phone] Performing Lab: [address] [address] CHOLESTEROL 193 mg/dL 0-200 TRIGLYCERIDE 315 mg/dL H 0-150 DIRECT LDL 98 mg/dL L >100 CALCULATED LDL comment mg/dL HDL(New) 42 mg/dL >40 August 06, 2023 11:28 AM [facility] MICRAL/CREAT PROFILE (STL) Specimen Type: URINE Comment: uALB/CREAT Ratio Unable to be calculated Unable to calculate due to Microalbumin < 5.0 mg/L Ordering Provider: JILLIAN GAN Report Released Date/Time: August 06, 2023 11:19 AM Reporting Lab: [facility] [address] [facility] [address] Performing Lab: [address] [address] URINE ALBUMIN (PB-STL) <5.0 mg/L uACR (STL) comment mg/g 0-29 CREATININE URINE/OTHERS 75.7 mg/dL 63-166 August 06, 2023 11:28 AM [facility] COMPREHENSIVE METABOLIC PANEL Specimen Type: PLASMA Comment: LDL calculation invalid when Triglyceride exceeds 250 mg/dl Ordering Provider: JILLIAN GAN Report Released Date/Time: August 06, 2023 11:19 AM Reporting Lab: [facility] [address] [facility] [address] Performing Lab: [address] [address] CREATININE 1.17 mg/dL 0.7-1.3 UREA NITROGEN 22.1 [...] 65.0 >60 August 06, 2023 11:28 AM [facility] CBC Specimen Type: BLOOD No comment entered. Ordering Provider: JILLIAN GAN Report Released Date/Time: August 06, 2023 11:19 AM Reporting Lab: [facility] [address] [facility] [address] Performing Lab: [facility] [address] [place] [phone] WBC 5.3 10*3/uL 3.6-11.2 RBC 5.78 10*6/uL [...] 10*3/uL 0.00-0.20 August 06, 2023 09:46 AM [facility] POC INR (STL-RX MONITORING ONLY) Specimen Type: BLOOD Comment: Test Performed by: [id number] Meter #: [id number] Ordering Provider: NANCI PEREIRA Report Released Date/Time: August 06, 2023 09:47 AM Reporting Lab: [facility] [address] [facility] [address] Performing Lab: [facility] [address] [place] [address] POC INR (STL-RX MONITORING ONLY) 2.1 {INR} [...] Catherine ity Apr 29, 2018 09:12 AM MD-TOBACCO QUIT 15 YRS OR MORE [facility] Tobacco Use History This section includes a history of the smoking, or tobacco-related health factors, that were collected on or before the date of the Encounter. The data comes from the MD facility where the Encounter took place. Date/Time Smoking Status/Tobacco Use Comment F acility Apr 29, 2018 09:12 AM MD-TOBACCO QUIT 15 YRS OR MORE [facility] Advance Directives: All historical and [...] the Encounter. Date/Time Encounter Note(s) Provider Source July 31, 2023 10:05 AM OPHTHALMOLOGY NOTE : LOCAL TITLE: OPHTHALMOLOGY NOTE [facility] STANDARD TITLE: OPHTHALMOLOGY NOTE DATE OF NOTE: JULY 31, 2023@10:05 ENTRY DATE: JULY 31, 2023@10:05:47 AUTHOR: IRIS SANTAMARIA EXP COSIGNER: MERRICK CONROY URGENCY: STATUS: COMPLETED POM#1 s/p phaco/PCIOL OS. C/o burning and itching bilaterally, sinus pressure. VA sc = 20/20-1 MRx OS +0.25 plano sph = 20/20 Tt OS: 24 SLEx: OS c/s mild injection (present bilaterally) K clear, wounds unremarkable AC deep, quiet I round L PCIOL centered A/P: POM#1 s/p phaco/pciol OS, doing well. No inflammation off gtts. MRx dispensed. Can trial ketotifen for burning/itchiness. Follow-up with optometry in 6 months for routine exam. /paola/ IRIS SANTAMARIA MD PHD Resident Physician, Ophthalmology Signed: 07/31/2023 10:18 /paola/ MERRICK CONROY MD Staff Physician-Ophthalmology Cosigned: 07/31/2023 12:03 IRIS SANTAMARIA [facility]
--- OUTSIDE RECORDS SUMMARY | 2024-03-04 12:56 | XMS_ITS | Encounter Summary ---
Author Name [facility] [place] [facility] [place] Organization [facility] [place] [facility] [place] Address [address] [place] [address] Care Team Providers Care Flight Operation Coordinator Name Role Phone JILLIAN GAN Primary [...] MEDIC ARE SUPPL EMEMT Apr 23, 2019 [id number] [phone] KATHY ORTEGA PATIENT ANTHEM [employer] MEDICARE SUPPLEMEN WILL MEDIC ARE SUPPL EMEMT Apr 23, 2019 [id number] [phone] KATHY ORTEGA PATIENT [place] SUPPLEMEN WILL MEDIC ARE SUPPL EMEMT Apr 23, 2019 [id number] [phone] KATHY ORTEGA PATIENT [employer] MEDICARE SUPPLEMEN WILL MEDIC ARE SUPPL EMEMT Apr 23, 2019 [id number] [phone] KATHY ORTEGA PATIENT [employer] MCR (WNR) MEDICARE ADVANTAGE MCR (WNR) Mar 23, 2022 [id number] KATHY ORTEGA PATIENT [employer] MCR (WNR) MEDICARE ADVANTAGE [facility] (WNR) Mar 23, 2022 [id number] KATHY ORTEGA PATIENT MEDICARE (WNR) MEDICARE (M) RR PART A May 21, 1990 RR PART A [id number] KATHY ORTEGA PATIENT MEDICARE (WNR) MEDICARE (M) RR PART B May 21, 1990 RR PART B [id number] [phone] KATHY ORTEGA PATIENT [employer] [place] MEDICARE SUPPLEMEN WILL MEDIC ARE SUPPL EMENT Feb 20, 2013 PLAN G [id number] [phone] KATHY ORTEGA PATIENT [employer] [facility] (WNR) MEDICARE ADVANTAGE [facility] (WNR) Mar 23, 2021 [id number] KATHY ORTEGA PATIENT Selected Encounter This section includes the information on record at [place] for the Encounter. Date/Time Encounter Type Encounter Description Reason Provider Source August 06, 2023 08:30 AM MTMS BY PHARM MADELEINE 15 MIN TELEPHONE/ANCILLA ISABELLE ICD-10-CM Z51.81 Encounter for therapeutic drug level monitoring NANCI PEREIRA [facility] Encounter Template Text not used by ND Assessments - Encounter Diagnoses This section includes the primary and secondary diagnoses documented for the Encounter. 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 This section includes future appointments and future orders which are active, pending or scheduled. Future Appointments This section includes appointments that were scheduled to occur 6 months from the date of the Encounter, up to a maximum of 20 appointments. The data comes from all [place] treatment [facility]. Appointment Date/Time Appointment Type Appointme nt Facility Name Sep 10, 2023 08:00 AM AMBULATORY - MEDICINE [facility] Oct 08, 2023 08:30 AM AMBULATORY - MEDICINE [facility] Nov 12, 2023 08:15 AM AMBULATORY - MEDICINE [facility] Nov 26, 2023 03:00 PM AMBULATORY - PSYCHIATRY [facility] Dec 10, 2023 09:30 AM AMBULATORY - MEDICINE [facility] Jan 13, 2024 08:15 AM AMBULATORY - MEDICINE [facility] Jan 22, 2024 02:15 PM AMBULATORY - MEDICINE [facility] Jan 26, 2024 09:30 AM AMBULATORY - SURGERY [facility] Lab Results: +/- 30 days of the encounter This section includes the Chemistry and Hematology Lab Results on record with ND for the patient. Radiology Reports and Pathology Reports are provided separately, in subsequent sections. Lab Results This section contains the Chemistry/Hematology Results that were resulted 30 days before or 30 daysafter the date of the Encounter. Date/Time Source Result Type Result - Unit Interpretation Reference Range Comment August 06, 2023 11:28 AM [facility] HGA1C Specimen Type: BLOOD No comment entered. Ordering Provider: JILLIAN GAN Report Released Date/Time: August 06, 2023 11:19 AM Reporting Lab: [facility] [address] [facility] [address] Performing Lab: [facility] [address] [facility] [address] HGA1C 8.4 H 4.0-6.0 August 06, 2023 11:28 AM [facility] LIPID PANEL (STL) Specimen Type: PLASMA Comment: LDL calculation invalid when Triglyceride exceeds 250 mg/dl Ordering Provider: JILLIAN GAN Report Released Date/Time: August 06, 2023 11:19 AM Reporting Lab: [facility] [address] [facility] [address] Performing Lab: [facility] [address] [facility] [address] CHOLESTEROL 193 mg/dL 0-200 TRIGLYCERIDE 315 mg/dL H 0-150 DIRECT LDL 98 mg/dL L >100 CALCULATED LDL comment mg/dL HDL(New) 42 mg/dL >40 August 06, 2023 11:28 AM [facility] MICRAL/CREAT PROFILE (STL) Specimen Type: URINE Comment: uALB/CREAT Ratio Unable to be calculated Unable to calculate due to Microalbumin < 5.0 mg/L Ordering Provider: JILLIAN GAN Report Released Date/Time: August 06, 2023 11:19 AM Reporting Lab: [address] [address] Performing Lab: [address] [address] URINE ALBUMIN (PB-STL) <5.0 mg/L uACR (STL) comment mg/g 0-29 CREATININE URINE/OTHERS 75.7 mg/dL 63-166 August 06, 2023 11:28 AM [facility] COMPREHENSIVE METABOLIC PANEL Specimen Type: PLASMA Comment: LDL calculation invalid when Triglyceride exceeds 250 mg/dl Ordering Provider: JILLIAN GAN Report Released Date/Time: August 06, 2023 11:19 AM Reporting Lab: [address] [address] Performing Lab: [address] [address] CREATININE 1.17 mg/dL 0.7-1.3 UREA NITROGEN 22.1 [...] 65.0 >60 August 06, 2023 11:28 AM [facility] CBC Specimen Type: BLOOD No comment entered. Ordering Provider: JILLIAN GAN Report Released Date/Time: August 06, 2023 11:19 AM Reporting Lab: [facility] [address] [facility] [address] Performing Lab: [address] [address] WBC 5.3 10*3/uL 3.6-11.2 RBC 5.78 10*6/uL [...] 10*3/uL 0.00-0.20 August 06, 2023 09:46 AM [facility] POC INR (STL-RX MONITORING ONLY) Specimen Type: BLOOD Comment: Test Performed by: [id number] Meter #: [id number] Ordering Provider: NANCI PEREIRA Report Released Date/Time: August 06, 2023 09:47 AM Reporting Lab: [address] [address] Performing Lab: [facility] [address] [place] [address] POC INR (STL-RX MONITORING ONLY) 2.1 {INR} H 0.9-1.1 Social History: Smoking Status (Most current) and Tobacco Use (All prior to encounter date) This section includes the most current, and the historical, smoking and tobacco- related health factors from the [place] facility where the Encounter took place. Current Smoking Status This section includes the most current smoking, or tobacco-related health factor, from the [place] facility where the Encounter took place. Date/Time Current Smoking Status Comment Facil ity Apr 29, 2018 09:12 AM ND-TOBACCO FORMER USER [facility] Tobacco Use History This section includes a history of the smoking, or tobacco-related health factors, that were collected on or before the date of the Encounter. The data comes from the [place] facility where the Encounter took place. Date/Time Smoking Status/Tobacco Use Comment F acility Apr 29, 2018 09:12 AM ND-TOBACCO QUIT 15 YRS OR MORE [facility] Advance Directives: All historical and current Section Date Range: From patient's date of to the date document was created. This section includes ALL of a patient's completed or amended [place] Advance and Rescinded Directives. The entries below indicate that a directive exists for the patient, but an actual copy is not included with this document. The data comes from all [place] facilities. Date Advance Directives Provider Source Jun 13, 2013 ADVANCE DIRECTIVE DISCUSSION RONALD ESTRADA [facility] Encounter Notes: All associated encounter notes This section contains the clinical notes associated to the Encounter. Date/Time Encounter Note(s) Provider Source August 06, 2023 01:14 PM PHARMACY OUTPATIEN T MEDICATION MGT NOTE: LOCAL TITLE: PHARMACY [facility] STANDARD TITLE: PHARMACY OUTPATIENT MEDICATION MGT NOTE DATE OF NOTE: AUGUST 06, 2023@13:14 ENTRY DATE: AUGUST 06, 2023@13:14:37 AUTHOR: NANCI PEREIRA COSIGNER: URGENCY: STATUS: COMPLETED WARFARIN LAB ONLY - TELEPHONE CONTACT SACHA ORTEGA is a 77 y/o MALE on warfarin. Patient was identified by 2 unique identifiers. Indication for warfarin: Pulmonary Embolism, FVL Goal INR: 2-3 Current warfarin dose on record:7.5mg daily x 10mg We/Th/Fri On bridging regimen?: NO Expected duration of therapy: Lifetime Subjective: spoke w/ Patient/Caregiver confirmed dose as above.YES Missed or [...] NO Objective: POC INR (STL-RX MONITORING ONLY) 2.1 H INR 08/06/2023 09:46 HGB 14.9 g/dL 06/24/2023 09:59 HCT 47.7 % 06/24/2023 09:59 PLT 120 L 10*3/uL 06/24/2023 09:59 INR Trends: Date Dose at time of lab INR Comments 08/06/23 7.5mg daily x 10mg We/Th/Fri 2.1 06/24/23 7.5mg daily x 10mg We//Fri 2.9 05/27/23 7.5mg daily x 10mg We//Fri 2.5 05/12/23 7.5mg daily x 10mg /Fri 1.9 05/04/23 7.5mg daily x 10mg /Fri [...] dose --Bridging therapy: - NO --Next lab date:09/09 --Patient/Caregiver repeated dose instructions and f/u monitoring plan? YES --Warfarin prescription renewed/refilled/directions updated if necessary? YES --Clinical reminder completed if due? YES --Minutes spent in chart review and phone conversation: 5min /paola/ NANCI PEREIRA, PHARM.D, [facility] CLINICAL PHARMACIST Signed: 08/06/2023 14:40 NANCI PEREIRA [facility]
--- OUTSIDE RECORDS SUMMARY | 2024-03-04 12:56 | XMS_ITS ---
Author Name [facility] [place] [facility] [place] [facility] [place] Address [address] [place] [address] Care Team Providers Care Bench Tool Maker Name Role Phone JILLIAN GAN Primary Care [...] MEDIC ARE SUPPL EMEMT Apr 23, 2019 [id number] [phone] KATHY ORTEGA PATIENT ANTHEM BCBS [place] MEDICARE SUPPLEMEN WILL MEDIC ARE SUPPL EMEMT Apr 23, 2019 [id number] [phone] KATHY ORTEGA PATIENT ANTHEM [place] MEDICARE SUPPLEMEN WILL MEDIC ARE SUPPL EMEMT Apr 23, 2019 [id number] [phone] KATHY ORTEGA PATIENT BCBS [place] MEDICARE SUPPLEMEN WILL MEDIC ARE SUPPL EMEMT Apr 23, 2019 [id number] [phone] KATHY ORTEGA PATIENT [employer] MCR (WNR) MEDICARE ADVANTAGE MCR (WNR) Mar 23, 2022 [id number] KATHY ORTEGA PATIENT [employer] MCR (WNR) MEDICARE ADVANTAGE [facility] (WNR) Mar 23, 2022 [id number] KATHY ORTEGA PATIENT MEDICARE (WNR) MEDICARE (M) RR PART A May 21, 1990 RR PART A [id number] [phone] KATHY ORTEGA PATIENT MEDICARE (WNR) MEDICARE (M) RR PART B May 21, 1990 RR PART B [id number] KATHY ORTEGA PATIENT [employer] [place] MEDICARE SUPPLEMEN WILL MEDIC ARE SUPPL EMENT Feb 20, 2013 PLAN G [id number] [phone] KATHY ORTEGA PATIENT [employer] MCR (WNR) MEDICARE ADVANTAGE [facility] (WNR) Mar 23, 2021 [id number] KATHY ORTEGA PATIENT Selected Encounter This section includes the information on record at [place] for the Encounter. Date/Time Encounter Type Encounter Description Reason Provider Source Jul 08, 2023 10:00 AM POSTOP FOLLOW-UP VISIT OPHTHALMOLOGY ICD-10-CM Z98.42 Cataract extraction status, left eye MARYCARMENMERRICK HENNING Y IHKen Encounter Template Text not used by VA Assessments - Encounter Diagnoses This section includes the primary and secondary diagnoses documented for the Encounter. Date/Time Primary/Secondary Diagnosis Diagnosis Name Provider Source Jul 09, 2023 11:50 AM PRIMARY Cataract extraction status, left eye IRIS SANTAMARIA [facility] Plan of Treatment: Future Appointments (+ 6 months) and Future Tests (+/- 45 days) The Plan of Treatment section includes future care activities for the patient from all [place] treatmentfacilities. This section includes future appointments and future orders which are active, pending or scheduled. Future Appointments This section includes appointments that were scheduled to occur 6 months from the date of the Encounter, up to a maximum of 20 appointments. The data comes from all [place] treatment facilities. Appointment Date/Time Appointment Type Appointme nt Facility Name July 31, 2023 10:00 AM AMBULATORY - SURGERY [facility] August 06, 2023 08:30 AM AMBULATORY - MEDICINE [facility] August 06, 2023 10:30 AM AMBULATORY - MEDICINE [facility] Sep 10, 2023 08:00 AM AMBULATORY - MEDICINE [facility] Oct 08, 2023 08:30 AM AMBULATORY - MEDICINE [facility] Nov 12, 2023 08:15 AM AMBULATORY - MEDICINE [facility] Nov 26, 2023 03:00 PM AMBULATORY - PSYCHIATRY [facility] Dec 10, 2023 09:30 AM AMBULATORY - MEDICINE [facility] Lab Results: +/- 30 days of the encounter This section includes the Chemistry and Hematology Lab Results on record with [place] for the patient. Radiology Reports and Pathology Reports are provided separately, in subsequent sections. Lab Results This section contains the Chemistry/Hematology Results that were resulted 30 days before or 30 daysafter the date of the Encounter. Date/Time Source Result Type Result - Unit Interpretation Reference Range Comment August 06, 2023 11:28 AM [facility] HGA1C Specimen Type: BLOOD No comment entered. Ordering Provider: JILLIAN GAN Report Released Date/Time: August 06, 2023 11:19 AM Reporting Lab: [facility] [address] [facility] [address] Performing Lab: [address] [address] HGA1C 8.4 H 4.0-6.0 August 06, 2023 11:28 AM [facility] LIPID PANEL (STL) Specimen Type: PLASMA Comment: LDL calculation invalid when Triglyceride exceeds 250 mg/dl Ordering Provider: JILLIAN GAN Report Released Date/Time: August 06, 2023 11:19 AM Reporting Lab: [facility] [address] [facility] [address] Performing Lab: [place] [id number] [facility] [address] CHOLESTEROL 193 mg/dL 0-200 TRIGLYCERIDE 315 mg/dL H 0-150 DIRECT LDL 98 mg/dL L >100 CALCULATED LDL comment mg/dL HDL(New) 42 mg/dL >40 August 06, 2023 11:28 AM [facility] MICRAL/CREAT PROFILE (STL) Specimen Type: URINE Comment: uALB/CREAT Ratio Unable to be calculated Unable to calculate due to Microalbumin < 5.0 mg/L Ordering Provider: JILLIAN GAN Report Released Date/Time: August 06, 2023 11:19 AM Reporting Lab: [facility] [address] [place] [address] Performing Lab: [address] [address] URINE ALBUMIN (PB-STL) <5.0 mg/L uACR (STL) comment mg/g 0-29 CREATININE URINE/OTHERS 75.7 mg/dL 63-166 August 06, 2023 11:28 AM [facility] COMPREHENSIVE METABOLIC PANEL Specimen Type: PLASMA Comment: LDL calculation invalid when Triglyceride exceeds 250 mg/dl Ordering Provider: JILLIAN GAN Report Released Date/Time: August 06, 2023 11:19 AM Reporting Lab: [address] [address] Performing Lab: [address] [address] CREATININE 1.17 mg/dL 0.7-1.3 UREA NITROGEN 22.1 [...] 65.0 >60 August 06, 2023 11:28 AM [facility] CBC Specimen Type: BLOOD No comment entered. Ordering Provider: JILLIAN GAN Report Released Date/Time: August 06, 2023 11:19 AM Reporting Lab: [address] [address] Performing Lab: [facility] [address] [facility] [address] WBC 5.3 10*3/uL 3.6-11.2 RBC 5.78 10*6/uL [...] 10*3/uL 0.00-0.20 August 06, 2023 09:46 AM [facility] POC INR (STL-RX MONITORING ONLY) Specimen Type: BLOOD Comment: Test Performed by: [id number] Meter #: [id number] Ordering Provider: NANCI PEREIRA Report Released Date/Time: August 06, 2023 09:47 AM Reporting Lab: [facility] [address] [facility] [address] Performing Lab: [facility] [address] [place] [address] POC INR (STL-RX MONITORING ONLY) 2.1 {INR} H 0.9-1.1 Jul 01, 2023 06:59 AM [facility] GLUCOSE,BLOOD-poct (STL) Specimen Type: BLOOD Comment: Test Performed by: [id number] Meter #: [id number] Ordering Provider: NELSON ROSARIO Report Released Date/Time: Jul 01, 2023 07:10 AM Reporting Lab: [address] [address] Performing Lab: [address] [address] GLUCOSE,BLOOD-p oct (STL) 159 mg/dL H 72-99 Jun 24, 2023 09:59 AM [facility] HGB,HCT,PLT Specimen Type: BLOOD No comment entered. Ordering Provider: NANCI PEREIRA Report Released Date/Time: May 28, 2023 09:48 AM Reporting Lab: [address] [address] Performing Lab: [address] [address] HGB 14.9 g/dL 13.1-16.8 HCT 47.7 38.2-48.4 PLT 120 10*3/uL L 150-400 Jun 24, 2023 09:58 AM [facility] POC INR (STL-RX MONITORING ONLY) Specimen Type: BLOOD Comment: Test Performed by: [id number] Meter #: [id number] Ordering Provider: NANCI PEREIRA Report Released Date/Time: Jun 24, 2023 10:01 AM Reporting Lab: [address] [address] Performing Lab: [facility] [address] [facility] [address] POC INR (STL-RX MONITORING ONLY) 2.9 {INR} H 0.9-1.1 Social History: Smoking Status (Most current) and Tobacco Use (All prior to encounter date) This section includes the most current, and the historical, smoking and tobacco- related health factors from the [place] facility where the Encounter took place. Current Smoking Status This section includes the most current smoking, or tobacco-related health factor, from the [place] facility where the Encounter took place. Date/Time Current Smoking Status Trell pepe Apr 29, 2018 09:12 AM VA-TOBACCO FORMER USER [facility] Tobacco Use History This section includes a history of the smoking, or tobacco-related health factors, that were collected on or before the date of the Encounter. The data comes from the [place] facility where the Encounter took place. Date/Time Smoking Status/Tobacco Use Comment F acility Apr 29, 2018 09:12 AM VA-TOBACCO QUIT 15 YRS OR MORE [facility] Advance Directives: All historical and current Section Date Range: From patient's date of to the date document was created. This section includes ALL of a patient's completed or amended [place] Advance and Rescinded Directives. The entries below indicate that a directive exists for the patient, but an actual copy is not included with this document. The data comes from all [place] facilities. Date Advance Directives Provider Source Jun 13, 2013 ADVANCE DIRECTIVE DISCUSSION RONALD ESTRADA [facility] Encounter Notes: All associated encounter notes This section contains the clinical notes associated to the Encounter. Date/Time Encounter Note(s) Provider Source Jul 08, 2023 09:46 AM OPHTHALMOLOGY NOTE : LOCAL TITLE: OPHTHALMOLOGY NOTE ST STANDARD TITLE: OPHTHALMOLOGY NOTE DATE OF NOTE: JUL 08, 2023@09:46 ENTRY DATE: JUL 08, 2023@09:46:43 AUTHOR: IRIS SANTAMARIA EXP COSIGNER: MERRICK CONROY URGENCY: STATUS: COMPLETED POW#1 s/p phaco/PCIOL OS. No issues. VA sc = 20/20 Pupils: no APD Ta OS: 18 SLEx: OS c/s mild injection (present bilaterally) K clear, wounds unremarkable AC deep, 1+ mixed cell I round L PCIOL centered DFEx: OS CDR: 0.3 Nerve Healthy, no pallor Macula flat Vessels WNL Periphery WNL, no lattice degeneration A/P: POW#1 s/p phaco/pciol OS, doing well. To use: Stop moxi Start PF taper Discussed post-op instructions and given medication schedule sheet with post-op instructions and emergency phone numbers today. Restrictions lifted Reviewed s/s RD/endophthalmitis. RTC 1 month, immed for problems OD cataract not yet VS, will CTM at this time. /paola/ IRIS SANTAMARIA MD PHD Resident Physician, Ophthalmology Signed: 07/08/2023 10:20 /paola/ MERRICK CONROY MD Staff Physician-Ophthalmology Cosigned: 07/09/2023 11:50 IRIS SANTAMARIA [facility]
--- OUTSIDE RECORDS SUMMARY | 2024-03-04 12:56 | XMS_ITS | Encounter Summary ---
Author Name [facility] [place] [facility] [place] Organization [facility] [place] Address [address] [place] [address] Care Team Providers Care Company Controller Name Role Phone JILLIAN GAN Primary Care [...] MEDIC ARE SUPPL EMEMT Apr 23, 2019 [id number] [phone] KATHY ORTEGA PATIENT ANTHEM [employer] [place] MEDICARE SUPPLEMEN WILL MEDIC ARE SUPPL EMEMT Apr 23, 2019 [id number] [phone] KATHY ORTEGA PATIENT ANTHE[place] [employer] MEDICARE SUPPLEMEN WILL MEDIC ARE SUPPL EMEMT Apr 23, 2019 [id number] [phone] KATHY ORTEGA PATIENT [employer]BS [place] MEDICARE SUPPLEMEN WILL MEDIC ARE SUPPL EMEMT Apr 23, 2019 [id number] [phone] KATHY ORTEGA PATIENT [employer] MCR (WNR) MEDICARE ADVANTAGE MCR (WNR) Mar 23, 2022 [id number] KATHY ORTEGA PATIENT [employer] MCR (WNR) MEDICARE ADVANTAGE [facility] (WNR) Mar 23, 2022 [id number] KATHY ORTEGA PATIENT MEDICARE (WNR) MEDICARE (M) RR PART A May 21, 1990 RR PART A [id number] KATHY ORTEGA PATIENT MEDICARE (WNR) MEDICARE (M) RR PART B May 21, 1990 RR PART B [id number] KATHY ORTEGA CASEYSHANIA PATIENT [employer] [place] MEDICARE SUPPLEMEN WILL MEDIC ARE SUPPL EMENT Feb 20, 2013 PLAN G [id number] [phone] KATHY ORTEGA CASEYSHANIA PATIENT [employer] MCR (WNR) MEDICARE ADVANTAGE [facility] (WNR) Mar 23, 2021 [id number] [phone] KATHY ORTEGA GRAY PATIENT Selected Encounter This section includes the information on record at [place] for the Encounter. Date/Time Encounter Type Encounter Description Reason Pro vider Source Sep 10, 2023 01:19 PM Outpatient Encounter OPHTHALMOLOGY FRAN BEE Encounter Template Text not used by [place] Plan of Treatment: Future Appointments (+ 6 months) and Future Tests (+/- 45 days) The Plan of Treatment section includes future care activities for the patient from all [place] treatmentfacilities. This section includes future appointments and future orders which are active, pending or scheduled. Future Appointments This section includes appointments that were scheduled to occur 6 months from the date of the Encounter, up to a maximum of 20 appointments. The data comes from all [place] treatment facilities. Appointment Date/Time Appointment Type Appointme nt Facility Name Oct 08, 2023 08:30 AM AMBULATORY - MEDICINE [facility] Nov 12, 2023 08:15 AM AMBULATORY - MEDICINE [facility] Nov 26, 2023 03:00 PM AMBULATORY - PSYCHIATRY [facility] Dec 10, 2023 09:30 AM AMBULATORY - MEDICINE [facility] Jan 13, 2024 08:15 AM AMBULATORY - MEDICINE [facility] Jan 22, 2024 02:15 PM AMBULATORY - MEDICINE [facility] Jan 26, 2024 09:30 AM AMBULATORY - SURGERY . [facility] Feb 11, 2024 09:15 AM AMBULATORY - MEDICINE [facility] Feb 11, 2024 11:00 AM AMBULATORY - MEDICINE [facility] Lab Results: +/- 30 days of the encounter This section includes the Chemistry and Hematology Lab Results on record with [place] for the patient. Radiology Reports and Pathology Reports are provided separately, in subsequent sections. Lab Results This section contains the Chemistry/Hematology Results that were resulted 30 days before or 30 daysafter the date of the Encounter. Date/Time Source Result Type Result - Unit Interpretation Reference Range Comment Oct 08, 2023 10:32 AM [facility] POC INR (STL-RX MONITORING ONLY) Specimen Type: BLOOD Comment: Test Performed by: [id number] Meter #: [id number] Ordering Provider: NANCI PEREIRA Report Released Date/Time: Oct 08, 2023 10:35 AM Reporting Lab: [address] [address] Performing Lab: [address] [address] POC INR (STL-RX MONITORING ONLY) 2.4 {INR} H 0.9-1.1 Sep 10, 2023 09:40 AM [facility] POC INR (STL-RX MONITORING ONLY) Specimen Type: BLOOD Comment: Test Performed by: [id number] Meter #: [id number] Ordering Provider: NANCI PEREIRA Report Released Date/Time: Sep 10, 2023 09:46 AM Reporting Lab: [place] [id number] [facility] [address] Performing Lab: [address] [address] POC INR (STL-RX MONITORING ONLY) 2.3 {INR} H 0.9-1.1 Social History: Smoking Status (Most current) and Tobacco Use (All prior to encounter date) This section includes the most current, and the historical, smoking and tobacco- related health factors from the [place] facility where the Encounter took place. Current Smoking Status This section includes the most current smoking, or tobacco-related health factor, from the [place] facility where the Encounter took place. Date/Time Current Smoking Status Comment Catherine pepe Apr 29, 2018 09:12 AM [place]-TOBACCO QUIT 15 YRS OR MORE [facility] Tobacco Use History This section includes a history of the smoking, or tobacco-related health factors, that were collected on or before the date of the Encounter. The data comes from the [place] facility where the Encounter took place. Date/Time Smoking Status/Tobacco Use Comment F acjack Apr 29, 2018 09:12 AM [place]-TOBACCO QUIT 15 YRS OR MORE [facility] Advance Directives: All historical and current Section Date Range: From patient's date of to the date document was created. This section includes ALL of a patient's completed or amended [place] Advance and Rescinded Directives. The entries below indicate that a directive exists for the patient, but an actual copy is not included with this document. The data comes from all [facility]. Date Advance Directives Provider Source Jun 13, 2013 ADVANCE DIRECTIVE DISCUSSION RONALD ESTRADA [facility] Encounter Notes: All associated encounter notes This section contains the clinical notes associated to the Encounter. Date/Time Encounter Note(s) Provider Source Sep 10, 2023 01:19 PM [email or web address] DIALOG NOTE: LOCAL TITLE: [facility] STANDARD TITLE: [email or web address] DIALOG NOTE DATE OF NOTE: SEP 10, 2023@13:19 ENTRY DATE: SEP 10, 2023@13:19:12 AUTHOR: FRAN BEE COSIGNER: URGENCY: STATUS: COMPLETED ------Original Message ------ Sent: 09/09/2023 01:18 PM ET From: SACHA ORTEGA To: ST[facility], OPHTHALMOLOGY, SURGERY + Subject: General:left eye eye I had Cataract on 07-01-2023. I have constant scratching under eyelid driving me crazy. My name is Sacha Braxton Ortega.[email or web address] phone # [phone] It feels like something is under it Thank you. ------Original Message ------ Sent: 09/10/2023 02:19 PM ET From: FRAN BEE To: SACHA ORTEGA Subject: General:left eye Good afternoon, The doctor is going to give you a call. Thank you, COBY RamosN glass deposition tender, Eye Clinic // MARLEN LOGAN glass deposition tender, Ophthalmology Signed: 09/10/2023 13:19 FRAN BEE [facility]
--- OUTSIDE RECORDS SUMMARY | 2024-03-04 12:56 | XMS_ITS | Encounter Summary ---
Author Name [facility] [place] [facility] [place] [facility] [facility] [place] Address [address] [place] [address] Care Team Providers Care Buckle Inspector Name Role Phone JILLIAN GAN Primary Care [...] MEDIC ARE SUPPL EMEMT Apr 23, 2019 [id number] [phone] KATHY ORTEGA PATIENT ANTHEM [employer] [place] MEDICARE SUPPLEMEN WILL MEDIC ARE SUPPL EMEMT Apr 23, 2019 [id number] [phone] KATHY ORTEGA PATIENT AN[place] [employer] MEDICARE SUPPLEMEN WILL MEDIC ARE SUPPL EMEMT Apr 23, 2019 [id number] [phone] KATHY ORTEGA PATIENT [employer] MEDICARE SUPPLEMEN WILL MEDIC ARE SUPPL EMEMT Apr 23, 2019 [id number] [phone] KATHY ORTEGA PATIENT [employer] MCR (WNR) MEDICARE ADVANTAGE MCR (WNR) Mar 23, 2022 [id number] KATHY ORTEGA PATIENT [employer] MCR (WNR) MEDICARE ADVANTAGE [facility] (WNR) Mar 23, 2022 [id number] KATHY ORTEGA PATIENT MEDICARE (WNR) MEDICARE (M) RR PART A May 21, 1990 RR PART A [id number] KATHY ORTEGA PATIENT MEDICARE (WNR) MEDICARE (M) RR PART B May 21, 1990 RR PART B [id number] [phone] KATHY ORTEGA PATIENT [employer] [place] MEDICARE SUPPLEMEN WILL MEDIC ARE SUPPL EMENT Feb 20, 2013 PLAN G [id number] [phone] KATHY ORTEGA PATIENT [employer] MCR (WNR) MEDICARE ADVANTAGE [facility] (WNR) Mar 23, 2021 [id number] [phone] KATHY ORTEGA PATIENT Selected Encounter This section includes the information on record at [place] for the Encounter. Date/Time Encounter Type Encounter Description Reason Provider Source Jun 24, 2023 10:15 AM MTMS BY PHARM EST 15 MIN TELEPHONE/ANCILLA ISABELLE ICD-10-CM Z51.81 Encounter for therapeutic drug level monitoring NANCI PEREIRA Encounter Template Text not used by [place] Assessments - Encounter Diagnoses This section includes the primary and secondary diagnoses documented for the Encounter. 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 This section includes future appointments and future orders which are active, pending or scheduled. Future Appointments This section includes appointments that were scheduled to occur 6 months from the date of the Encounter, up to a maximum of 20 appointments. The data comes from all [place] treatment facilities. Appointment Date/Time Appointment Type Appointme nt Facility Name Jul 01, 2023 06:30 AM [facility]ULATORY [facility] NONE [facility] Jul 02, 2023 08:30 AM AM[facility]ULATORY - SURGERY [facility] Jul 08, 2023 10:00 AM AMBULATORY - SUR[facility]ERY [facility] July 31, 2023 10:00 AM AMBULATORY - SUR[facility]ERY [facility] August 06, 2023 08:30 AM AMBULATORY - MEDICINE [facility] August 06, 2023 10:30 AM AMBULATORY - MEDICINE [facility] Sep 10, 2023 08:00 AM AMBULATORY - MEDICINE [facility] Oct 08, 2023 08:30 AM AMBULATORY - MEDICINE [facility] Nov 12, 2023 08:15 AM AMBULATORY - MEDICINE [facility] Nov 26, 2023 03:00 PM AMBULATORY - PSYCHIATRY [facility] Dec 10, 2023 09:30 AM AMBULATORY - MEDICINE [facility] Lab Results: +/- 30 days of the encounter This section includes the Chemistry and Hematology Lab Results on record with [place] for the patient. Radiology Reports and Pathology Reports are provided separately, in subsequent sections. Lab Results This section contains the Chemistry/Hematology Results that were resulted 30 days before or 30 daysafter the date of the Encounter. Date/Time Source Result Type Result - Unit Interpretation Reference Range Comment Jul 01, 2023 06:59 AM [facility] GLUCOSE,BLOOD-poct (STL) Specimen Type: BLOOD Comment: Test Performed by: [id number] Meter #: [id number] Ordering Provider: EFREN ROSARIO Report Released Date/Time: Jul 01, 2023 07:10 AM Reporting Lab: [facility] [address] [address] Performing Lab: [place] [id number] [address] GLUCOSE,BLOOD -poct (STL) 159 mg/dL H 72-99 Jun 24, 2023 09:59 AM [facility] HGB,HCT,PLT Specimen Type: BLOOD No comment entered. Ordering Provider: NANCI PEREIRA Report Released Date/Time: May 28, 2023 09:48 AM Reporting Lab: [address] [address] Performing Lab: [address] [address] HGB 14.9 g/dL 13.1-16.8 HCT 47.7 38.2-48.4 PLT 120 10*3/uL L 150-400 Jun 24, 2023 09:58 AM [facility] POC INR (STL-RX MONITORING ONLY) Specimen Type: BLOOD Comment: Test Performed by: [id number] Meter #: [id number] Ordering Provider: NANCI PEREIRA Report Released Date/Time: Jun 24, 2023 10:01 AM Reporting Lab: [address] [address] Performing Lab: [address] [address] POC INR (STL-RX MONITORING ONLY) 2.9 {INR} H 0.9-1.1 May 27, 2023 09:49 AM [facility] POC INR (STL-RX MONITORING ONLY) Specimen Type: BLOOD Comment: Test Performed by: [id number] Meter #: [id number] Ordering Provider: NANCI PEREIRA Report Released Date/Time: May 28, 2023 06:05 AM Reporting Lab: [address] [address] Performing Lab: [address] [address] POC INR (STL-RX MONITORING ONLY) 2.5 {INR} H 0.9-1.1 Social History: Smoking Status (Most current) and Tobacco Use (All prior to encounter date) This section includes the most current, and the historical, smoking and tobacco- related health factors from the [facility] where the Encounter took place. Current Smoking Status This section includes the most current smoking, or tobacco-related health factor, from the [place] facility where the Encounter took place. Date/Time Current Smoking Status Comment Catherine pepe Apr 29, 2018 09:12 AM [place]-TOBACCO QUIT 15 YRS OR MORE [facility] Tobacco Use History This section includes a history of the smoking, or tobacco-related health factors, that were collected on or before the date of the Encounter. The data comes from the [place] facility where the Encounter took place. Date/Time Smoking Status/Tobacco Use Comment F osbaldo Apr 29, 2018 09:12 AM [place]-TOBACCO QUIT 15 YRS OR MORE [facility] Advance Directives: All historical and current Section Date Range: From patient's date of to the date document was created. This section includes ALL of a patient's completed or amended [place] Advance and Rescinded Directives. The entries below indicate that a directive exists for the patient, but an actual copy is not included with this document. The data comes from all [facility]. Date Advance Directives Provider Source Jun 13, 2013 ADVANCE DIRECTIVE DISCUSSION RONALD ESTRADA [facility] Encounter Notes: All associated encounter notes This section contains the clinical notes associated to the Encounter. Date/Time Encounter Note(s) Provider Source Jun 24, 2023 01:24 PM PHARMACY OUTPATIEN T MEDICATION MGT NOTE: LOCAL TITLE: PHARMACY [facility] STANDARD TITLE: PHARMACY OUTPATIENT MEDICATION MGT NOTE DATE OF NOTE: JUN 24, 2023@13:24 ENTRY DATE: JUN 24, 2023@13:24:07 AUTHOR: BRYANT LUCIANO EXP COSIGNER: NANCI PEREIRA URGENCY: STATUS: COMPLETED PHARMACY [facility] Has ADDENDA WARFARIN LAB ONLY - TELEPHONE CONTACT SHANNONSACHA HILARIO is a 77 y/o MALE on warfarin. Patient was identified by 2 unique identifiers. Indication for warfarin: Pulmonary Embolism, Factor V Leiden Goal INR: 2-3 Current warfarin dose on [...] ticagrelor, cilostazol, dipyridamole)? NO Any additional information? NO Objective: POC INR (STL-RX MONITORING ONLY) 2.9 H INR 06/24/2023 09:58 HGB 14.6 g/dL 01/15/2023 08:36 HCT 46.4 % 01/15/2023 08:36 PLT 131 L 10*3/uL 01/15/2023 08:36 INR Trends: Date Dose at time of lab INR Comments 06/24/23 7.5mg daily x 10mg //Thu 2.9 05/27/23 7.5mg daily x 10mg We//Thu 2.5 05/12/23 7.5mg daily x 10mg /Fri 1.9 05/04/23 7.5mg daily x 10mg /Fri 1.5 03/27/23 unable to contact 2.1 02/19/23 unable to contact 2.6 01/15/23 7.5mg daily x 10mg /Fri 2.1 12/11/22 7.5mg daily x 10mg /Fri 2.3 11/06/22 7.5mg daily x 10mg /Fri 2.6 10/02/22 7.5mg daily x 10mg /Fri 2.2 08/21/22 unable to contact 2.1 07/10/22 7.5mg daily x 10mg Th/Fri 2.1 06/03/22 7.5mg daily x 10mg Th/Fri 2.1 04/29/22 7.5mg daily x 10mg /Fri 2.1 Assessment: -- INR is - within therapeutic range -- H/H is - within normal limits. Will check q6mos or earlier if needed. Plan: ----- --Pt/caregiver was given INR results during telephone contact --Warfarin dose: - continue current dose: 7.5mg daily x 10mg //Thu --Bridging therapy: - NO --Next lab date: 08/06/2023 to coordinate with appt [facility] PCP --Patient/Caregiver repeated dose instructions and f/u monitoring plan?YES --Warfarin prescription renewed/refilled/direction s updated if necessary?YES --Clinical reminder completed if due?YES --Minutes spent in telephone conversation: 8 min /rigoberto Luciano PharmD PGY1 Resident Signed: 06/24/2023 15:32 /paola/ NANCI PEREIRA, PHARM.D, [facility] CLINICAL PHARMACIST Cosigned: 06/24/2023 15:39 06/25/2023 ADDENDUM STATUS: COMPLETED Collection time: Jun 24, 2023@09:59 Test Name Result Units Range --------- ------ ----- ----- HGB 14.9 g/dL 13.1 - 16.8 HCT 47.7 % 38.2 - 48.4 PLT 120 L 10*3/uL 150 - 400 H&H stable, continue w/ above plan /rigoberto PEREIRA, PHARM.D, [facility] CLINICAL PHARMACIST Signed: 06/25/2023 08:24 BRYANT LUCIANO [facility]
--- OUTSIDE RECORDS SUMMARY | 2024-03-04 12:56 | XMS_ITS | Encounter Summary ---
Author Name [facility] [place] [facility] [place] [facility] [place] [facility] [place] Address [address] [place] [address] Care Team Providers Care Barrel Assembly Inspector Name Role Phone JILLIAN GAN Primary [...] MEDIC ARE SUPPL EMEMT Apr 23, 2019 [id number] [phone] KATHY ORTEGA PATIENT ANTHEM [employer] MEDICARE SUPPLEMEN WILL MEDIC ARE SUPPL EMEMT Apr 23, 2019 [id number] [phone] KATHY ORTEGA PATIENT AN[place] MEDICARE SUPPLEMEN WILL MEDIC ARE SUPPL EMEMT Apr 23, 2019 [id number] [phone] KATHY ORTEGA PATIENT [place] MEDICARE SUPPLEMEN WILL MEDIC ARE SUPPL EMEMT Apr 23, 2019 [id number] [phone] KATHY ORTEGA PATIENT [employer] MCR (WNR) MEDICARE ADVANTAGE MCR (WNR) Mar 23, 2022 [id number] KATHY ORTEGA PATIENT [employer] (WNR) MEDICARE ADVANTAGE [facility] (WNR) Mar 23, 2022 [id number] KATHY ORTEGA PATIENT MEDICARE (WNR) MEDICARE (M) RR PART A May 21, 1990 RR PART A [id number] KATHY ORTEGA PATIENT MEDICARE (WNR) MEDICARE (M) RR PART B May 21, 1990 RR PART B [id number] KATHY ORTEGA PATIENT [employer] [place] MEDICARE SUPPLEMEN WILL MEDIC ARE SUPPL EMENT Feb 20, 2013 PLAN G [id number] [phone] KATHY ORTEGA PATIENT [facility] (WNR) MEDICARE ADVANTAGE [facility] (WNR) Mar 23, 2021 [id number] KATHY ORTEGA PATIENT Selected Encounter This section includes the information on record at [place] for the Encounter. Date/Time Encounter Type Encounter Description Reason Provider Source August 06, 2023 10:30 AM OFFICE O/P EST MOD 30 MIN PRIMARY CARE/MEDICINE ICD-10-CM F43.29 Adjustment disorder with other symptoms FIDELIA PETTY Ken Encounter Template Text not used by [facility] Assessments - Encounter Diagnoses This section includes the primary and secondary diagnoses documented for the Encounter. Date/Time Primary/Secondary Diagnosis Diagnosis Name Provider Source August 14, 2023 12:34 AM PRIMARY Adjustment disorder with other symptoms GAN,JILLIAN A [facility] August 14, 2023 12:34 AM SECONDARY Benign prostatic hyperplasia with lower urinary tract symp GAN,JILLIAN A . [facility] August 14, 2023 12:34 AM SECONDARY Cervicalgia GAN,JILLIAN A [facility] August 14, 2023 12:34 AM SECONDARY Obstructive sleep apnea (adult) (pediatric) GAN,JILLIAN A . [facility] August 14, 2023 12:34 AM SECONDARY Other allergic rhinitis GAN,JILLIAN A [facility] August 14, 2023 12:34 AM SECONDARY Type 2 diabetes mellitus with diabetic polyneuropathy GAN,JILLIAN A [facility] August 14, 2023 12:34 AM SECONDARY Type 2 diabetes mellitus with unspecified complications JILLIAN GAN [facility] August 14, 2023 12:34 AM SECONDARY Varicose veins of bilateral lower extremities with pain JILLIAN GAN [facility] Plan of Treatment: Future Appointments (+ 6 months) and Future Tests (+/- 45 days) The Plan of Treatment section includes future care activities for the patient from all [place] treatmentfafirsthealth[facility]. This section includes future appointments and future orders which are active, pending or scheduled. Future Appointments This section includes appointments that were scheduled to occur 6 months from the date of the Encounter, up to a maximum of 20 appointments. The data comes from all [place] treatment facilities. Appointment Date/Time Appointment Type Appointme nt Facility Name Sep 10, 2023 08:00 AM AMBULATORY - MEDICINE [facility] Oct 08, 2023 08:30 AM AMBULATORY - MEDICINE [facility] Nov 12, 2023 08:15 AM AMBULATORY - MEDICINE [facility] Nov 26, 2023 03:00 PM AMBULATORY - PSYCHIATRY [facility] Dec 10, 2023 09:30 AM AMBULATORY - MEDICINE [facility] Jan 13, 2024 08:15 AM AMBULATORY - MEDICINE [facility] Jan 22, 2024 02:15 PM AMBULATORY - MEDICINE [facility] Jan 26, 2024 09:30 AM AMBULATORY - SURGERY [facility] Lab Results: +/- 30 days of the encounter This section includes the Chemistry and Hematology Lab Results on record with [place] for the patient. Radiology Reports and Pathology Reports are provided separately, in subsequent sections. Lab Results This section contains the Chemistry/Hematology Results that were resulted 30 days before or 30 daysafter the date of the Encounter. Date/Time Source Result Type Result - Unit Interpretation Reference Range Comment August 06, 2023 11:28 AM [facility] HGA1C Specimen Type: BLOOD No comment entered. Ordering Provider: JILLIAN GAN Report Released Date/Time: August 06, 2023 11:19 AM Reporting Lab: [facility] [address] [facility] [phone] Performing Lab: [facility] [address] [facility] [id number] HGA1C 8.4 H 4.0-6.0 August 06, 2023 11:28 AM [facility] LIPID PANEL (STL) Specimen Type: PLASMA Comment: LDL calculation invalid when Triglyceride exceeds 250 mg/dl Ordering Provider: JILLIAN GAN Report Released Date/Time: August 06, 2023 11:19 AM Reporting Lab: [facility] [address] [place] [phone] Performing Lab: [address] [address] CHOLESTEROL 193 mg/dL 0-200 TRIGLYCERIDE 315 mg/dL H 0-150 DIRECT LDL 98 mg/dL L >100 CALCULATED LDL comment mg/dL HDL(New) 42 mg/dL >40 August 06, 2023 11:28 AM [facility] MICRAL/CREAT PROFILE (STL) Specimen Type: URINE Comment: uALB/CREAT Ratio Unable to be calculated Unable to calculate due to Microalbumin < 5.0 mg/L Ordering Provider: JILLIAN GAN Report Released Date/Time: August 06, 2023 11:19 AM Reporting Lab: [facility] [address] [place] [phone] Performing Lab: [address] [address] URINE ALBUMIN (PB-STL) <5.0 mg/L uACR (STL) comment mg/g 0-29 CREATININE URINE/OTHERS 75.7 mg/dL 63-166 August 06, 2023 11:28 AM [facility] COMPREHENSIVE METABOLIC PANEL Specimen Type: PLASMA Comment: LDL calculation invalid when Triglyceride exceeds 250 mg/dl Ordering Provider: JILLIAN GAN Report Released Date/Time: August 06, 2023 11:19 AM Reporting Lab: [facility] [address] [place] [phone] Performing Lab: [address] [address] CREATININE 1.17 mg/dL 0.7-1.3 UREA NITROGEN 22.1 [...] 65.0 >60 August 06, 2023 11:28 AM [facility] CBC Specimen Type: BLOOD No comment entered. Ordering Provider: JILLIAN GAN Report Released Date/Time: August 06, 2023 11:19 AM Reporting Lab: [facility] [address] [facility] [address] Performing Lab: [facility] [address] [facility] [phone] WBC 5.3 10*3/uL 3.6-11.2 RBC 5.78 10*6/uL [...] 10*3/uL 0.00-0.20 August 06, 2023 09:46 AM [facility] POC INR (STL-RX MONITORING ONLY) Specimen Type: BLOOD Comment: Test Performed by: [id number] Meter #: [id number] Ordering Provider: NANCI PEREIRA Report Released Date/Time: August 06, 2023 09:47 AM Reporting Lab: [facility] [address] [facility] [phone] Performing Lab: [facility] [address] [place] [phone] POC INR (STL-RX MONITORING ONLY) 2.1 {INR} H 0.9-1.1 Vital Signs: All taken on the encounter date This section contains inpatient and outpatient Vital Signs collected on the date of the Encounter. Date/Time Temperature Pulse Blood Pressure Respiratory Rate SP02 Pain Height Weight Body Mass Index Source August 06, 2023 10:40 AM 131/77 [facility] August 06, 2023 10:40 AM 97.7 72 133/79 18 93 3 70 259.2 37 [facility] Social History: Smoking Status (Most current) and Tobacco Use (All prior to encounter date) This section includes the most current, and the historical, smoking and tobacco- related health factors from the [place] facility where the Encounter took place. Current Smoking Status This section includes the most current smoking, or tobacco-related health factor, from the [place] facility where the Encounter took place. Date/Time Current Smoking Status Comment Facil ity Jan 15, 2023 09:30 AM [place]-TOBACCO FORMER USER [facility] Tobacco Use History This section includes a history of the smoking, or tobacco-related health factors, that were collected on or before the date of the Encounter. The data comes from the [place] facility where the Encounter took place. Date/Time Smoking Status/Tobacco Use Comment F acility Jan 15, 2023 09:30 AM UT-TOBACCO QUIT 15 YRS OR MORE [facility] Jan 06, 2022 11:00 AM UT-TOBACCO FORMER USER [facility] Jan 06, 2022 11:00 AM UT-TOBACCO QUIT 15 YRS OR MORE [facility] Jan 03, 2021 02:00 PM VA-TOBACCO FORMER USER [facility] Jan 03, 2021 02:00 PM VA-TOBACCO QUIT 15 YRS OR MORE [facility] May 16, 2019 10:16 AM VA-TOBACCO FORMER USER [facility] May 16, 2019 10:16 AM VA-TOBACCO QUIT 15 YRS OR MORE [facility] May 06, 2017 08:46 AM QUIT TOBACCO >7 YEARS AGO [facility] Nov 03, 2016 10:14 AM QUIT TOBACCO >7 YEARS AGO [facility] August 06, 2012 09:27 AM QUIT TOBACCO >7 YEARS AGO [facility] Jun 12, 2011 01:07 PM QUIT TOBACCO >7 YEARS AGO [facility] Advance Directives: All historical and current Section Date Range: From patient's date of to the date document was created. This section includes ALL of a patient's completed or amended VA Advance and Rescinded Directives. The entries below indicate that a directive exists for the patient, but an actual copy is not included with this document. The data comes from all [place] facilities. Date Advance Directives Provider Source Jun 13, 2013 ADVANCE DIRECTIVE DISCUSSION RONALD ESTRADA [facility] Encounter Notes: All associated encounter notes This section contains the clinical notes associated to the Encounter. Date/Time Encounter Note(s) Provider Source Dec 21, 2023 05:01 PM ACCOUNTING OF DISC LOSURES NOTE: LOCAL TITLE: STATE PRESCRIPTION DRUG MONITORING PROGRAM STANDARD TITLE: ACCOUNTING OF DISCLOSURES NOTE DATE OF NOTE: DEC 21, 2023@17:01 ENTRY DATE: DEC 21, 2023@17:01:50 AUTHOR: JILLIAN GAN COSIGNER: URGENCY: STATUS: COMPLETED [SPDM] The clinical justification for this PDMP query is to review controlled substances prescribed outside of the [facility], and any additional information that may become available, as an important component of standard clinical care, and in accordance with [facility] policy. *Date of Prescription Monitoring Program Query: Nov I reviewed patient's PDMP report for Schedule II, III, IV, or V medications from the following State PDMP [facility] *Findings: No prescription(s) for controlled substances outside the [facility] were found in the last 90 days. [END*] /paola/ JILLIAN GAN MD Signed: 12/21/2023 17:02 JILLIAN GAN [facility] August 14, 2023 12:35 AM ADMINISTRATIVE NOT E: LOCAL TITLE: ADMINISTRATIVE STL STANDARD TITLE: ADMINISTRATIVE NOTE DATE OF NOTE: AUGUST 14, 2023@00:35 ENTRY DATE: AUGUST 14, 2023@00:36:04 AUTHOR: JILLIAN GAN EXP COSIGNER: URGENCY: STATUS: COMPLETED pls let pt know that A1c is 8.4 .I increased glipizide to 10 mg po BID.pls review low carb diet. Triglycerides also above goal. continue atorvastatin pls. 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 denies abd pain. denies dysuria. denies blood in urine . Pt reports neck and low back pain/hip pain and knee pain, worse with activity and better with rest. Back pain radiates down both buttocks. Denies loss of bowel control. denies difficulty emptying bladder. Tkes OTC apap for pain. Also uses medical cannabis. pregabalin helps. He denies cp, sob, palpitations.KNows how to ID and treat hypoglycemia. Denies increased thirst, urination nor hunger. . He sleeps ok, tolerates cpap. mood stable. denies SI/HI. Painful numbness of both feet His cuts toenails , no open areas. 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 SOCIAL HISTORY: NICOTINE: Nicotine User: No ILLICIT DRUGS: medical cannabis ETOH: denies ALLERGIES: AUGMENTIN, SIMVASTATIN, MORPHINE ALLERGY REVIEW: Allergy list reviewed and remains current. MEDICATION RECONCILIATION: I have reviewed the patient's medication list with the patient and/or his/her care-application security consultant. Handwritten corrections, additions and/or deletions were made to the list. Corrected Outpatient Medication List was provided to the patient/caregiver. Active Outpatient Medications (including Supplies): Active Outpatient Medications Status 1) ALOGLIPTIN 6.25MG TAB TAKE ONE TABLET [...] MOUTH ONCE ACTIVE A DAY FOR DIABETES 5) GLIPIZIDE 5MG TAB TAKE ONE TABLET BY MOUTH TWO TIMES ACTIVE (S) A DAY BEFORE MEALS FOR DIABETES TAKE 30 MINUTES BEFORE EATING. 6) KETOTIFEN 0.025% OPH SOLN INSTILL 1 DROP IN BOTH EYES ACTIVE TWICE A DAY 7) METFORMIN HCL 1000MG TAB TAKE ONE [...] WATER) 10) PREDNISOLONE ACETATE 1% OPH SUSP INSTILL 1 DROP IN ACTIVE LEFT EYE FOUR TIMES A DAY FOR EYE INFLAMMATION TO USE AFTER SURGERY ON 06/30 11) PREGABALIN 300MG ORAL CAP TAKE ONE CAPSULE BY MOUTH ACTIVE TWICE A DAY FOR NERVE PAIN *MAY CAUSE DROWSINESS* 12) QUETIAPINE FUMARATE 200MG TAB TAKE ONE-HALF TABLET BY ACTIVE MOUTH AT BEDTIME FOR MOOD 13) ROPINIROLE HCL 0.5MG TAB TAKE ONE TABLET BY MOUTH AT ACTIVE (S) BEDTIME FOR PARKINSON DISEASE 14) SERTRALINE HCL 100MG TAB TAKE ONE-HALF TABLET BY ACTIVE MOUTH EVERY MORNING FOR MOOD 15) TADALAFIL 10MG TAB TAKE ONE TABLET BY MOUTH EVERY ACTIVE WEEK NEEDED FOR ERECTILE DYSFUNCTION (TAKE 30 MINUTES PRIOR TO SEXUAL ACTIVITY) - LIMIT 6 DOSES PER 30 DAYS 16) WARFARIN NA 5MG TAB TAKE ONE [...] CAPSULE BY ACTIVE MOUTH ONCE A DAY 20 Total Medications REVIEW OF SYSTEMS: General: Normal [...] as listed in the electronic record): B/P: 131/77 (08/06/2023 10:40) Pulse: 72 (08/06/2023 10:40) Temperature: 97.7 F [36.5 C] (08/06/2023 10:40) Weight: 259.2 lb [117.57 kg] (08/06/2023 10:40) Height: 70 in [177.8 cm] (08/06/2023 10:40) BMI: 37.3 Pain: 3 (08/06/2023 10:40) (0-10 scale) General: pleasant, cooperative, well-developed, obese, appropriately dressed and groomed [place]; in no acute distress.stutters when anxious Ears, Nose, Mouth, Throat:NC/AT,MMM, no thyromegaly Eye:PERRL Cardiovascular:RRR, No m/r/g or clicks. Respiratory:Clear to auscultation bilaterally. No accessory muscle use. Respirations even and non-labored ABD/GI:soft, non-tender. BS + x 4. /GOVERNMENT INSTRUCTOR: Deferred Lymph: No lymphadenopathy Extremities/MSK:No pedal edema. Psych:Affect appropriate. Neuro: Oriented x3. Gait steady , slow stride, uses walker Hematology: Color good. No pallor. No ecchymosis or petechiae. Skin:No visualized abnormalities. ASSESSMENT/PLAN: # hypercoagulable syndrome with hx of [...] , denies SI/HI. cpm. recs appreciated # insomnis- cont quetiapine ,melatonin which helps. recs # constipation- cont miralax and duloclax RETURN TO CLINIC:6-8 Return to Clinic order placed SUMMARY STATEMENT: Plan of care has been discussed with including expected therapeutic benefits and potential side effects of prescribed medication and treatments. [place] verbalizes understanding and is in agreement with the plan of care. Patient was instructed to keep all scheduled appointments and contact billposting supervisor for any additional problems. PREVENTION & SCREENING: ALCOHOL: Clinical Reminder not due now or within a month BLOOD PRESSURE: Clinical Reminder not due now or within a month HEMOGLOBIN A1C: Clinical Reminder not due now or within a month /es/ JILLIAN GAN MD Signed: 08/14/2023 00:34 [facility] 06, 2023 10:41 AM NURSING NOTE: LOCAL TITLE: V15 PACT FACE TO FACE NOTE STL STANDARD TITLE: NURSING NOTE DATE OF NOTE: AUGUST 06, 2023@10:41 ENTRY DATE: AUGUST 06, 2023@10:41:55 AUTHOR: FIDELIA PETTY EXP COSIGNER: URGENCY: STATUS: COMPLETED Provider Visit: Patient Identifiers : Full Name Date of Reason for visit: Established Follow-Up Mode of Arrival: Ambulatory Allergy Review: AUGMENTIN, SIMVASTATIN, MORPHINE Allergy list reviewed and remains current. Recent Vital Signs: Temperature: 97.7 F [36.5 C] (08/06/2023 10:40) Pulse: 72 (08/06/2023 10:40) Respiration: 18 (08/06/2023 10:40) B/P: 131/77 (08/06/2023 10:40) Pain: 3 (08/06/2023 10:40) Wt: 259.2 lb [117.57 kg] (08/06/2023 10:40) Ht: 70 in [177.8 cm] (08/06/2023 10:40) BMI: 37.3 POX: 93% (08/06/2023 10:40) Would you like to discuss any personal problem, family problem, alcohol use, drug use, or a mental or emotional illness? No Contact provided Primary Care phone number and encouraged to call if any questions or concerns. Review that after hours nurse line [phone] and emergency room are available 13/10 for patient use. Contact verbalized good understanding. Suicide Screen: C-SSRS Screening [place]-Suicide Severity Rating Scale (C-SSRS Screener) 1. Over the past month, have you wished you were or wished you could go to sleep and not wake up? No 2. Over the past month, have you had any actual thoughts of killing yourself? No 3. Over the past month, have you been thinking about how you might do this? Response not required due to responses to other questions. 4. Over the past month, have you had these thoughts and had some intention of acting on them? Response not required due to responses to other questions. 5. Over the past month, have you started to work out or worked out the details of how to kill yourself? Response not required due to responses to other questions. 6. If yes, at any time in the past month did you intend to carry out this plan? Response not required due to responses to other questions. 7. In your lifetime, have you ever done anything, started to do anything, or prepared to do anything to end your life (for example, collected pills, obtained a gun, gave away valuables, went to the roof but didn't jump)? No 8. If YES, was this within the past 3 months? Response not required due to responses to other questions. COVID-19 Immunization: Refused Moderna Monovalent COVID-19 vaccine Immunization: COVID-19 (MODERNA), MRNA, LNP-S, PF, 50 MCG/0.5 ML (AGES 12+ YEARS) Refusal Reason: PATIENT DECISION Patient refuses all immunization(s) in the COVID-19 group Date Documented: 08/06/23 10:45 /paola/ Fidelia Petty Rn, BSN REGISTERED NURSE Signed: 08/06/2023 10:46 FIDELIA PETTY [facility]
--- OUTSIDE RECORDS SUMMARY | 2024-03-04 12:56 | XMS_ITS | Encounter Summary ---
Author Name [facility] [place] Organization [place] Address [address] [place] [address] Care Team Providers Care Geophysical Prospecting Permit Agent Name Role Phone JILLIAN GAN Primary Care [...] MEDIC ARE SUPPL EMEMT Apr 23, 2019 [id number] [phone] KATHY ORTEGA PATIENT ANTHEM BCBS [place] MEDICARE SUPPLEMEN WILL MEDIC ARE SUPPL EMEMT Apr 23, 2019 [id number] [phone] KATHY ORTEGA PATIENT AN[place]M [place] MEDIC[place] SUPPLEMEN WILL MEDIC ARE SUPPL EMEMT Apr 23, 2019 [id number] [phone] KATHY ORTEGA PATIENT BCBS [place] MEDICARE SUPPLEMEN WILL MEDIC ARE SUPPL EMEMT Apr 23, 2019 [id number] [phone] KATHY ORTEGA PATIENT HU[employer]NA MCR (WNR) MEDICARE ADVANTAGE MCR (WNR) Mar 23, 2022 [id number] KATHY ORTEGA CASEYSHANIA PATIENT HUMANA MCR (WNR) MEDICARE ADVANTAGE [facility] (WNR) Mar 23, 2022 [id number] KATHY ORTEGA PATIENT MEDICARE (WNR) MEDICARE (M) RR PART A May 21, 1990 RR PART A [id number] KATHY ORTEGA PATIENT MEDICARE (WNR) MEDICARE (M) RR PART B May 21, 1990 RR PART B [id number] KATHY ORTEGA CASEYSHANIA PATIENT [employer] [place] MEDICARE SUPPLEMEN WILL MEDIC ARE SUPPL EMENT Feb 20, 2013 PLAN G [id number] [phone] KATHY ORTEGA CASEYSHANIA PATIENT WELL[employer]ARE MCR (WNR) MEDICARE ADVANTAGE [facility] (WNR) Mar 23, 2021 [id number] KATHY ORTEGA CASEYSHANIA PATIENT Selected Encounter This section includes the information on record at [place] for the Encounter. Date/Time Encounter Type Encounter Description Reason Pro vider Source May 15, 2023 07:34 AM Outpatient Encounter GENERAL INTERNAL MEDICINE IHE Encounter Template Text not used by [place] [...] Appointment Type Appointme nt Facility Name May 26, 2023 08:00 AM AMBULATORY - SURGERY [facility] May 27, 2023 08:15 AM AMBULATORY - MEDICINE [facility] Jun 24, 2023 10:15 AM AMBULATORY - MEDICINE [facility] Jul 01, 2023 06:30 AM AMBULATORY - NONE [facility] Jul 02, 2023 08:30 AM AMBULATORY - SUR[facility]ERY [facility] Jul 08, 2023 10:00 AM AMBULATORY - SUR[facility]ERY [facility] July 31, 2023 10:00 AM AM[facility]ATORY - [facility]ERY [facility] August 06, 2023 08:30 AM AMBULATORY - MEDICINE [facility] August 06, 2023 10:30 AM AMBULATORY - MEDICINE [facility] Sep 10, 2023 08:00 AM AMBULATORY - MEDICINE [facility] Oct 08, 2023 08:30 AM AMBULATORY - MEDICINE [facility] Nov 12, 2023 08:15 AM AMBULATORY - MEDICINE [facility] Lab Results: +/- 30 days of the encounter This section includes the Chemistry and Hematology Lab Results on record with [place] for the patient. Radiology Reports and Pathology Reports are provided separately, in subsequent sections. Lab Results This section contains the Chemistry/Hematology Results that were resulted 30 days before or 30 daysafter the date of the Encounter. Date/Time Source Result Type Result - Unit Interpretation Reference Range Comment May 27, 2023 09:49 AM [facility] POC INR (STL-RX MONITORING ONLY) Specimen Type: BLOOD Comment: Test Performed by: [id number] Meter #: [id number] Ordering Provider: NANCI PEREIRA Report Released Date/Time: May 28, 2023 06:05 AM Reporting Lab: [address] [address] Performing Lab: [address] [address] POC INR (STL-RX MONITORING ONLY) 2.5 {INR} H 0.9-1.1 May 13, 2023 12:42 PM [facility] POC INR (STL-RX MONITORING ONLY) Specimen Type: BLOOD Comment: Test Performed by: [id number] Meter #: [id number] Ordering Provider: NANCI PEREIRA Report Released Date/Time: May 13, 2023 12:48 PM Reporting Lab: [address] [address] Performing Lab: [address] [address] POC INR (STL-RX MONITORING ONLY) 1.9 {INR} H 0.9-1.1 May 04, 2023 09:30 AM [facility] POC INR (STL-RX MONITORING ONLY) Specimen Type: BLOOD Comment: Test Performed by: [id number] Meter #: [id number] Ordering Provider: NANCI PEREIRA Report Released Date/Time: May 04, 2023 09:36 AM Reporting Lab: [facility] [address] [facility] [address] Performing Lab: [facility] [address] [place] [address] POC INR (STL-RX MONITORING ONLY) 1.5 {INR} [...] 29, 2018 09:12 AM [place]-TOBACCO FORMER USER [facility] Tobacco Use History This section includes a history of the smoking, or tobacco-related health factors, that were collected on or before the date of the Encounter. The data comes from the [place] facility where the Encounter took place. Date/Time Smoking Status/Tobacco Use Comment F acility Apr 29, 2018 09:12 AM [place]-TOBACCO QUIT 15 YRS OR MORE [facility] Advance Directives: All historical and current [...] 13, 2013 ADVANCE DIRECTIVE DISCUSSION RONALD ESTRADA [facility] Encounter Notes: All associated encounter notes This section contains the clinical notes associated to the Encounter. Date/Time Encounter Note(s) Provider Source Mar 03, 2023 07:34 AM NONVA CONSULT: LOCAL TITLE: COMMUNITY CARE-CONSULT RESULT NOTE STL STANDARD TITLE: NONVA CONSULT DATE OF NOTE: MAR 03, 2023@07:34 ENTRY DATE: MAY 15, 2023@07:36:21 AUTHOR: EDIS CUNNINGHAM EXP COSIGNER: URGENCY: STATUS: COMPLETED The following Community Care consult has been completed. See scanned document for report. Date of Service: Feb Place where service occurred: [facility] Community Care Consult Results Ophthalmology /es/ EDIS CUNNINGHAM Registered Nurse Signed: 05/15/2023 07:45 EDIS CUNNINGHAM [facility]
--- OUTSIDE RECORDS SUMMARY | 2024-03-04 12:56 | XMS_ITS | Encounter Summary ---
Author Name [facility] [place] Address [address] [place] [address] Care Team Providers Care Rfid Systems Architect Name Role Phone JILLIAN GAN Primary Care [...] MEDIC ARE SUPPL EMEMT Apr 23, 2019 [id number] [phone] KATHY ORTEGA PATIENT ANTHEM [place] MEDICARE SUPPLEMEN WILL MEDIC ARE SUPPL EMEMT Apr 23, 2019 [id number] [phone] KATHY ORTEGA PATIENT [place] MED[place] SUPPLEMEN WILL MEDIC ARE SUPPL EMEMT Apr 23, 2019 [id number] [phone] KATHY ORTEGA PATIENT BCBS [place] MEDICARE SUPPLEMEN WILL MEDIC ARE SUPPL EMEMT Apr 23, 2019 [id number] [phone] KATHY ORTEGA PATIENT [employer] MCR (WNR) MEDICARE ADVANTAGE MCR (WNR) Mar 23, 2022 [id number] KATHY ORTEGA PATIENT [employer] MCR (WNR) MEDICARE ADVANTAGE [facility] (WNR) Mar 23, 2022 [id number] KATHY ORTEGA PATIENT MEDICARE (WNR) MEDICARE (M) RR PART A May 21, 1990 RR PART A [id number] [phone] KATHY ORTEGA PATIENT MEDICARE (WNR) MEDICARE (M) RR PART B May 21, 1990 RR PART B [id number] [phone] KATHY ORTEGA PATIENT [employer] [place] MEDICARE SUPPLEMEN WILL MEDIC ARE SUPPL EMENT Feb 20, 2013 PLAN G [id number] [phone] KATHY ORTEGA PATIENT [employer] MCR (WNR) MEDICARE ADVANTAGE [facility] (WNR) Mar 23, 2021 [id number] KATHY ORTEGA CASEYSHANIA PATIENT Selected Encounter This section includes the information on record at [place] for the Encounter. Date/Time Encounter Type Encounter Description Reason Provider Source Jul 01, 2023 08:04 AM Outpatient Encounter PATIENT CARE IN OR [facility] Encounter Template Text not used by CT [...] 02, 2023 08:30 AM AMBULATORY - SURGERY [facility] Jul 08, 2023 10:00 AM AMBULATORY - SURGERY [facility] July 31, 2023 10:00 AM AMBULATORY - SURGERY [facility] August 06, 2023 08:30 AM AMBULATORY - MEDICINE [facility] August 06, 2023 10:30 AM AMBULATORY - MEDICINE [facility] Sep 10, 2023 08:00 AM AMBULATORY - MEDICINE [facility] Oct 08, 2023 08:30 AM AMBULATORY - MEDICINE [facility] Nov 12, 2023 08:15 AM AMBULATORY - MEDICINE [facility] Nov 26, 2023 03:00 PM AMBULATORY - PSYCHIATRY [facility] Dec 10, 2023 09:30 AM AMBULATORY - MEDICINE [facility] Lab Results: +/- 30 days of [...] Range Comment Jul 01, 2023 06:59 AM [facility] GLUCOSE,BLOOD-poct (STL) Specimen Type: BLOOD Comment: Test Performed by: [id number] Meter #: [id number] Ordering Provider: EFREN ROSARIO Report Released Date/Time: Jul 01, 2023 07:10 AM Reporting Lab: [facility] [address] [facility] [address] Performing Lab: [place] [id number] [facility] [address] GLUCOSE,BLOOD -poct (STL) 159 mg/dL H 72-99 Jun 24, 2023 09:59 AM [facility] HGB,HCT,PLT Specimen Type: BLOOD No comment entered. Ordering Provider: NANCI PEREIRA Report Released Date/Time: May 28, 2023 09:48 AM Reporting Lab: [facility] [address] [facility] [address] Performing Lab: [facility] [address] [facility] [address] HGB 14.9 g/dL 13.1-16.8 HCT 47.7 38.2-48.4 PLT 120 10*3/uL L 150-400 Jun 24, 2023 09:58 AM [facility] POC INR (STL-RX MONITORING ONLY) Specimen Type: BLOOD Comment: Test Performed by: [id number] Meter #: [id number] Ordering Provider: NANCI PEREIRA Report Released Date/Time: Jun 24, 2023 10:01 AM Reporting Lab: [facility] [address] [facility] [address] Performing Lab: [facility] [address] [place] [address] POC INR (STL-RX MONITORING ONLY) 2.9 {INR} H 0.9-1.1 Vital Signs: All taken on the encounter date This section contains inpatient and outpatient Vital Signs collected on the date of the Encounter. Date/Time Temperature Pulse Blood Pressure Respiratory Rate SP02 Pain Height Weight Body Mass Index Source Jul 01, 2023 06:54 AM 97 85 149/75 18 93 5 70 260 37 [facility] Social History: Smoking Status [...] ity Apr 29, 2018 09:[address]-TOBACCO QUIT 15 YRS OR MORE [facility] Tobacco Use History This section includes a history of the smoking, or tobacco-related health factors, that were collected on or before the date of the Encounter. The data comes from the [place] facility where the Encounter took place. Date/Time Smoking Status/Tobacco Use Comment F acility Apr 29, 2018 09:12 AM [facility] Advance Directives: All historical and current [...] 13, 2013 ADVANCE DIRECTIVE DISCUSSION [facility]ALD ESTRADA [facility]
--- OUTSIDE RECORDS SUMMARY | 2024-03-04 12:56 | XMS_ITS | Encounter Summary ---
Author Name [place] Address [address] [place] [address] Care Team Providers Care Lining Finisher Name Role Phone JILLIAN GAN Primary [...] MEDIC ARE SUPPL EMEMT Apr 23, 2019 [id number] [phone] KATHY ORTEGA PATIENT ANTHE[place] MEDICARE SUPPLEMEN WILL MEDIC ARE SUPPL EMEMT Apr 23, 2019 [id number] [phone] KATHY ORTEGA PATIENT [place] MED[place] SUPPLEMEN WILL MEDIC ARE SUPPL EMEMT Apr 23, 2019 [id number] [phone] KATHY ORTEGA PATIENT [place] MEDICARE SUPPLEMEN WILL MEDIC ARE SUPPL EMEMT Apr 23, 2019 [id number] [phone] KATHY ORTEGA PATIENT [employer] MCR (WNR) MEDICARE ADVANTAGE MCR (WNR) Mar 23, 2022 [id number] KATHY ORTEGA PATIENT [employer] MCR (WNR) MEDICARE ADVANTAGE [facility] (WNR) Mar 23, 2022 [id number] KATHY ORTEGA PATIENT MEDICARE (WNR) MEDICARE (M) RR PART A May 21, 1990 RR PART A [id number] KATHY ORTEGA PATIENT MEDICARE (WNR) MEDICARE (M) RR PART B May 21, 1990 RR PART B [id number] [phone] KATHY ORTEGA PATIENT [employer] [place] MEDICARE SUPPLEMEN WILL MEDIC ARE SUPPL EMENT Feb 20, 2013 PLAN G [id number] [phone] KATHY ORTEGA PATIENT WELLCARE MCR (WNR) MEDICARE ADVANTAGE [facility] (WNR) Mar 23, 2021 [id number] [phone] KATHY ORTEGA PATIENT Selected Encounter This section includes the information on record at [place] for the Encounter. Date/Time Encounter Type Encounter Description Reason Provider Source August 14, 2023 08:44 AM Outpatient Encounter PRIMARY CARE/MEDICINE NEVA TAN Encounter Template Text not used by [place] [...] 10, 2023 08:00 AM AMBULATORY - MEDICINE [facility] Oct 08, 2023 08:30 AM AMBULATORY - MEDICINE [facility] Nov 12, 2023 08:15 AM AMBULATORY - MEDICINE [facility] Nov 26, 2023 03:00 PM AMBULATORY - PSYCHIATRY [facility] Dec 10, 2023 09:30 AM AMBULATORY - MEDICINE [facility] Jan 13, 2024 08:15 AM AMBULATORY - MEDICINE [facility] Jan 22, 2024 02:15 PM AMBULATORY - MEDICINE [facility] Jan 26, 2024 09:30 AM AMBULATORY - SURGERY [facility] Feb 11, 2024 09:15 AM AMBULATORY - MEDICINE [facility] Feb 11, 2024 11:00 AM AMBULATORY MEDICINE [facility] Lab Results: +/- 30 days of [...] Range Comment Sep 10, 2023 09:40 AM [facility] POC INR (STL-RX MONITORING ONLY) Specimen Type: BLOOD Comment: Test Performed by: [id number] Meter #: [id number] Ordering Provider: NANCI PEREIRA Report Released Date/Time: Sep 10, 2023 09:46 AM Reporting Lab: [facility] [address] [facility] [address] Performing Lab: [facility] [address] [facility] [address] POC INR (STL-RX MONITORING ONLY) 2.3 {INR} H 0.9-1.1 August 06, 2023 11:28 AM [facility] HGA1C Specimen Type: BLOOD No comment entered. Ordering Provider: JILLIAN GAN Report Released Date/Time: August 06, 2023 11:19 AM Reporting Lab: [facility] [address] [facility] [address] Performing Lab: [facility] [address] [facility] [address] HGA1C 8.4 H 4.0-6.0 August 06, 2023 11:28 AM [facility] LIPID PANEL (STL) Specimen Type: PLASMA Comment: LDL calculation invalid when Triglyceride exceeds 250 mg/dl Ordering Provider: JILLIAN GAN Report Released Date/Time: August 06, 2023 11:19 AM Reporting Lab: [facility] [address] [address] Performing Lab: [address] [address] CHOLESTEROL 193 mg/dL 0-200 TRIGLYCERIDE 315 mg/dL H 0-150 DIRECT LDL 98 mg/dL L >100 CALCULATED LDL comment mg/dL HDL(New) 42 mg/dL >40 August 06, 2023 11:28 AM [facility] MICRAL/CREAT PROFILE (STL) Specimen Type: URINE Comment: uALB/CREAT Ratio Unable to be calculated Unable to calculate due to Microalbumin < 5.0 mg/L Ordering Provider: JILLIAN GAN Report Released Date/Time: August 06, 2023 11:19 AM Reporting Lab: [address] [address] Performing Lab: [address] [address] URINE ALBUMIN (PB-STL) <5.0 mg/L uACR (STL) comment mg/g 0-29 CREATININE URINE/OTHERS 75.7 mg/dL 63-166 August 06, 2023 11:28 AM [facility] COMPREHENSIVE METABOLIC PANEL Specimen Type: PLASMA Comment: LDL calculation invalid when Triglyceride exceeds 250 mg/dl Ordering Provider: JILLIAN GAN Report Released Date/Time: August 06, 2023 11:19 AM Reporting Lab: [address] [address] Performing Lab: [address] [address] CREATININE 1.17 mg/dL 0.7-1.3 UREA NITROGEN 22.1 [...] 65.0 >60 August 06, 2023 11:28 AM [facility] CBC Specimen Type: BLOOD No comment entered. Ordering Provider: JILLIAN GAN Report Released Date/Time: August 06, 2023 11:19 AM Reporting Lab: [facility] [address] [facility] [address] Performing Lab: [address] [address] WBC 5.3 10*3/uL 3.6-11.2 RBC 5.78 10*6/uL [...] 10*3/uL 0.00-0.20 August 06, 2023 09:46 AM [facility] POC INR (STL-RX MONITORING ONLY) Specimen Type: BLOOD Comment: Test Performed by: [id number] Meter #: [id number] Ordering Provider: NANCI PEREIRA Report Released Date/Time: August 06, 2023 09:47 AM Reporting Lab: [place] [address] [place] [id number] Performing Lab: [facility] [address] [place] [address] POC INR (STL-RX MONITORING ONLY) 2.1 {INR} [...] Facil ity Apr 29, 2018 09:12 AM [place]-TOBACCO QUIT 15 YRS OR MORE [facility] Tobacco Use History This section includes a history of the smoking, or tobacco-related health factors, that were collected on or before the date of the Encounter. The data comes from the [place] facility where the Encounter took place. Date/Time Smoking Status/Tobacco Use Comment F acility Apr 29, 2018 09:12 AM [place]-TOBACCO QUIT 15 YRS OR MORE [facility] Advance Directives: All historical and current Section [...] ADVANCE DIRECTIVE DISCUSSION RONALD ESTRADA [facility] Encounter Notes: All associated encounter notes This section contains the clinical notes associated to the Encounter. Date/Time Encounter Note(s) Provider Source August 14, 2023 08:44 AM PRIMARY CARE [employer]ium E MESSAGING: LOCAL TITLE: PRIMARY CARE SECURE MESSAGING STANDARD TITLE: PRIMARY CARE SECURE MESSAGING DATE OF NOTE: AUGUST 14, 2023@08:44 ENTRY DATE: AUGUST 14, 2023@08:44:25 AUTHOR: NEVA TAN COSIGNER: URGENCY: STATUS: COMPLETED ------Original Message --- Sent: 08/14/2023 09:43 AM ET From: NEVA TAN To: SACHA ORTEGA Subject: Test:Test result Your A1c is 8.4 .I increased glipizide to 10 mg twice daily. Pls adhere to a low carb diet. Let know if you would like to talk with our Vice President Of Communications. Triglycerides also above goal. Continue atorvastatin pls. JILLIAN GAN MD /paola/ NEVA TAN BSN RN CCM REGISTERED NURSE Signed: 08/14/2023 08:44 NEVA TAN [facility]
--- OUTSIDE RECORDS SUMMARY | 2024-03-04 12:56 | XMS_ITS | Encounter Summary ---
Author Name [facility] [place] [facility] [place] Address [address] [place] [address] Care Team Providers Care Maintenance Mechanic Engine Name Role Phone JILLIAN GAN Primary Care [...] MEDIC ARE SUPPL EMEMT Apr 23, 2019 [id number] [phone] KATHY ORTEGA PATIENT ANTHEM BCBS [place] MEDICARE SUPPLEMEN WILL MEDIC ARE SUPPL EMEMT Apr 23, 2019 [id number] [phone] KATHY ORTEGA PATIENT ANTHEM [place] MEDICARE SUPPLEMEN WILL MEDIC ARE SUPPL EMEMT Apr 23, 2019 [id number] [phone] KATHY ORTEGA PATIENT BCBS [place] MEDICARE SUPPLEMEN WILL MEDIC ARE SUPPL EMEMT Apr 23, 2019 [id number] [phone] KATHY ORTEGA PATIENT [employer] MCR (WNR) MEDICARE ADVANTAGE MCR (WNR) Mar 23, 2022 [id number] KATHY ORTEGA PATIENT [employer] MCR (WNR) MEDICARE ADVANTAGE [facility] (WNR) Mar 23, 2022 [id number] KATHY ORTEGA PATIENT MEDICARE (WNR) MEDICARE (M) RR PART A May 21, 1990 RR PART A [id number] KATHY ORTEGA PATIENT MEDICARE (WNR) MEDICARE (M) RR PART B May 21, 1990 RR PART B [id number] KATHY ORTEGA PATIENT [employer] MEDICARE SUPPLEMEN WILL MEDIC ARE SUPPL EMENT Feb 20, 2013 PLAN G [id number] [phone] KATHY ORTEGA PATIENT [facility] (WNR) MEDICARE ADVANTAGE [facility] (WNR) Mar 23, 2021 [id number] [phone] KATHY ORTEGA PATIENT Selected Encounter This section includes the information on record at [place] for the Encounter. Date/Time Encounter Type Encounter Description Reason Provider Source May 27, 2023 08:15 AM MTMS BY PHARM EST 15 MIN TELEPHONE/ANCILLA ISABELLE ICD-10-CM Z51.81 Encounter for therapeutic drug level monitoring NANCI PEREIRA [facility] Encounter Template Text not used by [place] Assessments - Encounter Diagnoses This section includes the primary and secondary diagnoses documented for the Encounter. Date/Time Primary/Secondary Diagnosis Diagnosis Name Provider Source May 27, 2023 08:15 AM PRIMARY Encounter for therapeutic drug level monitoring NANCI PEREIRA [facility] May 27, 2023 08:15 AM SECONDARY snf (current) use of anticoagulants NANCI PEREIRA [place] [facility] May 27, 2023 08:15 AM SECONDARY Personal history of pulmonary embolism NANCI PEREIRA [facility] Plan of Treatment: Future Appointments [...] 20 appointments. The data comes from all [place] treatment facilities. Appointment Date/Time Appointment Type Appointme nt Facility Name Jun 24, 2023 10:15 AM AMBULATORY - MEDICINE [facility] Jul 01, 2023 06:30 AM AMBULATORY - NONE [facility] Jul 02, 2023 08:30 AM AMBULATORY - SURGERY [facility] Jul 08, 2023 10:00 AM AMBULATORY - SUR[facility]ERY [facility] July 31, 2023 10:00 AM AMBULATORY - SUR[facility]ERY [facility] August 06, 2023 08:30 AM AMBULATORY - MEDICINE [facility] August 06, 2023 10:30 AM AMBULATORY - MEDICINE [facility] Sep 10, 2023 08:00 AM AMBULATORY - MEDICINE [facility] Oct 08, 2023 08:30 AM AMBULATORY - MEDICINE [facility] Nov 12, 2023 08:15 AM AMBULATORY - MEDICINE [facility] Nov 26, 2023 03:00 PM AMBULATORY - PSYCHIATRY [facility] Lab Results: +/- 30 days [...] May 28, 2023 09:48 AM Reporting Lab: [facility] [address] [facility] [address] Performing Lab: [place] [id number] [facility] [address] HGB 14.9 g/dL 13.1-16.8 HCT 47.7 38.2-48.4 PLT 120 10*3/uL L 150-400 Jun 24, 2023 09:58 AM [facility] POC INR (STL-RX MONITORING ONLY) Specimen Type: BLOOD Comment: Test Performed by: [id number] Meter #: [id number] Ordering Provider: NANCI PEREIRA Report Released Date/Time: Jun 24, 2023 10:01 AM Reporting Lab: [address] [address] Performing Lab: [address] [address] POC INR (STL-RX MONITORING ONLY) 2.9 {INR} H 0.9-1.1 May 27, 2023 09:49 AM [facility] POC INR (STL-RX MONITORING ONLY) Specimen Type: BLOOD Comment: Test Performed by: [id number] Meter #: [id number] Ordering Provider: NANCI PEREIRA Report Released Date/Time: May 28, 2023 06:05 AM Reporting Lab: [place] [address] Performing Lab: [address] [address] POC INR (STL-RX MONITORING ONLY) 2.5 {INR} H 0.9-1.1 May 13, 2023 12:42 PM [facility] POC INR (STL-RX MONITORING ONLY) Specimen Type: BLOOD Comment: Test Performed by: [id number] Meter #: [id number] Ordering Provider: NANCI PEREIRA Report Released Date/Time: May 13, 2023 12:48 PM Reporting Lab: [address] [address] Performing Lab: [address] [address] POC INR (STL-RX MONITORING ONLY) 1.9 {INR} H 0.9-1.1 May 04, 2023 09:30 AM [facility] POC INR (STL-RX MONITORING ONLY) Specimen Type: BLOOD Comment: Test Performed by: [id number] Meter #: [id number] Ordering Provider: NANCI PEREIRA Report Released Date/Time: May 04, 2023 09:36 AM Reporting Lab: [facility] [address] [facility] [address] Performing Lab: [facility] [address] [place] [address] POC INR (STL-RX MONITORING ONLY) 1.5 {INR} [...] Catherine pepe Apr 29, 2018 09:12 AM [place]-TOBACCO QUIT 15 YRS OR MORE [facility] Tobacco Use History This section includes a history of the smoking, or tobacco-related health factors, that were collected on or before the date of the Encounter. The data comes from the [place] facility where the Encounter took place. Date/Time Smoking Status/Tobacco Use Comment F acility Apr 29, 2018 09:12 AM [place]-TOBACCO QUIT 15 YRS OR MORE [facility] [...] 2013 ADVANCE DIRECTIVE DISCUSSION RONALD ESTRADA [facility] Encounter Notes: All associated encounter notes This section contains the clinical notes associated to the Encounter. Date/Time Encounter Note(s) Provider Source May 28, 2023 09:40 AM PHARMACY OUTPATIEN T MEDICATION MGT NOTE: LOCAL TITLE: PHARMACY ANTICOAG CLINIC ST STANDARD TITLE: PHARMACY OUTPATIENT MEDICATION MGT NOTE DATE OF NOTE: MAY 28, 2023@09:40 ENTRY DATE: MAY 28, 2023@09:40:57 AUTHOR: NANCI PEREIRA EXP COSIGNER: URGENCY: STATUS: [...] NO Objective: POC INR (STL-RX MONITORING ONLY) 2.5 H INR 05/27/2023 09:49 HGB 14.6 g/dL 01/15/2023 08:36 HCT 46.4 % 01/15/2023 08:36 PLT 131 L 10*3/uL 01/15/2023 08:36 INR Trends: Date Dose at time of lab INR Comments 05/27/23 7.5mg daily x 10mg We/Th/Fri 2.5 05/12/23 7.5mg daily x 10mg Th/Fri 1.9 05/04/23 7.5mg daily x 10mg Th/Fri 1.5 03/27/23 unable to contact 2.1 02/19/23 unable to contact 2.6 01/15/23 7.5mg daily x 10mg Th/Fri 2.1 12/11/22 7.5mg daily x 10mg Th/Fri 2.3 11/06/22 7.5mg daily x 10mg Th/Fri 2.6 10/02/22 7.5mg daily x 10mg Th/Fri 2.2 08/21/22 unable to contact 2.1 07/10/22 7.5mg daily x 10mg Th/Fri 2.1 06/03/22 7.5mg daily x 10mg /Thu 2.1 04/29/22 7.5mg daily x 10mg /Thu 2.1 Assessment: -- INR is - within therapeutic range -- H/H is - within normal limits. Will check q6mos or earlier if needed. Plan: ----- --Pt/caregiver was given INR results during telephone contact --Warfarin dose: - continue current dose --Bridging therapy: - NO --Next lab date:06/23 --Patient/Caregiver repeated dose instructions and f/u monitoring plan? YES --Warfarin prescription renewed/refilled/directions updated if necessary? YES --Clinical reminder completed if due? YES --Minutes spent in chart review and phone conversation: 5min /paola/ NANCI PEREIRA, PHARM.D, [facility] CLINICAL PHARMACIST Signed: 05/28/2023 09:48 NANCI PEREIRA [facility]
--- OUTSIDE RECORDS SUMMARY | 2024-03-04 12:56 | XMS_ITS | Encounter Summary ---
Author Name [facility] [place] Address [address] [place] [address] Care Team Providers Care Medical Transcription Name Role Phone JILLIAN GAN Primary Care [...] MEDIC ARE SUPPL EMEMT Apr 23, 2019 [id number] [phone] KATHY ORTEGA PATIENT ANTHEM BC[place] MEDICARE SUPPLEMEN WILL MEDIC ARE SUPPL EMEMT Apr 23, 2019 [id number] [phone] KATHY ORTEGA PATIENT [place] MED[place] SUPPLEMEN WILL MEDIC ARE SUPPL EMEMT Apr 23, 2019 [id number] [phone] KATHY ORTEGA PATIENT BCBS [place] MEDICARE SUPPLEMEN WILL MEDIC ARE SUPPL EMEMT Apr 23, 2019 [id number] [phone] KATHY ORTEGA PATIENT [employer] MCR (WNR) MEDICARE ADVANTAGE MCR (WNR) Mar 23, 2022 [id number] [phone] KATHY ORTEGA PATIENT [employer] MCR (WNR) MEDICARE ADVANTAGE [facility] (WNR) Mar 23, 2022 [id number] [phone] KATHY ORTEGA PATIENT MEDICARE (WNR) MEDICARE (M) RR PART A May 21, 1990 RR PART A [id number] KATHY ORTEGA PATIENT MEDICARE (WNR) MEDICARE (M) RR PART B May 21, 1990 RR PART B [id number] [phone] KATHY ORTEGA PATIENT [employer] MEDICARE SUPPLEMEN WILL MEDIC ARE SUPPL EMENT Feb 20, 2013 PLAN G [id number] [phone] KATHY ORTEGA PATIENT [employer] MCR (WNR) MEDICARE ADVANTAGE [facility] (WNR) Mar 23, 2021 [id number] KATHY ORTEGA PATIENT Selected Encounter This section includes the information on record at [place] for the Encounter. Date/Time Encounter Type Encounter Description Reason Provider Source Jul 01, 2023 07:45 AM OFFICE O/P EST LOW 20 MIN ANESTHESIA PRE/POST-OP CONSULT ICD-10-CM Z01.818 Encounter for other preprocedural examination NICOLE DUMONT [facility] Encounter Template Text not used by [place] Assessments - Encounter Diagnoses This section includes the primary and secondary diagnoses documented for the Encounter. Date/Time Primary/Secondary Diagnosis Diagnosis Name Provider Source Jul 01, 2023 07:55 AM PRIMARY Encounter for other preprocedural examination NICOLE DUMONT [facility] Jul 01, 2023 07:55 AM SECONDARY Encounter for other specified surgical aftercare NICOLE DUMONT [facility] Plan of Treatment: Future Appointments (+ [...] 02, 2023 08:30 AM AMBULATORY - SURGERY [facility] Jul 08, 2023 10:00 AM AMBULATORY - SURGERY [facility] July 31, 2023 10:00 AM AMBULATORY - SURGERY [facility] August 06, 2023 08:30 AM AMBULATORY - MEDICINE [facility] August 06, 2023 10:30 AM AMBULATORY - MEDICINE [facility] Sep 10, 2023 08:00 AM AMBULATORY - MEDICINE [facility] Oct 08, 2023 08:30 AM AMBULATORY - MEDICINE [facility] Nov 12, 2023 08:15 AM AMBULATORY - MEDICINE [facility] Nov 26, 2023 03:00 PM AMBULATORY - PSYCHIATRY [facility] Dec 10, 2023 09:30 AM AMBULATORY - MEDICINE [facility] Lab Results: +/- 30 days [...] Range Comment Jul 01, 2023 06:59 AM [facility] GLUCOSE,BLOOD-poct (STL) Specimen Type: BLOOD Comment: Test Performed by: [id number] Meter #: [id number] Ordering Provider: EFREN ROSARIO Report Released Date/Time: Jul 01, 2023 07:10 AM Reporting Lab: [facility] [address] [facility] [address] Performing Lab: [facility] [address] [facility] [address] GLUCOSE,BLOOD -poct (STL) 159 mg/dL H 72-99 Jun 24, 2023 09:59 AM [facility] HGB,HCT,PLT Specimen Type: BLOOD No comment entered. Ordering Provider: NANCI PEREIRA Report Released Date/Time: May 28, 2023 09:48 AM Reporting Lab: [facility] [address] [facility] [address] Performing Lab: [facility] [address] [facility] [facility] [address] HGB 14.9 g/dL 13.1-16.8 HCT 47.7 38.2-48.4 PLT 120 10*3/uL L 150-400 Jun 24, 2023 09:58 AM [facility] POC INR (STL-RX MONITORING ONLY) Specimen Type: BLOOD Comment: Test Performed by: [id number] Meter #: [id number] Ordering Provider: NANCI PEREIRA Report Released Date/Time: Jun 24, 2023 10:01 AM Reporting Lab: [place] [address] [facility] [address] Performing Lab: [facility] [address] [place] [address] POC INR (STL-RX MONITORING ONLY) 2.9 {INR} H 0.9-1.1 Vital Signs: All taken on the encounter date This section contains inpatient and outpatient Vital Signs collected on the date of the Encounter. Date/Time Temperature Pulse Blood Pressure Respiratory Rate SP02 Pain Height Weight Body Mass Index Source Jul 01, 2023 06:54 AM 97 85 149/75 18 93 5 70 260 37 [facility] Social History: Smoking Status (Most [...] Facil ity Apr 29, 2018 09:12 AM [place]-TOBACCO FORMER USER [facility] Tobacco Use History This section includes a history of the smoking, or tobacco-related health factors, that were collected on or before the date of the Encounter. The data comes from the [place] facility where the Encounter took place. Date/Time Smoking Status/Tobacco Use Comment F acility Apr 29, 2018 09:12 AM [place]-TOBACCO QUIT 15 YRS OR MORE [facility] Advance Directives: All historical and [...] ADVANCE DIRECTIVE DISCUSSION RONALD ESTRADA [facility] Encounter Notes: All associated encounter notes This section contains the clinical notes associated to the Encounter. Date/Time Encounter Note(s) Provider Source Jul 01, 2023 09:56 AM ANESTHESIOLOGY POST OPERATIVE E & M NOTE: LOCAL TITLE: ANESTHESIA POST-OP STL STANDARD TITLE: ANESTHESIOLOGY POST OPERATIVE E & M NOTE DATE OF NOTE: JUL 01, 2023@09:56 ENTRY DATE: JUL 01, 2023@09:56:26 AUTHOR: NICOLE DUMONT EXP COSIGNER: URGENCY: STATUS: COMPLETED Post-Anesthetic Note ========= No complications noted from anesthetic at the time of this note. Anesthesia intra-op flowsheet uploaded to [employer]. /paola/ NICOLE DUMONT ANESTHESIOLOGIST Signed: 07/01/2023 09:56 NICOLE DUMONT [facility] Jul 01, 2023 07:45 AM ANESTHESIOLOGY PRE OPERATIVE E & M NOTE: LOCAL TITLE: ANESTHESIA PRE-OP STL STANDARD TITLE: ANESTHESIOLOGY PRE OPERATIVE E & M NOTE DATE OF NOTE: JUL 01, 2023@07:45 ENTRY DATE: JUL 01, 2023@07:46 AUTHOR: NICOLE DUMONT EXP COSIGNER: URGENCY: STATUS: COMPLETED SACHA ORTEGA is a 77 year old MALE ========= Pre-operative diagnosis: cataract left eye Operation proposed: [place] cataract with IOL left eye ========= VITALS Age: 77 Weight: 260 lb [117.93 kg] (07/01/2023 06:54) Height: 70 in [177.8 cm] (07/01/2023 06:54) BMI: 37.4 Blood pressure: 149/75 (07/01/2023 06:54) Pulse: 85 (07/01/2023 06:54) Temperature: 97 F [36.1 C] (07/01/2023 06:54) Respiration: 18 (07/01/2023 06:54) SpO2: 93% (07/01/2023 06:54) Pain: 5 (07/01/2023 06:54) ========= ALLERGIES AUGMENTIN, SIMVASTATIN, MORPHINE ========= MEDICATIONS Inpatient: 1) ONDANSETRON INJ,SOLN IVP Q6H PRN 4MG/2ML Active Outpatient Medications (including Supplies): Active Outpatient [...] ALCOHOL. DISCONTINUE BEFORE GETTING XRAY DYE. 8) MOXIFLOXACIN (EQV-VIGAMOX) 0.5% OPH SOLN INSTILL 1 HOLD DROP IN LEFT EYE FOUR TIMES A DAY FOR BACTERIAL EYE INFECTION TO USE AFTER SURGERY ON 06/30 9) PANTOPRAZOLE NA 20MG EC TAB TAKE ONE TABLET BY MOUTH ACTIVE (S) TWICE A DAY TO LOWER STOMACH ACID - TAKE 30 MINUTES BEFORE MEAL(S) 10) POLYETHYLENE GLYCOL 3350 ORAL PWDR MIX AND DRINK 1 ACTIVE CAPFUL BY MOUTH ONCE A DAY FOR CONSTIPATION (MEASURE WITH CAP AND MIX IN 8 OZ OF WATER) 11) PREDNISOLONE ACETATE 1% OPH SUSP INSTILL 1 DROP IN HOLD LEFT EYE FOUR TIMES A DAY FOR EYE INFLAMMATION TO USE AFTER SURGERY ON 06/30 12) QUETIAPINE FUMARATE 200MG TAB TAKE ONE-HALF TABLET BY ACTIVE (S) MOUTH AT BEDTIME FOR MOOD 13) ROPINIROLE HCL 0.5MG TAB TAKE ONE TABLET BY MOUTH AT ACTIVE (S) BEDTIME FOR PARKINSON DISEASE 14) SERTRALINE HCL 100MG TAB TAKE ONE-HALF TABLET BY ACTIVE (S) MOUTH EVERY MORNING FOR MOOD 15) TADALAFIL [...] MOUTH ONCE A DAY 22 Total Medications ========= LABS WBC 5.7 10*3/uL 07/10/2022 08:50 RBC 5.64 10*6/uL 07/10/2022 08:50 HGB 14.9 g/dL 06/24/2023 09:59 HCT 47.7 % 06/24/2023 09:59 MCV 83.3 fL 07/10/2022 08:50 MCH 26.1 L pg 07/10/2022 08:50 MCHC 31.3 L g/dL 07/10/2022 08:50 RDW 15.0 % 07/10/2022 08:50 PLT 120 L 10*3/uL 06/24/2023 09:59 MPV 11.2 fL 07/10/2022 08:50 NEUTROPHILS, AUTO % 53 % 07/10/2022 08:50 LYMPHOCYTES, AUTO % 36 % 07/10/2022 08:50 MONOCYTES, AUTO % 7 % 07/10/2022 08:50 EOSINOPHILS, AUTO % 2 % 07/10/2022 08:50 BASOPHILS, AUTO % 1 % 07/10/2022 08:50 IMMATURE GRANS, AUTO % 0.5 % 08/13/2021 12:08 NEUTROPHILS, ABSOLUTE 3.01 10*3/uL 07/10/2022 08:50 LYMPHOCYTES, ABSOLUTE 2.04 10*3/uL 07/10/2022 08:50 MONOCYTES, ABSOLUTE 0.41 10*3/uL 07/10/2022 08:50 EOSINOPHILS, ABSOLUTE 0.11 10*3/uL 07/10/2022 08:50 BASOPHILS, ABSOLUTE 0.06 10*3/uL 07/10/2022 08:50 IMMATURE GRANS, AUTO ABS 0.03 10*3/uL 08/13/2021 12:08 POC INR (STL-RX MONITORING ONLY) 2.9 H INR 06/24/2023 09:58 INR VALUE 2.3 INR 08/13/2021 12:00 PROTIME 26.4 H sec 08/13/2021 12:00 No PTT EO data found SODIUM 142 mEq/L 07/10/2022 08:50 POTASSIUM 4.4 mEq/L 07/10/2022 08:50 CHLORIDE 107 mEq/L 07/10/2022 08:50 UREA NITROGEN 21 mg/dL 07/10/2022 08:50 CREATININE 1.09 mg/dL 07/10/2022 08:50 CALCIUM 9.4 mg/dL 07/10/2022 08:50 PROTEIN 7.2 g/dL 07/10/2022 08:50 ALBUMIN 4.4 g/dL 07/10/2022 08:50 ALKALINE PHOSPHATASE 62 U/L 07/10/2022 08:50 ALT/SGPT 24 U/L 07/10/2022 08:50 AST/SGOT 26 U/L 07/10/2022 08:50 TOTAL BILIRUBIN 0.4 mg/dL 07/10/2022 08:50 CARBON DIOXIDE 24 mEq/L 07/10/2022 08:50 GLUCOSE 195 H mg/dL 07/10/2022 08:50 EGFR (CKD-EPI 2020) 71.2 07/10/2022 08:50 HGA1C 8.4 H % 01/15/2023 08:36 No URINALYSIS EO data found No URINE DRUG SCREEN EO data found No TEST LAST ONE EO data found HIV COMBO FOURTH GENERATION ([place]) Negative 06/07/2013 12:56 [facility] Hep C tests in last five years. *No Lab Data Found* ========= DIAGNOSTICS CXR: No Impressions found EKG: No data available for: EKG CONSULT STL EKG CONSULTS PB EKG RESULTS MA PFT: No Pulmonary Function Test for this patient. Echocardiogram: PROGRESS NOTES SELECTED No data available for: ECHOCARDIOGRAPHIC RESULTS MA ECHOCARDIOGRAPHY CONSULT STL ECHO COMPLETED CONSULT STL TRANSESOPHAGEAL ECHOCARDIOGRAM CONSULT RESULTS (CLARIBEL) MA TRANSESOPHAGEAL ECHOCARDIOGRAM (CLARIBEL) CONSULT REPORT IMAGING IMPRESSION SELECTED No data available for: US ECHOCARDIOGRAPHY, TRANSTHORACIC US DOPPLER ECHOCARDIOGARPHY COLOR FLOW MAPPING -PB ONLY US DOPPLER ECHOCARDIOGRAPHY-PB ONLY US ECHOCARDIOGRAPHY, TRANSTHORACIC-PB ONLY CARDIOLOGY ECHOCARDIOGRAM No Data Available Stress test: No Stress Test Data available ========= PROBLEM LIST 1) Primary Hypercoagulable State (ICD-9-CM 289.81) 2) Colonic Polyps (ICD-9-CM 211.3) comment: colonoscopy 2009, due 2012 3) Anxiety comment: on alprazolam 1 mg daily from his pmd 4) Benign prostatic hyperplasia comment: saw pvt urologist on 07/27/12, started on flomax 5) Diabetes mellitus comment: Elevated HgbA1C 6) Primary erectile dysfunction (SNOMED CT 867251726) 7) Leg length inequality (SNOMED CT 84439184) 8) Pain in the coccyx 9) Hearing loss 10) 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 11) Varicose veins 12) Deep vein thrombosis 13) Gastroesophageal reflux disease 14) Single acquired kidney cyst 15) Sleep apnea 16) Benign prostatic hyperplasia 17) Adjustment disorder with depressed mood in remission 18) Allergic rhinitis 19) H/O: Pulmonary Embolus ([facility] [id number]) 20) Neck Pain ([facility] [id number]) 21) Bilateral Knee Pain ([facility] [id number]) 22) Low Back Pain ([facility] [id number]) 23) Therapeutic drug effect 24) Anticoagulant effect ========= REVIEW OF SYSTEMS/PAST MEDICAL HISTORY Functional capacity: >4 METs RESPIRATORY ?? for: - Recent or current SOB + Sleep apnea - Asthma - COPD CARDIAC ?? for: - Recent chest pain - Hypertension - Hyperlipidemia - Myocardial infarction - Coronary artery disease - Heart failure - Valvular disease - Atrial fibrillation/flutter PSYCH/CENTRAL NERVOUS ?? for: - Depression - Anxiety - Post-traumatic stress disorder - Cerebral vascular accident - Seizures ENDOCRINE ?? for: + Diabetes - Hypothyroid RENAL ?? for: - Chronic kidney disease - Nephrolithiasis GI ?? for: + GERD - Liver disease - GI bleed VASCULAR/HEMATOLOGY/ONCOLOGY ?? for: - Anemia - Thrombocytopenia - Blood disorders + Factor V Leiden + h/o PE x2 MUSCULOSKELETAL/SKIN/PERIPHERAL NERVOUS ?? for: - Obesity + Arthritis/Degenerative joint disease - Rheumatoid arthritis - Neuropathy /REPRODUCTIVE ?? for: + Prostate hypertrophy HABITS Alcohol: Occasional Smoking: Denies Other drugs: Denies ========= SURGICAL HISTORY Reviewed Previous anesthesia complications: None Family history of anesthesia complications: None ========= PHYSICAL EXAM Alert & oriented x3 Heart: Regular rate, Regular rhythm Lungs: Clear to auscultation bilaterally AIRWAY Mallampati Class: 3 Neck: Full range of motion, no pain on flexion/extension. Normal thyromental distance. Teeth: Worn ========= ASA CLASS 3. A patient with severe systemic disease. ========= ANESTHETIC PLAN Monitored Anesthesia Care (MAC) Planned anesthetic technique and options were discussed with the patient or guardian including risks, benefits, and potential complications. Consented for all modalities of raul-operative pain management. ========= PRE-INDUCTION REASSESSMENT NPO status appropriate: Yes /paola/ NICOLE DUMONT ANESTHESIOLOGIST Signed: 07/01/2023 07:55 Receipt Acknowledged By: 07/01/2023 07:57 /paola/ CORNELIO MORTON CRNA, Anesthesiology NICOLE DUMONT [facility]
--- OUTSIDE RECORDS SUMMARY | 2024-03-04 12:57 | XMS_ITS | Encounter Summary ---
Author Name [facility] [place] Address [address] [place] [address] Care Team Providers Care Guitar Maker Name Role Phone JILLIAN GAN Primary [...] MEDIC ARE SUPPL EMEMT Apr 23, 2019 [id number] [phone] KATHY ORTEGA PATIENT ANTHEM BCBS [place] MEDICARE SUPPLEMEN WILL MEDIC ARE SUPPL EMEMT Apr 23, 2019 [id number] [phone] KATHY ORTEGA PATIENT ANTHEM [place] MEDICARE SUPPLEMEN WILL MEDIC ARE SUPPL EMEMT Apr 23, 2019 [id number] [phone] KATHY ORTEGA PATIENT BCBS [place] MEDICARE SUPPLEMEN WILL MEDIC ARE SUPPL EMEMT Apr 23, 2019 [id number] [phone] KATHY ORTEGA PATIENT [employer] MCR (WNR) MEDICARE ADVANTAGE MCR (WNR) Mar 23, 2022 [id number] KATHY ORTEGA PATIENT [employer] MCR (WNR) MEDICARE ADVANTAGE [facility] (WNR) Mar 23, 2022 [id number] KATHY ORTEGA PATIENT MEDICARE (WNR) MEDICARE (M) RR PART A May 21, 1990 RR PART A [id number] KATHY ORTEGA PATIENT MEDICARE (WNR) MEDICARE (M) RR PART B May 21, 1990 RR PART B [id number] KATHY ORTEGA PATIENT [employer] [place] MEDICARE SUPPLEMEN WILL MEDIC ARE SUPPL EMENT Feb 20, 2013 PLAN G [id number] [phone] KATHY ORTEGA PATIENT [employer] MCR (WNR) MEDICARE ADVANTAGE [facility] (WNR) Mar 23, 2021 [id number] KATHY ORTEGA PATIENT Selected Encounter This section includes the information on record at [place] for the Encounter. Date/Time Encounter Type Encounter Description Reason Provider Source Mar 27, 2023 09:20 AM OFFICE O/P EST LOW 20 MIN UROLOGY CLINIC ICD-10-CM N32.81 Overactive bladder ELIOT MISTRY Ken Encounter Template Text not used by [place] Assessments - Encounter Diagnoses This section includes the primary and secondary diagnoses documented for the Encounter. Date/Time Primary/Secondary Diagnosis Diagnosis Name Provider Source Mar 29, 2023 10:50 AM PRIMARY Overactive bladder THERON WYATT [facility] Mar 29, 2023 10:50 AM SECONDARY Cyst of kidney, [facility] Plan of Treatment: Future [...] Date/Time Appointment Type Appointme nt Facility Name Apr 27, 2023 10:20 AM AMBULATORY - SURGERY [facility] May 04, 2023 08:00 AM AMBULATORY - MEDICINE [facility] May 12, 2023 09:30 AM AMBULATORY - MEDICINE [facility] May 26, 2023 08:00 AM AMBULATORY - [facility]ERY [facility] May 27, 2023 08:15 AM AMBULATORY - MEDICINE [facility] Jun 24, 2023 10:15 AM AMBULATORY - MEDICINE [facility] Jul 01, 2023 06:30 AM AMBULATORY - NONE [facility] Jul 02, 2023 08:30 AM AMBULATORY - SURGERY [facility] Jul 08, 2023 10:00 AM AMBULATORY - SUR[facility]ERY [facility] July 31, 2023 10:00 AM AMBULATORY - SURGERY [facility] August 06, 2023 08:30 AM AMBULATORY - MEDICINE [facility] August 06, 2023 10:30 AM AMBULATORY - MEDICINE [facility] Sep 10, 2023 08:00 AM AMBULATORY - MEDICINE [facility] Lab Results: +/- 30 days of the encounter This section includes the Chemistry and Hematology Lab Results on record with [place] for the patient. Radiology Reports and Pathology Reports are provided separately, in subsequent sections. Lab Results This section contains the Chemistry/Hematology Results that were resulted 30 days before or 30 daysafter the date of the Encounter. Date/Time Source Result Type Result - Unit Interpretation Reference Range Comment Mar 27, 2023 10:47 AM [facility] POC INR (STL-RX MONITORING ONLY) Specimen Type: BLOOD Comment: Test Performed by: [id number] Meter #: [id number] Ordering Provider: NANCI PEREIRA Report Released Date/Time: Mar 27, 2023 10:59 AM Reporting Lab: [facility] [address] [facility] [address] Performing Lab: [facility] [address] [facility] [address] POC INR (STL-RX MONITORING ONLY) 2.1 {INR} H 0.9-1.1 Vital Signs: All taken on the encounter date This section contains inpatient and outpatient Vital Signs collected on the date of the Encounter. Date/Time Temperature Pulse Blood Pressure Respiratory Rate SP02 Pain Height Weight Body Mass Index Source Mar 27, 2023 08:54 AM 98.2 F 105 /min 113/66 mm[Hg] 20 /min 92 % 0 258.8 lb 38 [facility] Social History: Smoking Status (Most [...] ity Apr 29, 2018 09:12 AM [place]-TOBACCO FORMER USER [facility] Tobacco Use History This section includes a history of the smoking, or tobacco-related health factors, that were collected on or before the date of the Encounter. The data comes from the [place] facility where the Encounter took place. Date/Time Smoking Status/Tobacco Use Comment F acility Apr 29, 2018 09:12 AM [place]-TOBACCO QUIT 15 YRS OR MORE [facility] Advance Directives: All historical and [...] 13, 2013 ADVANCE DIRECTIVE DISCUSSION RONALD ESTRADA [facility] Encounter Notes: All associated encounter notes This section contains the clinical notes associated to the Encounter. Date/Time Encounter Note(s) Provider Source Mar 27, 2023 03:33 PM UROLOGY NOTE: LOCAL TITLE: UROLOGY NOTE STANDARD TITLE: UROLOGY NOTE DATE OF NOTE: MAR 27, 2023@15:33 ENTRY DATE: MAR 27, 2023@15:34:05 AUTHOR: THERON WYATT EXP COSIGNER: ELIOT MISTRY URGENCY: STATUS: COMPLETED CHIEF COMPLAINT, HPI, EXAM & DATA CC: LUTS HPI: 77 yo M with hx of DM2, microhematuria (negative workups in 2014) here with persistent LUTS. Patient notes he empties well on tamsulosin but he frequently has urgency sometimes with episodes of incontinence. He drinks 8 cups of coffee daily and only has these episodes during the day. He does not have nocturia. He is unsure if the urgency happens around a certain time of day. He denies signs of infection,rash, and gross hematuria. He was previously managed with Cialis for ED and has noted simple renal cysts. ROS/PMH Denies F/C/N/V/CP/SOB Remainder of PMH listed below and reviewed? Yes TARGETED PHYSICAL EXAM: Gen: NAD HEENT: NC/AT Resp: NLB Abd: s/nt/nd, no rebound or guarding Back: No CVAT bilaterally Ext: WWP MSK: MAEW Neuro: non-focal Skin: warm and dry PVR (by scan):150 after voiding 300 CREATININE:CREATININE 1.09 mg/dL 07/10/2022 08:50 PSA: PROST. SPECIFIC AG.(PB-STL) 0.130 ng/mL 07/10/2022 08:50 IMAGING: Prior Renal US and AP CT reviewed ASSESSMENT AND PLAN 77 yo M with h/o ED, LUTS presents for follow up of bothersome urgency incontinence. Urinary urgency; hx suggestive of irritative LUTS, no concern for UTI or obstruction. - Discussed lifestyle modifications including avoidance of caffeine - Discussed maintaing voiding diary - Would obtain UA/urine culture but patient declined at this time - Discussed Ditropan but patient willing to try lifestyle modifications first - Con't Flomax FOLLOW-UP: - RTC 1 month to assess voiding symptoms and voiding diary after decreasesd caffeine intake - Return precautions given for development of new/concerning sx's including c/f UTI, obstructive LUTS (MORE INFORMATION) * LABS ---- PSA Trend: PROST. SPECIFIC AG.(PB-STL) 0.130 ng/mL 07/10/2022 08:50 PROST. SPECIFIC AG.(PB-STL) 0.218 ng/mL 08/13/2021 12:08 PROST. SPECIFIC AG.(PB-STL) 0.216 ng/mL 01/28/2021 17:39 PROST. SPECIFIC AG.(PB-STL) 0.158 ng/mL 03/02/2020 17:23 PROST. SPECIFIC AG.(PB-STL) 0.268 ng/ml 05/16/2019 10:49 BMP: SODIUM 142 mEq/L 07/10/2022 08:50 POTASSIUM 4.4 mEq/L 07/10/2022 08:50 CHLORIDE 107 mEq/L 07/10/2022 08:50 UREA NITROGEN 21 mg/dL 07/10/2022 08:50 CREATININE 1.09 mg/dL 07/10/2022 08:50 CALCIUM 9.4 mg/dL 07/10/2022 08:50 EGFR (DISCONTINUED 06/20/21) >60 06/18/2021 11:12 CARBON DIOXIDE 24 mEq/L 07/10/2022 08:50 GLUCOSE 195 H mg/dL 07/10/2022 08:50 EGFR (CKD-EPI 2020) 71.2 07/10/2022 08:50 CBC: WBC 5.7 10*3/uL 07/10/2022 08:50 RBC 5.64 10*6/uL 07/10/2022 08:50 HGB 14.6 g/dL 01/15/2023 08:36 HCT 46.4 % 01/15/2023 08:36 MCV 83.3 fL 07/10/2022 08:50 MCH 26.1 L pg 07/10/2022 08:50 MCHC 31.3 L g/dL 07/10/2022 08:50 RDW 15.0 % 07/10/2022 08:50 PLT 131 L 10*3/uL 01/15/2023 08:36 MPV 11.2 fL 07/10/2022 08:50 NEUTROPHILS, AUTO [...] GRANS, AUTO ABS 0.03 10*3/uL 08/13/2021 12:08 UA: No URINALYSIS EO data found - PAST MEDICAL, SOCIAL, FAMILY HX AND ROS 1) Primary Hypercoagulable State (ICD-9-CM 289.81) 2) Colonic Polyps (ICD-9-CM 211.3) 3) Anxiety 4) Benign prostatic hyperplasia 5) Diabetes mellitus 6) Primary erectile dysfunction (SNOMED CT 095336380) 7) Leg length inequality (SNOMED CT [id number]) 8) Pain in the coccyx 9) Hearing loss 10) 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 11) Varicose veins 12) Deep vein thrombosis 13) Gastroesophageal reflux disease 14) Single acquired kidney cyst 15) Sleep apnea 16) Benign prostatic hyperplasia 17) Adjustment disorder with depressed mood in remission 18) Allergic rhinitis 19) H/O: Pulmonary Embolus ([facility] [id number]) 20) Neck Pain ([facility] [id number]) 21) Bilateral Knee Pain ([facility] [id number]) 22) Low Back Pain ([facility] [id number]) 23) Therapeutic drug effect 24) Anticoagulant effect MEDICATIONS: Active Outpatient Medications (including Supplies): Active Outpatient Medications Status ======= 1) ALOGLIPTIN 6.25MG TAB TAKE ONE TABLET [...] ONE TABLET BY MOUTH TWO TIMES ACTIVE A DAY BEFORE MEALS FOR DIABETES TAKE [...] ONE TABLET BY MOUTH AT ACTIVE BEDTIME FOR PARKINSON DISEASE 13) SERTRALINE HCL 100MG TAB TAKE ONE-HALF TABLET BY ACTIVE (S) MOUTH EVERY MORNING FOR MOOD 14) TAMSULOSIN HCL 0.4MG CAP TAKE TWO CAPSULES BY MOUTH ACTIVE ONCE A DAY FOR BENIGN PROSTATIC HYPERPLASIA APPROXIMATELY 30 MINUTES AFTER THE SAME MEAL EACH DAY (FOR PROSTATE) 15) WARFARIN NA 5MG TAB TAKE ONE AND ONE-HALF TABLETS BY ACTIVE MOUTH SUN/MON/THU/THU/SAT AND TAKE TWO TABLETS /THU OR DIRECTED BY THE ANTICOAGULATION CLINIC. TO PREVENT BLOOD CLOTS. KEEP LAB APPOINTMENTS. Active Non-VA Medications Status ======= 1) Non-VA BETAMETHASONE/CLOTRIMAZOLE CREAM,TOP TO ACTIVE AFFECTED AREA(S) TWICE A DAY 2) Non-VA MARIJUANA (MEDICAL) DIRECTED INHALATION ACTIVE NEEDED 3) Non-VA MULTIVITAMIN CAP/TAB 1 TABLET BY MOUTH ONCE A ACTIVE DAY 4) Non-VA OXYCODONE 5MG/ACETAMINOPHEN 325MG TAB 1 TABLET ACTIVE BY MOUTH EVERY 6 HOURS NEEDED 5) Non-VA PROBIOTIC COMBINATION CAP/TAB 1 CAPSULE BY ACTIVE MOUTH ONCE A DAY 20 Total Medications Allergies: AUGMENTIN, SIMVASTATIN, MORPHINE /paola/ THERON WYATT MD RESIDENT Signed: 03/27/2023 15:45 /es/ ELIOT MISTRY MD Staff Physician, Urology Cosigned: 03/29/2023 10:50 THERON WYATT [facility]
--- OUTSIDE RECORDS SUMMARY | 2024-03-04 12:57 | XMS_ITS | Encounter Summary ---
Author Name [place] Address [address] [place] [address] Care Team Providers Care Fashion Editor Name Role Phone JILLIAN GAN Primary Care [...] MEDIC ARE SUPPL EMEMT Apr 23, 2019 [id number] [phone] KATHY ORTEGA PATIENT ANTHEM BCBS [place] MEDICARE SUPPLEMEN WILL MEDIC ARE SUPPL EMEMT Apr 23, 2019 [id number] [phone] KATHY ORTEGA PATIENT AN[place] MED[place] SUPPLEMEN WILL MEDIC ARE SUPPL EMEMT Apr 23, 2019 [id number] [phone] KATHY ORTEGA PATIENT BCBS [place] MEDICARE SUPPLEMEN WILL MEDIC ARE SUPPL EMEMT Apr 23, 2019 [id number] [phone] KATHY ORTEGA PATIENT [employer] MCR (WNR) MEDICARE ADVANTAGE MCR (WNR) Mar 23, 2022 [id number] KATHY ORTEGA PATIENT [employer] MCR (WNR) MEDICARE ADVANTAGE [facility] (WNR) Mar 23, 2022 [id number] KATHY ORTEGA PATIENT MEDICARE (WNR) MEDICARE (M) RR PART A May 21, 1990 RR PART A [id number] KATHY ORTEGA PATIENT MEDICARE (WNR) MEDICARE (M) RR PART B May 21, 1990 RR PART B [id number] [phone] KATHY ORTEGA PATIENT [employer] [place] MEDICARE SUPPLEMEN WILL MEDIC ARE SUPPL EMENT Feb 20, 2013 PLAN G [id number] [phone] KATHY ORTEGA PATIENT WELL[employer] [facility] (WNR) MEDICARE ADVANTAGE [facility] (WNR) Mar 23, 2021 [id number] KATHY ORTEGA PATIENT Selected Encounter This section includes the information on record at [place] for the Encounter. Date/Time Encounter Type Encounter Description Reason Provider Source May 04, 2023 08:00 AM MTMS BY PHARM MADELEINE 15 MIN TELEPHONE/ANCILLA ISABELLE ICD-10-CM Z51.81 Encounter for therapeutic drug level monitoring NANCI PEREIRA [facility] Encounter Template Text not used by [place] Assessments - Encounter Diagnoses This section includes the primary and secondary diagnoses documented for the Encounter. 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 This section includes future appointments and future orders which are active, pending or scheduled. Future Appointments This section includes appointments that were scheduled to occur 6 months from the date of the Encounter, up to a maximum of 20 appointments. The data comes from all [place] treatment facilities. Appointment Date/Time Appointment Type Appointme nt Facility Name May 12, 2023 09:30 AM AMBULATORY - MEDICINE [facility] May 26, 2023 08:00 AM AMBULATORY - SURGERY [facility] May 27, 2023 08:15 AM AMBULATORY - MEDICINE [facility] Jun 24, 2023 10:15 AM AMBULATORY - MEDICINE [facility] Jul 01, 2023 06:30 AM [facility] Jul 02, 2023 08:30 AM [facility] Jul 08, 2023 10:00 AM AMBULATORY - SURGERY [facility] July 31, 2023 10:00 AM AMBULAT[facility] - SUR[facility]ERY [facility] August 06, 2023 08:30 AM AMBULATORY - MEDICINE [facility] August 06, 2023 10:30 AM AMBULATORY - MEDICINE [facility] Sep 10, 2023 08:00 AM AMBULATORY - MEDICINE [facility] Oct 08, 2023 08:30 AM AMBULATORY - MEDICINE [facility] Lab Results: +/- 30 days of the encounter This section includes the Chemistry and Hematology Lab Results on record with [place] for the patient. Radiology Reports and Pathology Reports are provided separately, in subsequent sections. Lab Results This section contains the Chemistry/Hematology Results that were resulted 30 days before or 30 daysafter the date of the Encounter. Date/Time Source Result Type Result - Unit Interpretation Reference Range Comment May 27, 2023 09:49 AM [facility] POC INR (STL-RX MONITORING ONLY) Specimen Type: BLOOD Comment: Test Performed by: [id number] Meter #: [id number] Ordering Provider: NANCI PEREIRA Report Released Date/Time: May 28, 2023 06:05 AM Reporting Lab: [facility] [address] [facility] [address] Performing Lab: [facility] [address] [facility] [address] POC INR (STL-RX MONITORING ONLY) 2.5 {INR} H 0.9-1.1 May 13, 2023 12:42 PM [facility] POC INR (STL-RX MONITORING ONLY) Specimen Type: BLOOD Comment: Test Performed by: [id number] Meter #: [id number] Ordering Provider: NANCI PEREIRA Report Released Date/Time: May 13, 2023 12:48 PM Reporting Lab: [facility] [address] [facility] [address] Performing Lab: [address] [address] POC INR (STL-RX MONITORING ONLY) 1.9 {INR} H 0.9-1.1 May 04, 2023 09:30 AM [facility] POC INR (STL-RX MONITORING ONLY) Specimen Type: BLOOD Comment: Test Performed by: [id number] Meter #: [id number] Ordering Provider: NANCI PEREIRA Report Released Date/Time: May 04, 2023 09:36 AM Reporting Lab: [address] [address] Performing Lab: [address] [address] POC INR (STL-RX MONITORING ONLY) 1.5 {INR} H 0.9-1.1 Social History: Smoking Status (Most current) and Tobacco Use (All prior to encounter date) This section includes the most current, and the historical, smoking and tobacco- related health factors from the [place] facility where the Encounter took place. Current Smoking Status This section includes the most current smoking, or tobacco-related health factor, from the [place] facility where the Encounter took place. Date/Time Current Smoking Status Comment Catherine pepe Apr 29, 2018 09:12 AM [place]-TOBACCO FORMER USER [facility] Tobacco Use History This section includes a history of the smoking, or tobacco-related health factors, that were collected on or before the date of the Encounter. The data comes from the [place] facility where the Encounter took place. Date/Time Smoking Status/Tobacco Use Comment Nae acility Apr 29, 2018 09:12 AM [place]-TOBACCO QUIT 15 YRS OR MORE [facility] Advance Directives: All historical and current Section Date Range: From patient's date of to the date document was created. This section includes ALL of a patient's completed or amended [place] Advance and Rescinded Directives. The entries below indicate that a directive exists for the patient, but an actual copy is not included with this document. The data comes from all [place] facilities. Date Advance Directives Provider Source Jun 13, 2013 ADVANCE DIRECTIVE DISCUSSION RONALD ESTRADA [facility] Encounter Notes: All associated encounter notes This section contains the clinical notes associated to the Encounter. Date/Time Encounter Note(s) Provider Source May 04, 2023 12:53 PM PHARMACY OUTPATIEN T MEDICATION MGT NOTE: LOCAL TITLE: PHARMACY ANTICOAG CLINIC STL STANDARD TITLE: PHARMACY OUTPATIENT MEDICATION MGT NOTE DATE OF NOTE: MAY 04, 2023@12:53 ENTRY DATE: MAY 04, 2023@12:53:36 AUTHOR: NANCI PEREIRA COSIGNER: URGENCY: STATUS: COMPLETED WARFARIN LAB ONLY - TELEPHONE CONTACT SACHA ORTEGA is a 77 y/o MALE on warfarin. Patient was identified by 2 unique identifiers. Indication for warfarin: Pulmonary Embolism,Factor V Leiden Goal INR: 2-3 Current warfarin dose on record: 7.5mg daily x 10mg /Thu On bridging regimen?: NO Expected duration of therapy: Lifetime Subjective: spoke w/ Patient/Caregiver confirmed dose as above.YES Missed or extra doses? NO Bruising or bleeding? NO Falls or accidents? NO Thromboembolic symptoms? NO Hospitalized or ER visit? NO Changes in vitamin K containing products/food? NO -denies nutritional drinks,liver,green/black tea EtOH changes? NO Interacting medication changes (Rx, OTC, herbal)? NO Any upcoming procedure/surgery/dental work? NO Is pt taking an antiplatelet agent (ASA, clopidogrel, prasugrel, ticagrelor, cilostazol, dipyridamole)? no Any additional information? NO Objective: POC INR (STL-RX MONITORING ONLY) 1.5 H INR 05/04/2023 09:30 HGB 14.6 g/dL 01/15/2023 08:36 HCT 46.4 % 01/15/2023 08:36 PLT 131 L 10*3/uL 01/15/2023 08:36 INR Trends: Date Dose at time of lab INR Comments 05/04/23 7.5mg daily x 10mg Th/Fri 1.5 [...] Th/Fri 2.1 04/29/22 7.5mg daily x 10mg Th/Fri 2.1 Assessment: -- INR is - not at goal due to unknown etiology -- H/H is - within normal limits. Will check q6mos or earlier if needed. Plan: ----- --Pt/caregiver was given INR results during telephone contact --Warfarin dose: - continue current dose for now, as INR has been therapeutic on this dose for > 1 year --Bridging therapy: - NO --Next lab date: 05/12 --Patient/Caregiver repeated dose instructions and f/u monitoring plan? YES --Warfarin prescription renewed/refilled/directions updated if necessary? YES --Clinical reminder completed if due? YES --Minutes spent in chart review and phone conversation: 8min /paola/ NANCI PEREIRA, PHARM.D, [facility] CLINICAL PHARMACIST Signed: 05/04/2023 13:02 NANCI PEREIRA [facility]
--- OUTSIDE RECORDS SUMMARY | 2024-03-04 12:57 | XMS_ITS | Encounter Summary ---
Author Name [facility] [place] Address [address] [place] [address] Care Team Providers Care Plate Grainer Apprentice Name Role Phone JILLIAN GNA Primary Care Provider Unavailabl e Insurance Providers: [...] MEDIC ARE SUPPL EMEMT Apr 23, 2019 [id number] [phone] KATHY ORTEGA PATIENT ANTHEM BCBS [place] MEDICARE SUPPLEMEN WILL MEDIC ARE SUPPL EMEMT Apr 23, 2019 [id number] [phone] KATHY ORTEGA PATIENT ANTHEM [place] MEDICARE SUPPLEMEN WILL MEDIC ARE SUPPL EMEMT Apr 23, 2019 [id number] [phone] KATHY ORTEGA PATIENT [place] MEDICARE SUPPLEMEN WILL MEDIC ARE SUPPL EMEMT Apr 23, 2019 [id number] [phone] KATHY ORTEGA PATIENT [employer] MCR (WNR) MEDICARE ADVANTAGE MCR (WNR) Mar 23, 2022 [id number] KATHY ORTEGA PATIENT [employer] MCR (WNR) MEDICARE ADVANTAGE [facility] (WNR) Mar 23, 2022 [id number] KATHY ORTEGA PATIENT MEDICARE (WNR) MEDICARE (M) RR PART A May 21, 1990 RR PART A [id number] KATHY ORTEGA PATIENT MEDICARE (WNR) MEDICARE (M) RR PART B May 21, 1990 RR PART B [id number] KATHY ORTEGA PATIENT [employer] MEDICARE SUPPLEMEN WILL MEDIC ARE SUPPL EMENT Feb 20, 2013 PLAN G [id number] [phone] KATHY ORTEGA PATIENT [facility] (WNR) MEDICARE ADVANTAGE [facility] (WNR) Mar 23, 2021 [id number] KATHY ORTEGA PATIENT Selected Encounter This section includes the information on record at [place] for the Encounter. Date/Time Encounter Type Encounter Description Reason Provider Source May 12, 2023 09:30 AM MTMS BY PHARM MADELEINE 15 MIN TELEPHONE/ANCILLA ISABELLE ICD-10-CM Z51.81 Encounter for therapeutic drug level monitoring NANCI PEREIRA [facility] Encounter Template Text not used by [place] Assessments - Encounter Diagnoses This section includes the primary and secondary diagnoses documented for the Encounter. Date/Time Primary/Secondary Diagnosis Diagnosis Name Provider Source May 12, 2023 09:30 AM PRIMARY Encounter for therapeutic drug level monitoring NANCI PEREIRA [facility] May 12, 2023 09:30 AM SECONDARY group home (current) use of anticoagulants NANCI PEREIRA [place] [facility] May 12, 2023 09:30 AM SECONDARY Personal history of pulmonary embolism NANCI PEREIRA [facility] Plan of Treatment: Future Appointments [...] 08:00 AM AMBULATORY - SURGERY [facility] May 27, 2023 08:15 AM AMBULATORY - MEDICINE [facility] Jun 24, 2023 10:15 AM AMBULATORY - MEDICINE [facility] Jul 01, 2023 06:30 AM AMBULATORY - NONE [facility] Jul 02, 2023 08:30 AM AMBULATORY - SURGERY [facility] Jul 08, 2023 10:00 AM AMBULATORY - SURGERY [facility] July 31, 2023 10:00 AM AMBULATORY - SURGERY [facility] August 06, 2023 08:30 AM AMBULATORY - MEDICINE [facility] August 06, 2023 10:30 AM AMBULATORY - MEDICINE [facility] Sep 10, 2023 08:00 AM AMBULATORY - MEDICINE [facility] Oct 08, 2023 08:30 AM AMBULATORY - MEDICINE [facility] Lab Results: +/- 30 days [...] Range Comment May 27, 2023 09:49 AM [facility] POC INR (STL-RX MONITORING ONLY) Specimen Type: BLOOD Comment: Test Performed by: [id number] Meter #: [id number] Ordering Provider: NANCI PEREIRA Report Released Date/Time: May 28, 2023 06:05 AM Reporting Lab: [facility] [address] [facility] [address] Performing Lab: [facility] [address] [facility] [address] POC INR (STL-RX MONITORING ONLY) 2.5 {INR} H 0.9-1.1 May 13, 2023 12:42 PM [facility] POC INR (STL-RX MONITORING ONLY) Specimen Type: BLOOD Comment: Test Performed by: [id number] Meter #: [id number] Ordering Provider: NANCI PEREIRA Report Released Date/Time: May 13, 2023 12:48 PM Reporting Lab: [address] [address] Performing Lab: [address] [address] POC INR (STL-RX MONITORING ONLY) 1.9 {INR} H 0.9-1.1 May 04, 2023 09:30 AM [facility] POC INR (STL-RX MONITORING ONLY) Specimen Type: BLOOD Comment: Test Performed by: [id number] Meter #: [id number] Ordering Provider: NANCI PEREIRA Report Released Date/Time: May 04, 2023 09:36 AM Reporting Lab: [address] [address] Performing Lab: [address] [address] POC INR (STL-RX MONITORING ONLY) 1.5 {INR} [...] 29, 2018 09:12 AM [place]-TOBACCO FORMER USER [facility] Tobacco Use History This section includes a history of the smoking, or tobacco-related health factors, that were collected on or before the date of the Encounter. The data comes from the [place] facility where the Encounter took place. Date/Time Smoking Status/Tobacco Use Comment F acility Apr 29, 2018 09:12 AM [place]-TOBACCO QUIT 15 YRS OR MORE [facility] Advance Directives: All historical and [...] Encounter. Date/Time Encounter Note(s) Provider Source May 13, 2023 01:19 PM PHARMACY OUTPATIEN T MEDICATION MGT NOTE: LOCAL TITLE: PHARMACY ANTICOAG CLINIC ST STANDARD TITLE: PHARMACY OUTPATIENT MEDICATION MGT NOTE DATE OF NOTE: MAY 13, 2023@13:19 ENTRY DATE: MAY 13, 2023@13:19:17 AUTHOR: NANCI PEREIRA COSIGNER: URGENCY: STATUS: COMPLETED WARFARIN LAB ONLY - TELEPHONE CONTACT SHANNONSACHA HILARIO is a 77 y/o MALE on warfarin. Patient was identified by 2 unique identifiers. Indication for warfarin: Pulmonary Embolism, Factor V Leiden Goal INR: 2-3 Current warfarin dose on record: 7.5mg daily x 10mg /Thu On bridging regimen?: NO Expected duration of therapy: Lifetime Subjective: spoke w/ , with pt present Patient/Caregiver confirmed dose as above.YES Missed or extra doses? NO Bruising or bleeding? NO Falls or accidents? occasionally staggers into a wall , denies head trauma -discussed imporatnce of coming to ER in the event of head trauma Thromboembolic symptoms? NO Hospitalized or ER visit? NO Changes in vitamin K containing products/food? NO EtOH changes? NO Interacting medication changes (Rx, OTC, herbal)? NO Any upcoming procedure/surgery/dental work? cataract surgery 05/25 - advised pt he may continue warfarin Is pt taking an antiplatelet agent (ASA, clopidogrel, prasugrel, ticagrelor, cilostazol, dipyridamole)? no Any additional information? NO Objective: POC INR (STL-RX MONITORING ONLY) 1.9 H INR 05/13/2023 12:42 HGB 14.6 g/dL 01/15/2023 08:36 HCT 46.4 % 01/15/2023 08:36 PLT 131 L 10*3/uL 01/15/2023 08:36 INR Trends: Date Dose at time of lab INR Comments 05/12/23 7.5mg daily x 10mg Th/Fri 1.9 05/04/23 7.5mg daily x 10mg Th/Fri 1.5 03/27/23 unable to contact 2.1 02/19/23 unable to contact 2.6 01/15/23 7.5mg daily x 10mg Th/Fri 2.1 12/11/22 7.5mg daily x 10mg Th/Fri 2.3 11/06/22 7.5mg daily x 10mg /Fri 2.6 10/02/22 7.5mg daily x 10mg Th/Fri 2.2 08/21/22 unable to contact 2.1 07/10/22 7.5mg daily x 10mg Th/Fri 2.1 06/03/22 7.5mg daily x 10mg /Fri 2.1 04/29/22 7.5mg daily x 10mg Th/Fri 2.1 Assessment: -- INR is - below therapeutic range for the second consecutive visit -- H/H is - within normal limits. Will check q6mos or earlier if needed. Plan: ----- --Pt/caregiver was given INR results during telephone contact --Warfarin dose: - increase dose to: 7.5mg daily x 10mg //Thu --Bridging therapy: - NO --Next lab date: 05/26 --Patient/Caregiver repeated dose instructions and f/u monitoring plan? YES --Warfarin prescription renewed/refilled/directions updated if necessary? YES --Clinical reminder completed if due? YES --Minutes spent in chart review and phone conversation: 8min /paola/ NANCI PEREIRA, PHARM.D, [facility] CL[facility]ICAL PHARMACIST Signed: 05/13/2023 13:41 NANCI PEREIRA [facility]
--- OUTSIDE RECORDS SUMMARY | 2024-03-04 12:57 | XMS_ITS | Encounter Summary ---
Author Name [facility] [place] Address [address] [place] [address] Care Team Providers Care Camera Repair Technician Name Role Phone JILLIAN GAN Primary [...] MEDIC ARE SUPPL EMEMT Apr 23, 2019 [id number] [phone] KATHY ORTEGA PATIENT ANTHEM [employer] MEDICARE SUPPLEMEN WILL MEDIC ARE SUPPL EMEMT Apr 23, 2019 [id number] [phone] KATHY ORTEGA PATIENT ANTHE[place] [employer] MEDICARE SUPPLEMEN WILL MEDIC ARE SUPPL EMEMT Apr 23, 2019 [id number] [phone] KATHY ORTEGA PATIENT [employer] MEDICARE SUPPLEMEN WILL MEDIC ARE SUPPL EMEMT Apr 23, 2019 [id number] [phone] KATHY ORTEGA PATIENT [employer] MCR (WNR) MEDICARE ADVANTAGE MCR (WNR) Mar 23, 2022 [id number] KATHY ORTEGA PATIENT [employer] MCR (WNR) MEDICARE ADVANTAGE [facility] (WNR) Mar 23, 2022 [id number] KATHY ORTEGA PATIENT MEDICARE (WNR) MEDICARE (M) RR PART A May 21, 1990 RR PART A [id number] KATHY ORTEGA PATIENT MEDICARE (WNR) MEDICARE (M) RR PART B May 21, 1990 RR PART B [id number] KATHY ORTEGA PATIENT [employer] MEDICARE SUPPLEMEN WILL MEDIC ARE SUPPL EMENT Feb 20, 2013 PLAN G [id number] [phone] KATHY ORTEGA PATIENT [facility] [facility] (WNR) MEDICARE ADVANTAGE [facility] (WNR) Mar 23, 2021 [id number] KATHY ORTEGA PATIENT Selected Encounter This section includes the information on record at [place] for the Encounter. Date/Time Encounter Type Encounter Description Reason Provider Source Apr 14, 2023 12:23 PM Outpatient Encounter PRIMARY CARE/MEDICINE NEVA TAN Encounter Template Text not used by [place] Plan of Treatment: Future Appointments (+ 6 months) and Future Tests (+/- 45 days) The Plan of Treatment section includes future care activities for the patient from all [place] treatmentfacilities. This section includes future appointments and future orders which are active, pending or scheduled. Future Appointments This section includes appointments that were scheduled to occur 6 months from the date of the Encounter, up to a maximum of 20 appointments. The data comes from all [place] treatment facilities. Appointment Date/Time Appointment Type Appointme nt Facility Name Apr 27, 2023 10:20 AM AMBULATORY - SURGERY [facility] May 04, 2023 08:00 AM AMBULATORY - MEDIC[facility] May 12, 2023 09:30 AM AMBULATORY - MEDIC[facility] May 26, 2023 08:00 AM AMBULATORY - SURGERY [facility] May 27, 2023 08:15 AM AMBULATORY - MEDICINE [facility] Jun 24, 2023 10:15 AM AMBULATORY - MED[facility] Jul 01, 2023 06:30 AM AMBULATORY - NONE [facility] Jul 02, 2023 08:30 AM AMBULATORY - SURGERY [facility] Jul 08, 2023 10:00 AM AMBULATORY - SURGERY [facility] July 31, 2023 10:00 AM AMBULATORY - SURGERY [facility] August 06, 2023 08:30 AM AMBULATORY - MEDICINE [facility] August 06, 2023 10:30 AM AMBULATORY - MEDICINE [facility] Sep 10, 2023 08:00 AM AMBULATORY - MEDICINE [facility] Oct 08, 2023 08:30 AM AMBULATORY - MEDICINE [facility] Lab Results: +/- 30 days [...] - Unit Interpretation Reference Range Comment May 13, 2023 12:42 PM [facility] POC INR (STL-RX MONITORING ONLY) Specimen Type: BLOOD Comment: Test Performed by: [id number] Meter #: [id number] Ordering Provider: NANCI PEREIRA Report Released Date/Time: May 13, 2023 12:48 PM Reporting Lab: [facility] [address] [place] [id number] Performing Lab: [facility] [address] [place] [id number] POC INR (STL-RX MONITORING ONLY) 1.9 {INR} H 0.9-1.1 May 04, 2023 09:30 AM [facility] POC INR (STL-RX MONITORING ONLY) Specimen Type: BLOOD Comment: Test Performed by: [id number] Meter #: [id number] Ordering Provider: NANCI PEREIRA Report Released Date/Time: May 04, 2023 09:36 AM Reporting Lab: [facility] [address] [facility] [address] Performing Lab: [facility] [address] [facility] [address] POC INR (STL-RX MONITORING ONLY) 1.5 {INR} H 0.9-1.1 Mar 27, 2023 10:47 AM [facility] POC INR (STL-RX MONITORING ONLY) Specimen Type: BLOOD Comment: Test Performed by: [id number] Meter #: [id number] Ordering Provider: NANCI PEREIRA Report Released Date/Time: Mar 27, 2023 10:59 AM Reporting Lab: [facility] [address] [facility] [address] Performing Lab: [address] [address] POC INR (STL-RX MONITORING ONLY) 2.1 {INR} H 0.9-1.1 Social History: Smoking Status (Most current) and Tobacco Use (All prior to encounter date) This section includes the most current, and the historical, smoking and tobacco- related health factors from the [place] facility where the Encounter took place. Current Smoking Status This section includes the most current smoking, or tobacco-related health factor, from the [place] facility where the Encounter took place. Date/Time Current Smoking Status Comment Catherine ity Apr 29, 2018 09:12 AM [place]-TOBACCO FORMER USER [facility] Tobacco Use History This section includes a history of the smoking, or tobacco-related health factors, that were collected on or before the date of the Encounter. The data comes from the [place] facility where the Encounter took place. Date/Time Smoking Status/Tobacco Use Comment F acility Apr 29, 2018 09:12 AM [place]-TOBACCO QUIT 15 YRS OR MORE [facility] Advance Directives: All historical and current Section Date Range: From patient's date of to the date document was created. This section includes ALL of a patient's completed or amended [place] Advance and Rescinded Directives. The entries below indicate that a directive exists for the patient, but an actual copy is not included with this document. The data comes from all [place] facilities. Date Advance Directives Provider Source Jun 13, 2013 ADVANCE DIRECTIVE DISCUSSION RONALD ESTRADA [facility] Encounter Notes: All associated encounter notes This section contains the clinical notes associated to the Encounter. Date/Time Encounter Note(s) Provider Source Apr 14, 2023 12:23 PM PRIMARY CARE SECUR E MESSAGING: LOCAL TITLE: PRIMARY CARE SECURE MESSAGING STANDARD TITLE: PRIMARY CARE SECURE MESSAGING DATE OF NOTE: APR 14, 2023@12:23 ENTRY DATE: APR 14, 2023@11:23:21 AUTHOR: NEVA TAN EXP COSIGNER: URGENCY: STATUS: COMPLETED PRIMARY CARE SECURE MESSAGING Has ADDENDA ------Original Message ----- Sent: 04/13/2023 10:48 PM ET From: SACHA ORTEGA To: ST, [facility], A_Primary Care, [facility] Subject: General:cataract surgery Please provide fax number. [employer] needs to fax over a medical form to be filled out in order to perform cataract surgery. If I need to come in for a checkup, please let me know. Thank you, Sachayaron Ortega [phone] ------Original Message ----- Sent: 04/14/2023 12:22 PM ET From: NEVA TAN To: SACHA ORTEGA Subject: General:cataract surgery [phone]. RUDDY Goins /paola/ NEVA TAN BSN RN [facility] REGISTERED NURSE Signed: 04/14/2023 11:23 04/24/2023 ADDENDUM STATUS: COMPLETED Patients contacted clinic and was inquiring about the [employer] form. They have not rec'd and he needs to know if he must be seen prior to it being filled out, as he is set for cataracts surgery. Alerting RNCM to please follow up /paola/ ISIAH LEZAMA STAINED GLASS INSTALLER Signed: 04/24/2023 13:02 NEVA TAN [facility]
--- OUTSIDE RECORDS SUMMARY | 2024-03-04 12:57 | XMS_ITS | Encounter Summary ---
Author Name [facility] [place] Address [address] [place] [address] Care Team Providers Care Record Press Supervisor Name Role Phone JILLIAN GAN Primary [...] MEDIC ARE SUPPL EMEMT Apr 23, 2019 [id number] [phone] KATHY ORTEGA PATIENT ANTHEM [employer] [place] MEDICARE SUPPLEMEN WILL MEDIC ARE SUPPL EMEMT Apr 23, 2019 [id number] [phone] KATHY ORTEGA PATIENT ANTHEM [employer] MEDICARE SUPPLEMEN WILL MEDIC ARE SUPPL EMEMT Apr 23, 2019 [id number] [phone] KATHY ORTEGA PATIENT [employer] MEDICARE SUPPLEMEN WILL MEDIC ARE SUPPL EMEMT Apr 23, 2019 [id number] [phone] KATHY ORTEGA PATIENT [employer] MCR (WNR) MEDICARE ADVANTAGE MCR (WNR) Mar 23, 2022 [id number] KATHY ORTEGA PATIENT [employer] MCR (WNR) MEDICARE ADVANTAGE [facility] (WNR) Mar 23, 2022 [id number] KATHY ORTEGA PATIENT MEDICARE (WNR) MEDICARE (M) RR PART A May 21, 1990 RR PART A [id number] KATHY ORTEGA PATIENT MEDICARE (WNR) MEDICARE (M) RR PART B May 21, 1990 RR PART B [id number] KATHY ORTEGA PATIENT [employer] MEDICARE SUPPLEMEN WILL MEDIC ARE SUPPL EMENT Feb 20, 2013 PLAN G [id number] [phone] KATHY ORTEGA PATIENT [employer] MCR (WNR) MEDICARE ADVANTAGE [facility] (WNR) Mar 23, 2021 [id number] KATHY ORTEGA PATIENT Selected Encounter This section includes the information on record at [place] for the Encounter. Date/Time Encounter Type Encounter Description Reason Provider Source Apr 27, 2023 10:20 AM OFFICE O/P EST LOW 20 MIN [facility]OLOG[facility] ICD-10-CM N39.41 Urge incontinence ELIOT MISTRY Ken Encounter Template Text not used by [place] Assessments - Encounter Diagnoses This section includes the primary and secondary diagnoses documented for the Encounter. Date/Time Primary/Secondary Diagnosis Diagnosis Name Provider Source Apr 27, 2023 05:28 PM PRIMARY Urge incontinence THERON EMMANUEL [facility] Apr 27, 2023 05:28 PM SECONDARY Male erectile disorder THERON EMMANUEL [facility] Plan of Treatment: Future Appointments (+ 6 months) and Future Tests (+/- 45 days) The Plan of Treatment section includes future care activities for the patient from all [place] [facility]. This section includes future appointments and future orders which are active, pending or scheduled. Future Appointments This section includes appointments that were scheduled to occur 6 months from the date of the Encounter, up to a maximum of 20 appointments. The data comes from all [place] treatment facilities. Appointment Date/Time Appointment Type Appointme nt Facility Name May 04, 2023 08:00 AM AMBULATORY - MEDICINE [facility] May 12, 2023 09:30 AM AMBULATORY - MEDICINE [facility] May 26, 2023 08:00 AM AMBULATORY - SURGERY [facility] May 27, 2023 08:15 AM AMBULATORY - MEDICINE [facility] Jun 24, 2023 10:15 AM AMBULATORY - MEDICINE [facility] Jul 01, 2023 06:30 AM AMBULATORY - NONE [facility] Jul 02, 2023 08:30 AM AMBULATORY - SUR[facility]ERY [facility] Jul 08, 2023 10:00 AM AMBULATORY - SUR[facility]ERY [facility] July 31, 2023 10:00 AM AMBULATORY - SURGERY [facility] August 06, 2023 08:30 AM AMBULATORY - MEDICINE [facility] August 06, 2023 10:30 AM [facility]ULATORY [facility] MED[facility]INE [facility] Sep 10, 2023 08:00 AM AMBULATORY - MEDICINE [facility] Oct 08, 2023 08:30 AM AMBULATORY - MEDICINE [facility] Lab Results: +/- 30 days of the encounter This section includes the Chemistry and Hematology Lab Results on record with [place] for the patient. Radiology Reports and Pathology Reports are provided separately, in subsequent sections. Lab Results This section contains the Chemistry/Hematology Results that were resulted 30 days before or 30 daysafter the date of the Encounter. Date/Time Source Result Type Result - Unit Interpretation Reference Range Comment May 27, 2023 09:49 AM [facility] POC INR (STL-RX MONITORING ONLY) Specimen Type: BLOOD Comment: Test Performed by: [id number] Meter #: [id number] Ordering Provider: NANCI PEREIRA Report Released Date/Time: May 28, 2023 06:05 AM Reporting Lab: [facility] [address] [address] Performing Lab: [facility] [address] [facility] [address] POC INR (STL-RX MONITORING ONLY) 2.5 {INR} H 0.9-1.1 May 13, 2023 12:42 PM [facility] POC INR (STL-RX MONITORING ONLY) Specimen Type: BLOOD Comment: Test Performed by: [id number] Meter #: [id number] Ordering Provider: NANCI PEREIRA Report Released Date/Time: May 13, 2023 12:48 PM Reporting Lab: [address] [address] Performing Lab: [address] [address] POC INR (STL-RX MONITORING ONLY) 1.9 {INR} H 0.9-1.1 May 04, 2023 09:30 AM [facility] POC INR (STL-RX MONITORING ONLY) Specimen Type: BLOOD Comment: Test Performed by: [id number] Meter #: [id number] Ordering Provider: NANCI PEREIRA Report Released Date/Time: May 04, 2023 09:36 AM Reporting Lab: [address] [address] Performing Lab: [address] [address] POC INR (STL-RX MONITORING ONLY) 1.5 {INR} H 0.9-1.1 Vital Signs: All taken on the encounter date This section contains inpatient and outpatient Vital Signs collected on the date of the Encounter. Date/Time Temperature Pulse Blood Pressure Respiratory Rate SP02 Pain Height Weight Body Mass Index Source Apr 27, 2023 10:21 AM 97 F 91 /min 143/72 mm[Hg] 19 /min 92 % 0 262.5 lb 39 [facility] Social History: Smoking Status (Most current) and Tobacco Use (All prior to encounter date) This section includes the most current, and the historical, smoking and tobacco- related health factors from the [place] facility where the Encounter took place. Current Smoking Status This section includes the most current smoking, or tobacco-related health factor, from the [place] facility where the Encounter took place. Date/Time Current Smoking Status Comment Catherine pepe Apr 29, 2018 09:12 AM VA-TOBACCO FORMER USER [facility] Tobacco Use History This section includes a history of the smoking, or tobacco-related health factors, that were collected on or before the date of the Encounter. The data comes from the [place] facility where the Encounter took place. Date/Time Smoking Status/Tobacco Use Comment F acility Apr 29, 2018 09:12 AM [place]-TOBACCO QUIT 15 YRS OR MORE [facility] Advance Directives: All historical and current Section Date Range: From patient's date of to the date document was created. This section includes ALL of a patient's completed or amended [place] Advance and Rescinded Directives. The entries below indicate that a directive exists for the patient, but an actual copy is not included with this document. The data comes from all [place] facilities. Date Advance Directives Provider Source Jun 13, 2013 ADVANCE DIRECTIVE DISCUSSION RONALD ESTRADA [facility] Encounter Notes: All associated encounter notes This section contains the clinical notes associated to the Encounter. Date/Time Encounter Note(s) Provider Source Apr 27, 2023 10:33 AM UROLOGY NOTE: LOCAL TITLE: UROLOGY NOTE STANDARD TITLE: UROLOGY NOTE DATE OF NOTE: APR 27, 2023@10:33 ENTRY DATE: APR 27, 2023@10:34:06 AUTHOR: THERON EMMANUEL COSIGNER: ELIOT MISTRY URGENCY: STATUS: COMPLETED CHIEF COMPLAINT, HPI, EXAM & DATA CC: f/u LUTS HPI: 77 yo M with hx of DM2, microhematuria (negative workups in 2014) here with persistent LUTS. Patient notes he empties well on tamsulosin but he frequently has urinary urgency sometimes with episodes of incontinence. He drinks 8 cups of coffee daily and only has these episodes during the day. He does not have nocturia. He and his were instructed to keep a voiding diary and to attempt to cut back on caffeine consumption. I reivewed the provided voiding diary. His is not here today but on my interpretation it appears he voids more frequently in the AM around when he is drinking more caffeine. He also reports erectile dysfunction. He had previously used cialis with success. He would like to resume this. ROS/PMH Denies F/C/N/V/CP/SOB Remainder of PMH listed below and reviewed? Yes TARGETED PHYSICAL EXAM: Gen: NAD Resp: NLB Abd: s/nt/nd, no rebound or guarding Ext: WWP. Using a cane for mobility. Skin: warm and dry CREATININE:CREATININE 1.09 mg/dL 07/10/2022 08:50 PSA: PROST. SPECIFIC AG.(PB-STL) 0.130 ng/mL 07/10/2022 08:50 ASSESSMENT AND PLAN 77 yo M with h/o ED, LUTS presents for follow up of bothersome urgency incontinence. Urinary urgency; hx suggestive of irritative LUTS, no concern for UTI or obstruction. - Discussed lifestyle modifications including avoidance of caffeine - he has had symptomatic improvement with cutting back on caffeine - Con't Flomax - follow up to assess LUTS in a few months to discuss addition of anti- muscarinic if still unsatisfied - refilled cialis FOLLOW-UP: - RTC 5 months to assess voiding symptoms after decreasesd caffeine intake - Return precautions given for development of new/concerning sx's including c/f UTI, obstructive LUTS (MORE INFORMATION) * LABS ------ PSA Trend: PROST. 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 11) Varicose veins 12) Deep vein thrombosis 13) Gastroesophageal reflux disease 14) Single acquired kidney cyst 15) Sleep apnea 16) Benign prostatic hyperplasia 17) Adjustment disorder with depressed mood in remission 18) Allergic rhinitis 19) H/O: Pulmonary Embolus ([facility] [id number]) 20) Neck Pain ([facility] [id number]) 21) Bilateral Knee Pain ([facility] [id number]) 22) Low Back Pain ([facility] [id number]) 23) Therapeutic drug effect 24) Anticoagulant effect [...] ACTIVE MOUTH EVERY MORNING FOR MOOD 14) TAMSULOSIN HCL 0.4MG CAP TAKE TWO CAPSULES BY MOUTH ACTIVE ONCE A DAY FOR BENIGN PROSTATIC HYPERPLASIA APPROXIMATELY 30 MINUTES AFTER THE SAME MEAL EACH DAY (FOR PROSTATE) 15) WARFARIN NA 5MG TAB TAKE ONE AND ONE-HALF TABLETS BY ACTIVE MOUTH SUN/MON/THU/THU/SAT AND TAKE TWO TABLETS /FRI OR DIRECTED [...] Medications Allergies: AUGMENTIN, SIMVASTATIN, MORPHINE /paola/ THERON Emmanuel MD RESIDENT PHYSICIAN Signed: 04/27/2023 10:59 /es/ ELIOT MISTRY MD Staff Physician, Urology Cosigned: 04/27/2023 17:28 THERON EMMANUEL [facility]
--- OUTSIDE RECORDS SUMMARY | 2024-03-04 12:57 | XMS_ITS | Encounter Summary ---
Author Name [facility] [place] Address [address] [place] [address] Care Team Providers Care Student Affairs Dean Name Role Phone JILLIAN GAN Primary Care [...] MEDIC ARE SUPPL EMEMT Apr 23, 2019 [id number] [phone] KATHY ORTEGA PATIENT ANTHEM [employer] [place] MEDICARE SUPPLEMEN WILL MEDIC ARE SUPPL EMEMT Apr 23, 2019 [id number] [phone] KATHY ORTEGA PATIENT ANTHE[place] [employer] MEDICARE SUPPLEMEN WILL MEDIC ARE SUPPL EMEMT Apr 23, 2019 [id number] [phone] KATHY ORTEGA PATIENT [employer] [place] MEDICARE SUPPLEMEN WILL MEDIC ARE SUPPL EMEMT Apr 23, 2019 [id number] [phone] KATHY ORTEGA PATIENT [employer] MCR (WNR) MEDICARE ADVANTAGE MCR (WNR) Mar 23, 2022 [id number] KATHY ORTEGA PATIENT [employer] MCR (WNR) MEDICARE ADVANTAGE [facility] (WNR) Mar 23, 2022 [id number] KATHY ORTEGA PATIENT MEDICARE (WNR) MEDICARE (M) RR PART A May 21, 1990 RR PART A [id number] KATHY ORTEGA PATIENT MEDICARE (WNR) MEDICARE (M) RR PART B May 21, 1990 RR PART B [id number] [phone] KATHY ORTEGA PATIENT [employer] MEDICARE SUPPLEMEN WILL MEDIC ARE SUPPL EMENT Feb 20, 2013 PLAN G [id number] [phone] KATHY ORTEGA PATIENT [employer] [facility] (WNR) MEDICARE ADVANTAGE [facility] (WNR) Mar 23, 2021 [id number] [phone] KATHY ORTEGA PATIENT Selected Encounter This section includes the information on record at [place] for the Encounter. Date/Time Encounter Type Encounter Description Reason Provider Source Mar 27, 2023 08:00 AM MTMS BY PHARM MADELEINE 15 MIN TELEPHONE/ANCILLA ISABELLE ICD-10-CM Z51.81 Encounter for therapeutic drug level monitoring NANCI PEREIRA [facility] Encounter Template Text not used by [place] Assessments - Encounter Diagnoses This section includes the primary and secondary diagnoses documented for the Encounter. 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 Appointment Date/Time Appointment Type Appointme nt Facility Name Apr 27, 2023 10:20 AM AMBULATORY - SURGERY . [facility] May 04, 2023 08:00 AM AMBULATORY - MEDICINE [facility] May 12, 2023 09:30 AM AMBULATORY - MEDICINE [facility] May 26, 2023 08:00 AM AMBULATORY - SUR[facility]ERY [facility] May 27, 2023 08:15 AM AMBULATORY - MEDICINE [facility] Jun 24, 2023 10:15 AM AMBULATORY - MEDICINE [facility] Jul 01, 2023 06:30 AM AMBULATORY - NONE [facility] Jul 02, 2023 08:30 AM AMBULATORY - SURGERY [facility] Jul 08, 2023 10:00 AM AMBULATORY - SURGERY [facility] July 31, 2023 10:00 AM AMBULATORY - SURGERY [facility] August 06, 2023 08:30 AM AMBULATORY - MEDICINE [facility] August 06, 2023 10:30 AM AMBULATORY - MEDICINE [facility] Sep 10, 2023 08:00 AM AMBULATORY - MEDICINE [facility] Lab Results: +/- 30 [...] Range Comment Mar 27, 2023 10:47 AM [facility] POC INR (STL-RX MONITORING ONLY) Specimen Type: BLOOD Comment: Test Performed by: [id number] Meter #: [id number] Ordering Provider: NANCI PEREIRA Report Released Date/Time: Mar 27, 2023 10:59 AM Reporting Lab: [facility] [address] [facility] [address] Performing Lab: [facility] [address] [place] [address] POC INR (STL-RX MONITORING ONLY) 2.1 {INR} [...] /min 92 % 0 258.8 lb 38 [facility] Social History: Smoking Status [...] Facil ity Apr 29, 2018 09:12 AM [place]-TOBACCO QUIT 15 YRS OR MORE [facility] Tobacco Use History This section includes a history of the smoking, or tobacco-related health factors, that were collected on or before the date of the Encounter. The data comes from the [place] facility where the Encounter took place. Date/Time Smoking Status/Tobacco Use Comment F acility Apr 29, 2018 09:12 AM [place]-TOBAC[place] QUIT [facility] YRS [place] MORE [facility] [...] ADVANCE DIRECTIVE DISCUSSION RONALD ESTRADA [facility] Encounter Notes: All associated encounter notes This section contains the clinical notes associated to the Encounter. Date/Time Encounter Note(s) Provider Source Mar 27, 2023 02:06 PM PHARMACY OUTPATIEN T MEDICATION MGT NOTE: LOCAL TITLE: PHARMACY [facility] STANDARD TITLE: PHARMACY OUTPATIENT MEDICATION MGT NOTE DATE OF NOTE: MAR 27, 2023@14:06 ENTRY DATE: MAR 27, 2023@14:06:09 AUTHOR: NANCI PEREIRA COSIGNER: URGENCY: STATUS: COMPLETED PHARMACY [facility] Has ADDENDA Warfarin Lab Only Appointment: SHANNONSACHA is a 77 y/o MALE on warfarin Indication for warfarin: Pulmonary Embolism, Other:Factor V Leiden Goal INR: 2-3 Current warfarin dose on record: Expected duration of anticoagulation: Lifetime On bridging regimen?: NO Subjective: Unable to reach pt by phone x 2. Unable to leave message for pt to call back. Objective: INR: POC INR (STL-RX MONITORING ONLY) 2.1 H INR 03/27/2023 10:47 Hgb: HGB 14.6 g/dL 01/15/2023 08:36 Hct: 46.4 % (01/15/23 08:36) INR Trends: Date Dose at time of lab INR Comments 03/27/23 unable to contact 2.1 02/19/23 unable [...] 04/29/22 7.5mg daily x 10mg Th/Fri 2.1 03/25/22 7.5mg daily x 10mg Th/Fri 2.5 Assessment: -- INR is - within therapeutic range -- H/H is - within normal limits. Will check q6mos or earlier if needed. Plan: ----- --Continue current warfarin dose. Mailed pt letter with INR result and instructions to contact this clinic if pt is taking warfarin dose other than that which is on record, is having any s/sx of bleeding, has started any new medications, or other concerns with warfarin. Also included next lab date in letter. --Next lab date:05/04/23 Minutes spent in chart review and attempts to reach pt: 5 Alert to clinical tech: Please mail a Good warfarin letter to pt. Thank you! /rigoberto PEREIRA PHARM.D, [facility] CLINICAL PHARMACIST Signed: 03/30/2023 12:05 Receipt Acknowledged By: 03/30/2023 14:34 /paola/ MARY JO GALLEGO Explosives Engineer 03/30/2023 ADDENDUM STATUS: COMPLETED Correction, current dose on record should read: 7.5mg daily x 10mg Th/Thu /rigoberto PEREIRA PHARMRose MarieD, [facility] CLINICAL PHARMACIST Signed: 03/30/2023 12:42 04/02/2023 ADDENDUM STATUS: COMPLETED Spoke w/ , Shama, who confirms above dose of 7.5mg daily x 10mg Th/Fri. Denies bleeding, falls, CVA sx, med/diet changes. Will have cataract surgery in the future - advised pt may continue warfarin prior to procedure. Continue current therapy RTC 05/04 /paola/ NANCI PEREIRA, PHARM.D, [facility] CLINICAL PHARMACIST Signed: 04/02/2023 10:53 NANCI PEREIRA [facility]
--- OUTSIDE RECORDS SUMMARY | 2024-03-04 12:57 | XMS_ITS | Encounter Summary ---
Author Name [facility] [place] Organization [place] Address [address] [place] [address] Care Team Providers Care Cad Detailer Name Role Phone JILLIAN GAN Primary Care [...] MEDIC ARE SUPPL EMEMT Apr 23, 2019 [id number] [phone] KATHY ORTEGA PATIENT ANTHEM BCBS [place] MEDICARE SUPPLEMEN WILL MEDIC ARE SUPPL EMEMT Apr 23, 2019 [id number] [phone] KATHY ORTEGA PATIENT ANTHEM [place]BS [place] MEDICARE SUPPLEMEN WILL MEDIC ARE SUPPL EMEMT Apr 23, 2019 [id number] [phone] KATHY ORTEGA PATIENT BCBS [place] MEDICARE SUPPLEMEN WILL MEDIC ARE SUPPL EMEMT Apr 23, 2019 [id number] [phone] KATHY ORTEGA PATIENT [employer] MCR (WNR) MEDICARE ADVANTAGE MCR (WNR) Mar 23, 2022 [id number] KATHY ORTEGA CASEYSHANIA PATIENT [employer] MCR (WNR) MEDICARE ADVANTAGE [facility] (WNR) Mar 23, 2022 [id number] KATHY ORTEGA PATIENT MEDICARE (WNR) MEDICARE (M) RR PART A May 21, 1990 RR PART A [id number] KATHY ORTEGA PATIENT MEDICARE (WNR) MEDICARE (M) RR PART B May 21, 1990 RR PART B [id number] KATHY ORTEGA CASEYSHANIA PATIENT [employer] [place] MEDICARE SUPPLEMEN WILL MEDIC ARE SUPPL EMENT Feb 20, 2013 PLAN G [id number] [phone] KATHY ORTEGA CASEYSHANIA PATIENT [employer] MCR (WNR) MEDICARE ADVANTAGE [facility] (WNR) Mar 23, 2021 [id number] KATHY ORTEGA CASEYSHANIA PATIENT Selected Encounter This section includes the information on record at [place] for the Encounter. Date/Time Encounter Type Encounter Description Reason Pro vider Source Apr 29, 2023 01:17 PM Outpatient Encounter TELEPHONE/ANCILLARY IHE Encounter Template Text not used by [place] [...] 04, 2023 08:00 AM AMBULATORY - MEDICINE [facility] May 12, 2023 09:30 AM AMBULATORY - MEDICINE [facility] May 26, 2023 08:00 AM AMBULATORY - SURGERY . [facility] May 27, 2023 08:15 AM AMBULATORY - MEDICINE [facility] Jun 24, 2023 10:15 AM AMBULATORY - MEDICINE [facility] Jul 01, 2023 06:30 AM AMBULATORY - NONE . [facility] Jul 02, 2023 08:30 AM AMBULATORY - SURGERY [facility] Jul 08, 2023 10:00 AM AMBULATORY - SURGERY [facility] [place] [facility] July 31, 2023 10:00 AM AMBULATORY - SURGERY [facility] [place] [facility] August 06, 2023 08:30 AM AMBULATORY - MEDICINE [facility] August 06, 2023 10:30 AM AMBULATORY - MEDICINE [facility] Sep 10, 2023 08:00 AM AMBULATORY - MEDICINE [facility] Oct 08, 2023 08:30 AM AMBULATORY - MEDICINE [facility] Lab Results: +/- 30 days of the [...] Range Comment May 27, 2023 09:49 AM [facility] POC INR (STL-RX MONITORING ONLY) Specimen Type: BLOOD Comment: Test Performed by: [id number] Meter #: [id number] Ordering Provider: NANCI PEREIRA Report Released Date/Time: May 28, 2023 06:05 AM Reporting Lab: [address] [address] Performing Lab: [address] [address] POC INR (STL-RX MONITORING ONLY) 2.5 {INR} H 0.9-1.1 May 13, 2023 12:42 PM [facility] POC INR (STL-RX MONITORING ONLY) Specimen Type: BLOOD Comment: Test Performed by: [id number] Meter #: [id number] Ordering Provider: NANCI PEREIRA Report Released Date/Time: May 13, 2023 12:48 PM Reporting Lab: [address] [address] Performing Lab: [address] [address] POC INR (STL-RX MONITORING ONLY) 1.9 {INR} H 0.9-1.1 May 04, 2023 09:30 AM [facility] POC INR (STL-RX MONITORING ONLY) Specimen Type: BLOOD Comment: Test Performed by: [id number] Meter #: [id number] Ordering Provider: NANCI PEREIRA Report Released Date/Time: May 04, 2023 09:36 AM Reporting Lab: [facility] [address] [facility] [address] Performing Lab: [facility] [address] [facility] [address] POC INR (STL-RX MONITORING ONLY) 1.5 {INR} [...] Facil ity Apr 29, 2018 09:12 AM [facility]TOBACCO QUIT 15 YRS OR MORE [facility] Tobacco Use History This section includes a history of the smoking, or tobacco-related health factors, that were collected on or before the date of the Encounter. The data comes from the [place] facility where the Encounter took place. Date/Time Smoking Status/Tobacco Use Comment F acility Apr 29, 2018 09:12 AM [facility]TOBACCO QUIT 15 YRS OR MORE [facility] Advance Directives: All historical and current Section [...] ADVANCE DIRECTIVE DISCUSSION RONALD ESTRADA [facility] Encounter Notes: All associated encounter notes This section contains the clinical notes associated to the Encounter. Date/Time Encounter Note(s) Provider Source Apr 29, 2023 01:17 PM DIRECTOR COMMUNICATIONS LISA SMITH NOTE: LOCAL TITLE: NURSING DIRECTOR COMMUNICATIONS [facility] STANDARD TITLE: DIRECTOR COMMUNICATIONS OUTPATIENT NOTE DATE OF NOTE: APR 29, 2023@13:17 ENTRY DATE: APR 29, 2023@13:17:57 AUTHOR: FRAN BEE EXP COSIGNER: URGENCY: STATUS: COMPLETED [place] left voice message stating he was told by that girl that I saw that he needs surgery. asked for a call back. Called at number he provided ([phone]). No answer. Left a voice message with my contact information. /paola/ MARLEN LOGAN wind farm engineer, Ophthalmology Signed: 04/29/2023 13:19 FRAN BEE [facility]
--- OUTSIDE RECORDS SUMMARY | 2024-03-04 13:00 | XMS_ITS | Encounter Summary ---
Author Name [facility] [place] [facility] [place] Address [address] [place] [address] Care Team Providers Care Freight Router Name Role Phone JILLIAN JENKINS Primary Care [...] MEDIC ARE SUPPL EMEMT Apr 23, 2019 [id number] [phone] KATHY ORTEGA PATIENT ANTHEM [employer] MEDICARE SUPPLEMEN WILL MEDIC ARE SUPPL EMEMT Apr 23, 2019 [id number] [phone] KATHY ORTEGA PATIENT [place] SUPPLEMEN WILL MEDIC ARE SUPPL EMEMT Apr 23, 2019 [id number] [phone] KATHY ORTEGA PATIENT [place] MEDICARE SUPPLEMEN WILL MEDIC ARE SUPPL EMEMT Apr 23, 2019 [id number] [phone] KATHY ORTEGA PATIENT [employer] MCR (WNR) MEDICARE ADVANTAGE MCR (WNR) Mar 23, 2022 [id number] KATHY ORTEGA PATIENT [employer] MCR (WNR) MEDICARE ADVANTAGE [facility] (WNR) Mar 23, 2022 [id number] KATHY ORTEGA PATIENT MEDICARE (WNR) MEDICARE (M) RR PART B May 21, 1990 RR PART B [id number] KATHY ORTEGA PATIENT MEDICARE (WNR) MEDICARE (M) RR PART A May 21, 1990 RR PART A [id number] KATHY ORTEGA PATIENT [employer] MEDICARE SUPPLEMEN WILL MEDIC ARE SUPPL EMENT Feb 20, 2013 PLAN G [id number] [phone] KATHY ORTEGA PATIENT [employer] MCR (WNR) MEDICARE ADVANTAGE [facility] (WNR) Mar 23, 2021 [id number] KATHY ORTEGA PATIENT Selected Encounter This section includes the information on record at [place] for the Encounter. Date/Time Encounter Type Encounter Description Reason Provider Source Feb 24, 2024 08:23 AM [facility] DIG ASSMT&MGMT 5-10 CLINICAL PHARMACY ICD-10-CM E11.8 Type 2 diabetes mellitus with unspecified complications RUBY JONES [facility] Encounter Template Text not used by [place] Assessments - Encounter Diagnoses This section includes the primary and secondary diagnoses documented for the Encounter. Date/Time Primary/Secondary Diagnosis Diagnosis Name Provider Source Feb 24, 2024 08:27 AM PRIMARY Type 2 diabetes mellitus with unspecified complications RUBY JONES [facility] Plan of Treatment: Future Appointments [...] 21, 2024 09:00 AM AMBULATORY - MEDICINE [facility] Mar 24, 2024 11:00 AM AMBULATORY - PSYCHIATRY [facility] Apr 18, 2024 09:30 AM AMBULATORY - SURGERY [facility] [place] [facility] August 17, 2024 11:00 AM AMBULATORY - MEDICINE [facility] Active, Pending, and Scheduled Orders This section includes a listing of several types of active, pending, and scheduled orders, including clinic medications orders, diagnostic test orders, procedure orders and consult orders; where thestart date of the order is 45 days before the date of the Encounter or 45 days after the date of the Encounter. The data comes from all [place] treatment facilities. Test Date/Time Test Type Test Details Facility Name Feb 11, 2024 12:00 AM Laboratory - Chemistry Order LIPID PANEL (STL) GREEN LI/HEP BLD/PLAS PLASMA SP ONCE [facility] Feb 11, 2024 12:00 AM Laboratory - Chemistry Order MICRAL/CREAT PROFILE (STL) URINE SP [facility] Feb 11, 2024 12:00 AM Laboratory - Chemistry Order TSH W/ REFLEX FT4 (STL) GREEN LI-HEP PLASMA SP [facility] Feb 11, 2024 12:00 AM Laboratory - Chemistry Order URIC ACID GREEN LI/HEP BLD/PLAS PLASMA SP [facility] Feb 11, 2024 12:00 AM Laboratory - Chemistry Order VITAMIN D, 25-HYDROXY GOLD/RED SST SERUM SP [facility] Feb 11, 2024 12:00 AM Laboratory - Chemistry Order COMPREHENSIVE METABOLIC PANEL GREEN LI/HEP BLD/PLAS PLASMA SP [facility] Feb 22, 2024 12:00 AM Laboratory - Chemistry Order B12 GOLD/RED SST SERUM SP [facility] Feb 22, 2024 12:34 PM Consult Order PODIATRY H IGH RISK FOOT EXAM OUTPT STL Cons Accelerator Operator's Choice [facility] Mar 21, 2024 12:00 AM Laboratory - Chemistry Order WARFARIN-INR BLOOD PLASMA SP [facility] Lab Results: +/- 30 days of [...] Range Comment Feb 11, 2024 10:34 AM [facility] HGA1C Specimen Type: BLOOD No comment entered. Ordering Provider: ISMAEL JENKINS Report Released Date/Time: Feb 11, 2024 11:13 AM Reporting Lab: [address] [address] Performing Lab: [address] [address] HGA1C 8.3 H 4.0-6.0 Feb 11, 2024 10:34 AM [facility] HGB,HCT,PLT Specimen Type: BLOOD No comment entered. Ordering Provider: NANCI PEREIRA Report Released Date/Time: Jan 13, 2024 01:55 PM Reporting Lab: [address] [address] Performing Lab: [address] [address] HGB 13.9 g/dL 13.1-16.8 HCT 45.5 38.2-48.4 PLT 130 10*3/uL L 150-400 Feb 11, 2024 10:33 AM [facility] POC INR (STL-RX MONITORING ONLY) Specimen Type: BLOOD Comment: Test Performed by: [id number] Meter #: [id number] Ordering Provider: NANCI PEREIRA Report Released Date/Time: Feb 12, 2024 08:40 AM Reporting Lab: [address] [address] Performing Lab: [facility] [address] [facility] [address] POC INR (STL-RX MONITORING ONLY) 2.3 {INR} H 0.9-1.1 Social History: Smoking Status (Most current) and Tobacco Use (All prior to encounter date) This section includes the most current, and the historical, smoking and tobacco- related health factors from the [facility] where the Encounter took place. Current Smoking Status This section includes the most current smoking, or tobacco-related health factor, from the [place] facility where the [place] took place. Date/Time Current Smoking Status Comment Catherine pepe Apr 29, 2018 09:12 AM [place]-TOBACCO FORMER USER [facility] Tobacco Use History This section includes a history of the smoking, or tobacco-related health factors, that were collected on or before the date of the Encounter. The data comes from the [place] facility where the Encounter took place. Date/Time Smoking Status/Tobacco Use Comment F acility Apr 29, 2018 09:12 AM [place]-TOBACCO QUIT 15 YRS OR MORE [facility] Advance Directives: All historical and [...] Encounter. Date/Time Encounter Note(s) Provider Source Feb 24, 2024 08:23 AM PHARMACY CONSULT: LOCAL TITLE: PHARMACY PRIOR APPROVAL CONSULT ST STANDARD TITLE: PHARMACY CONSULT DATE OF NOTE: FEB 24, 2024@08:23 ENTRY DATE: FEB 24, 2024@08:23:22 AUTHOR: RUBY JONES COSIGNER: URGENCY: STATUS: COMPLETED The medical record has been reviewed with regard to this prior authorization drug request. Medication requested: SEMAGLUTIDE 0.25MG/0.375ML INJ PEN 3ML Medication indication: DM Medical history relevant to this request: Last Eye Exam:no retinopathy on Jan-- [place] [facility] Labs: CMP --- SODIUM 144 mEq/L 08/06/2023 11:28 POTASSIUM 4.3 [...] 11:28 EGFR (CKD-EPI 2020) 65.0 08/06/2023 11:28 Hgb A1c ------- HGA1C 8.3 H % 02/11/2024 10:34 History of pancreatitis or self/family history of thyroid cancer: NO If yes, please explain: Current Therapy or Previous Medications tried:Metformin, Sulfonylureas, SGLT2-inhibitors Justification: (Other therapies tried, pertinent patient history, other labs, etc) uncontrolled DM despite being on 4 po agents - Uncontrolled DM no clinically ASCVD on sitagliptin, metformin, empagliflozin and glipizide. - no CI for use - Approved. Dr. Jenkins - D/t similar MOA of dpp4 inhibitor and glp1 agonist, combination use is not recommended. sitagliptin has been discontinued. Please ensure pt is aware to discontinue. The request is approved - A documented therapeutic failure of the preferred formulary alternative(s) exists TIME REVIEWING CHART:5. (minutes) /paola/ Ruby Jones, PharmD, BCACP, [facility] TELEHEALTH CLINICAL PHARMACIST Signed: 02/24/2024 08:27 Receipt Acknowledged By: 02/26/2024 13:26 /paola/ RUBY WONG MD [facility]
--- OUTSIDE RECORDS SUMMARY | 2024-03-04 13:00 | XMS_ITS | Encounter Summary ---
Author Name [facility] [place] Organization [facility] [place] Address [address] [place] [address] Care Team Providers Care Quiller Tender Name Role Phone JILLIAN JENKINS Primary Care [...] MEDIC ARE SUPPL EMEMT Apr 23, 2019 [id number] [phone] KATHY ORTEGA PATIENT ANTHEM BC[place] MEDICARE SUPPLEMEN WILL MEDIC ARE SUPPL EMEMT Apr 23, 2019 [id number] [phone] KATHY ORTEGA PATIENT AN[place] MED[place] SUPPLEMEN WILL MEDIC ARE SUPPL EMEMT Apr 23, 2019 [id number] [phone] KATHY ORTEGA PATIENT [place] MEDICARE SUPPLEMEN WILL MEDIC ARE SUPPL EMEMT Apr 23, 2019 [id number] [phone] KATHY ORTEGA PATIENT [employer]NA MCR (WNR) MEDICARE ADVANTAGE MCR (WNR) Mar 23, 2022 [id number] KATHY ORTEGA PATIENT [employer] MCR (WNR) MEDICARE ADVANTAGE [facility] (WNR) Mar 23, 2022 [id number] KATHY ORTEGA PATIENT MEDICARE (WNR) MEDICARE (M) RR PART A May 21, 1990 RR PART A [id number] [phone] KATHY ORTEGA PATIENT MEDICARE (WNR) MEDICARE (M) RR PART B May 21, 1990 RR PART B [id number] KATHY ORTEGA PATIENT [employer] [place] MEDICARE SUPPLEMEN WILL MEDIC ARE SUPPL EMENT Feb 20, 2013 PLAN G [id number] [phone] KATHY ORTEGA PATIENT WELLCARE MCR (WNR) MEDICARE ADVANTAGE [facility] (WNR) Mar 23, 2021 [id number] [phone] KATHY ORTEGA PATIENT Selected Encounter This section includes the information on record at [place] for the Encounter. Date/Time Encounter Type Encounter Description Reason Provider Source Feb 17, 2024 01:05 PM Outpatient Encounter PRIMARY CARE/MEDICINE ISABELLA WILKERSON Encounter Template Text not used by [place] Plan of Treatment: Future Appointments (+ 6 [...] 20 appointments. The data comes from all [place] treatment facilities. Appointment Date/Time Appointment Type Appointme nt Facility Name Mar 21, 2024 09:00 AM AMBULATORY - MEDICINE [facility] Mar 24, 2024 11:00 AM AMBULATORY - PS[facility]CHIATRY [facility] Apr 18, 2024 09:30 AM [facility] Active, Pending, and Scheduled Orders This section includes a listing of several types of active, pending, and scheduled orders, including clinic medications orders, diagnostic test orders, procedure orders and consult orders; where the start date of the order is 45 days before the date of the Encounter or 45 days after the date of theEncounter. The data comes from all [place] treatment facilities. Test Date/Time Test Type Test Details Facility Name Feb 11, 2024 12:00 AM Laboratory - Chemistry Order MICRAL/CREAT PROFILE (STL) URINE SP [facility] Feb 11, 2024 12:00 AM Laboratory - Chemistry Order LIPID PANEL (STL) GREEN LI/HEP BLD/PLAS PLASMA SP ONCE [facility] Feb 11, 2024 12:00 AM Laboratory - Chemistry Order TSH W/ REFLEX FT4 (STL) GREEN LI-HEP PLASMA SP [facility] Feb 11, 2024 12:00 AM Laboratory - Chemistry Order URIC ACID GREEN LI/HEP BLD/PLAS PLASMA SP [facility] Feb 11, 2024 12:00 AM Laboratory - Chemistry Order COMPREHENSIVE METABOLIC PANEL GREEN LI/HEP BLD/PLAS PLASMA SP [facility] Feb 11, 2024 12:00 AM Laboratory - Chemistry Order VITAMIN D, 25-HYDROXY GOLD/RED SST SERUM SP [facility] Feb 22, 2024 12:00 AM Laboratory - Chemistry Order B12 GOLD/RED SST SERUM SP [facility] Feb 22, 2024 12:34 PM Consult Order PODIATRY H IGH RISK FOOT EXAM OUTPT STL Cons Making Machine Catcher's Choice [facility] Mar 21, 2024 12:00 AM Laboratory - Chemistry Order WARFARIN-INR BLOOD PLASMA SP [facility] Lab Results: +/- 30 days [...] Range Comment Feb 11, 2024 10:34 AM [facility] HGB,HCT,PLT Specimen Type: BLOOD No comment entered. Ordering Provider: NANCI PEREIRA Report Released Date/Time: Jan 13, 2024 01:55 PM Reporting Lab: [facility] [address] [facility] [address] Performing Lab: [facility] [address] [facility] [address] HGB 13.9 g/dL 13.1-16.8 HCT 45.5 38.2-48.4 PLT 130 10*3/uL L 150-400 Feb 11, 2024 10:34 AM [facility] HGA1C Specimen Type: BLOOD No comment entered. Ordering Provider: ISMAEL JENKINS Report Released Date/Time: Feb 11, 2024 11:13 AM Reporting Lab: [facility] [address] [facility] [address] Performing Lab: [facility] [address] [facility] [address] HGA1C 8.3 H 4.0-6.0 Feb 11, 2024 10:33 AM [facility] POC INR (STL-RX MONITORING ONLY) Specimen Type: BLOOD Comment: Test Performed by: [id number] Meter #: [id number] Ordering Provider: NANCI PEREIRA Report Released Date/Time: Feb 12, 2024 08:40 AM Reporting Lab: [facility] [address] [facility] [address] Performing Lab: [facility] [address] [facility] [address] POC INR (STL-RX MONITORING ONLY) 2.3 {INR} [...] AM [place]-TOBACCO QUIT 15 YRS OR MORE [facility] Advance Directives: All historical and current [...] ADVANCE DIRECTIVE DISCUSSION RONALD ESTRADA [facility] Encounter Notes: All associated encounter notes This section contains the clinical notes associated to the Encounter. Date/Time Encounter Note(s) Provider Source Feb 19, 2024 11:55 AM ADDENDUM: LOCAL TITLE: Addendum STANDARD TITLE: ADDENDUM DATE OF NOTE: FEB 19, 2024@11:55:28 ENTRY DATE: FEB 19, 2024@11:55:28 AUTHOR: JILLIAN JENKINS COSIGNER: URGENCY: STATUS: COMPLETED you can take the Disabled Placard form that I filled out to [facility] together with any of these documents. 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 /paola/ JILLIAN JENKINS MD Signed: 02/19/2024 11:56 Receipt Acknowledged By: 02/24/2024 09:08 /paola/ ISABELLA WILKERSON REGISTERED NURSE === --- Original Document --- 02/17/24 PRIMARY CARE SECURE MESSAGING: ------Original Message ------ Sent: 02/17/2024 01:06 PM ET From: ISABELLA WILKERSON To: SHANNONCHESTERSACHAEDGARDO HILARIO Subject: General:DMV Form Good day, I have forwarded your full message to Dr. Jenkins. Are you still using placard--and is it working out OK for you? Isabella RN, nurse manager care, [facility] /paola/ ISABELLA WILKERSON REGISTERED NURSE Signed: 02/17/2024 12:06 02/19/2024 ADDENDUM STATUS: COMPLETED Mr. Ortega sent back Secure Message reply: I have had a placard or on my license plate for at least 30 years, I am trying to get a plate Thank you Sacha Ortega [id number] /paola/ ISABELLA WILKERSON REGISTERED NURSE Signed: 02/19/2024 09:09 02/19/2024 ADDENDUM STATUS: COMPLETED to get a DISABLED PLACARD , you need to have at least 10% service connected walking disability. your 70% VA disability is for anxiety. that is why I filled out [place] DMV Disability form for you few weeks ago. if you do not have this form, I can fill it up again. /paola/ JILLIAN JENKINS MD Signed: 02/19/2024 11:50 Receipt Acknowledged By: 02/24/2024 09:04 /paola/ ISABELLA WILKERSON REGISTERED NURSE JILLIAN JENKINS [facility] Feb 19, 2024 11:48 AM ADDENDUM: LOCAL TITLE: Addendum STANDARD TITLE: ADDENDUM DATE OF NOTE: FEB 19, 2024@11:48:05 ENTRY DATE: FEB 19, 2024@11:48:05 AUTHOR: JILLIAN JENKINS COSIGNER: URGENCY: STATUS: COMPLETED to get a DISABLED PLACARD , you need to have at least 10% service connected walking disability. your 70% VA disability is for anxiety. that is why I filled [place] DM[place] Dis[place] form for you few weeks ago. if you do not have this form, I can fill it up again. /es/ JILLIAN JENKINS MD Signed: 02/19/2024 11:50 Receipt Acknowledged By: 02/24/2024 09:04 /paola/ ISABELLA WILKERSON REGISTERED NURSE === --- Original Document --- 02/17/24 PRIMARY CARE SECURE MESSAGING: ------Original Message ------ Sent: 02/17/2024 01:06 PM ET From: ISABELLA WILKERSON To: SACHA ORTEGA Subject: General:DMV Form day, I have forwarded your full message to Dr. Jenkins. Are you still using placard--and is it working out OK for you? Isabella RN, nurse manager care, [facility] /rigoberto WILKERSON REGISTERED NURSE Signed: 02/17/2024 12:06 02/19/2024 ADDENDUM STATUS: COMPLETED Mr. Ortega sent back Secure Message reply: I have had a placard or on my license plate for at least 30 years, I am trying to get a plate Thank you Sacha Ortega [phone] /paola/ ISABELLA WILKERSON REGISTERED NURSE Signed: 02/19/2024 09:09 02/19/2024 ADDENDUM STATUS: COMPLETED you can take the Disabled Placard form that I filled out to [facility] together with any of these documents. 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 /paola/ JILLIAN JENKINS MD Signed: 02/19/2024 11:56 Receipt Acknowledged By: * AWAITING SIGNATURE * ISABELLA WILKERSON ARMIDA A [facility] Feb 17, 2024 01:06 PM PRIMARY CARE SECUR E MESSAGING: LOCAL TITLE: PRIMARY CARE SECURE MESSAGING STANDARD TITLE: PRIMARY CARE SECURE MESSAGING DATE OF NOTE: FEB 17, 2024@13:06 ENTRY DATE: FEB 17, 2024@12:06:47 AUTHOR: ISABELLA WILKERSON EXP COSIGNER: URGENCY: STATUS: COMPLETED PRIMARY CARE SECURE MESSAGING Has ADDENDA ------Original Message ------ Sent: 02/17/2024 01:06 PM ET From: ISABELLA WILKERSON To: SACHA ORTEGA Subject: General:DMV Form day, I have forwarded your full message to Dr. Jenkins. Are you still using placard--and is it working out OK for you? Isabella RN, nurse manager care, [facility] /rigoberto WILKERSON REGISTERED NURSE Signed: 02/17/2024 12:06 02/19/2024 ADDENDUM STATUS: COMPLETED Mr. Ortega sent back Secure Message reply: I have had a placard or on my license plate for at least 30 years, I am trying to get a plate Thank you Sacha Ortega [id number] /paola/ ISABELLA WILKERSON REGISTERED NURSE Signed: 02/19/2024 09:09 02/19/2024 ADDENDUM STATUS: COMPLETED to get a DISABLED PLACARD , you need to have at least 10% service connected walking disability. your 70% VA disability is for anxiety. that is why I filled [place] Dis[place] form for you few weeks ago. if you do not have this form, I can fill it up again. /paola/ JILLIAN JENKINS MD Signed: 02/19/2024 11:50 Receipt Acknowledged By: * AWAITING SIGNATURE * ISABELLA WILKERSON 02/19/2024 ADDENDUM STATUS: COMPLETED you can take the Disabled Placard form that I filled out to DMV together with any of these documents. 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 Armed Forces Requesting the designation prior to the renewal period costs $5 for licenses and $10 for ID cards, there is no charge for Veterans 65 and older. /paola/ JILLIAN JENKINS MD Signed: 02/19/2024 11:56 ISABELLA WILKERSON [facility] Feb 17, 2024 01:05 PM PRIMARY CARE SECUR E MESSAGING: LOCAL TITLE: PRIMARY CARE SECURE MESSAGING STANDARD TITLE: PRIMARY CARE SECURE MESSAGING DATE OF NOTE: FEB 17, 2024@13:05 ENTRY DATE: FEB 17, 2024@12:05:02 AUTHOR: ISABELLA WILKERSON EXP COSIGNER: URGENCY: STATUS: COMPLETED ------Original Message ------ Sent: 02/16/2024 11:01 PM ET From: SACHA ORTEGA To: [facility], Shelia_Daniel JNEKINS_Primary Care, [facility] Subject: General:DMV Form In [place] Need to get a DMV form for license plates The state Says I need It to get them And can you please say Something About My Back Problems I have had for Forty years I have been on Disability [place], that. My VA records Confirm. Thank You Sacha Ortega [phone] /paola/ ISABELLA WILKERSON REGISTERED NURSE Signed: 02/17/2024 12:05 Receipt Acknowledged By: 02/19/2024 11:47 /paola/ ISABELLA GAINES MD [facility]
--- OUTSIDE RECORDS SUMMARY | 2024-03-04 13:00 | XMS_ITS | Encounter Summary ---
Author Name [facility] [place] [facility] [place] Organization [facility] [place] Address [address] [place] [address] Care Team Providers Care Media Assistant Name Role Phone JILLIAN GAN Primary Care [...] MEDIC ARE SUPPL EMEMT Apr 23, 2019 [id number] [phone] KATHY ORTEGA PATIENT ANTHEM [place] MEDICARE SUPPLEMEN WILL MEDIC ARE SUPPL EMEMT Apr 23, 2019 [id number] [phone] KATHY ORTEGA PATIENT [place] SUPP[place] WILL MEDIC ARE SUPPL EMEMT Apr 23, 2019 [id number] KATHY ORTEGA PATIENT [place] MEDICARE SUPPLEMEN WILL MEDIC ARE SUPPL EMEMT Apr 23, 2019 [id number] [phone] KATHY ORTEGA PATIENT [employer] MCR (WNR) MEDICARE ADVANTAGE MCR (WNR) Mar 23, 2022 [id number] KATHY ORTEGA PATIENT [employer] MCR (WNR) MEDICARE ADVANTAGE [facility] (WNR) Mar 23, 2022 [id number] KATHY ORTEGA PATIENT MEDICARE (WNR) MEDICARE (M) RR PART A May 21, 1990 RR PART A [id number] [phone] KATHY ORTEGA PATIENT MEDICARE (WNR) MEDICARE (M) RR PART B May 21, 1990 RR PART B [id number] [phone] KATHY ORTEGA PATIENT [employer] [place] MEDICARE SUPPLEMEN WILL MEDIC ARE SUPPL EMENT Feb 20, 2013 PLAN G [id number] [phone] KATHY ORTEGA PATIENT WELLCARE [facility] (WNR) MEDICARE ADVANTAGE [facility] (WNR) Mar 23, 2021 [id number] KATHY ORTEGA PATIENT Selected Encounter This section includes the information on record at [place] for the Encounter. Date/Time Encounter Type Encounter Description Reason Pro vider Source Feb 24, 2024 11:08 AM Outpatient Encounter PODIATRY IHE Encounter Template Text not used by [place] [...] 21, 2024 09:00 AM AMBULATORY - MEDICINE [facility] Mar 24, 2024 11:00 AM AMBULATORY - PSYCHIATRY [facility] Apr 18, 2024 09:30 AM AMBULATORY - SURGERY [facility] August 17, 2024 11:00 AM AMBULATORY - MEDICINE [facility] Active, Pending, and Scheduled Orders This section includes a listing of several types of active, pending, and scheduled orders, including clinic medications orders, diagnostic test orders, procedure orders and consult orders; where the start date of the order is 45 days before the date of the Encounter or 45 days after the date of theEncounter. The data comes from all [place] treatment facilities. Test Date/Time Test Type Test [...] IGH RISK FOOT EXAM OUTPT STL Cons Tow Motor Driver's Choice [facility] Mar 21, 2024 12:00 AM Laboratory - Chemistry Order WARFARIN-INR BLOOD PLASMA SP [facility] Lab Results: +/- 30 days of the encounter This section includes the Chemistry and Hematology Lab Results on record with [place] for the patient. Radiology Reports and Pathology Reports are provided separately, in subsequent sections. Lab Results This section contains the Chemistry/Hematology Results that were resulted 30 days before or 30 daysafter the date of the Encounter. Date/Time Source Result Type Result - Unit Interpretation Reference Range Comment Feb 11, 2024 10:34 AM [facility] HGB,HCT,PLT Specimen Type: BLOOD No comment entered. Ordering Provider: NANCI PEREIRA Report Released Date/Time: Jan 13, 2024 01:55 PM Reporting Lab: [facility] [address] [facility] [address] Performing Lab: [facility] [address] [facility] [address] HGB 13.9 g/dL 13.1-16.8 HCT 45.5 38.2-48.4 PLT 130 10*3/uL L 150-400 Feb 11, 2024 10:34 AM [facility] HGA1C Specimen Type: BLOOD No comment entered. Ordering Provider: ISMAEL GAN Report Released Date/Time: Feb 11, 2024 11:13 AM Reporting Lab: [facility] [address] [facility] [address] Performing Lab: [place] [address] [facility] [address] HGA1C 8.3 H 4.0-6.0 Feb 11, 2024 10:33 AM [facility] POC INR (STL-RX MONITORING ONLY) Specimen Type: BLOOD Comment: Test Performed by: [id number] Meter #: [id number] Ordering Provider: NANCI PEREIRA Report Released Date/Time: Feb 12, 2024 08:40 AM Reporting Lab: [facility] [address] [facility] [address] Performing Lab: [facility] [address] [facility] [address] POC INR (STL-RX MONITORING ONLY) 2.3 {INR} [...] place. Date/Time Current Smoking Status Comment Catherine parryy Apr 29, 2018 09:12 AM VA-TOBACCO FORMER USER [facility] Tobacco Use History This section includes a history of the smoking, or tobacco-related health factors, that were collected on or before the date of the Encounter. The data comes from the [place] facility where the Encounter took place. Date/Time Smoking Status/Tobacco Use Comment F acjack Apr 29, 2018 09:12 AM VA-TOBACCO QUIT 15 YRS OR MORE [facility] Advance Directives: All historical and current [...] ADVANCE DIRECTIVE DISCUSSION RONALD ESTRADA [facility] Encounter Notes: All associated encounter notes This section contains the clinical notes associated to the Encounter. Date/Time Encounter Note(s) Provider Source Feb 24, 2024 11:08 AM PHYSICIAN LETTERS: LOCAL TITLE: NO CONTACT LETTER [facility] STANDARD TITLE: PHYSICIAN LETTERS DATE OF NOTE: FEB 24, 2024@11:08 ENTRY DATE: FEB 24, 2024@11:09:08 AUTHOR: MARTA LEZAMA EXP COSIGNER: URGENCY: STATUS: COMPLETED SUBJECT: PODIATRY HIGH RISK FOOT EXAM [address] [address] Sacha Ortega [address] [place] [address] [place], [place] [address] Feb 24, 2024 Dear Sacha Ortega, You have been referred for a consultation to the PODIATRY HIGH RISK FOOT EXAM OUTPT ST at the [facility]. We would like to schedule a consult appointment with you. If we do not hear from you by Mar 08, 2024, we will assume that you are not interested in having the consultation and the referral will be discontinued. Please call our office at @ [phone]. [phone] between 8 am and 4 pm Thursday through Thursday. If you received this letter after you have spoken to us, please disregard this letter. Sincerely yours, Sincerely, MARTA LEZAMA Advanced [facility], Surgery Service SACHA ORTEGA ANTOINETTE M [facility]
--- OUTSIDE RECORDS SUMMARY | 2024-03-04 13:00 | XMS_ITS | Encounter Summary ---
Author Name [facility] [place] Organization [facility] [place] [facility] [place] Address [address] [place] [address] Care Team Providers Care [employer] Name Role Phone JILLIAN JENKINS Primary Care [...] MEDIC ARE SUPPL EMEMT Apr 23, 2019 [id number] [phone] KATHY ORTEGA PATIENT ANTHEM BCBS [place] MEDICARE SUPPLEMEN WILL MEDIC ARE SUPPL EMEMT Apr 23, 2019 [id number] [phone] KATHY ORTEGA PATIENT ANTHEM [place] MEDICARE SUPPLEMEN WILL MEDIC ARE SUPPL EMEMT Apr 23, 2019 [id number] [phone] KATHY ORTEGA PATIENT [place] MEDICARE SUPPLEMEN WILL MEDIC ARE SUPPL EMEMT Apr 23, 2019 [id number] [phone] KATHY ORTEGA PATIENT [employer] MCR (WNR) MEDICARE ADVANTAGE MCR (WNR) Mar 23, 2022 [id number] KATHY ORTEGA PATIENT [employer] MCR (WNR) MEDICARE ADVANTAGE [facility] (WNR) Mar 23, 2022 [id number] KATHY ORTEGA PATIENT MEDICARE (WNR) MEDICARE (M) RR PART A May 21, 1990 RR PART A [id number] KATHY ORTEGA PATIENT MEDICARE (WNR) MEDICARE (M) RR PART B May 21, 1990 RR PART B [id number] KATHY ORTEGA PATIENT [employer] [place] MEDICARE SUPPLEMEN WILL MEDIC ARE SUPPL EMENT Feb 20, 2013 PLAN G [id number] [phone] KATHY ORTEGA PATIENT [employer] MCR (WNR) MEDICARE ADVANTAGE [facility] (WNR) Mar 23, 2021 [id number] KATHY ORTEGA PATIENT Selected Encounter This section includes the information on record at [place] for the Encounter. Date/Time Encounter Type Encounter Description Reason Provider Source Feb 24, 2024 10:07 AM Outpatient Encounter PRIMARY CARE/MEDICINE ISABELLA WILKERSON Encounter Template Text not used by [place] [...] 21, 2024 09:00 AM AMBULATORY - MEDICINE [facility] Mar 24, 2024 11:00 AM AMBULATORY - PSYCHIATRY [facility] Apr 18, 2024 09:30 AM AMBULATORY - SURGERY [facility] August 17, 2024 11:00 AM AMBULATORY - MEDICINE [facility] Active, Pending, and Scheduled Orders This [...] (STL) GREEN LI/HEP BLD/PLAS PLASMA SP ONCE [facility] Feb 11, 2024 12:00 AM Laboratory - Chemistry Order TSH W/ REFLEX FT4 (STL) GREEN LI-HEP PLASMA SP [facility] Feb 11, 2024 12:00 AM Laboratory - Chemistry Order URIC ACID GREEN LI/HEP BLD/PLAS PLASMA SP [facility] Feb 11, 2024 12:00 AM Laboratory - Chemistry Order VITAMIN D, 25-HYDROXY GOLD/RED SST SERUM SP [facility] Feb 11, 2024 12:00 AM Laboratory - Chemistry Order MICRAL/CREAT PROFILE (STL) URINE SP [facility] Feb 11, 2024 12:00 AM Laboratory - Chemistry Order COMPREHENSIVE METABOLIC PANEL GREEN LI/HEP BLD/PLAS PLASMA SP [facility] Feb 22, 2024 12:00 AM Laboratory - Chemistry Order B12 GOLD/RED SST SERUM SP [facility] Feb 22, 2024 12:34 PM Consult Order PODIATRY H IGH RISK FOOT EXAM OUTPT STL Cons Foreign Language Stenographer's Choice [facility] Mar 21, 2024 12:00 AM Laboratory - Chemistry Order WARFARIN-INR BLOOD PLASMA SP [facility] Lab Results: +/- 30 [...] Range Comment Feb 11, 2024 10:34 AM [facility] HGA1C Specimen Type: BLOOD No comment entered. Ordering Provider: ISMAEL JENKINS Report Released Date/Time: Feb 11, 2024 11:13 AM Reporting Lab: [facility] [address] [place] [phone] Performing Lab: [facility] [address] [facility] [phone] HGA1C 8.3 H 4.0-6.0 Feb 11, 2024 10:34 AM [facility] HGB,HCT,PLT Specimen Type: BLOOD No comment entered. Ordering Provider: NANCI PEREIRA Report Released Date/Time: Jan 13, 2024 01:55 PM Reporting Lab: [facility] [address] [place] [phone] Performing Lab: [facility] [address] [place] [phone] HGB 13.9 g/dL 13.1-16.8 HCT 45.5 38.2-48.4 PLT 130 10*3/uL L 150-400 Feb 11, 2024 10:33 AM [facility] POC INR (STL-RX MONITORING ONLY) Specimen Type: BLOOD Comment: Test Performed by: [id number] Meter #: [id number] Ordering Provider: NANCI PEREIRA Report Released Date/Time: Feb 12, 2024 08:40 AM Reporting Lab: [address] [phone] Performing Lab: [facility] [address] [facility] [phone] POC INR (STL-RX MONITORING ONLY) 2.3 {INR} H 0.9-1.1 Social History: Smoking Status (Most current) and Tobacco Use (All prior to encounter date) This section includes the most current, and the historical, smoking and tobacco- related health factors from the [facility] where the Encounter took place. Current Smoking Status This section includes the most current smoking, or tobacco-related health factor, from the [place] facility where the Encounter took place. Date/Time Current Smoking Status Comment Catherine pepe Apr 29, 2018 09:12 AM [place]-TOBACCO QUIT 15 YRS OR MORE [facility] Tobacco Use History This section includes a history of the smoking, or tobacco-related health factors, that were collected on or before the date of the Encounter. The data comes from the [place] facility where the Encounter took place. Date/Time Smoking Status/Tobacco Use Comment Nae francisility Apr 29, 2018 09:12 AM [place]-TOBACCO QUIT 15 YRS OR MORE [facility] Advance Directives: All historical and [...] 13, 2013 ADVANCE DIRECTIVE DISCUSSION RONALD ESTRADA [facility] Encounter Notes: All associated encounter notes This section contains the clinical notes associated to the Encounter. Date/Time Encounter Note(s) Provider Source Feb 24, 2024 10:07 AM PRIMARY CARE SECUR E MESSAGING: LOCAL TITLE: PRIMARY CARE SECURE MESSAGING STANDARD TITLE: PRIMARY CARE SECURE MESSAGING DATE OF NOTE: FEB 24, 2024@10:07 ENTRY DATE: FEB 24, 2024@09:07:46 AUTHOR: ISABELLA WILKERSON EXP COSIGNER: URGENCY: STATUS: COMPLETED ------Original Message ------ Sent: 02/24/2024 10:07 AM ET From: ISABELLA WILKERSON To: SACHA ORTEGA Subject: General:general Good morning, Dr. Jenkins has this information for you: to get a DISABLED PLACARD , you need to have at least 10% service connected walking disability. your 70% VA disability is for anxiety. that is why I filled out [place] [facility] Disability form for you few weeks ago. if you do not have this form, I can fill it up again. you can take the Disabled Placard form that I filled out to [facility] together with any of these documents. To request a designation, Veterans must take one of the following documents to an [place] compression molding machine operator Office: DD214 Certification of Service ([place] Form 29696) Department of Defense Form DD2 (Retired) ID card VA ID card VA Summary of Benefits letter Other official Department of Defense document that indicates the applicant was honorably discharged from the U[place] Armed Forces Requesting the designation prior to the renewal period costs $5 for licenses and $10 for ID cards, there is no charge for Veterans 65 and older. Isabella FOX, nurse care transport nurse, [facility] /paola/ ISABELLA WILKERSON REGISTERED NURSE Signed: 02/24/2024 09:07 ISABELLA WILKERSON [facility]
--- OUTSIDE RECORDS SUMMARY | 2024-03-04 13:01 | XMS_ITS ---
Author Name [facility] [place] Organization [facility] [place] [place] Address [address] [place] [address] Care Team Providers Care Tray Setter Name Role Phone JILLIAN JENKINS Primary Care [...] MEDIC ARE SUPPL EMEMT Apr 23, 2019 [id number] [phone] KATHY ORTEGA PATIENT ANTHEM [employer] MEDICARE SUPPLEMEN WILL MEDIC ARE SUPPL EMEMT Apr 23, 2019 [id number] [phone] KATHY ORTEGA PATIENT [place] SUPPLEMEN WILL MEDIC ARE SUPPL EMEMT Apr 23, 2019 [id number] [phone] KATHY ORTEGA PATIENT [place] MEDICARE SUPPLEMEN WILL MEDIC ARE SUPPL EMEMT Apr 23, 2019 [id number] [phone] KATHY ORTEGA PATIENT [employer] MCR (WNR) MEDICARE ADVANTAGE MCR (WNR) Mar 23, 2022 [id number] KATHY ORTEGA PATIENT [employer] MCR (WNR) MEDICARE ADVANTAGE [facility] (WNR) Mar 23, 2022 [id number] KATHY ORTEGA PATIENT MEDICARE (WNR) MEDICARE (M) RR PART B May 21, 1990 RR PART B [id number] KATHY ORTEGA PATIENT MEDICARE (WNR) MEDICARE (M) RR PART A May 21, 1990 RR PART A [id number] KATHY ORTEGA PATIENT [employer] [place] MEDICARE SUPPLEMEN WILL MEDIC ARE SUPPL EMENT Feb 20, 2013 PLAN G [id number] [phone] KATHY ORTEGA PATIENT [employer] MCR (WNR) MEDICARE ADVANTAGE [facility] (WNR) Mar 23, 2021 [id number] [phone] KATHY ORTEGA PATIENT Selected Encounter This section includes the information on record at [place] for the Encounter. Date/Time Encounter Type Encounter Description Reason Provider Source Feb 26, 2024 03:20 PM Outpatient Encounter PRIMARY CARE/MEDICINE ISABELLA WILKERSON Encounter Template Text not used by [place] Plan of Treatment: Future Appointments (+ 6 months) and Future Tests (+/- 45 days) The Plan of Treatment section includes future care activities for the patient from all [place] treatmentfacilities. This section includes future appointments and future orders which are active, pending or scheduled. Future Appointments This section includes appointments that were scheduled to occur 6 months from the date of the Encounter, up to a maximum of 20 appointments. The data comes from all [place] treatment facilities. Appointment Date/Time Appointment Type Appointme nt Facility Name Mar 21, 2024 09:00 AM AMBULATORY - MEDICINE [facility] Mar 24, 2024 11:00 AM AMBULATORY - PSYCHIATRY [facility] Apr 18, 2024 09:30 AM AMBULATORY - SURGERY [facility] August 17, 2024 11:00 AM AMBULATORY - MEDICINE [facility] Active, Pending, and Scheduled Orders This section includes a listing of several types of active, pending, and scheduled orders, including clinic medications orders, diagnostic test orders, procedure orders and consult orders; where the start date of the order is 45 days before the date of the Encounter or 45 days after the date of theEncounter. The data comes from all [place] treatment facilities. Test Date/Time Test Type Test Details Facility Name Feb 11, 2024 12:00 AM Laboratory - Chemistry Order LIPID PANEL (STL) GREEN LI/HEP BLD/PLAS PLASMA SP ONCE [facility] Feb 11, 2024 12:00 AM Laboratory - Chemistry Order MICRAL/CREAT PROFILE (STL) URINE SP [facility] Feb 11, 2024 12:00 AM Laboratory - Chemistry Order TSH W/ REFLEX FT4 (STL) GREEN LI-HEP PLASMA SP [facility] Feb 11, 2024 12:00 AM Laboratory - Chemistry Order URIC ACID GREEN LI/HEP BLD/PLAS PLASMA SP [facility] Feb 11, 2024 12:00 AM Laboratory - Chemistry Order VITAMIN D, 25-HYDROXY GOLD/RED SST SERUM SP [facility] Feb 11, 2024 12:00 AM Laboratory - Chemistry Order COMPREHENSIVE METABOLIC PANEL GREEN LI/HEP BLD/PLAS PLASMA SP [facility] Feb 22, 2024 12:00 AM Laboratory - Chemistry Order B12 GOLD/RED SST SERUM SP [facility] Feb 22, 2024 12:34 PM Consult Order PODIATRY H IGH RISK FOOT EXAM OUTPT STL Cons Dip Dyer's Choice [facility] Mar 21, 2024 12:00 AM Laboratory - Chemistry Order WARFARIN-INR BLOOD PLASMA SP [facility] Lab Results: +/- 30 days of the encounter This section includes the Chemistry and Hematology Lab Results on record with [place] for the patient. Radiology Reports and Pathology Reports are provided separately, in subsequent sections. Lab Results This section contains the Chemistry/Hematology Results that were resulted 30 days before or 30 daysafter the date of the Encounter. Date/Time Source Result Type Result - Unit Interpretation Reference Range Comment Feb 11, 2024 10:34 AM [facility] HGA1C Specimen Type: BLOOD No comment entered. Ordering Provider: ISMAEL JENKINS Report Released Date/Time: Feb 11, 2024 11:13 AM Reporting Lab: [facility] [address] [place] [phone] Performing Lab: [facility] [address] [facility] [phone] HGA1C 8.3 H 4.0-6.0 Feb 11, 2024 10:34 AM [facility] HGB,HCT,PLT Specimen Type: BLOOD No comment entered. Ordering Provider: NANCI PEREIRA Report Released Date/Time: Jan 13, 2024 01:55 PM Reporting Lab: [facility] [address] [place] [phone] Performing Lab: [facility] [address] [place] [phone] HGB 13.9 g/dL 13.1-16.8 HCT 45.5 38.2-48.4 PLT 130 10*3/uL L 150-400 Feb 11, 2024 10:33 AM [facility] POC INR (STL-RX MONITORING ONLY) Specimen Type: BLOOD Comment: Test Performed by: [id number] Meter #: [id number] Ordering Provider: NANCI PEREIRA Report Released Date/Time: Feb 12, 2024 08:40 AM Reporting Lab: [address] [phone] Performing Lab: [facility] [address] [facility] [phone] POC INR (STL-RX MONITORING ONLY) 2.3 {INR} H 0.9-1.1 Social History: Smoking Status (Most current) and Tobacco Use (All prior to encounter date) This section includes the most current, and the historical, smoking and tobacco- related health factors from the [facility] where the Encounter took place. Current Smoking Status This section includes the most current smoking, or tobacco-related health factor, from the [place] facility where the Encounter took place. Date/Time Current Smoking Status Comment Catherine pepe Apr 29, 2018 09:12 AM VA-TOBACCO FORMER USER [facility] Tobacco Use History This section includes a history of the smoking, or tobacco-related health factors, that were collected on or before the date of the Encounter. The data comes from the [place] facility where the Encounter took place. Date/Time Smoking Status/Tobacco Use Comment Nae roblero Apr 29, 2018 09:12 AM VA-TOBACCO QUIT 15 YRS OR MORE [facility] Advance Directives: All historical and current Section Date Range: From patient's date of to the date document was created. This section includes ALL of a patient's completed or amended [place] Advance and Rescinded Directives. The entries below indicate that a directive exists for the patient, but an actual copy is not included with this document. The data comes from all [place] facilities. Date Advance Directives Provider Source Jun 13, 2013 ADVANCE DIRECTIVE DISCUSSION NATALIERONALD B [facility] Encounter Notes: All associated encounter notes This section contains the clinical notes associated to the Encounter. Date/Time Encounter Note(s) Provider Source Feb 26, 2024 03:20 PM PRIMARY CARE [place] E MESSAGING: LOCAL TITLE: PRIMARY CARE SECURE MESSAGING STANDARD TITLE: PRIMARY CARE SECURE MESSAGING DATE OF NOTE: FEB 26, 2024@15:20 ENTRY DATE: FEB 26, 2024@14:20:38 AUTHOR: ISABELLA WILKERSON EXP COSIGNER: URGENCY: STATUS: COMPLETED ------Original Message ------ Sent: 02/26/2024 03:20 PM ET From: ISABELLA WILKERSON To: SACHA ORTEGA Subject: Medication:medicine Good day, HGA1C 8.3 H % 02/11/2024 10:34 These results are abnormal. You have uncontrolled Diabetes. Dr. Jenkins was able to get approval for ozempic (generic name semaglutide ) for you. Please STOP taking sitagliptin once you start ozempic injection every week. The nurse at the clinic can teach you how to administer ozempic injection if needed. Please do not hesitate to call our clinic. Isabella RN, nurse healthcare account manager, [facility] /paola/ ISABELLA WILKERSON REGISTERED NURSE Signed: 02/26/2024 14:20 ISABELLA WILKERSON [facility]
--- OUTSIDE RECORDS SUMMARY | 2024-03-04 13:13 | XMS_ITS | Continuity of Care Document ---
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 It does not include entries that were removed or entered in error. Problem Status Onset Date Problem Type Date of Resolution Comments Source Adjustment disorder with depressed mood in remission Active Condition [facility] Allergic rhinitis Active Condition [facility] Anticoagulant effect Active Condition [facility] Anxiety Active Condition Jun 25 12 Entered By: DEMETRICE LEOS Comment: on alprazolam 1 mg daily from his pmd [facility] Benign prostatic hyperplasia Active Condition August 19, 2012 Entered By: DEMETRICE LEOS Comment: saw pvt urologist on 07/27/12, started on flomax [facility] Benign prostatic hyperplasia Active Condition [facility] Bilateral Knee Pain (SCT 83647855009599595) Active Condition [facility] Colonic Polyps (ICD-9-CM 211.3) Active Condition Jun 11 2 Entered By: DEMETRICE LEOS Comment: colonoscopy 2012 [facility] Deep vein thrombosis Active Condition [facility] Diabetes mellitus Active Condition Ja n 2013 Entered By: CHARO ALLEN Comment: Elevated HgbA1C [facility] Gastroesophageal reflux disease Active Condition [facility] H/O: Pulmonary Embolus (SCT 919539310) Active Condition [facility] Hearing loss Active Condition [facility] Leg length inequality (SNOMED CT 90252889) Active Condition [facility] Low Back Pain (SCT 075258210) Active Condition [facility] Neck Pain (SCT 81781000) Active Condition [facility] 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 [facility] Obesity (SCT 682988628) Active Condition [facility] Pain in the coccyx Active Condition [facility] Primary erectile dysfunction (SNOMED CT 761882880) Active Condition [facility] Primary Hypercoagulable State (ICD-9-CM 289.81) Active Condition [facility] Single acquired kidney cyst Active Condition [facility] Sleep apnea Active Condition [facility] Therapeutic drug effect Active Condition [facility] Varicose veins Active Condition [facility] Chest Pain Inactive Condition 07/04/2020 Jun 26, 2011 Entered By: DEMETRICE LEOS Comment: apr 2010 mildly abn stress test-mild inf ischemiaApr 2011 Entered By: DEMETRICE LEOS Comment: may 2010 c. cath normal coronary arteriesApr 2011 Entered By: DEMETRICE LEOS Comment: 05/2010 c cath normal left vent. systolic function [facility] Chronic sinusitis (ICD-9-CM 473.9) Inactive Condition 07/04/2020 [facility] Folliculitis Inactive Condition 07/04/2020 [facility] Folliculitis * (ICD-9-CM 704.8) Inactive Condition 07/04/2020 [facility] Male erectile disorder Inactive Condition 07/07/2013 [facility] Diagnosis: ICD-10-CM E11.8 Type 2 diabetes mellitus with unspecified complications Active Diagnosis [facility] Diagnosis: ICD-10-CM F43.29 Adjustment disorder with other symptoms Active Diagnosis [facility] Diagnosis: ICD-10-CM Z51.81 Encounter for therapeutic drug level monitoring Active Diagnosis [facility] Diagnosis: ICD-10-CM E11.9 Type 2 diabetes mellitus without complications Active Diagnosis [facility] Diagnosis: ICD-10-CM Z23 Encounter for immunization Active Diagnosis [facility] Diagnosis: ICD-10-CM F41.1 Generalized anxiety disorder Active Diagnosis [facility] Diagnosis: ICD-10-CM Z98.42 Cataract extraction status, left eye Active Diagnosis Rose Marie Bolton [facility] Diagnosis: ICD-10-CM Z01.818 Encounter for other preprocedural examination Active Diagnosis [facility] Diagnosis: ICD-10-CM H25.13 Age-related nuclear cataract, bilateral Active Diagnosis Rose Marie VIEIRA [facility] Diagnosis: ICD-10-CM N39.41 Urge incontinence Active Diagnosis [facility] CARO SAMPSON [facility] Diagnosis: ICD-10-CM N32.81 Overactive bladder Active Diagnosis [facility] DEVAUGHN FLEMING [facility] Diagnosis: ICD-10-CM H25.12 Age-related nuclear cataract, left eye Active Diagnosis [facility] Diagnosis: ICD-10-CM H90.3 Sensorineural hearing loss, bilateral Active Diagnosis [facility] Diagnosis: ICD-10-CM H52.03 Hypermetropia, bilateral Active Diagnosis [facility] Medications Combined list of outpatient medications from [...] (APAP) FROM ALL MEDS. ORAL ACTIVE 02/11/2025 [id number] 4 GAN,A RMIDA A 2023 100 [facility] ACETIC ACID 2% SOLN,OTIC INSTILL 2 DROPS IN TO AFFECTED EAR(S) DIRECTED FOR EAR INFECTIO N AURICU LAR (OTIC) 09/05/2023 [id number] 4 GAN,A RMIDA A 2023 15 [facility] ALOGLIPTIN 6.25MG TAB TAKE ONE TABLET BY MOUTH ONCE A DAY FOR DIABETES ORAL DISCONT INUED 06/30/2024 [id number] 4 GAN,A RMIDA A 2023 90 [facility] ALOGLIPTIN 6.25MG TAB TAKE ONE TABLET BY MOUTH ONCE A DAY FOR DIABETES ORAL DISCONT INUED 09/28/2023 [id number] 4 GAN,A RMIDA A 2022 90 [facility] ATORVASTATI N CA 20MG TAB TAKE ONE-HALF TABLET BY MOUTH EVERY EVENING FOR CHOLESTE ROL. REPORT ANY UNEXPLAI MISSY MUSCLE PAIN/WEA KNESS TO PROVIDER . ORAL SUSPEND ED 02/12/2025 [id number] 5 GAN,A RMIDA A 2024 45 [facility] ATORVASTATI N CA 20MG TAB TAKE ONE-HALF TABLET BY MOUTH EVERY EVENING FOR CHOLESTE ROL. REPORT ANY UNEXPLAI MISSY MUSCLE PAIN/WEA KNESS TO PROVIDER . ORAL DISCONT INUED 06/02/2024 [id number] 4 GAN,A RMIDA A 2023 45 [facility] ATORVASTATI N CA 20MG TAB TAKE ONE-HALF TABLET BY MOUTH EVERY EVENING FOR CHOLESTE ROL. REPORT ANY UNEXPLAI MISSY MUSCLE PAIN/WEA KNESS TO PROVIDER . ORAL DISCONT INUED 07/12/2023 [id number] 4 GAN,A RMIDA A 2022 45 [facility] BETAMETHASO NE/CLOTRIMA ZOLE CREAM,TOP APPLY TO AFFECTED AREA(S) TWICE A DAY TOPICA L ACTIVE GAN,A RMIDA A 2021 [facility] CARBOXYMETH YLCELLULOSE NA 1% GEL,OPH INSTILL 2 DROPS INTO BOTH EYES FOUR TIMES A DAY NEEDED FOR DRY EYE(S) OPHTHA LMIC 07/17/2023 [id number] 3 GAN,A RMIDA A 2022 15 [facility] DOCUSATE NA 100MG CAP TAKE ONE CAPSULE BY MOUTH TWICE A DAY TO SOFTEN STOOL. HOLD FOR LOOSE STOOL/DI ARRHEA. ORAL ACTIVE 02/03/2025 [id number] 4 GAN,A RMIDA A 2023 200 [facility] DOCUSATE NA 100MG CAP TAKE ONE CAPSULE BY MOUTH TWICE A DAY TO SOFTEN STOOL. HOLD FOR LOOSE STOOL/DI ARRHEA. ORAL DISCONT INUED 11/27/2023 [id number] 4 GAN,A RMIDA A 2022 200 [facility] EMPAGLIFLOZ IN 25MG TAB TAKE ONE TABLET BY MOUTH ONCE A DAY FOR DIABETES ORAL SUSPEND ED 02/03/2025 [id number] 5 GAN,A RMIDA A 2024 90 [facility] EMPAGLIFLOZ IN 25MG TAB TAKE ONE TABLET BY MOUTH ONCE A DAY FOR DIABETES ORAL DISCONT INUED 01/16/2024 [id number] 4 GAN,A RMIDA A 2023 90 [facility] EMPAGLIFLOZ IN 25MG TAB TAKE ONE TABLET BY MOUTH ONCE A DAY FOR DIABETES ORAL DISCONT INUED 07/12/2023 [id number] 3 GAN,A RMIDA A 2022 90 [facility] GLIPIZIDE 10MG TAB TAKE ONE TABLET BY MOUTH TWO TIMES A DAY BEFORE MEALS FOR DIABETES TAKE 30 MINUTES BEFORE EATING. ORAL SUSPEND ED 02/12/2025 [id number] 5 GAN,A RMIDA A 2024 180 [facility] GLIPIZIDE 10MG TAB TAKE ONE TABLET BY MOUTH TWO TIMES A DAY BEFORE MEALS FOR DIABETES TAKE 30 MINUTES BEFORE EATING. ORAL DISCONT INUED 08/14/2024 [id number] 4 GAN,A RMIDA A 2023 180 [facility] GLIPIZIDE 5MG TAB TAKE ONE TABLET BY MOUTH TWO TIMES A DAY BEFORE MEALS FOR DIABETES TAKE 30 MINUTES BEFORE EATING. ORAL DISCONT INUED (EDIT) 12/26/2023 [id number] 4 GANA RMIDA A 2022 180 [facility] KETOTIFEN 0.025% SOLN,OPH INSTILL 1 DROP IN BOTH EYES TWICE A DAY OPHA IC ACTIVE 07/31/2024 [id number] YUNIOR SANTAMARIA A 2023 15 [facility] DIVISIO N MARIJUANA USE DIRECTED INHALATI ON PRN INHALA TION ACTIVE PROUHET,R SOFI M 2019 [facility] METFORMIN HCL 1000MG TAB TAKE ONE TABLET BY MOUTH EVERY MORNING AND TAKE ONE AND ONE-HALF TABLETS EVERY EVENING TAKE WITH FOOD. AVOID ALCOHOL. DISCONTI NUE BEFORE GETTING XRAY DYE. ORAL ACTIVE 02/12/2025 [id number] 4 GANA RMIDA A 2023 225 [facility] METFORMIN HCL 1000MG TAB TAKE ONE TABLET BY MOUTH EVERY MORNING AND TAKE ONE AND ONE-HALF TABLETS EVERY EVENING TAKE WITH FOOD. AVOID ALCOHOL. DISCONTI NUE BEFORE GETTING XRAY DYE. ORAL DISCONT INUED 01/16/2024 [id number] 4 GANA RMIDA A 2023 225 [facility] METFORMIN HCL 1000MG TAB TAKE ONE TABLET BY MOUTH EVERY MORNING AND TAKE ONE AND ONE-HALF TABLETS EVERY EVENING TAKE WITH FOOD. AVOID ALCOHOL. DISCONTI NUE BEFORE GETTING XRAY DYE. ORAL DISCONT INUED 07/12/2023 [id number] 3 GANA RMIDA A 2022 225 [facility] MOXIFLOXACI N HCL (EQV-VIGAMO X) 0.5% SOLN,OPH INSTILL 1 DROP IN LEFT EYE FOUR TIMES A DAY FOR BACTERIA L EYE INFECTIO N TO USE [facility] [id number] YUNIOR SANTAMARIA A 2023 3 [facility] DIVISIO N MULTIVITAMI NS CAP/TAB TAKE ONE TABLET BY MOUTH ONCE A DAY ORAL ACTIVE PROUHET,R SOFI M 2011 [facility] PANTOPRAZOL E NA 20MG TAB,EC TAKE ONE TABLET BY MOUTH TWICE A DAY TO LOWER STOMACH ACID - TAKE 30 MINUTES BEFORE MEAL(S) ORAL ACTIVE 12/10/2024 [id number] 4 GAN,A RMIDA A 2023 180 [facility] PANTOPRAZOL E NA 20MG TAB,EC TAKE ONE TABLET BY MOUTH TWICE A DAY TO LOWER STOMACH ACID - TAKE 30 MINUTES BEFORE MEAL(S) ORAL DISCONT INUED 12/26/2023 [id number] 4 GAN,A RMIDA A 2023 180 [facility] PANTOPRAZOL E NA 20MG TAB,EC TAKE ONE TABLET BY MOUTH TWICE A DAY TO LOWER STOMACH ACID - TAKE 30 MINUTES BEFORE MEAL(S) ORAL DISCONT INUED 01/07/2023 [id number] 3 GAN,A RMIDA A 2022 180 [facility] POLYETHYLEN E GLYCOL 3350 PWDR,ORAL MIX AND DRINK 1 CAPFUL BY MOUTH ONCE A DAY FOR CONSTIPA TION (MEASURE WITH CAP AND MIX IN 8 OZ OF WATER) ORAL ACTIVE 02/12/2025 [id number] 4 GAN,A RMIDA A 2023 510 [facility] POLYETHYLEN E GLYCOL 3350 PWDR,ORAL MIX AND DRINK 1 CAPFUL BY MOUTH ONCE A DAY FOR CONSTIPA TION (MEASURE WITH CAP AND MIX IN 8 OZ OF WATER) ORAL DISCONT INUED 01/16/2024 [id number] 4 GAN,A RMIDA A 2022 510 [facility] PREDNISOLON E ACETATE 1% SUSP,OPH INSTILL 1 DROP IN LEFT EYE FOUR TIMES A DAY FOR EYE INFLAMMA TION TO USE AFTER SURGERY ON 06/30 OPHTHA LMIC ACTIVE 06/25/2024 [id number] 4 YUNIOR SANTAMARIA A [address] [facility] DIVJOLYNN N PREGABALIN 300MG CAP,ORAL TAKE ONE CAPSULE BY MOUTH TWICE A DAY FOR NERVE PAIN *MAY CAUSE DROWSINE SS* ORAL ACTIVE 06/22/2024 [id number] 4 GAN,A RMIDA A 2023 60 [facility] PREGABALIN 300MG CAP,ORAL TAKE ONE CAPSULE BY MOUTH TWICE A DAY FOR NERVE PAIN *MAY CAUSE DROWSINE SS* ORAL DISCONT INUED 01/08/2024 [id number] 4 GAN,A RMIDA A 2023 60 [facility] DIVISIO N PREGABALIN 300MG CAP,ORAL TAKE ONE CAPSULE BY MOUTH TWICE A DAY FOR NERVE PAIN *MAY CAUSE DROWSINE SS* ORAL 06/27/2023 [id number] 4 GAN,A RMIDA A 2022 60 [facility] PROBIOTIC COMBINATION CAP/TAB TAKE 1 CAPSULE BY MOUTH ONCE A DAY ORAL ACTIVE CHANDU GLEASON 2021 [facility] QUETIAPINE FUMARATE 200MG TAB TAKE ONE-HALF TABLET BY MOUTH AT BEDTIME FOR MOOD ORAL SUSPEND ED 10/14/2024 [id number] 5 NNEKA SILVA JR 2023 45 [facility] DIVISIO N QUETIAPINE FUMARATE 200MG TAB TAKE ONE-HALF TABLET BY MOUTH AT BEDTIME FOR MOOD ORAL DISCONT INUED 09/23/2023 [id number] 4 LISANDRA POSADAS 2022 45 [facility] DIVISIO N ROPINIROLE HCL 0.5MG TAB TAKE ONE TABLET BY MOUTH AT BEDTIME FOR PARKINSO N DISEASE ORAL ACTIVE 12/10/2024 [id number] 4 GAN,A RMIDA A 2023 90 [facility] ROPINIROLE HCL 0.5MG TAB TAKE ONE TABLET BY MOUTH AT BEDTIME FOR PARKINSO N DISEASE ORAL DISCONT INUED 01/16/2024 [id number] 4 GAN,A RMIDA A 2022 90 [facility] ROPINIROLE HCL 0.5MG TAB TAKE ONE TABLET BY MOUTH AT BEDTIME ORAL DISCONT INUED (EDIT) 07/12/2023 [id number] 3 GANA RMIDA A 2022 90 [facility] SEMAGLUTIDE 0.25MG/0.37 5ML INJ,SOLN,PE N,3ML INJECT 0.25MG UNDER THE SKIN EVERY WEEK FOR 4 WEEKS, THEN INJECT 0.5MG EVERY WEEK FOR DIABETES SUBCUT ANEOUS ACTIVE 02/22/2025 [id number] 4 GAN,A RMIDA A 2023 1 [facility] SERTRALINE HCL 100MG TAB TAKE ONE-HALF TABLET BY MOUTH EVERY MORNING FOR MOOD ORAL SUSPEND ED 10/14/2024 [id number] 5 NNEKA SILVA JR [address] [facility] DIVISIO N SERTRALINE HCL 100MG TAB TAKE ONE-HALF TABLET BY MOUTH EVERY MORNING FOR MOOD ORAL DISCONT INUED 09/23/2023 [id number] 4 KATHARINA,ARS HAD [address] [facility] DIVISIO N SITAGLIPTIN (EQV-ZITUVI O) 100MG TAB TAKE ONE TABLET BY MOUTH ONCE A DAY FOR DIABETES TO REPLACE ALOGLIPT IN ORAL DISCONT INUED 02/12/2025 [id number] 4 GAN,A RMIDA A 2023 90 [facility] SITAGLIPTIN (EQV-ZITUVI O) 50MG TAB TAKE ONE TABLET BY MOUTH ONCE A DAY FOR DIABETES TO REPLACE ALOGLIPT IN ORAL DISCONT INUED (EDIT) 06/30/2024 [id number] 4 GAN,A RMIDA A 2023 90 [facility] DIVISIO N TADALAFIL 10MG TAB TAKE ONE TABLET BY MOUTH EVERY WEEK NEEDED FOR ERECTILE DYSFUNCT ION (TAKE 30 MINUTES PRIOR TO SEXUAL ACTIVITY ) - LIMIT 6 DOSES PER 30 DAYS ORAL ACTIVE 04/27/2024 [id number] 4 THERON EMMANUEL 2023 18 [facility] DIVISIO N TAMSULOSIN HCL 0.4MG CAP TAKE TWO CAPSULES BY MOUTH ONCE A DAY FOR BENIGN PROSTATI C HYPERPLA CAYDEN APPROXIM ATELY 30 MINUTES AFTER THE SAME MEAL EACH DAY (FOR PROSTATE ) ORAL SUSPEND ED 02/03/2025 [id number] 5 GAN,A RMIDA A 2024 180 [facility] TAMSULOSIN HCL 0.4MG CAP TAKE TWO CAPSULES BY MOUTH ONCE A DAY FOR BENIGN PROSTATI C HYPERPLA CAYDEN APPROXIM ATELY 30 MINUTES AFTER THE SAME MEAL EACH DAY (FOR PROSTATE ) ORAL DISCONT INUED 08/14/2024 [id number] 4 GAN,A RMIDA A 2023 180 [facility] TAMSULOSIN HCL 0.4MG CAP TAKE TWO CAPSULES BY MOUTH ONCE A DAY FOR BENIGN PROSTATI C HYPERPLA CAYDEN APPROXIM ATELY 30 MINUTES AFTER THE SAME MEAL EACH DAY (FOR PROSTATE ) ORAL DISCONT INUED 08/14/2024 [id number] 4 GAN,A RMIDA A 2023 60 [facility] TAMSULOSIN HCL 0.4MG CAP TAKE TWO CAPSULES BY MOUTH ONCE A DAY FOR BENIGN PROSTATI C HYPERPLA CAYDEN APPROXIM ATELY 30 MINUTES AFTER THE SAME MEAL EACH DAY (FOR PROSTATE ) ORAL DISCONT INUED 07/17/2023 [id number] 4 GAN,A RMIDA A 2022 60 [facility] W[place]FARIN NA ([place] 5MG TAB TAKE ONE AND ONE-HALF TABLETS BY MOUTH THURSDAY, THURSDAY, THURSDAY AND THURSDAY AND TAKE TWO TABLETS , THURSDAY AND THURSDAY OR DIRECTED BY THE [facility]. TO PREVENT BLOOD CLOTS. KEEP LAB APPOINTM ENTS. ORAL ACTIVE 01/13/2025 [id number] 4 MANPREET PEREIRA 2023 55 [facility] DIVISIO N [place]FARIN NA ([place] 5MG TAB TAKE ONE AND ONE-HALF TABLETS BY MOUTH THURSDAY, THURSDAY, THURSDAY AND THURSDAY AND TAKE TWO TABLETS , THURSDAY AND THURSDAY OR DIRECTED BY THE [facility]. TO PREVENT BLOOD CLOTS. KEEP LAB APPOINTM ENTS. ORAL DISCONT INUED 09/10/2024 [id number] MANPREET PEREIRA 2023 55 [facility] DIVISIO N [place]ARIN [place] 5MG TAB TAKE ONE AND ONE-HALF TABLETS BY MOUTH THURSDAY, THURSDAY, THURSDAY AND THURSDAY AND TAKE TWO TABLETS , THURSDAY AND THURSDAY OR DIRECTED BY THE [facility]. TO PREVENT BLOOD CLOTS. KEEP LAB APPOINTM ENTS. ORAL DISCONT INUED 05/13/2024 [id number] MANPREET PERIERA 2023 55 [facility] DIVISIO N [place]FARIN NA ([place] 5MG TAB TAKE ONE AND ONE-HALF TABLETS BY MOUTH SUN/MON/ THU/THU/ SAT AND TAKE TWO TABLETS TH/FR I OR DIRECTED BY THE [facility]. TO PREVENT BLOOD CLOTS. KEEP LAB APPOINTM ENTS. ORAL DISCONT INUED (EDIT) 04/02/2024 [id number] 4 MANPREET PEREIRA 2023 50 [facility] DIVISIO N [place]ARIN NA ([place] 5MG TAB TAKE ONE AND ONE-HALF TABLETS BY MOUTH SUN/MON/ TUE/WED/ SAT AND TAKE TWO TABLETS TH/FR I OR DIRECTED BY THE [facility]. TO PREVENT BLOOD CLOTS. KEEP LAB APPOINTM ENTS. ORAL DISCONT INUED 10/04/2023 [id number] 3 MANPREET PEREIRA 2022 50 [facility] DIVISIO N Allergies, Adverse Reactions, Alerts Combined list of allergies from Department of Defense and Veterans Affairs facilities. It does not include entries that were removed or entered in error. Substance Category Reaction Severity Reaction type Status Date Reported Comments Source AUGMENTIN Propensity to adverse reactions to drug (finding) ALT (SGPT) level raised, Aspartate aminotransf erase serum level raised active 2 [facility] MORPHINE Propensity to adverse reactions to drug (finding) Nausea and vomiting active 0 [facility] SIMVASTATIN Propensity to adverse reactions to drug (finding) active 3 [facility] Immunizations Combined list of available immunizations from the Department of Defense and Veterans Affairs facilities. Immunization Series Date Given Administered By Site Reaction Lot Number CVX Code Drug Clam Shucking Machine Tender Status Comments Source RSV, BIVALENT, PROTEIN SUBUNIT RSVPREF, DILUENT RECONSTITUTED , 0.5 ML, PF 1 2023 EFRAIN WELCH S LEFT DELTO ID [id number] 305 complet ed [facility] INFLUENZA, HIGH-DOSE, TRIVALENT, PF 2023 READUSROBI S LEFT DELTO ID [id number] 135 complet ed [facility] COVID-19 (PFIZER), MRNA, LNP-S, PF, PIYUSH-SUCROSE, 30 MCG/0.3 ML (AGES 12+ YEARS) 2023 ROBI CRUZ S RIGHT DELTO ID [id number] 309 complet ed [facility] COVID-19 (PFIZER), MRNA, LNP-S, PF, PIYUSH-SUCROSE, 30 MCG/0.3 ML (AGES 12+ YEARS) 1 2022 EFRAIN WELCH S RIGHT DELTO ID [id number] 309 complet ed [facility] INFLUENZA, HIGH-DOSE, QUADRIVALENT 2022 EFRAIN WELCH S LEFT DELTO ID [id number] A 197 complet ed [facility] COVID-19 (MODERNA), MRNA, LNP-S, BIVALENT BOOSTER, PF, 50 MCG/0.5 ML OR 25MCG/0.25 ML DOSE 1 2021 229 complet ed MOD; [id number]; 3 [facility] INFLUENZA VACCINE, QUADRIVALENT, ADJUVANTED 2021 205 complet ed [facility] COVID-19 (PFIZER), MRNA, LNP-S, PF, 30 MCG/0.3 ML DOSE 3 2020 208 complet ed PFR; [id number]; 1 [facility] DIVISIO N INFLUENZA VACCINE, QUADRIVALENT, ADJUVANTED 2020 205 complet ed [facility] COVID-19 (PFIZER), MRNA, LNP-S, PF, 30 MCG/0.3 ML DOSE 2 2020 208 complet ed PFR; [id number]; 1 [facility] DIVISIO N COVID-19 (Renrenmoney), MRNA, LNP-S, PF, 30 MCG/0.3 ML DOSE 1 2020 208 complet ed PFR; [id number]; 1 [facility] DIVISIO N INFLUENZA, HIGH-DOSE, QUADRIVALENT 1 2019 197 complet ed [facility] DIVISIO N INFLUENZA, UNSPECIFIED FORMULATION 2018 88 complet ed [facility] DIVISIO N ZOSTER RECOMBINANT 2 2018 187 complet ed [facility] ZOSTER RECOMBINANT 1 2018 187 complet ed [facility] INFLUENZA, UNSPECIFIED FORMULATION 2017 88 complet ed per [facility] DIVISIO N INFLUENZA, UNSPECIFIED FORMULATION 2016 88 [facility] PNEUMOCOCC[facility] POLYSACCHARID E [id number] 2016 33 complet ed [facility] INFLUENZA, UNSPECIFIED FORMULATION 2014 88 complet ed [facility] DIVISIO N INFLUENZA, UNSPECIFIED FORMULATION 2014 88 [facility]V 13 2014 133 complet ed [facility] INFLUENZA, UNSPECIFIED FORMULATION 2013 88 complet ed [facility] DIVISIO N ZOSTER LIVE 2013 121 complet ed [facility] DIVISIO N TDAP 2013 115 complet ed Left Deltoid [facility] INFLUENZA, UNSPECIFIED FORMULATION 2012 88 complet ed [facility] DIVISIO N INFLUENZA, UNSPECIFIED FORMULATION 2011 88 complet ed [facility] DIVISIO N INFLUENZA, UNSPECIFIED FORMULATION 2010 88 complet ed [facility] DIVISIO N PNEUMOCOCCAL, UNSPECIFIED FORMULATION 2010 109 complet ed [facility] DIV[facility] N Results Combined list of recent [...] Feb 11, 2024 11:13 AM Reporting Lab: [address] [address] Performing Lab: [address] [id number] [place] [address] HGB,HCT,P LT HEMOGLOBIN [MASS/VOLUM E] IN BLOOD 13.9 g/dL 13.1 - 16.8 02/10 Specimen Type: BLOOD No comment entered. Ordering Provider: NANCI PEREIRA Report Released Date/Time: Jan 13, 2024 01:55 PM Reporting Lab: [address] [address] Performing Lab: [address] [address] [facility] HGB,HCT,P LT HEMATOCRIT [VOLUME FRACTION] OF BLOOD 45.5 38.2 - 48.4 02/10 Specimen Type: BLOOD No comment entered. Ordering Provider: NANCI PEREIRA Report Released Date/Time: Jan 13, 2024 01:55 PM Reporting Lab: [address] [address] Performing Lab: [address] [address] [facility] HGB,HCT,P LT PLATELETS [#/VOLUME] IN BLOOD BY AUTOMATED COUNT 130 10*3/u L 150 - 400 02/10 L Specimen Type: BLOOD No comment entered. Ordering Provider: NANCI PEREIRA Report Released Date/Time: Jan 13, 2024 01:55 PM Reporting Lab: [place] [address] Performing Lab: [address] POC INR (STL-RX MONITORIN G ONLY) INR IN BLOOD BY COAGULATION ASSAY 2.3 {INR} 0.9 - 1.1 02/10 H Specimen Type: BLOOD Comment: Test Performed by: [id number] Meter #: [id number] Ordering Provider: NANCI PEREIRA Report Released Date/Time: Feb 12, 2024 08:40 AM Reporting Lab: [place] [address] Performing Lab: [address] [address] [facility] POC INR (STL-RX MONITORIN G ONLY) INR IN BLOOD BY COAGULATION ASSAY 2.8 {INR} 0.9 - 1.1 01/12 H Specimen Type: BLOOD Comment: Test Performed by: [id number] Meter #: [id number] Ordering Provider: NANCI PEREIRA Report Released Date/Time: Jan 13, 2024 10:04 AM Reporting Lab: [place] [id number] Performing Lab: [address] [address] [facility] POC INR (STL-RX MONITORIN G ONLY) INR IN BLOOD BY COAGULATION ASSAY 2.6 {INR} 0.9 - 1.1 12/09 H Specimen Type: BLOOD Comment: Test Performed by: [id number] Meter #: [id number] Ordering Provider: NANCI PEREIRA Report Released Date/Time: Dec 10, 2023 10:07 AM Reporting Lab: [address] [address] Performing Lab: [address] [address] [facility] POC INR (STL-RX MONITORIN G ONLY) INR IN BLOOD BY COAGULATION ASSAY 3.1 {INR} 0.9 - 1.1 11/12 H Specimen Type: BLOOD Comment: Test Performed by: [id number] Meter #: [id number] Ordering Provider: NANCI PEREIRA Report Released Date/Time: Nov 13, 2023 12:53 PM Reporting Lab: [address] [address] Performing Lab: [address] [address] [facility] POC INR (STL-RX MONITORIN G ONLY) INR IN BLOOD BY COAGULATION ASSAY 2.4 {INR} 0.9 - 1.1 10/07 H Specimen Type: BLOOD Comment: Test Performed by: [id number] Meter #: [id number] Ordering Provider: NANCI PEREIRA Report Released Date/Time: Oct 08, 2023 10:35 AM Reporting Lab: [address] [address] Performing Lab: [address] [address] [facility] POC INR (STL-RX MONITORIN G ONLY) INR IN BLOOD BY COAGULATION ASSAY 2.3 {INR} 0.9 - 1.1 09/09 H Specimen Type: BLOOD Comment: Test Performed by: [id number] Meter #: [id number] Ordering Provider: NANCI PEREIRA Report Released Date/Time: Sep 10, 2023 09:46 AM Reporting Lab: [address] [address] Performing Lab: [address] [place] [address] [facility] HGA1C HEMOGLOBIN A1C/HEMOGLO BIN.TOTAL IN BLOOD 8.4 4.0 - 6.0 08/05 H Specimen Type: BLOOD No comment entered. Ordering Provider: RAJENDRA GAN Report Released Date/Time: August 06, 2023 11:19 AM Reporting Lab: [facility] [address] [place] [phone] Performing Lab: [address] [address] [facility] LIPID PANEL (STL) CHOLESTEROL [MASS/VOLUM E] IN SERUM OR PLASMA 193 mg/dL 0 - 200 08/05 Specimen Type: PLASMA Comment: LDL calculation invalid when Triglycerid e exceeds 250 mg/dl Ordering Provider: RAJENDRA GAN Report Released Date/Time: August 06, 2023 11:19 AM Reporting Lab: [facility] [address] [place] [phone] Performing Lab: [address] [address] [facility] LIPID PANEL (STL) TRIGLYCERID E [MASS/VOLUM E] IN SERUM OR PLASMA 315 mg/dL 0 - 150 08/05 H Specimen Type: PLASMA Comment: LDL calculation invalid when Triglycerid e exceeds 250 mg/dl Ordering Provider: RAJENDRA GAN Report Released Date/Time: August 06, 2023 11:19 AM Reporting Lab: [facility] [address] [place] [phone] Performing Lab: [address] [address] [facility] LIPID PANEL (STL) CHOLESTEROL IN LDL [MASS/VOLUM E] IN SERUM OR PLASMA BY DIRECT ASSAY 98 mg/dL 100 08/05 L Specimen Type: PLASMA Comment: LDL calculation invalid when Triglycerid e exceeds 250 mg/dl Ordering Provider: RAJENDRA GAN Report Released Date/Time: August 06, 2023 11:19 AM Reporting Lab: [facility] [address] [place] [address] Performing Lab: [facility] [address] [place] [address] [facility] LIPID PANEL (STL) CHOLESTEROL IN LDL [MASS/VOLUM E] IN SERUM OR PLASMA BY CALCULATION commen tmg/dL 08/05 Specimen Type: PLASMA Comment: LDL calculation invalid when Triglycerid e exceeds 250 mg/dl Ordering Provider: RAJENDRA GAN Report Released Date/Time: August 06, 2023 11:19 AM Reporting Lab: [facility] [address] [place] [phone] Performing Lab: [facility] [address] [place] [address] [facility] LIPID PANEL (STL) CHOLESTEROL IN HDL [MASS/VOLUM E] IN SERUM OR PLASMA 42 mg/dL 40 08/05 Specimen Type: PLASMA Comment: LDL calculation invalid when Triglycerid e exceeds 250 mg/dl Ordering Provider: RAJENDRA GAN Report Released Date/Time: August 06, 2023 11:19 AM Reporting Lab: [facility] [address] [place] [address] Performing Lab: [facility] [address] [place] [phone] [facility] Vital Signs Combined list of inpatient and outpatient Vital Signs from Department of Defense and Veterans Affairs, ranging from 12 months to all on record, depending upon the facility. Vital Sign Value Date Comments Source SYSTOLIC BLOOD PRESSURE 147 02/11/2024 11:13:02 [facility] DIASTOLIC BLOOD PRESSURE 78 02/11/2024 11:13:02 [facility] PULSE OXIMETRY 95 02/11/2024 11:13:02 [facility] WEIGHT 254 02/11/2024 11:13:02 [facility] BMI 37kg/m2 02/11/2024 11:13:02 [facility] PAIN 6 02/11/2024 11:13:02 [facility] HEIGHT 70 02/11/2024 11:13:02 [facility] TEMPERATURE 97.8 02/11/2024 11:13:02 [facility] PULSE 68 02/11/2024 11:13:02 [facility] RESPIRATION 18 02/11/2024 11:13:02 [facility] SYSTOLIC BLOOD PRESSURE 133 08/06/2023 10:40:39 [facility] DIASTOLIC BLOOD PRESSURE 79 08/06/2023 10:40:39 [facility] PULSE OXIMETRY 93 08/06/2023 10:40:39 S [facility] WEIGHT 259.2 08/06/2023 10:40:39 [facility] BMI 37kg/m2 08/06/2023 10:40:39 [facility] PAIN 3 08/06/2023 10:40:39 [facility] HEIGHT 70 08/06/2023 10:40:39 [facility] TEMPERATURE 97.7 08/06/2023 10:40:39 [facility] PULSE 72 08/06/2023 10:40:39 [facility] RESPIRATION 18 08/06/2023 10:40:39 [facility] SYSTOLIC BLOOD PRESSURE 149 07/01/2023 06:54:42 [facility] DIASTOLIC BLOOD PRESSURE 75 07/01/2023 06:54:42 [facility] PULSE OXIMETRY 93 07/01/2023 06:54:42 S Av[facility] WEIGHT 260 07/01/2023 06:54:42 [facility] BMI 37kg/m2 07/01/2023 06:54:42 [facility] PAIN 5 07/01/2023 06:54:42 [facility] HEIGHT 70 07/01/2023 06:54:42 [facility] TEMPERATURE 97 07/01/2023 06:54:42 [facility] PULSE 85 07/01/2023 06:54:42 [facility] RESPIRATION 18 07/01/2023 06:54:42 [facility] SYSTOLIC BLOOD PRESSURE 143 04/27/2023 10:21:03 [facility] DIASTOLIC BLOOD PRESSURE 72 04/27/2023 10:21:03 [facility] PULSE OXIMETRY 92% 04/27/2023 10:21:03 [facility] WEIGHT 262.5 04/27/2023 10:21:03 [facility] BMI 39kg/m2 04/27/2023 10:21:03 [facility] PAIN 0 04/27/2023 10:21:03 [facility] TEMPERATURE 97 04/27/2023 10:21:03 [facility] PULSE 91 04/27/2023 10:21:03 [facility] RESPIRATION 19 04/27/2023 10:21:03 [facility] SYSTOLIC BLOOD PRESSURE 113 03/27/2023 08:54:36 [facility] DIASTOLIC BLOOD PRESSURE 66 03/27/2023 08:54:36 [facility] PULSE OXIMETRY 92% 03/27/2023 08:54:36 [facility] WEIGHT 258.8 03/27/2023 08:54:36 [facility] BMI 38kg/m2 03/27/2023 08:54:36 [facility] PAIN 0 03/27/2023 08:54:36 [facility] TEMPERATURE 98.2 03/27/2023 08:54:36 [facility] PULSE 105 03/27/2023 08:54:36 [facility] RESPIRATION 20 03/27/2023 08:54:36 [facility] Encounters Combined list of: 1) Encounters from Department of [facility] facilities going back up to thelast 18 months. 2) Encounters from the Department of Defense facilities going back up to 280 months. Location Location Details Encounter Type Encounter Number Reason For Visit Attending Provider ADM Date DC Date Status Disposition Source 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
Dennys MEYER NIDA MARCO A 09/05 [facility] Outpatient Encounter [id number] NITHIN TAN 09/19 [facility] Outpatient Encounter [id number] 09/19 [facility] Outpatient Encounter [id number] NITHIN TAN 09/25 [facility] Outpatient Encounter [id number] NITHIN TAN 09/30 [facility] HC PRO PHONE CALL 5-10 MIN [id number] Diagnos is: ICD-10- CM Z51.81 Encount er for therape utic drug level monitor ing<br/ > NANCI PEREIRA 10/02 [facility] Outpatient Encounter [id number] NITHIN TAN 10/24 [facility] HC PRO PHONE CALL 5-10 MIN [id number] Diagnos is: ICD-10- CM Z51.81 Encount er for therape utic drug level monitor ing<br/ > NANCI PEREIRA S 11/06 [facility] HC PRO PHONE CALL 5-10 MIN [id number] Diagnos is: ICD-10- CM Z51.81 Encount er for therape utic drug level monitor ing<br/ > NANCI PEREIRA S 12/11 [facility] N [facility] HEARING AID REPAIR/MOD IFYING [id number] Diagnos is: ICD-10- CM H90.3 Sensori neural hearing loss, bilater al
ALEXANDER ANTHONY 12/12 [facility] Outpatient Encounter [id number] NITHIN TAN 12/21 [facility] OFFICE O/P EST LOW 20-29 MIN [id number] Diagnos is: ICD-10- CM H25.12 Age-rel ated nuclear catarac t, left eye<br/ > PALAK BLACKWOOD 12/25 [facility] HC PRO PHONE CALL 5-10 MIN [id number] Diagnos is: ICD-10- CM Z51.81 Encount er for therape utic drug level monitor ing<br/ > NANCI PEREIRA S 01/[address] 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 Outpatient Encounter [id number] 01/21 [facility] HC PRO PHONE CALL 5-10 MIN [id number] [id number] Diagnos is: ICD-10- CM Z51.81 Encount er for therape utic drug level monitor ing<br/ > NANCI PEREIRA S 02/19 [facility] Outpatient Encounter [id number] 02/25 [facility] MTMS BY PHARM EST 15 MIN [id number] [id number] Diagnos is: ICD-10- CM Z51.81 Encount er for therape utic drug level monitor ing<br/ > NANCI PEREIRA S 03/27 [facility] OFFICE O/P EST LOW 20 MIN [id number] [id number] Diagnos is: ICD-10- CM N32.81 Overact susan bladder
CARROLL MISTRY IS J 03/27 [facility] Outpatient Encounter [id number] NITHIN TAN 04/14 [facility] OFFICE O/P EST LOW 20 MIN [id number] [id number] Diagnos is: ICD-10- CM N39.41 Urge inconti nence<b r/> CARROLL MISTRY IS J 04/27 [facility] Outpatient Encounter [id number] 04/29 [facility] MTMS BY PHARM EST 15 MIN [id number] [id number] Diagnos is: ICD-10- CM Z51.81 Encount er for therape utic drug level monitor ing<br/ > BORESI,NANCI S 05/04 [facility] MTMS BY PHARM EST 15 MIN [id number] [id number] Diagnos is: ICD-10- CM Z51.81 Encount er for therape utic drug level monitor ing<br/ > BORESI,NANCI S 05/12 [facility] Outpatient Encounter [id number] 05/15 [facility] COMPRE OPH EXAM NEW PT 1/> [id number] [id number] 9 Diagnos is: ICD-10- CM H25.13 Age-rel ated nuclear catarac t, bilater al
JENY NAIR MAO 05/25 [facility] Outpatient Encounter [id number] 05/25 [facility] MTMS BY PHARM EST 15 MIN [id number] [id number] Diagnos is: ICD-10- CM Z51.81 Encount er for therape utic drug level monitor ing<br/ > BORESI,NANCI S 05/26 [facility] MTMS BY PHARM EST 15 MIN [id number] [id number] Diagnos is: ICD-10- CM Z51.81 Encount er for therape utic drug level monitor ing<br/ > BORESI,NANCI S 06/23 [facility] MEASURE BLOOD OXYGEN LEVEL [id number] [id number] Diagnos is: ICD-10- CM Z98.42 Catarac t extract ion status, left eye<br/ > LURDES ROSARIO M 06/30 [facility] OFFICE O/P EST LOW 20 MIN [id number] [id number] Diagnos is: ICD-10- CM Z01.818 Encount er for other preproc edural examina tion
JULIA,CANDACE IN A 06/30 [facility] Outpatient Encounter [id number] PATRICK HARPER A 06/30 [facility] Outpatient Encounter [id number] GLADYS CONROY ICA Y 06/30 [facility] XCAPSL CTRC RMVL W/O ECP [id number] [id number] PATRICK HARPER A 06/30 [facility] Outpatient Encounter [id number] CORNELIO MORTON 06/30 [facility] POSTOP FOLLOW-UP VISIT [id number] [id number] Diagnos is: ICD-10- CM Z98.42 Catarac t extract ion status, left eye<br/ > GLADYS CONROY ICA Y 07/01 [facility] Outpatient Encounter [id number] [id number] DAMARIS MAURO 07/05 [facility] POSTOP FOLLOW-UP VISIT [id number] [id number] Diagnos is: ICD-10- CM Z98.42 Catarac t extract ion status, left eye<br/ > MARYCARMEN,GLADYS ICA Y 07/07 [facility] POSTOP FOLLOW-UP VISIT [id number] [id number] Diagnos is: ICD-10- CM Z98.42 Catarac t extract ion status, left eye<br/ > MARYCARMEN,GLADYS ICA Y 07/30 [facility] MTMS BY PHARM EST 15 MIN [id number] [id number] Diagnos is: ICD-10- CM Z51.81 Encount er for therape utic drug level monitor ing<br/ > BORESI,NANCI S 08/05 [facility] OFFICE O/P EST MOD 30 MIN [id number] [id number] Diagnos is: ICD-10- CM F43.29 Adjustm ent disorde r with other symptom s
KATERIN NAGEL 08/[address] [facility] Outpatient Encounter [id number] [id number] NITHIN TAN 08/13 [facility] Outpatient Encounter [id number] [id number] 08/27 [facility] MTMS BY PHARM EST 15 MIN [id number] [id number] Diagnos is: ICD-10- CM Z51.81 Encount er for therape utic drug level monitor ing<br/ > BORESI,NANCI S 09/09 [facility] Outpatient Encounter [id number] FRAN BEE 09/09 [facility] MTMS BY PHARM EST 15 MIN [id number] Diagnos is: ICD-10- CM Z51.81 Encount er for therape utic drug level monitor ing<br/ > NNACI PEREIRA 10/07 [facility] Outpatient Encounter [id number] [id number] KATERIN NAGEL 10/11 [facility] MTMS BY PHARM EST 15 MIN [id number] [id number] Diagnos is: ICD-10- CM Z51.81 Encount er for therape utic drug level monitor ing<br/ > Daniel BATISTA NNA P 11/11 [facility] OFFICE O/P EST MOD 30 MIN [id number] [id number] Diagnos is: ICD-10- CM F41.1 General ized anxiety disorde r
CASSIE SILVA JR 11/25 [facility] Outpatient Encounter [id number] 11/29 [facility] MTMS BY PHARM EST 15 MIN [id number] [id number] Diagnos is: ICD-10- CM Z51.81 Encount er for therape utic drug level monitor ing<br/ > NANCI PEREIRA S 12/09 [facility] Outpatient Encounter [id number] 12/09 [facility] Outpatient Encounter [id number] CHRISTIANO CARLSON 12/24 [facility] Outpatient Encounter [id number] [id number] DELORIS,TIFF ANY N 12/31 [facility] Outpatient Encounter [id number] [id number] 01/06 [facility] MTMS BY PHARM EST 15 MIN [id number] [id number] Diagnos is: ICD-10- CM Z51.81 Encount er for therape utic drug level monitor ing<br/ > NANCI PEREIRA S 01/12 [facility] OFF/OP EST JULY X REQ PHY/QHP [id number] [id number] Diagnos is: ICD-10- CM Z23 Encount er for immuniz ation<b r/> DARIELA CRUZ S 01/21 [facility] COMPRE OPH EXAM EST PT 1/> [id number] [id number] Diagnos is: ICD-10- CM E11.9 Type 2 diabete s mellitu s without complic ations< br/> AMILCAR FERNANDEZ THI 01/25 [facility] Outpatient Encounter [id number] 02/07 [facility] MTMS BY PHARM EST 15 MIN [id number] Diagnos is: ICD-10- CM Z51.81 Encount er for therape utic drug level monitor ing<br/ > NANCI PEREIRA S 02/10 [facility] N [facility] OFFICE O/P EST MOD 30 MIN [id number] Diagnos is: ICD-10- CM F43.29 Adjustm ent disorde r with other symptom s
GAN,AR MIDA A 02/10 [facility] Outpatient Encounter [id number] [facility] 02[facility]16 [facility] QNHP OL DIG ASSMT&MGMT 5-10 [id number] [id number] Diagnos is: ICD-10- CM E11.8 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 complic ations< br/> SCHMEES,NA NCY ESE 02/23 [facility] N [facility] Outpatient Encounter [id number] [facility] [address] [facility] Outpatient Encounter [id number] 02/23 [facility] N [facility] Outpatient Encounter [id number] [id number] [facility] [address] 02/25 [facility] N Procedures Combined list of: 1) Procedures from Department of [facility] facilities going back up to thelast 18 months, not all VA non-surgical procedures are included; 2) All procedures from the Department of Defense facilities. Procedure Procedure Type Code Date Perfomer Comments Sourc e LEFT EYE PHACO CATARACT EXTRACTION WITH LENS IMPLLANT XCAPSL CTRC RMVL W/O ECP 75051 07/01/2023 IRIS SANTAMARIA [facility] Social History Combined list of available smoking, tobacco, and other social history from Department of Defense and Veterans Affairs facilities. Social History Type Response Date Comment Sour e Tobacco smoking status NHIS VA-TOBACCO USE FORMER CIGARETTES 02/11/2024 [facility] History of tobacco use VA-TOBACCO NEVER USED OTHER TYPE 02/11/2024 [facility] History of tobacco use VA-TOBACCO FORMER USER 01/15/2023 [facility] History of tobacco use VA-TOBACCO FORMER USER 01/06/2022 [facility] History of tobacco use VA-TOBACCO FORMER USER 01/03/2021 [facility] History of tobacco use VA-TOBACCO FORMER USER 05/16/2019 [facility] History of tobacco use VA-TOBACCO QUIT 15 YRS OR MORE 04/29/2018 [facility] History of tobacco use QUIT TOBACCO >7 YEARS AGO 05/06/2017 [facility] History of tobacco use QUIT TOBACCO >7 YEARS AGO 11/03/2016 [facility] History of tobacco use QUIT TOBACCO >7 YEARS AGO 06/19/2016 [facility] History of tobacco use QUIT TOBACCO >7 YEARS AGO 08/03/[address] [facility] History of tobacco use QUIT TOBACCO >7 YEARS AGO 07/27/[address] [facility] History of tobacco use QUIT TOBACCO >7 YEARS AGO 07/14/2013 [facility] History of tobacco use QUIT TOBACCO >7 YEARS AGO 08/06/2012 [facility] History of tobacco use QUIT TOBACCO >7 YEARS AGO 06/12/2011 [facility] Plan of Care List of future care activities from Department of Veterans Affairs facilities. Additional future care activities may be listed in the Assessment and Plan section. Date/Time Care Activity Care Activity Detail Facili ty 03/21/2024 AMBULATORY - MEDICINE AMBULATORY - MEDICI [facility] 03/24/2024 AMBULATORY - PSYCHIATRY [facility] 04/18/2024 AMBULATORY - SURGERY AMBULATORY - SURGERY [facility] 08/17/2024 AMBULATORY - MEDICINE AMBULATORY - MEDICI NE [facility] 02/11/2024 Laboratory - Senior Industrial Engineer ry Order LIPID PANEL (STL) GREEN LI/HEP BLD/PLAS PLASMA SP ONCE [facility] 02/11/2024 Laboratory - Senior Industrial Engineer ry Order MICRAL/CREAT PROFILE (STL) URINE SP [facility] 02/11/2024 Laboratory - Senior Industrial Engineer ry Order TSH W/ REFLEX FT4 (STL) GREEN LI-HEP PLASMA SP [facility] 02/11/2024 Laboratory - Senior Industrial Engineer ry Order URIC ACID GREEN LI/HEP BLD/PLAS PLASMA SP [facility] 02/11/2024 Laboratory - Senior Industrial Engineer ry Order VITAMIN D, 25-HYDROXY GOLD/RED SST SERUM SP [facility] 02/11/2024 Laboratory - Senior Industrial Engineer ry Order COMPREHENSIVE METABOLIC PANEL GREEN LI/HEP BLD/PLAS PLASMA SP [facility] 02/22/2024 Laboratory - Senior Industrial Engineer ry Order B12 GOLD/RED SST SERUM SP [facility] 02/22/2024 Consult Order PODIATRY HIGH RI SK FOOT EXAM OUTPT STL Cons Branch Billing Payroll Clerk's Choice [facility] 03/21/2024 Laboratory - Senior Industrial Engineer ry Order WARFARIN-INR BLOOD PLASMA SP [facility] Advance Directives List of completed, amended, or rescinded Advance Directives on record at Department of [facility] facilities. An actual copy of the Directive is not included. Date Advance Directive Provider Source 06/13/2013 ADVANCE DIRECTIVE DISCUSSION RONALD ESTRADA [facility]
[2024-03-04 13:35] LABS: Basophils Percent Auto 0.8 % (0.2-1.2); Eosinophils Absolute Auto 0.1 K/mm3 (0-0.3); Eosinophils Percent Auto 2.1 % (0-4.4); Hematocrit 46.2 % (42.0-52.0); Hemoglobin 14.6 g/dL (14.0-18.0); Immature Granulocyte Absolute 0.02 K/mm3 (0.00-0.031); Immature Granulocyte Percent A 0.4 % (0-0.5); Lymphocytes Absolute Auto 1.56 K/mm3 (0.9-3.2); Lymphocytes Percent Auto 29.5 % (18.3-44.2); Mean Corpuscular HGB Conc 31.6 g/dl (32-36); Mean Corpuscular Hemoglobin 25.9 pg (26-34); Mean Corpuscular Volume 82.1 fl (80-100); Mean Platelet Volume 10.7 fl (7.4-10.4); Monocytes Absolute Auto 0.4 K/mm3 (0.1-0.6); Neutrophils Absolute Auto 3.2 K/mm3 (1.3-6.7); Neutrophils Percent Auto 60.2 % (45.5-73.1); Platelet Count Result 120 k/mm3 (150-375); Red Blood Count 5.63 M/mm3 (4.6-6.20); Red Cell Distribution Width 14.7 % (11.5-14.5); White Blood Count 5.3 K/mm3 (4.5-10.0)
[2024-03-04 13:48] LABS: CRP < 0.5 mg/dL (<1.0)
[2024-03-04 13:52] LABS: Anion Gap 9 mmol/L (4-12); Blood Urea Nitrogen 22 mg/dL (9-20); Calcium 9.6 mg/dL (8.4-10.2); Carbon Dioxide 24 mmol/L (22-30); Chloride 105 mmol/L (98-107); Estimated CRCL calculation 77 ml/min; Estimated Glomerular Filt Rate > 60; Glucose 261 mg/dL (65-110); Potassium 4.3 mmol/L (3.4-5.0); Sodium 138 mmol/L (137-145)
[2024-03-04 13:53] LABS: INR 2.5; Prothrombin Time 27.3 Seconds (11.1-14.7)
[2024-03-04 13:54] LABS: Partial Thromboplastin Time 34.4 Seconds (22.3-36.8)
== END 2024-03-04 15:19 | disposition home or self-care (01) ==
PROVIDERS: Emergency Provider Physician Assistant; PCP Nurse Practitioner Family
DX: S60.561A Insect bite (nonvenomous) of right hand, initial encounter (principal); I07.1 Rheumatic tricuspid insufficiency; I11.9 Hypertensive heart disease without heart failure; E11.40 Type 2 diabetes mellitus with diabetic neuropathy, unspecified; E78.5 Hyperlipidemia, unspecified; G25.81 Restless legs syndrome; G47.33 Obstructive sleep apnea (adult) (pediatric); K21.9 Gastro-esophageal reflux disease without esophagitis; Z96.653 Presence of artificial knee joint, bilateral; Z87.891 Personal history of nicotine dependence; Z79.01 Long term (current) use of anticoagulants; Z79.84 Long term (current) use of oral hypoglycemic drugs; Z79.899 Other long term (current) drug therapy; W57.XXXA Bitten or stung by nonvenomous insect and other nonvenomous arthropods, initial encounter
CPT/HCPCS: 36415; 80048; 85025; 85610; 85730; 86140; 99283